=== PATIENT | female | born 1935 | race Caucasian/White ===

== ENCOUNTER 2017-07-06 07:51 | Inpatient (IN) | payer MEDICARE, SELFPAY ==
[2017-07-06] VITALS (25 sets, daily range): BP systolic 138–163; BP diastolic 41–80; PULSE 51–72; RESP 14–36; TEMP 36.6–37.1; O2SAT 40–99; BMI 31.1; BMI 31.2; BMI 29.1
--- NOTE | 2017-07-06 07:51 | EKG12_ITS ---
Test Reason : SOB Blood Pressure : / mmHG Vent. Rate : 050 BPM Atrial Rate : 050 BPM P-R Int : 130 ms QRS Dur : 084 ms QT Int : 514 ms P-R-T Axes : 053 048 048 degrees QTc Int : 468 ms Sinus bradycardia Nonspecific ST and T wave abnormality Abnormal ECG Confirmed by BEE NEGRON, MU ([id number]), script editor ISADORA CASTREJON ([id number]) on 07/11/2017 3:46:22 PM Referred By: EMMY Confirmed By:MU GAMBOA MD
--- NOTE | 2017-07-06 07:52 | RAD_ITS ---
STUDY: X-RAY CHEST REASON FOR EXAM: Female, 81 years old. Shortness of breath and chest pain. TECHNIQUE: Single AP portable view of the chest. COMPARISON: Comparison is made with prior study dated October 25, 2016. FINDINGS: EKG electrodes are seen. There is evidence of increased interstitial markings at both lung bases with areas of confluence. This is suggestive of a CHF. There is no demonstrated pleural abnormality. There is moderate cardiac enlargement. Normal mediastinum and gregg. Normal visualized pulmonary arteries. There is atherosclerotic calcification of the aortic arch with tortuosity. There are diffuse degenerative changes of the visualized thoracic spine. Normal visualized ribs, clavicles, and shoulders. There is no demonstrated abnormality of the visualized soft tissue structures of the upper abdomen. RAD/Chest 1 View (Portable) IMPRESSION: Cardiomegaly and CHF. Electronically Signed: Ranjan Byrd MD at 8:38 EDT Tel [phone], Service support ,
[2017-07-06 08:13] LABS: Absolute Lymphocyte Count 1.27 X10^3/ul (0.83-4.51); Absolute Neutrophil Count 11.7 X10^3/uL (2.0-7.7); Basophil# 0.02 X10^3/uL; Basophil% 0.1 % (0-1); Eosinophil# 0.53 X10^3/uL; Eosinophils% 3.6 % (0-5); Hematocrit 36.1 % (37-47); Hemoglobin 10.9 g/dl (12.0-15.0); Lymphocyte # 1.27 X10^3/ul (4.0); Lymphocyte % 8.7 % (19-41); Mean Corp Hgb Conc 30.2 g/gl (32-36); Mean Corpuscular Hgb 27.9 pg (27.0-32.0); Mean Corpuscular Volume 92.3 fL (81-99); Mean Platelet Vol. 10.7 fl (6.2-12.0); Monocyte# 1.05 X10^3/uL; Monocyte% 7.2 % (0-10); Neutrophil # 11.74 X10^3/uL (2.7-7.7); Neutrophil % 80.1 % (47-70); Platelet Count 264 K/mm3 (150-450); RBC Distribution Width CV 14.8 % (11.6-14.6); RBC Distribution Width SD 50.2 fl (35.1-43.9); Red Blood Count 3.91 M/mm3 (4.2-5.4); White Blood Count 14.7 K/mm3 (4.4-11.0)
[2017-07-06] MEDS: Ipratropium/Albuterol Sulfate 3 ML AMPUL.NEB INHALATION (08:13)
[2017-07-06] MEDS: Albuterol 2.5 MG/3 ML VIAL.NEB. INHALATION ×2 (08:13)
[2017-07-06 08:14] LABS: POSITIVE COUNT NO; POSITIVE DIFFERENTIAL NO; POSITIVE MORPHOLOGY NO
[2017-07-06] MEDS: MethylPREDNISolone 125 MG/2 ML Vial IV (08:18)
--- NOTE | 2017-07-06 08:28 | NURSING ---
NO LW OR POA
[2017-07-06 08:32] LABS: Anion Gap 3 (5-15); BUN 13 mg/dL (7-18); BUN/Creat Ratio 17.8 RATIO (10-20); Calcium,Total 8.6 mg/dL (8.5-10.1); Chloride 103 mmol/L (98-107); Creatinine, Serum 0.73 mg/dL (0.55-1.02); EST Glomerular Filtration Rate 81 mL/min (>60); Est Glom Filt Rate - Afr Amer 98 mL/min (>60); Estimated Creatinine Clearance 35.88 ml/min; Glucose 175 mg/dL (74-106); Potassium 4.2 mmol/L (3.5-5.1); Sodium Level 140 mmol/L (136-145)
[2017-07-06 08:34] LABS: Lactic Acid 1.5 mmol/L (0.4-2.0)
[2017-07-06 08:40] LABS: Allen Test POS; Base Excess 4 mmol/L (-2 to +2); Bicarbonate 30.3 mmol/L (22-26); Blood Gas Specimen Type ART; EPAP 5; FI02 65; IPAP 10; PO2 67 mmHG (75-100); RR 14; SITE R Radial; SO2 90 % (95-99); Time Given 825; Total Carbon Dioxide 32 mmol/L
--- NOTE | 2017-07-06 08:55 | ED.VISSUMM ---
- ER Visit Summary Date of Service: 07/06/17 Chief Complaint: Shortness of breath History of Present Illness: The patient is a 81 F with an underlying history of COPD hypertension high cholesterol and peripheral vascular disease presenting with shortness of breath. Patient states this been getting worse over the course of the last 2 days. She feels that it is consistent with her COPD. Patient is on chronic oxygen at home, denies cough chest pain fevers. Patient states that she had been getting progressively more short of breath over the course of the last 2 days. When paramedics arrived patient was 78% on her home 3 L. She was brought immediately to the emergency department. Physical Examination: Vital signs notable for a respiratory rate of 24 pulse ox 94% on nonrebreather with hypoxia. Well-nourished female visibly in mild respiratory distress. Moist mucous membranes. Neck was supple. Heart was regular rhythm with bradycardia. 2+ peripheral pulses bilaterally symmetric. Lung sounds showed evidence of wheezing and diminished sounds with poor air movement mild distress no significant retractions noted. Abdomen soft nontender. No peripheral edema. Test Results: Chest x-ray demonstrates bilateral pulmonary infiltrates consistent with CHF. EKG shows lateral ST depressions that were apparent in a prior EKG in 2017. CBC shows leukocytosis of 14, troponin negative, lactic acid negative, ABG shows respiratory acidosis pH is 7.3 and a CO2 of 61 Emergency Department Course and Treatment: Patient presented in respiratory distress. She was placed on BiPAP. She was given albuterol and Atrovent treatments as well as Solu-Medrol. Workup shows evidence that the patient has congestive heart failure. Patient will be given dose of Lasix, she will be admitted under the hospitalist. Disposition: Admission Impression: 1. Hypoxic and hypercapnic respiratory failure 2. Congestive heart failure 3. COPD Critical care time 35 minutes This note was generated with [employer] dictation software. It may contain incorrect words, spelling, and punctuation that were not noted in review of the chart prior to signing ED Disposition - Plan for ED Patient: Chief Complaint: Shortness of Breath Referrals: Cole Moran MD [Primary Care Provider] -
--- NOTE | 2017-07-06 09:17 | CASEMGMT ---
Social Work Note In to complete initial assessment as pt is an anticipated admission. Introduced self and role at [facility]. The pt is presently receiving a breathing treatment, and is accompanied by her daughter, Roselia, and her granddaughter. Pt and her daughter both respond to questions. Pt reports to live in a one-story home with 3 steps for entry with her grandson. DME consists of a cane, which she only uses for community ambulation, and oxygen. She currently gets her oxygen through [employer] but according to Roselia is in the process of switching to [facility]. Pt's daughter, Roselia, claims to be the pt's HCPOA. Not on file and requested that Roselia bring paperwork in. Pt denies being independent with ADLs and Roselia states that she assists her with these. Pt has adequate supports as family lives with her or next door. Confirm that Dr. Moran is the pt's PCP and she utilizes [facility]. Pt and daughter do not anticipate any needs at discharge, but are made aware that RN ALICIA or SW will be available if needs arise. Linda Harden, INCLINOMETER TESTER, EXHIBITOR SALES
--- NOTE | 2017-07-06 10:15 | NURSING ---
DR DAWKINS FOR DR BOOTH
--- NOTE | 2017-07-06 10:23 | PCM.HP.STD ---
Problem List (1) History of hypertension Status: Chronic (2) Hyperlipidemia Status: Chronic Qualifiers: Hyperlipidemia type: unspecified Qualified Code(s): E78.5 - Hyperlipidemia, unspecified (3) COPD (chronic obstructive pulmonary disease) Status: Chronic Qualifiers: COPD type: unspecified COPD Qualified Code(s): J44.9 - Chronic obstructive pulmonary disease, unspecified (4) DUDLEY on CPAP Status: Chronic (5) History of peripheral vascular disease Status: Chronic History of Present Illness Date of Admission: 07/06/17 Chief Complaint: Shortness of breath for 2 days The patient is a 81 year old F with past medical history of COPD on 3 L of oxygen, DUDLEY on CPAP, hypertension comes in with complaints of worsening shortness of breath noted in the last 2 days. Patient denies any sick contacts, denies runny nose or sore throat. Noticed progressively worsening shortness of breath, denies chest pain, dizziness or palpitations. In the ED, patient was said to be hypoxic with 79% on room air, ABG showed respiratory acidosis, started on BiPAP and Lasix with improvement. Chest x-ray shows vascular congestion, BNPep was more than 423. Lab investigations show some leukocytosis, microcytic microchromic anemia. Past Medical History Past Medical History (Chronic Problems): Chronic Problems History of hypertension (Chronic) Hyperlipidemia (Chronic) History of tobacco use (Chronic) History of esophageal reflux (Chronic) Diverticulosis of colon (without mention of hemorrhage) (Chronic) COPD (chronic obstructive pulmonary disease) (Chronic) DUDLEY on CPAP (Chronic) History of peripheral vascular disease (Chronic) Allergies cilostazol [From Pletal] Allergy (Verified 07/06/17 07:56) Swelling Penicillins Allergy (Verified 07/06/17 07:56) Swelling Home Medications: Ambulatory Orders Medication Instructions Recorded Albuterol Inhaler [Ventolin Hfa 2 puff INHALATION Q6H PRN PRN 04/27/16 (SP)] Albuterol Sulfate [Proventil Hfa] 6.7 gm IH Q2H PRN PRN 04/27/16 Amlodipine Besylate [Norvasc] 10 mg PO DAILY 04/27/16 Citalopram [Celexa] 40 mg PO QHS 04/27/16 Clopidogrel Bisulfate [Plavix] 75 mg PO DAILY 04/27/16 Ferrous Gluconate 325 mg PO DAILY@0800 04/27/16 Fluticasone 220 Mcg [Flovent (SP)] 2 puff INHALATION BID 04/27/16 Furosemide [Lasix] 40 mg PO DAILY 04/27/16 Lisinopril [Zestril] 40 mg PO BID 04/27/16 Loratadine [Claritin] 10 mg PO DAILY 04/27/16 Multivitamins,Ther W-Minerals 1 tablet PO DAILY 04/27/16 [Multivitamin With Minerals] [place]-3 Fatty Acids/Fish Oil 2 each PO DAILY 04/27/16 [[place] 3 1,000 mg Softgel] Pantoprazole Sodium [Protonix] 40 mg PO DAILY 04/27/16 Potassium Chloride [K-Dur] 20 meq PO BID 04/27/16 Pravastatin [Pravachol] 40 mg PO DAILY 04/27/16 traZODone [Desyrel] 100 mg PO QHS 04/27/16 Clonidine HCl 0.1 mg PO DAILY 07/06/17 Cyanocobalamin [Vitamin B12] 1,000 mcg PO DAILY@0800 07/06/17 Ipratropium [Atrovent] 0.5 mg INHALATION 4X/DAY 07/06/17 Metoprolol(XL)Succ [Toprol Xl 100 mg PO DAILY 07/06/17 (Beta Gwen)] Surgical History: hysterectomy, - - Lumpectomy right breast, back surgery there was a lump removed from left jaw region, skin cancer surgery. 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 Dyspnea. Denies: Chest Pain, Claudication, Orthopnea, Palpitations Respiratory: Reports: Cough, Shortness of Breath, Shortness of breath at rest, Shortness of breath upon exertion, Wheezing. Denies: Hemoptysis, Sputum production Gastrointestinal: Denies: Abdominal Pain, Hematemesis, Nausea, Vomiting Genitourinary: Denies: Dysuria Gynecological: Denies: Breast symptoms, Excessively long or heavy periods Musculoskeletal: Denies: Joint Pain, Joint Tenderness Skin: Denies: Rash, Wounds Neurological: Denies: Numbness, Tingling, Focal weakness Psychiatric: Denies: Anxiety, Depression, Homicidal Ideations, Suicidal Ideations Hematologic/ Lymphatic: Denies: Easy Bruising, Easy Bleeding VTE Information - Inpt Only VTE Present on Admission: No VTE Pharm Prophylaxis ordered?: Yes - Physical Exam General: Alert, Oriented x3, Cooperative, No apparent distress HEENT: Atraumatic, PERRLA, EOMI, Normocephalic Oral: Moist Mucosa Neck: Supple Lungs: Clear to auscultation, Normal air movement Cardiovascular: Regular rate, Regular Rhythm, Normal S1, Normal S2, No murmurs Abdomen: Bowel Sounds Present, Soft, Non Tender, Non-Distended, No Hepato-splenomegaly Extremities: No edema Skin: No rashes Musculoskeletal: No Tenderness to Palpation of Joints or Extremities Lymphatic: No Cervical, Supraclavicular, or Inguinal Adenopathy Neurological: Cranial nerves II-XII grossly intact, Neuro grossly intact Psych/Mental Status: Normal Affect, Appropriate Vital Signs Temp Pulse Resp BP Pulse Ox 97.9 F 53 L 17 150/80 H 96 07/06/17 07:51 07/06/17 10:10 07/06/17 10:10 07/06/17 10:10 07/06/17 10:10 Oxygen Delivery Method Bi-pap Weight: 79.832 kg Body Mass Index (BMI) 31.1 Finger Stick Blood Glucose 196 Microbiology Past 72 Hours 07/06/17 09:25 Influenza Types A,B Direct FA (RC) - Final Mucosa - Nasopharyngeal Laboratory Tests Past 24 Hrs 07/06/17 07/06/17 07/06/17 08:05 08:05 08:05 WBC 14.7 H RBC 3.91 L Hgb 10.9 L Hct 36.1 L MCV 92.3 MCH 27.9 MCHC 30.2 L RDW 14.8 H RDW Differential 50.2 H Plt Count 264 MPV 10.7 Immature Gran % (Auto) 0.300 Neut % (Auto) 80.1 H Lymph % (Auto) 8.7 L [place] % (Auto) 7.2 Eos % (Auto) 3.6 Baso % (Auto) 0.1 Absolute Neuts (auto) 11.7 H Absolute Lymphs (auto) 1.27 Total Counted Not Reportable Specimen Type Sample Site pH Bicarbonate Actual POC Total CO2 Base Excess O2 Saturation O2 % ABG pCO2 ABG pO2 Jeramie Test Respiration Rate O2 Delivery Device EPAP IPAP Blood Gas Notified Whom Blood Gas Notified Time Sodium 140 Potassium 4.2 Chloride 103 Carbon Dioxide 34.0 H Anion Gap 3 L BUN 13 Creatinine 0.73 Estim Creat Clear Calc 35.88 Est GFR (MDRD) Af Amer 98 Est GFR (MDRD) Non-Af 81 BUN/Creatinine Ratio 17.8 Glucose 175 H Lactic Acid 1.5 Calcium 8.6 Troponin I < 0.02 07/06/17 08:34 WBC RBC Hgb Hct MCV MCH MCHC RDW RDW Differential Plt Count MPV Immature Gran % (Auto) Neut % (Auto) Lymph % (Auto) [place] % (Auto) Eos % (Auto) Baso % (Auto) Absolute Neuts (auto) Absolute Lymphs (auto) Total Counted Specimen Type ART Sample Site R Radial pH 7.30 L Bicarbonate Actual 30.3 H POC Total CO2 32 Base Excess 4 H O2 Saturation 90 L O2 % 65 ABG pCO2 61.0 H ABG pO2 67 L Jeramie Test POS Respiration Rate 14 O2 Delivery Device Bi / C PAP EPAP 5 IPAP 10 Blood Gas Notified Whom ED MD Blood Gas Notified Time 825 Sodium Potassium Chloride Carbon Dioxide Anion Gap BUN Creatinine Estim Creat Clear Calc Est GFR (MDRD) Af Amer Est GFR (MDRD) Non-Af BUN/Creatinine Ratio Glucose Lactic Acid Calcium Troponin I Assessment/Plan 81 year old F with past medical history of COPD on 3 L of oxygen, DUDLEY on CPAP, hypertension comes in with complaints of worsening shortness of breath noted in the last 2 days. 1. Acute hypoxic respiratory failure secondary to combined COPD and acute on chronic diastolic CHF, improved on BiPAP, admit to PCU, continue on BiPAP, continue to wean off BiPAP for SPO2 more than 94%, will consider pulmonary consult if patient maintains on BiPAP overnight. 2. Acute COPD exacerbation in a patient with known COPD on 3 L of oxygen, would start patient on IV steroids, respiratory panel, breathing treatments around the clock, IV azithromycin 3. Acute on chronic diastolic CHF, last 2D echo in 2012 showed stage I diastolic dysfunction, will repeat 2D echo, IV Lasix 40 mg twice daily, strict I's and O's, daily weights 4. Hypertension, controlled, on amlodipine, metoprolol, lisinopril, clonidine, will continue to monitor vitals 5. Hyperlipidemia, on statin 6. Anxiety/depression, on Celexa and trazodone 7. Iron deficiency anemia, on p.o. iron, hemoglobin appears stable 8. DUDLEY on CPAP 9. DVT prophylaxis on Lovenox subcu Code Visit Inpatient E&M: 91662 Subs Hosp L2
--- NOTE | 2017-07-06 10:27 | NURSING ---
121 ACUTE HYOPOXIC RESP FAILURE PAINTSIL
[2017-07-06] MEDS: Furosemide 40 MG/4 ML Vial IV ×2 (10:44→18:18)
[2017-07-06 10:57] LABS: BNP,B-Type NATRIURETIC PEPTIDE 423.4 pg/mL (0-100)
--- NOTE | 2017-07-06 13:56 | ECHOD_ITS ---
Reason For Study: DYPSNEA/SOB Procedure This was a 2D Doppler, Color Flow transthoracic echocardiogram. Exam performed portable in patient room. Left Ventricle Normal size and thickness. The estimated ejection fraction is 55 %. Stage 2 diastolic dysfunction. No regional wall motion abnormalities noted. Right Ventricle Normal size and thickness. Normal systolic function. Atria The left atrium is severely enlarged. Normal right atrium. Normal atrial septum. Mitral Valve Mild diffuse mitral valve thickening. Moderate (2+) posteriorly directed mitral valve insufficiency. Tricuspid Valve Normal tricuspid valve. Mild (1+) tricuspid valve insufficiency. Right ventricular systolic pressure estimated to be 59 mmHg. Moderate pulmonary hypertension. Aortic Valve Trisinus/trileaflet aortic valve. Mild diffuse aortic valve thickening. There is no aortic stenosis. Pulmonic Valve Normal pulmonic valve. Great Vessels Normal aortic root. Mild atherosclerosis of the aortic arch. Normal inferior vena cava. Inferior vena cava collapse with sniff. Pericardium/Pleural No pericardial effusion. MMode/2D Measurements & Calculations LVIDd: 5.9 cm IVSd: 1.2 cm Ao root diam: 3.8 cm LVIDs: 4.0 cm LVPWd: 0.97 cm RVDd: 3.4 cm FS: 32.0 % LAV(MOD-bp): 101.1 ml EDV(MOD-sp4): 165.9 ml SV(MOD-sp4): 99.8 ml LAV(MOD-bp) Indexed: 56.9 ml/m2 ESV(MOD-sp4): 66.1 ml LAV(MOD-sp2): 96.9 ml EF(MOD-sp4): 60.2 % LAV(MOD-sp4): 93.0 ml LA A4 area: 27.7 cm2 RA A4 area: 19.1 cm2 Time Measurements MV dec time: 0.19 sec Doppler Measurements & Calculations MV E max william: 168.3 cm/sec Lat Peak E' William: 10.4 cm/sec Med Peak E' William: 5.2 cm/sec MV A max william: 97.2 cm/sec E/E' lat: 16.2 E/E' med: 32.5 MV E/A: 1.7 Ao V2 max: 188.4 cm/sec LV V1 max: 118.5 cm/sec PA V2 max: 121.1 cm/sec Ao max P.2 mmHg LV V1 max P.6 mmHg TR max william: 321.8 cm/sec TR max P.4 mmHg Interpretation Summary The estimated ejection fraction is 55 %. Stage 2 diastolic dysfunction. The left atrium is severely enlarged. Moderate (2+) posteriorly directed mitral valve insufficiency. Mild (1+) tricuspid valve insufficiency. Right ventricular systolic pressure estimated to be 59 mmHg. Moderate pulmonary hypertension. Compared to echo report dated 01/03/2013, LV function appears slightly worse (65%-->55%), RVSP has incareased from 35 to 59 mm Hg. Ordering Physician: Marcella Mcgraw Referring Physician: CELESTINA LARSON Performed By: Alisa Ortiz RDCS
[2017-07-06] MEDS: guaiFENesin 1,200 MG Tablet 1200 MG PO (22:56)
[2017-07-07] VITALS (18 sets, daily range): BP systolic 139–162; BP diastolic 52–78; PULSE 56–95; RESP 14–22; TEMP 36.6–37.2; O2SAT 92–99
[2017-07-07] MEDS: Enoxaparin 40 MG/0.4 ML Syringe SC (05:10)
[2017-07-07] MEDS: 0.9% NaCl Peripheral Flush Adult/Peds IV (05:10)
[2017-07-07 06:25] LABS: Hematocrit 32.4 % (37-47); Hemoglobin 10.3 g/dl (12.0-15.0); Mean Corp Hgb Conc 31.8 g/gl (32-36); Mean Corpuscular Hgb 28.7 pg (27.0-32.0); Mean Corpuscular Volume 90.3 fL (81-99); Platelet Count 236 K/mm3 (150-450); RBC Distribution Width CV 14.6 % (11.6-14.6); RBC Distribution Width SD 47.3 fl (35.1-43.9); Red Blood Count 3.59 M/mm3 (4.2-5.4); White Blood Count 7.8 K/mm3 (4.4-11.0)
[2017-07-07 06:31] LABS: Scan Indicated on CBC? Y/N NO
[2017-07-07 06:44] LABS: Anion Gap 7 (5-15); BUN 26 mg/dL (7-18); BUN/Creat Ratio 35.1 RATIO (10-20); Calcium,Total 8.6 mg/dL (8.5-10.1); Chloride 99 mmol/L (98-107); Creatinine, Serum 0.74 mg/dL (0.55-1.02); EST Glomerular Filtration Rate 80 mL/min (>60); Est Glom Filt Rate - Afr Amer 97 mL/min (>60); Estimated Creatinine Clearance 35.88 ml/min; Glucose 157 mg/dL (74-106); Potassium 3.8 mmol/L (3.5-5.1); Sodium Level 140 mmol/L (136-145)
[2017-07-07] MEDS: Ipratropium/Albuterol Sulfate 3 ML AMPUL.NEB INHALATION ×3 (07:27→15:07)
[2017-07-07] MEDS: Furosemide 40 MG/4 ML Vial IV ×2 (08:14→18:22)
[2017-07-07] MEDS: guaiFENesin 1,200 MG Tablet 1200 MG PO ×2 (08:15→22:23)
[2017-07-07] MEDS: Acetaminophen 325 MG Tablet 650 MG PO ×2 (11:07→18:22)
--- NOTE | 2017-07-07 16:12 | PCM.PROGNOTE ---
<Martín Mandujano - Last Filed: 07/07/17 16:12> Subjective: Pts SOB is improving. Mild cough, nonproductive. No fevers or chills. Will attempt to wean O2. She tolerated BiPAP last night. She reports compliance with this at home. - Physical Exam General: Alert, Oriented x3, Cooperative HEENT: Atraumatic, PERRLA, EOMI, Normocephalic Neck: Supple, No JVD, Negative Carotid Bruits Lungs: Diminished, Rales Cardiovascular: Regular rate, No murmurs Abdomen: Bowel Sounds Present, Soft, Non Tender Extremities: No edema, Capillary Refill Less than 3 Seconds Skin: No rashes, No breakdown Musculoskeletal: No Tenderness to Palpation of Joints or Extremities Neurological: Cranial nerves II-XII grossly intact Psych/Mental Status: Normal Affect, Appropriate Vital Signs Temp Pulse Resp BP Pulse Ox 98.2 F 95 18 148/52 H 94 07/07/17 14:00 07/07/17 15:19 07/07/17 15:11 07/07/17 14:00 07/07/17 15:11 Oxygen Flow Rate (L/min) 3 Oxygen Delivery Method Nasal Cannula Weight: 73.7 kg Body Mass Index (BMI) 29.1 Intake and Output for Last 24 Hours 07/05/17 07/06/17 07/07/17 23:59 23:59 23:59 Intake Total 871 / 871 720 / 720 Output Total 1320 / 1320 825 / 825 Balance -449 / -449 -105 / -105 Microbiology Past 72 Hours 07/06/17 19:05 Respiratory Panel (PCR) - Final Mucosa - Nasopharyngeal Laboratory Tests Past 24 Hrs 07/07/17 07/07/17 06:05 06:05 WBC 7.8 RBC 3.59 L Hgb 10.3 L Hct 32.4 L MCV 90.3 MCH 28.7 MCHC 31.8 L RDW 14.6 RDW Differential 47.3 H Plt Count 236 MPV 11.0 Sodium 140 Potassium 3.8 Chloride 99 Carbon Dioxide 34.0 H Anion Gap 7 BUN 26 H Creatinine 0.74 Estim Creat Clear Calc 35.88 Est GFR (MDRD) Af Amer 97 Est GFR (MDRD) Non-Af 80 BUN/Creatinine Ratio 35.1 H Glucose 157 H Calcium 8.6 Medical Necessity - Tobacco Use Smoking Status: Former smoker Assessment/Plan 1. Acute on chronic hypoxic respiratory failure 2/2 acute COPD exacerbation and acute diastolic CHF exacerbation - pt initially on BiPAP with mild respiratory acidosis with elevated BNP, negative lactate, neg troponin. She is now improved and we will attempt to wean O2 to baseline 3 lpm. Continue lasix, duonebs, solumedrol, I/Os, bipap at night. Continue azithromycin. CXR with cardiomegaly and CHF. Leukocytosis improved. Afebrile. Echo pending. Last echo (2012) with stage I diastolic dysfunction, EF 65%, RVSP 35 mmHg. Her SERGIO and beta juana were held at admission - restart. 2. HTN - restart home meds - clonodine, BB, sergio (will daily qd instead of BID to start). 3. DUDLEY - bipap qhs. 4. HLD - statin 5. Anxiety/Depression - celexa/trazodone 6. Normocytic anemia - continue PO iron. Trend DVT ppx: lovenox DC planning: improved, will reevaluate in AM. PTOT. This patient was seen by Martín Mandujano PA-C under the supervision of Doctor Mariluz. <Marcella Mcgraw - Last Filed: 07/07/17 17:14> - Physical Exam Vital Signs Temp Pulse Resp BP Pulse Ox 98.2 F 95 18 148/52 H 94 07/07/17 14:00 07/07/17 15:19 07/07/17 15:11 07/07/17 14:00 07/07/17 15:11 Oxygen Flow Rate (L/min) 3 Oxygen Delivery Method Nasal Cannula Weight: 73.7 kg Body Mass Index (BMI) 29.1 Intake and Output for Last 24 Hours 07/05/17 07/06/17 07/07/17 23:59 23:59 23:59 Intake Total 871 / 871 720 / 720 Output Total 1320 / 1320 825 / 825 Balance -449 / -449 -105 / -105 Microbiology Past 72 Hours 07/06/17 19:05 Respiratory Panel (PCR) - Final Mucosa - Nasopharyngeal Laboratory Tests Past 24 Hrs 07/07/17 07/07/17 06:05 06:05 WBC 7.8 RBC 3.59 L Hgb 10.3 L Hct 32.4 L MCV 90.3 MCH 28.7 MCHC 31.8 L RDW 14.6 RDW Differential 47.3 H Plt Count 236 MPV 11.0 Sodium 140 Potassium 3.8 Chloride 99 Carbon Dioxide 34.0 H Anion Gap 7 BUN 26 H Creatinine 0.74 Estim Creat Clear Calc 35.88 Est GFR (MDRD) Af Amer 97 Est GFR (MDRD) Non-Af 80 BUN/Creatinine Ratio 35.1 H Glucose 157 H Calcium 8.6 Assessment/Plan Patient was seen and examined independently physician boilermaker's assistant, Martín Mandujano. Patient was admitted yesterday with acute hypoxic respiratory failure secondary to acute COPD exacerbation and CHF. She reports of cough productive of clear mucus. Denies any fever or chills or chest pain no dizziness or palpitations. Feels much better. Off BiPAP, on 25 L of oxygen. Able to lie almost flat. Diuresing well. Physical exam shows few crackles at lung bases, no wheezes heard. 2D echo shows EF of 55%, stage II diastolic dysfunction. respiratory panel was negative, DC respiratory call droplet isolation We will continue on Lasix twice daily, IV steroids, breathing treatments, IV azithromycin, will re-evaluate in am Code Visit Inpatient E&M: 20093 Subs Hosp L2
[2017-07-07] MEDS: Citalopram 40 MG TABLET PO (22:23)
[2017-07-07] MEDS: traZODone 100 MG Tablet PO (22:23)
[2017-07-08] VITALS (18 sets, daily range): BP systolic 150–185; BP diastolic 61–94; PULSE 59–96; RESP 14–24; TEMP 36.4–36.8; O2SAT 94–99
[2017-07-08] MEDS: Enoxaparin 40 MG/0.4 ML Syringe SC (06:13)
[2017-07-08] MEDS: 0.9% NaCl Peripheral Flush Adult/Peds IV ×4 (06:13→17:29)
[2017-07-08] MEDS: Ipratropium/Albuterol Sulfate 3 ML AMPUL.NEB INHALATION ×3 (06:42→15:31)
[2017-07-08] MEDS: Ferrous Gluconate 325 MG Tablet PO (08:38)
[2017-07-08] MEDS: cloNIDine HCl 0.1 MG Tablet PO (08:38)
[2017-07-08] MEDS: Loratadine 10 MG Tablet PO (08:38)
[2017-07-08] MEDS: Pravastatin 40 MG Tablet PO (08:39)
[2017-07-08] MEDS: Furosemide 40 MG/4 ML Vial IV ×2 (08:39→17:29)
[2017-07-08] MEDS: Clopidogrel Bisulfate 75 MG Tablet PO (08:39)
[2017-07-08] MEDS: guaiFENesin 1,200 MG Tablet 1200 MG PO (08:39)
[2017-07-08] MEDS: Pantoprazole Sodium 40 MG Tablet PO (08:39)
[2017-07-08] MEDS: Metoprolol(XL)Succ 100 MG Tablet PO (08:39)
[2017-07-08] MEDS: Lisinopril 40 MG Tablet PO (08:40)
--- NOTE | 2017-07-08 12:00 | PCM.DC ---
You will use the following diet at home:: Cardiac - 2 g sodium/day Your food should be the consistency of: Regular Your liquids should be the consistency of: Regular/Thin Discharge Activity: Return to Normal Activity Additional Instructions: check daily weight Allergies/Adverse Reactions: Allergies cilostazol [From Pletal] Allergy (Verified 07/06/17 07:56) Swelling Penicillins Allergy (Verified 07/06/17 07:56) Swelling Medications to take at Discharge Albuterol Inhaler [Ventolin Hfa] 2 puff INHALATION Q6H PRN PRN 04/27/16 Albuterol Sulfate [Proventil Hfa] 6.7 gm IH Q2H PRN PRN 04/27/16 Amlodipine Besylate [Norvasc] 10 mg PO DAILY 04/27/16 Citalopram [Celexa] 40 mg PO QHS 04/27/16 Clopidogrel Bisulfate [Plavix] 75 mg PO DAILY 04/27/16 Ferrous Gluconate 325 mg PO DAILY@0800 04/27/16 Fluticasone 220 Mcg [Flovent 220 Mcg] 2 puff INHALATION BID 04/27/16 Lisinopril [Zestril] 40 mg PO BID 04/27/16 Loratadine [Claritin] 10 mg PO DAILY 04/27/16 Multivitamins,Ther W-Minerals [Multivitamin With Minerals] 1 tablet PO DAILY 04/27/16 [place]-3 Fatty Acids/Fish Oil [[place] 3 1,000 mg Softgel] 2 each PO DAILY 04/27/16 Pantoprazole Sodium [Protonix] 40 mg PO DAILY 04/27/16 Potassium Chloride [K-Dur] 20 meq PO BID 04/27/16 Pravastatin [Pravachol] 40 mg PO DAILY 04/27/16 traZODone [Desyrel] 100 mg PO QHS 04/27/16 Clonidine HCl 0.1 mg PO DAILY 07/06/17 Cyanocobalamin [Vitamin B12] 1,000 mcg PO DAILY@0800 07/06/17 Ipratropium [Atrovent Aerosols] 0.5 mg INHALATION 4X/DAY 07/06/17 Metoprolol(XL)Succ [Toprol Xl (Beta Gwen)] 100 mg PO DAILY 07/06/17 Furosemide [Lasix] 40 mg PO BID #60 tab 07/08/17 Prednisone 10 mg PO UD #30 tab 07/08/17 The following prescriptions were given: Furosemide [Lasix] 40 mg PO BID #60 tab Prednisone 10 mg PO UD #30 tab Orders to be completed after discharge: Basic Metabolic Profile (BMP) Time Frame: 5 Days, Location: Laboratory Primary Care Physician: Cole Moran MD [Primary Care Provider] - Please follow up with your Primary Care Physician in: 1-2 weeks Proposed Discharge Date: 07/08/17
--- NOTE | 2017-07-08 14:15 | PCM.DC.SUM ---
<Martín Mandujano - Last Filed: 07/08/17 14:15> Discharge Date and Diagnosis Date of Admission: 07/06/17 Date of Discharge: 07/08/17 - Primary Discharge Diagnosis Acute on chronic hypoxic respiratory failure 2/2 acute COPD exacerbation and acute diastolic CHF exacerabtion Moderate pulmonary htn HTN DUDLEY HLD Anxiety/Depression Iron deficiency anemia - Secondary Discharge Diagnosis Chronic Problems History of hypertension (Chronic) Hyperlipidemia (Chronic) History of tobacco use (Chronic) History of esophageal reflux (Chronic) Diverticulosis of colon (without mention of hemorrhage) (Chronic) COPD (chronic obstructive pulmonary disease) (Chronic) DUDLEY on CPAP (Chronic) History of peripheral vascular disease (Chronic) Hospital Course and Treatment Imaging Results: RAD/Chest 1 View (Portable) IMPRESSION: Cardiomegaly and CHF. Echo: Interpretation Summary The estimated ejection fraction is 55 %. Stage 2 diastolic dysfunction. The left atrium is severely enlarged. Moderate (2+) posteriorly directed mitral valve insufficiency. Mild (1+) tricuspid valve insufficiency. Right ventricular systolic pressure estimated to be 59 mmHg. Moderate pulmonary hypertension. Compared to echo report dated 01/03/2013, LV function appears slightly worse (65%-->55%), RVSP has incareased from 35 to 59 mm Hg. Operations: None Procedures: 2-D Echocardiogram Summary of Care Provided: Physical exam on day of discharge: General: Resting comfortably NAD Psych: A/Ox3 normal affect HEENT: PEARRLA AT NC Neck: Supple NT CV: RRR no m/t/r/g/h Resp: CTA Abd: [id number] Soft NT no guarding or rigidity Ext: DP2+= no edema Skin: W/D normal turgor Lymph/Heme: No active bleeding or adenopathy Neuro: CN2-12 intact Hospital course: The patient is a 81 year old F who presented to the emergency room complaining of shortness of breath over the last 2 days. She has COPD and is chronically oxygen dependent on 3 L and uses CPAP at night for obstructive sleep apnea. She was hypoxic in the emergency room 79% on room air. Her ABG demonstrated respiratory acidosis. She was placed on BiPAP and given IV Lasix that she appeared to be in congestive heart failure with an elevated BNP and a chest x-ray consistent with CHF. She was also placed on duo nebs and solumedrol. The patient did well overnight. She had a repeat echo following day which demonstrated a preserved ejection fraction at 55% with stage II diastolic dysfunction, elevated RVSP at 59 mmHg consistent with moderate pulmonary hypertension. We continued steroids and diuretics and she continued to improve well. She is able to be weaned back to her normal home oxygen levels. She is transitioned to a p.o. prednisone taper and orals Lasix. She will have an outpatient BMP and follow-up with her PCP. She is discharged home in stable condition. This patient was seen by Martín Mandujano PA-C under the supervision of Doctor Mcgraw. [] Discharge Diet: 2000 mg Sodium Diet Discharge Activity: Return to Normal Activity Home Medications: Medications to take at Discharge Albuterol Inhaler [Ventolin Hfa] 2 puff INHALATION Q6H PRN PRN 04/27/16 Albuterol Sulfate [Proventil Hfa] 6.7 gm IH Q2H PRN PRN 04/27/16 Amlodipine Besylate [Norvasc] 10 mg PO DAILY 04/27/16 Citalopram [Celexa] 40 mg PO QHS 04/27/16 Clopidogrel Bisulfate [Plavix] 75 mg PO DAILY 04/27/16 Ferrous Gluconate 325 mg PO DAILY@0800 04/27/16 Fluticasone 220 Mcg [Flovent 220 Mcg] 2 puff INHALATION BID 04/27/16 Lisinopril [Zestril] 40 mg PO BID 04/27/16 Loratadine [Claritin] 10 mg PO DAILY 04/27/16 Multivitamins,Ther W-Minerals [Multivitamin With Minerals] 1 tablet PO DAILY 04/27/16 [place]-3 Fatty Acids/Fish Oil [[place] 3 1,000 mg Softgel] 2 each PO DAILY 04/27/16 Pantoprazole Sodium [Protonix] 40 mg PO DAILY 04/27/16 Potassium Chloride [K-Dur] 20 meq PO BID 04/27/16 Pravastatin [Pravachol] 40 mg PO DAILY 04/27/16 traZODone [Desyrel] 100 mg PO QHS 04/27/16 Clonidine HCl 0.1 mg PO DAILY 07/06/17 Cyanocobalamin [Vitamin B12] 1,000 mcg PO DAILY@0800 07/06/17 Ipratropium [Atrovent Aerosols] 0.5 mg INHALATION 4X/DAY 07/06/17 Metoprolol(XL)Succ [Toprol Xl (Beta Gwen)] 100 mg PO DAILY 07/06/17 Furosemide [Lasix] 40 mg PO BID #60 tab 07/08/17 Prednisone 10 mg PO UD #30 tab 07/08/17 Following Prescrptions Were Given to Patient: Furosemide [Lasix] 40 mg PO BID #60 tab Prednisone 10 mg PO UD #30 tab Primary Care Physician: Cole Moran MD [Primary Care Provider] - Please follow up with your Primary Care Physician in: 1-2 weeks Please Follow Up With: Cole Moran MD Disposition: Home Minutes spent on discharge:: 35 Patient Condition:: Stable Medical Necessity - Tobacco Use Smoking Status: Former smoker Meaningful Use Info Meaningful Use Diagnoses (Choose all that apply): CHF - CHF SERGIO/ARB ordered at discharge?: Yes Documented LVEF (%): 55 <Marcella Mcgraw - Last Filed: 07/08/17 16:31> Discharge Date and Diagnosis - Secondary Discharge Diagnosis Chronic Problems History of hypertension (Chronic) Hyperlipidemia (Chronic) History of tobacco use (Chronic) History of esophageal reflux (Chronic) Diverticulosis of colon (without mention of hemorrhage) (Chronic) COPD (chronic obstructive pulmonary disease) (Chronic) DUDLEY on CPAP (Chronic) History of peripheral vascular disease (Chronic) Hospital Course and Treatment Summary of Care Provided: The patient is a 81 year old F [] Code Visit Inpatient E&M: 59068 Disch Hosp
--- NOTE | 2017-07-08 14:20 | DS.PCM_ITS ---
<Martín Mandujano - Last Filed: 07/08/17 14:15> Discharge Date and Diagnosis Date of Admission: 07/06/17 Date of Discharge: 07/08/17 - Primary Discharge Diagnosis Acute on chronic hypoxic respiratory failure 2/2 acute COPD exacerbation and acute diastolic CHF exacerabtion Moderate pulmonary htn HTN DUDLEY HLD Anxiety/Depression Iron deficiency anemia - Secondary Discharge Diagnosis Chronic Problems History of hypertension (Chronic) Hyperlipidemia (Chronic) History of tobacco use (Chronic) History of esophageal reflux (Chronic) Diverticulosis of colon (without mention of hemorrhage) (Chronic) COPD (chronic obstructive pulmonary disease) (Chronic) UDDLEY on CPAP (Chronic) History of peripheral vascular disease (Chronic) Hospital Course and Treatment Imaging Results: RAD/Chest 1 View (Portable) IMPRESSION: Cardiomegaly and CHF. Echo: Interpretation Summary The estimated ejection fraction is 55 %. Stage 2 diastolic dysfunction. The left atrium is severely enlarged. Moderate (2+) posteriorly directed mitral valve insufficiency. Mild (1+) tricuspid valve insufficiency. Right ventricular systolic pressure estimated to be 59 mmHg. Moderate pulmonary hypertension. Compared to echo report dated 01/03/2013, LV function appears slightly worse (65 %-->55%), RVSP has incareased from 35 to 59 mm Hg. Operations: None Procedures: 2-D Echocardiogram Summary of Care Provided: Physical exam on day of discharge: General: Resting comfortably NAD Psych: A/Ox3 normal affect HEENT: PEARRLA AT NC Neck: Supple NT CV: RRR no m/t/r/g/h Resp: CTA Abd: [id number] Soft NT no guarding or rigidity Ext: DP2+= no edema Skin: W/D normal turgor Lymph/Heme: No active bleeding or adenopathy Neuro: CN2-12 intact Hospital course: The patient is a 81 year old F who presented to the emergency room complaining of shortness of breath over the last 2 days. She has COPD and is chronically oxygen dependent on 3 L and uses CPAP at night for obstructive sleep apnea. She was hypoxic in the emergency room 79% on room air. Her ABG demonstrated respiratory acidosis. She was placed on BiPAP and given IV Lasix that she appeared to be in congestive heart failure with an elevated BNP and a chest x- ray consistent with CHF. She was also placed on duo nebs and solumedrol. The patient did well overnight. She had a repeat echo following day which demonstrated a preserved ejection fraction at 55% with stage II diastolic dysfunction, elevated RVSP at 59 mmHg consistent with moderate pulmonary hypertension. We continued steroids and diuretics and she continued to improve well. She is able to be weaned back to her normal home oxygen levels. She is transitioned to a p.o. prednisone taper and orals Lasix. She will have an outpatient BMP and follow-up with her PCP. She is discharged home in stable condition. This patient was seen by Martín Mandujano PA-C under the supervision of Doctor Mcgraw. [] Discharge Diet: 2000 mg Sodium Diet Discharge Activity: Return to Normal Activity Home Medications: Medications to take at Discharge Albuterol Inhaler [Ventolin Hfa] 2 puff INHALATION Q6H PRN PRN 04/27/16 Albuterol Sulfate [Proventil Hfa] 6.7 gm IH Q2H PRN PRN 04/27/16 Amlodipine Besylate [Norvasc] 10 mg PO DAILY 04/27/16 Citalopram [Celexa] 40 mg PO QHS 04/27/16 Clopidogrel Bisulfate [Plavix] 75 mg PO DAILY 04/27/16 Ferrous Gluconate 325 mg PO DAILY@0800 04/27/16 Fluticasone 220 Mcg [Flovent 220 Mcg] 2 puff INHALATION BID 04/27/16 Lisinopril [Zestril] 40 mg PO BID 04/27/16 Loratadine [Claritin] 10 mg PO DAILY 04/27/16 Multivitamins,Ther W-Minerals [Multivitamin With Minerals] 1 tablet PO DAILY [place]-3 Fatty Acids/Fish Oil [[place] 3 1,000 mg Softgel] 2 each PO DAILY Pantoprazole Sodium [Protonix] 40 mg PO DAILY 04/27/16 Potassium Chloride [K-Dur] 20 meq PO BID 04/27/16 Pravastatin [Pravachol] 40 mg PO DAILY 04/27/16 traZODone [Desyrel] 100 mg PO QHS 04/27/16 Clonidine HCl 0.1 mg PO DAILY 07/06/17 Cyanocobalamin [Vitamin B12] 1,000 mcg PO DAILY@0800 07/06/17 Ipratropium [Atrovent Aerosols] 0.5 mg INHALATION 4X/DAY 07/06/17 Metoprolol(XL)Succ [Toprol Xl (Beta Gwen)] 100 mg PO DAILY 07/06/17 Furosemide [Lasix] 40 mg PO BID #60 tab 07/08/17 Prednisone 10 mg PO UD #30 tab 07/08/17 Following Prescrptions Were Given to Patient: Furosemide [Lasix] 40 mg PO BID #60 tab Prednisone 10 mg PO UD #30 tab Primary Care Physician: Cole Moran MD [Primary Care Provider] - Please follow up with your Primary Care Physician in: 1-2 weeks Please Follow Up With: Cole Moran MD Disposition: Home Minutes spent on discharge:: 35 Patient Condition:: Stable Medical Necessity - Tobacco Use Smoking Status: Former smoker Meaningful Use Info Meaningful Use Diagnoses (Choose all that apply): CHF - CHF SERGIO/ARB ordered at discharge?: Yes Documented LVEF (%): 55 <Marcella Mcgraw - Last Filed: 07/08/17 16:31> Discharge Date and Diagnosis - Secondary Discharge Diagnosis Chronic Problems History of hypertension (Chronic) Hyperlipidemia (Chronic) History of tobacco use (Chronic) History of esophageal reflux (Chronic) Diverticulosis of colon (without mention of hemorrhage) (Chronic) COPD (chronic obstructive pulmonary disease) (Chronic) DUDLEY on CPAP (Chronic) History of peripheral vascular disease (Chronic) Hospital Course and Treatment Summary of Care Provided: The patient is a 81 year old F [] Code Visit Inpatient E&M: 46615 Disch Hosp
--- NOTE | 2017-07-11 15:18 | CASEMGMT ---
OLGA VARGAS Discharge Follow-Up Phone Call. CAMILLE: Riri Strata: 3 Call Date: 07/11/17 Discharge Date: 07/08/17 Time: 1519 Duration: 5 minutes Adm Dx: COPD and CHF Exacerbation with Acute Hypoxic RRF OLGA VARGAS spoke with Ms. Soares re: how she is feeling since she left the hospital. Ms. Soares reports she has been feeling better, and has not had any problems breathing since leaving the hospital. She reports she picked up her Lasix and Prednisone from the pharmacy and has been taking as prescribed. Ms. Soares reports she has been weighing herself daily, and has a follow-up appnt scheduled with Dr. Moran on Tuesday. Ms. Soares denies questions re: discharge instructions or medications. Reports no needs at this time. NOEL Chakraborty, RN-BC, CCM
== END 2017-07-08 21:00 | disposition home or self-care (01) | DRG 291 ==
LOC: ED 08:16 → PCU 10:35
PROVIDERS: Admitting Provider Internal Medicine; Emergency Provider Emergency Medicine; Family Provider Family Medicine; PCP Family Medicine; Visit Provider Internal Medicine
DX: I11.0 Hypertensive heart disease with heart failure (principal); J96.21 Acute and chronic respiratory failure with hypoxia; I27.20 Pulmonary hypertension, unspecified; J44.1 Chronic obstructive pulmonary disease with (acute) exacerbation; I50.33 Acute on chronic diastolic (congestive) heart failure; E78.5 Hyperlipidemia, unspecified; G47.33 Obstructive sleep apnea (adult) (pediatric); D50.9 Iron deficiency anemia, unspecified; I73.9 Peripheral vascular disease, unspecified; F41.9 Anxiety disorder, unspecified; F32.9 Major depressive disorder, single episode, unspecified; Z87.891 Personal history of nicotine dependence; Z99.81 Dependence on supplemental oxygen
CPT/HCPCS: 36415; 36600; 71045; 80048; 82803; 83605; 83880; 84484; 85025; 85027; 87633; 87804; 93005; 93306; 94002; 94003; 94640; 94668; 97110; 97116; 97162; 97166; 97530; 97802; 99251; 99285; J7040; A4216; G0463; J1940

== ENCOUNTER 2017-07-27 21:29 | Emergency (ER) | payer MEDICARE, SELFPAY ==
[2017-07-27] VITALS (7 sets, daily range): BP systolic 102–153; BP diastolic 51–96; PULSE 43–59; RESP 16–24; TEMP 36.7; O2SAT 95–98; BMI 30.1
--- NOTE | 2017-07-27 22:29 | EKG12_ITS ---
Test Reason : CHEST PRESSURE Blood Pressure : / mmHG Vent. Rate : 055 BPM Atrial Rate : 055 BPM P-R Int : 144 ms QRS Dur : 090 ms QT Int : 474 ms P-R-T Axes : 056 009 043 degrees QTc Int : 453 ms Sinus bradycardia Otherwise normal ECG Confirmed by BEE NEGRON, MU ([id number]), development editor ISADORA CASTREJON ([id number] on 07/29/2017 1:10:52 PM Referred By: ANI Confirmed By:MU GAMBOA MD
--- NOTE | 2017-07-27 22:33 | ED.VISSUMM ---
- ER Visit Summary Date of Service: 07/27/17 Chief Complaint: [] Shaking feeling with shortness of breath and chest pressure History of Present Illness: The patient is a 81 F patient stated she had a shaking feeling in her whole bilateral with some shortness of breath is worse than her baseline as well as some substernal chest pressure since early this afternoon around 1 PM. It has been continuous but gone currently. She feels back to normal. She has had a cough that is occasional yellow mucus and occasional weight. Has not changed from her baseline. She was recently admitted and discharged on the sixth of this month for COPD exacerbation as well as CHF. She is on home oxygen 4 L and CPAP at night. She had an echocardiogram which showed an EF of 55% with diastolic dysfunction and moderate mitral regurgitation. She has never had a heart attack. She states her last stress test was hemodynamically March and was normal. She has never needed a heart cath. She does use nebulizers 4 times a day but her last time using was approximately 10 and half hours ago. She is on a beta-juana 100 mg twice a day. Physical Examination: [] Vital signs reviewed General: Well-nourished well-developed Head: Normocephalic atraumatic Eyes: Pupils equal round and reactive to light extraocular movements intact ENT: TMs clear no hemotympanum no trauma Neck: Nontender full range of motion Cardiovascular: Regular rate rhythm no murmurs normal S1-S2 Respiratory: No distress expiratory wheezes throughout all lung yanez that is mild to moderate. Chest nontender Abdomen: Soft nontender nondistended normal bowel sounds no masses Back: Nontender no CVA tenderness Extremities: Nontender active range of motion ?4 extremities no trauma Skin: Normal color no trauma Neuro alert oriented cranial nerves II through XII intact normal strength sensation reflexes Test Results: [] Emergency Department Course and Treatment: [] EKG shows sinus rhythm at a rate of 55. No acute ischemia noted. X-ray shows left lower lung atelectasis otherwise nothing acute. CBC is normal except hemoglobin 11.0. Chemistries normal except creatinine 1.3. Up from 0.7. Troponin is less than 0.02. Patient given a breathing treatment DuoNeb with complete resolution of breathing difficulties. Wheezing completely resolved. She was given oral prednisone. I do not feel she has an FL or acute coronary syndrome. I think this is from her COPD. She is going to cut back on her Lasix 20 mg as it was recently increased on her admission to 40 mg twice a day. She is going to cut in half. She will have repeat renal function checked as an outpatient. She will be given prednisone for the next 4 days. Treatment Plan: [] Disposition: [] Impression: [] Acute exacerbation Renal insufficiency secondary to overdiuresis This note was generated with [employer] dictation software. It may contain incorrect words, spelling, and punctuation that were not noted in review of the chart prior to signing ED Disposition - Plan for ED Patient: Chief Complaint: Shortness of Breath Referrals: Cole Moran MD [Primary Care Provider] -
[2017-07-27] MEDS: Ipratropium/Albuterol Sulfate 3 ML AMPUL.NEB INHALATION (22:38)
[2017-07-27 22:40] LABS: Absolute Lymphocyte Count 2.18 X10^3/ul (0.83-4.51); Absolute Neutrophil Count 5.5 X10^3/uL (2.0-7.7); Basophil# 0.01 X10^3/uL; Basophil% 0.1 % (0-1); Eosinophil# 0.29 X10^3/uL; Eosinophils% 3.3 % (0-5); Hematocrit 34.7 % (37-47); Lymphocyte # 2.18 X10^3/ul (4.0); Lymphocyte % 24.7 % (19-41); Mean Corp Hgb Conc 31.7 g/gl (32-36); Mean Corpuscular Hgb 28.6 pg (27.0-32.0); Mean Corpuscular Volume 90.1 fL (81-99); Mean Platelet Vol. 11.2 fl (6.2-12.0); Monocyte# 0.84 X10^3/uL; Monocyte% 9.5 % (0-10); Neutrophil # 5.48 X10^3/uL (2.7-7.7); Neutrophil % 62.2 % (47-70); POSITIVE COUNT NO; POSITIVE DIFFERENTIAL NO; POSITIVE MORPHOLOGY NO; Platelet Count 256 K/mm3 (150-450); RBC Distribution Width CV 15.8 % (11.6-14.6); RBC Distribution Width SD 52.3 fl (35.1-43.9); Red Blood Count 3.85 M/mm3 (4.2-5.4); White Blood Count 8.8 K/mm3 (4.4-11.0)
[2017-07-27] MEDS: Aspirin 81 MG TAB.CHEW 324 MG PO (22:40)
[2017-07-27 22:54] LABS: Anion Gap 9 (5-15); BUN 46 mg/dL (7-18); BUN/Creat Ratio 35.4 RATIO (10-20); Calcium,Total 8.9 mg/dL (8.5-10.1); Chloride 101 mmol/L (98-107); EST Glomerular Filtration Rate 42 mL/min (>60); Est Glom Filt Rate - Afr Amer 50 mL/min (>60); Glucose 95 mg/dL (74-106); Potassium 5.1 mmol/L (3.5-5.1); Sodium Level 142 mmol/L (136-145)
--- NOTE | 2017-07-27 23:00 | RAD_ITS ---
STUDY: X-RAY CHEST REASON FOR EXAM: Female, 81 years old. Chest pain and shortness of breath TECHNIQUE: 2 views COMPARISON: Prior portable chest of July 06, 2017 and prior PA chest of April 27, 2016 FINDINGS: The lung yanez remain generally hyperexpanded. Diffuse chronic changes. There is linear-type new atelectatic change at the left lung base. Normal size heart. Normal mediastinum and gregg. Normal visualized pulmonary arteries. There is atherosclerotic calcification of the aortic arch with tortuosity. There are diffuse degenerative changes of the visualized thoracic spine. Normal visualized ribs, clavicles, and shoulders. There is no demonstrated abnormality of the visualized soft tissue structures of the upper abdomen. RAD/Chest PA and Lateral IMPRESSION: Generalized hyperexpansion. New atelectatic changes at the left lung base. Otherwise stable chronic changes. Stable cardiac size. Atherosclerotic calcifications of the thoracic aorta. Electronically Signed: Natacha Dow MD at 23:26 EDT , Service support ,
[2017-07-27] MEDS: predniSONE 20 MG Tablet 40 MG PO (23:57)
== END 2017-07-28 | disposition home or self-care (01) ==
PROVIDERS: Emergency Provider Emergency Medicine; Family Provider Family Medicine; PCP Family Medicine
DX: J44.1 Chronic obstructive pulmonary disease with (acute) exacerbation (principal); N28.9 Disorder of kidney and ureter, unspecified; I50.9 Heart failure, unspecified; I10 Essential (primary) hypertension; K21.9 Gastro-esophageal reflux disease without esophagitis; G47.33 Obstructive sleep apnea (adult) (pediatric); Z87.891 Personal history of nicotine dependence; Z99.81 Dependence on supplemental oxygen; I34.0 Nonrheumatic mitral (valve) insufficiency; F32.9 Major depressive disorder, single episode, unspecified; F41.9 Anxiety disorder, unspecified
CPT/HCPCS: 71046; 80048; 84484; 85025; 93005; 94640; 99285; A4216

== ENCOUNTER 2017-08-11 21:37 | Inpatient (IN) | payer MEDICARE, SELFPAY ==
[2017-08-11 21:38] VITALS: BP 144/102; PULSE 82; RESP 24; TEMP 36.7; O2SAT 90; BMI 33.4
--- NOTE | 2017-08-11 22:09 | EKG12_ITS ---
Test Reason : CP Blood Pressure : / mmHG Vent. Rate : 083 BPM Atrial Rate : 083 BPM P-R Int : 146 ms QRS Dur : 082 ms QT Int : 366 ms P-R-T Axes : 071 026 090 degrees QTc Int : 430 ms Normal sinus rhythm ST & T wave abnormality, consider anterolateral ischemia Abnormal ECG Confirmed by BEE NEGRON, MU ([id number]), index editor ISADORA CASTREJON ([id number]) on 08/16/2017 1:38:26 PM Referred By: KATHY Confirmed By:MU GAMBOA MD
--- NOTE | 2017-08-11 22:09 | RAD_ITS ---
STUDY: X-RAY CHEST REASON FOR EXAM: Female, 81 years old. Chest pain TECHNIQUE: Single AP portable view of the chest. COMPARISON: None. FINDINGS: Subsegmental atelectases are noted in the right and left lung bases. There is no demonstrated pleural abnormality. Normal size heart. Normal mediastinum and gregg. Normal visualized pulmonary arteries. There is atherosclerotic calcification of the aortic arch with tortuosity. Normal visualized thoracic spine. There is degenerative osteoarthritis of the bilateral shoulders. There is no demonstrated abnormality of the visualized soft tissue structures of the upper abdomen. RAD/Chest PA and Lateral IMPRESSION: Degenerative changes, as described above. No demonstrated acute cardiopulmonary process. Electronically Signed: Kisha Maravilla MD at 0:11 EDT Tel , Service support ,
[2017-08-11] MEDS: Ipratropium/Albuterol Sulfate 3 ML AMPUL.NEB INHALATION (22:14)
[2017-08-11 22:15] VITALS: PULSE 78; RESP 16
[2017-08-11 22:31] LABS: Absolute Lymphocyte Count 1.48 X10^3/ul (0.83-4.51); Absolute Neutrophil Count 7.8 X10^3/uL (2.0-7.7); Basophil# 0.03 X10^3/uL; Basophil% 0.3 % (0-1); Eosinophil# 0.15 X10^3/uL; Eosinophils% 1.4 % (0-5); Hemoglobin 10.9 g/dl (12.0-15.0); Lymphocyte # 1.48 X10^3/ul (4.0); Lymphocyte % 13.9 % (19-41); Mean Corpuscular Hgb 29.9 pg (27.0-32.0); Mean Corpuscular Volume 90.4 fL (81-99); Mean Platelet Vol. 10.2 fl (6.2-12.0); Monocyte# 1.12 X10^3/uL; Monocyte% 10.5 % (0-10); Neutrophil # 7.76 X10^3/uL (2.7-7.7); Neutrophil % 72.7 % (47-70); Platelet Count 296 K/mm3 (150-450); RBC Distribution Width CV 16.1 % (11.6-14.6); RBC Distribution Width SD 51.9 fl (35.1-43.9); Red Blood Count 3.65 M/mm3 (4.2-5.4); White Blood Count 10.7 K/mm3 (4.4-11.0)
[2017-08-11] MEDS: 0.9% Normal Saline 1,000 ML 150 ML IV (22:32)
[2017-08-11] MEDS: MethylPREDNISolone 125 MG/2 ML Vial IV (22:32)
[2017-08-11 22:38] LABS: Anion Gap 9 (5-15); BUN 39 mg/dL (7-18); BUN/Creat Ratio 27.1 RATIO (10-20); Calcium,Total 8.7 mg/dL (8.5-10.1); Chloride 102 mmol/L (98-107); Creatinine, Serum 1.44 mg/dL (0.55-1.02); EST Glomerular Filtration Rate 37 mL/min (>60); Est Glom Filt Rate - Afr Amer 45 mL/min (>60); Estimated Creatinine Clearance 21.64 ml/min; Glucose 111 mg/dL (74-106); Potassium 4.1 mmol/L (3.5-5.1); Sodium Level 141 mmol/L (136-145)
[2017-08-11 22:51] VITALS: BP 131/69; PULSE 70; RESP 26; O2SAT 93
[2017-08-11 22:51] LABS: POSITIVE COUNT NO; POSITIVE DIFFERENTIAL NO; POSITIVE MORPHOLOGY NO
[2017-08-11 23:06] LABS: Lactic Acid 2.4 mmol/L (0.4-2.0)
--- NOTE | 2017-08-11 23:10 | ED.RN ---
LAB CALLED WITH CRITICAL LAB RESULTS. LACTIC ACID 2.4. Dr. MALDONADO MADE AWARE. NO NEW ORDERS AT THIS TIME
[2017-08-11 23:24] VITALS: BP 130/41; PULSE 90; RESP 26; O2SAT 95
[2017-08-11] MEDS: Aspirin 81 MG TAB.CHEW 324 MG PO (23:49)
[2017-08-12] VITALS (19 sets, daily range): BP systolic 120–186; BP diastolic 66–85; PULSE 74–93; RESP 16–24; TEMP 36.6–37.1; O2SAT 90–94; BMI 30.2
--- NOTE | 2017-08-12 00:16 | PCM.HP.STD ---
Problem List (1) COPD exacerbation Status: Acute (2) History of hypertension Status: Chronic (3) Hyperlipidemia Status: Chronic Qualifiers: Hyperlipidemia type: unspecified Qualified Code(s): E78.5 - Hyperlipidemia, unspecified (4) History of tobacco use Status: Chronic (5) History of esophageal reflux Status: Chronic (6) Diverticulosis of colon (without mention of hemorrhage) Status: Chronic (7) COPD (chronic obstructive pulmonary disease) Status: Chronic Qualifiers: COPD type: unspecified COPD Qualified Code(s): J44.9 - Chronic obstructive pulmonary disease, unspecified (8) DUDLEY on CPAP Status: Chronic (9) History of peripheral vascular disease Status: Chronic (10) TIA (transient ischemic attack) Status: Chronic Qualifiers: Transient cerebral ischemia type: unspecified Qualified Code(s): G45.9 - Transient cerebral ischemic attack, unspecified (11) Chest pain Status: Acute Qualifiers: Chest pain type: unspecified Qualified Code(s): R07.9 - Chest pain, unspecified (12) Chronic respiratory failure with hypoxia Status: Chronic History of Present Illness Date of Admission: 08/12/17 Chief Complaint: Dyspnea The patient is a 81 y/o F w/ PMHx: Anxiety and Depression, Fe Deficiency Anemia, Diastolic CHF, TIA, HTN, HLD, History Tobacco use, GERD, DUDLEY on CPAP, PVD, Chronic COPD on 3L NC chronically who presents to the [facility] ED on 08/12/16 with history of ongoing productive cough with worsening wheezing and dyspnea, despite aggressive PRN aerosol usage at home without fever of chills and no concurrently noted intermittent left beneath the breast sharp stabbing chest pain, lasting only seconds, ongoing for months, not related to exertion with no associated symptoms including worsened dyspnea, diaphoresis, nausea or emesis. In the ED work-up included T 98, heart rate 82, BP 144/102, respiratory rate 24, 90% on 4 L nasal cannula, CBC with WBC 10.7, hemoglobin 10.9, platelet 296 with left shift, BMP with BUN/creatinine 39/1.44 (baseline prior 0.7) glucose 111, lactic acid 2.4, troponin less than 0.015, EKG changed from recent admission w/ ST depression V3-V6, blood culture ?2 pending per ED, chest x-ray with chronic changes. In the emergency room patient administered aspirin, DuoNeb, Solu-Medrol, normal saline. Past Medical History Past Medical History (Chronic Problems): Chronic Problems TIA (transient ischemic attack) (Chronic) Chronic respiratory failure with hypoxia (Chronic) History of hypertension (Chronic) Hyperlipidemia (Chronic) History of tobacco use (Chronic) History of esophageal reflux (Chronic) Diverticulosis of colon (without mention of hemorrhage) (Chronic) COPD (chronic obstructive pulmonary disease) (Chronic) DUDLEY on CPAP (Chronic) History of peripheral vascular disease (Chronic) Allergies cilostazol [From Pletal] Allergy (Verified 07/27/17 21:35) Swelling Penicillins Allergy (Verified 07/27/17 21:35) Swelling Home Medications: Ambulatory Orders Medication Instructions Recorded Albuterol Inhaler [Ventolin Hfa] 2 puff INHALATION Q6H PRN PRN 04/27/16 Albuterol Sulfate [Proventil Hfa] 6.7 gm IH Q2H PRN PRN 04/27/16 Amlodipine Besylate [Norvasc] 10 mg PO DAILY 04/27/16 Citalopram [Celexa] 40 mg PO QHS 04/27/16 Clopidogrel Bisulfate [Plavix] 75 mg PO DAILY 04/27/16 Ferrous Gluconate 325 mg PO DAILY@0800 04/27/16 Fluticasone 220 Mcg [Flovent 220 1 puff INHALATION BID 04/27/16 Mcg] Lisinopril [Zestril] 40 mg PO BID 04/27/16 Loratadine [Claritin] 10 mg PO DAILY 04/27/16 Multivitamins,Ther W-Minerals 1 tablet PO DAILY 04/27/16 [Multivitamin With Minerals] [place]-3 Fatty Acids/Fish Oil 2 each PO DAILY 04/27/16 [[place] 3 1,000 mg Softgel] Pantoprazole Sodium [Protonix] 40 mg PO DAILY 04/27/16 Potassium Chloride [K-Dur] 20 meq PO BID 04/27/16 Pravastatin [Pravachol] 40 mg PO DAILY 04/27/16 traZODone [Desyrel] 100 mg PO QHS 04/27/16 Clonidine HCl 0.1 mg PO DAILY 07/06/17 Cyanocobalamin [Vitamin B12] 1,000 mcg PO DAILY@0800 07/06/17 Ipratropium [Atrovent Aerosols] 0.5 mg INHALATION 4X/DAY 07/06/17 Metoprolol(XL)Succ [Toprol Xl 100 mg PO DAILY 07/06/17 (Beta Gwen)] Furosemide [Lasix] 40 mg PO BID #60 tab 07/08/17 Hydroxyzine Pamoate [Vistaril] 50 mg PO QHS 08/11/17 Surgical History: hysterectomy, - - Lumpectomy right breast, back surgery, lump removed from left jaw region, skin cancer surgery. 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 Denies: Chills, Fever, Weight Change HEENT: Denies: Head Aches, Sinus Congestion, Sinus Drainage Cardiovascular: Reports: Chest Pain. Denies: Palpitations Respiratory: Reports: Cough, Shortness of Breath, Shortness of breath at rest, Shortness of breath upon exertion, Sputum production, Wheezing Gastrointestinal: Denies: Abdominal Pain, Nausea, Vomiting Genitourinary: Denies: Dysuria Musculoskeletal: Reports: Back Pain. Denies: Joint Pain, Joint Tenderness Skin: Denies: Rash, Wounds Neurological: Denies: Focal weakness, Numbness, Tingling Psychiatric: Reports: Anxiety, Depression. Denies: Homicidal Ideations, Suicidal Ideations Hematologic/ Lymphatic: Reports: Anemia, Easy Bruising, Easy Bleeding VTE Information - Inpt Only VTE Present on Admission: No VTE Mechan Device Prophylaxis: SCD's VTE Pharm Prophylaxis ordered?: Yes Patient Problems: Active and Suspected Problems COPD exacerbation (Acute) Chest pain (Acute) Subjective: Seated upright in the ED bed, fatigued appearing, coughing. Objective: Physical Examination: General: awake, alert, oriented x 3 and cooperative, seated upright in the ED bed, fatigued appearing, coughing. Skin: normal color, turgor, no icterus, cyanosis. HEENT: AT/NC, EOMI, PERRLA, dry MM, no carotid bruits or JVD noted. Lungs: Severely diffusely diminished, > bases, harsh coughing with increased effort, no wheezing. Heart: Regular rate and rhythm; no gallop, rub audible. Abdomen: soft, obese, NTTP, ND, normal BS, no HSM. Extremities: no cyanosis, clubbing, or edema. Neurological: patient awake, alert, oriented x 3; cognitive function intact; pupils equally reactive to light and accomodation; cranial nerves II-XII grossly normal, moving all 4 extremities, no focal deficits, strength severely globally decreased secondary to acute presentation. Psychiatric: affect appears fatigued, no acute evidence of depressive or anxiety feelings. - Physical Exam Vital Signs Temp Pulse Resp BP Pulse Ox 98.0 F 90 26 H 130/41 H 95 08/11/17 21:38 08/11/17 23:24 08/11/17 23:24 08/11/17 23:24 08/11/17 23:24 Oxygen Flow Rate (L/min) 3 Oxygen Delivery Method Nasal Cannula Weight: 171 lb 4.787 oz Body Mass Index (BMI) 33.4 Finger Stick Blood Glucose 196 Laboratory Tests Past 24 Hrs 08/11/17 08/11/17 08/11/17 22:15 22:15 22:19 WBC 10.7 RBC 3.65 L Hgb 10.9 L Hct 33.0 L MCV 90.4 MCH 29.9 MCHC 33.0 RDW 16.1 H RDW Differential 51.9 H Plt Count 296 MPV 10.2 Immature Gran % (Auto) 1.200 H Neut % (Auto) 72.7 H Lymph % (Auto) 13.9 L [place] % (Auto) 10.5 H Eos % (Auto) 1.4 Baso % (Auto) 0.3 Absolute Neuts (auto) 7.8 H Absolute Lymphs (auto) 1.48 Total Counted Not Reportable Sodium 141 Potassium 4.1 Chloride 102 Carbon Dioxide 30.0 Anion Gap 9 BUN 39 H Creatinine 1.44 H Estim Creat Clear Calc 21.64 Est GFR (MDRD) Af Amer 45 L Est GFR (MDRD) Non-Af 37 L BUN/Creatinine Ratio 27.1 H Glucose 111 H Lactic Acid 2.4 H Calcium 8.7 Troponin I < 0.015 Assessment/Plan Active and Suspected Problems COPD exacerbation (Acute) Chest pain (Acute) The patient is a 81 y/o F w/ PMHx: Anxiety and Depression, Fe Deficiency Anemia, Diastolic CHF, TIA, HTN, HLD, History Tobacco use, GERD, DUDLEY on CPAP, PVD, Chronic COPD on 3L NC chronically who presents to the [facility] ED on 08/12/16 with history of ongoing productive cough with worsening wheezing and dyspnea as well as intermittent sharp chest pain. (1) Acute on chronic COPD exacerbation: Will admit to [facility], maintain on oxygen with wean as tolerated to home oxygen supplementation, continue ATC duonebs, PRN albuterol, IV methylprednisolone, HOB, IS parameters, IV Doxycycline with pending sputum cultures, respiratory viral panel. (2) Acute kidney injury: Secondary to likely recent Lasix initiation with diastolic CHF recent admission for failure. Admission BUN/Cr 39/1.44, prior baseline creatinine noted to be 0.7. Will hold lasix and lisinopril temporarily and very gently hydrate, repeat BMP in AM. Likely lactic acid elevated secondary to this presentation. (3) Chest Pain, Atypical: Likely secondary to #1; however, EKG changes new from prior admission. CXR without acute process, troponin less than 0.015, EKG changed from recent admission w/ ST depression V3-V6. Will place on a monitored bed to assure no acute myocardial infarction with serial cardiac enzymes and EKGs. Given acute exacerbation and atypical presentation, defer stress testing at this time. ASA, NG, morphine. FLP in AM. Mag pending. (4) Chronic Diastolic CHF: Recent admission w/ exacerbation 07/06/17, ECHO w/ EF 55%, stage II diastolic dysfunction, severely enlarged LA, mild TV insufficiency, RVSP 59 mmHg consistent with moderate pulmonary hypertension, maintain on home regimen asa, plavix, statin, BB, holding temporarily ACEI and lasix regimen. (5) Hypertension: Continue home regimen including metoprolol, Norvasc, Clonidine, temporarily holding ACEI and lasix as noted, PRN hydralazine. (6) Hyperlipidemia: Continue home statin regimen. (7) Iron deficiency anemia: Continue home iron supplementation, [place] hemoglobin 10.9, stable from recent admission. (8) Anxiety and depression: Maintain on home Celexa and Trazodone regimen. (9) DUDLEY: CPAP q HS. (10) DVT Prophylaxis: SCDs, heparin. (11) CODE status: Discussed CODE status at length including difference between FULL code, DNR-CCA and DNR-CC status. Following discussions about the differences in these status, confirmed LW in place w/ continuation of DNR-CCA, no intubation status. Advanced Care Planning Face to Face Time: 17 minutes. Code Visit Inpatient E&M: 35507 Init Hosp L3 Procedures: 04327 Advncd Care Plan 30 Min
--- NOTE | 2017-08-12 00:22 | ED.VISSUMM ---
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 She has a history of COPD. She is on 3 L of home O2. States that she quit smoking in 2009. Patient reports that she has shortness of breath began approximately 2:00 this afternoon. She has had a cough for the past 3 days it is productive of thick yellow sputum without blood. She denies any fever or chills. States that she was using her nebulizer at home every 2 hours without relief. Patient reports that she has a chest pain left chest with radiation to her left shoulder that began months ago. It is an intermittent pain in the last 3-4 seconds. She describes it as dull and aching. It is 5 out of 10 at worst and she is pain-free currently. There is no associated nausea, vomiting, or diaphoresis. Physical Examination: Vitals: Stable. Afebrile. General: Well-nourished and well-developed. Head: Normocephalic atraumatic. Neck: Supple, no lymphadenopathy. No JVD. Nontender. Cardiovascular: Regular rate and rhythm. 2 out of 6 systolic murmur. Respiratory: No respiratory distress. Moderate wheezing bilaterally with decreased air movement. Abdominal: Soft, nontender, nondistended, normal bowel sounds. No guarding, rebound, or peritoneal signs. Back: Nontender. Extremities: Nontender, no edema. Skin: Normal color, no rash. Neurologic: Alert and oriented ?3. Cranial nerves II through XII are intact. Normal strength and sensation. Psych: Normal affect. Test Results: Chest x-ray shows chronic changes. EKG is sinus at [address] depression in leads V3 to V6. This ST depression is a change from July 27 of this year. Lactic acid is 2.4. Troponin is negative. Chem-7 is remarkable for a BUN of 39, creatinine 1.44, glucose of 111. CBC is remarkable for an H&H of 10.9 and 33.0, segmented neutrophils of 73, monocytes of 11, leukocytes of 14, immature granulocytes 1.2%. Emergency Department Course and Treatment: Patient was given aspirin p.o. She was treated with albuterol and Atrovent aerosols. She is given Solu-Medrol IV. She feels greatly improved. Treatment Plan: Patient will be discussed with Dr. Ponce. She will be admitted to the hospital for further evaluation and treatment. Disposition: Admitted in improved condition. Impression: 1. COPD exacerbation. 2. Atypical chest pain. 3. ST depression leads V3 to V6. 4. ALCON score of 3. This note was generated with [employer] dictation software. It may contain incorrect words, spelling, and punctuation that were not noted in review of the chart prior to signing ED Disposition - Plan for ED Patient: Chief Complaint: Chest Pain Referrals: Cole Moran MD [Primary Care Provider] -
--- NOTE | 2017-08-12 00:31 | HP.PCM_ITS ---
Problem List (1) COPD exacerbation Status: Acute (2) History of hypertension Status: Chronic (3) Hyperlipidemia Status: Chronic Qualifiers: Hyperlipidemia type: unspecified Qualified Code(s): E78.5 - Hyperlipidemia , unspecified (4) History of tobacco use Status: Chronic (5) History of esophageal reflux Status: Chronic (6) Diverticulosis of colon (without mention of hemorrhage) Status: Chronic (7) COPD (chronic obstructive pulmonary disease) Status: Chronic Qualifiers: COPD type: unspecified COPD Qualified Code(s): J44.9 - Chronic obstructive pulmonary disease, unspecified (8) DUDLEY on CPAP Status: Chronic (9) History of peripheral vascular disease Status: Chronic (10) TIA (transient ischemic attack) Status: Chronic Qualifiers: Transient cerebral ischemia type: unspecified Qualified Code(s): G45.9 - Transient cerebral ischemic attack, unspecified (11) Chest pain Status: Acute Qualifiers: Chest pain type: unspecified Qualified Code(s): R07.9 - Chest pain, unspecified (12) Chronic respiratory failure with hypoxia Status: Chronic History of Present Illness Date of Admission: 08/12/17 Chief Complaint: Dyspnea The patient is a 81 y/o F w/ PMHx: Anxiety and Depression, Fe Deficiency Anemia , Diastolic CHF, TIA, HTN, HLD, History Tobacco use, GERD, DUDLEY on CPAP, PVD, Chronic COPD on 3L NC chronically who presents to the [facility] ED on 08/12/16 with history of ongoing productive cough with worsening wheezing and dyspnea, despite aggressive PRN aerosol usage at home without fever of chills and no concurrently noted intermittent left beneath the breast sharp stabbing chest pain, lasting only seconds, ongoing for months, not related to exertion with no associated symptoms including worsened dyspnea, diaphoresis, nausea or emesis. In the ED work-up included T 98, heart rate 82, BP 144/102, respiratory rate 24 , 90% on 4 L nasal cannula, CBC with WBC 10.7, hemoglobin 10.9, platelet 296 with left shift, BMP with BUN/creatinine 39/1.44 (baseline prior 0.7) glucose 111, lactic acid 2.4, troponin less than 0.015, EKG changed from recent admission w/ ST depression V3-V6, blood culture ?2 pending per ED, chest x-ray with chronic changes. In the emergency room patient administered aspirin, DuoNeb , Solu-Medrol, normal saline. Past Medical History Past Medical History (Chronic Problems): Chronic Problems TIA (transient ischemic attack) (Chronic) Chronic respiratory failure with hypoxia (Chronic) History of hypertension (Chronic) Hyperlipidemia (Chronic) History of tobacco use (Chronic) History of esophageal reflux (Chronic) Diverticulosis of colon (without mention of hemorrhage) (Chronic) COPD (chronic obstructive pulmonary disease) (Chronic) DUDLEY on CPAP (Chronic) History of peripheral vascular disease (Chronic) Allergies cilostazol [From Pletal] Allergy (Verified 07/27/17 21:35) Swelling Penicillins Allergy (Verified 07/27/17 21:35) Swelling Home Medications: Ambulatory Orders Medication Instructions Recorded Albuterol Inhaler [Ventolin Hfa] 2 puff INHALATION Q6H PRN PRN 04/27/16 Albuterol Sulfate [Proventil Hfa] 6.7 gm IH Q2H PRN PRN 04/27/16 Amlodipine Besylate [Norvasc] 10 mg PO DAILY 04/27/16 Citalopram [Celexa] 40 mg PO QHS 04/27/16 Clopidogrel Bisulfate [Plavix] 75 mg PO DAILY 04/27/16 Ferrous Gluconate 325 mg PO DAILY@0800 04/27/16 Fluticasone 220 Mcg [Flovent 220 1 puff INHALATION BID 04/27/16 Mcg] Lisinopril [Zestril] 40 mg PO BID 04/27/16 Loratadine [Claritin] 10 mg PO DAILY 04/27/16 Multivitamins,Ther W-Minerals 1 tablet PO DAILY 04/27/16 [Multivitamin With Minerals] [place]-3 Fatty Acids/Fish Oil 2 each PO DAILY 04/27/16 [[place] 3 1,000 mg Softgel] Pantoprazole Sodium [Protonix] 40 mg PO DAILY 04/27/16 Potassium Chloride [K-Dur] 20 meq PO BID 04/27/16 Pravastatin [Pravachol] 40 mg PO DAILY 04/27/16 traZODone [Desyrel] 100 mg PO QHS 04/27/16 Clonidine HCl 0.1 mg PO DAILY 07/06/17 Cyanocobalamin [Vitamin B12] 1,000 mcg PO DAILY@0800 07/06/17 Ipratropium [Atrovent Aerosols] 0.5 mg INHALATION 4X/DAY 07/06/17 Metoprolol(XL)Succ [Toprol Xl 100 mg PO DAILY 07/06/17 (Beta Gwen)] Furosemide [Lasix] 40 mg PO BID #60 tab 07/08/17 Hydroxyzine Pamoate [Vistaril] 50 mg PO QHS 08/11/17 Surgical History: hysterectomy, - - Lumpectomy right breast, back surgery, lump removed from left jaw region, skin cancer surgery. 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 Denies: Chills, Fever, Weight Change HEENT: Denies: Head Aches, Sinus Congestion, Sinus Drainage Cardiovascular: Reports: Chest Pain. Denies: Palpitations Respiratory: Reports: Cough, Shortness of Breath, Shortness of breath at rest, Shortness of breath upon exertion, Sputum production, Wheezing Gastrointestinal: Denies: Abdominal Pain, Nausea, Vomiting Genitourinary: Denies: Dysuria Musculoskeletal: Reports: Back Pain. Denies: Joint Pain, Joint Tenderness Skin: Denies: Rash, Wounds Neurological: Denies: Focal weakness, Numbness, Tingling Psychiatric: Reports: Anxiety, Depression. Denies: Homicidal Ideations, Suicidal Ideations Hematologic/ Lymphatic: Reports: Anemia, Easy Bruising, Easy Bleeding VTE Information - Inpt Only VTE Present on Admission: No VTE Mechan Device Prophylaxis: SCD's VTE Pharm Prophylaxis ordered?: Yes Patient Problems: Active and Suspected Problems COPD exacerbation (Acute) Chest pain (Acute) Subjective: Seated upright in the ED bed, fatigued appearing, coughing. Objective: Physical Examination: General: awake, alert, oriented x 3 and cooperative, seated upright in the ED bed, fatigued appearing, coughing. Skin: normal color, turgor, no icterus, cyanosis. HEENT: AT/NC, EOMI, PERRLA, dry MM, no carotid bruits or JVD noted. Lungs: Severely diffusely diminished, > bases, harsh coughing with increased effort, no wheezing. Heart: Regular rate and rhythm; no gallop, rub audible. Abdomen: soft, obese, NTTP, ND, normal BS, no HSM. Extremities: no cyanosis, clubbing, or edema. Neurological: patient awake, alert, oriented x 3; cognitive function intact; pupils equally reactive to light and accomodation; cranial nerves II-XII grossly normal, moving all 4 extremities, no focal deficits, strength severely globally decreased secondary to acute presentation. Psychiatric: affect appears fatigued, no acute evidence of depressive or anxiety feelings. - Physical Exam Vital Signs Temp Pulse Resp BP Pulse Ox 98.0 F 90 26 H 130/41 H 95 08/11/17 21:38 08/11/17 23:24 08/11/17 23:24 08/11/17 23:24 08/11/17 23:24 Oxygen Flow Rate (L/min) 3 Oxygen Delivery Method Nasal Cannula Weight: 171 lb 4.787 oz Body Mass Index (BMI) 33.4 Finger Stick Blood Glucose 196 Laboratory Tests Past 24 Hrs 08/11/17 08/11/17 08/11/17 22:15 22:15 22:19 WBC 10.7 RBC 3.65 L Hgb 10.9 L Hct 33.0 L MCV 90.4 MCH 29.9 MCHC 33.0 RDW 16.1 H RDW Differential 51.9 H Plt Count 296 MPV 10.2 Immature Gran % (Auto) 1.200 H Neut % (Auto) 72.7 H Lymph % (Auto) 13.9 L [place] % (Auto) 10.5 H Eos % (Auto) 1.4 Baso % (Auto) 0.3 Absolute Neuts (auto) 7.8 H Absolute Lymphs (auto) 1.48 Total Counted Not Reportable Sodium 141 Potassium 4.1 Chloride 102 Carbon Dioxide 30.0 Anion Gap 9 BUN 39 H Creatinine 1.44 H Estim Creat Clear Calc 21.64 Est GFR (MDRD) Af Amer 45 L Est GFR (MDRD) Non-Af 37 L BUN/Creatinine Ratio 27.1 H Glucose 111 H Lactic Acid 2.4 H Calcium 8.7 Troponin I < 0.015 Assessment/Plan Active and Suspected Problems COPD exacerbation (Acute) Chest pain (Acute) The patient is a 81 y/o F w/ PMHx: Anxiety and Depression, Fe Deficiency Anemia , Diastolic CHF, TIA, HTN, HLD, History Tobacco use, GERD, DUDLEY on CPAP, PVD, Chronic COPD on 3L NC chronically who presents to the [facility] ED on 08/12/16 with history of ongoing productive cough with worsening wheezing and dyspnea as well as intermittent sharp chest pain. (1) Acute on chronic COPD exacerbation: Will admit to [facility], maintain on oxygen with wean as tolerated to home oxygen supplementation, continue ATC duonebs, PRN albuterol, IV methylprednisolone, HOB, IS parameters, IV Doxycycline with pending sputum cultures, respiratory viral panel. (2) Acute kidney injury: Secondary to likely recent Lasix initiation with diastolic CHF recent admission for failure. Admission BUN/Cr 39/1.44, prior baseline creatinine noted to be 0.7. Will hold lasix and lisinopril temporarily and very gently hydrate, repeat BMP in AM. Likely lactic acid elevated secondary to this presentation. (3) Chest Pain, Atypical: Likely secondary to #1; however, EKG changes new from prior admission. CXR without acute process, troponin less than 0.015, EKG changed from recent admission w/ ST depression V3-V6. Will place on a monitored bed to assure no acute myocardial infarction with serial cardiac enzymes and EKGs. Given acute exacerbation and atypical presentation, defer stress testing at this time. ASA, NG, morphine. FLP in AM. Mag pending. (4) Chronic Diastolic CHF: Recent admission w/ exacerbation 07/06/17, ECHO w/ EF 55%, stage II diastolic dysfunction, severely enlarged LA, mild TV insufficiency , RVSP 59 mmHg consistent with moderate pulmonary hypertension, maintain on home regimen asa, plavix, statin, BB, holding temporarily ACEI and lasix regimen. (5) Hypertension: Continue home regimen including metoprolol, Norvasc, Clonidine , temporarily holding ACEI and lasix as noted, PRN hydralazine. (6) Hyperlipidemia: Continue home statin regimen. (7) Iron deficiency anemia: Continue home iron supplementation, [place] hemoglobin 10.9, stable from recent admission. (8) Anxiety and depression: Maintain on home Celexa and Trazodone regimen. (9) DUDLEY: CPAP q HS. (10) DVT Prophylaxis: SCDs, heparin. (11) CODE status: Discussed CODE status at length including difference between FULL code, DNR-CCA and DNR-CC status. Following discussions about the differences in these status, confirmed LW in place w/ continuation of DNR-CCA, no intubation status. Advanced Care Planning Face to Face Time: 17 minutes. Code Visit Inpatient E&M: 66434 Init Hosp L3 Procedures: 33161 Advncd Care Plan 30 Min
[2017-08-12 01:01] LABS: Magnesium 1.8 mg/dL (1.6-2.6)
--- NOTE | 2017-08-12 01:22 | EKG12_ITS ---
Test Reason : ADM EKG Blood Pressure : / mmHG Vent. Rate : 078 BPM Atrial Rate : 078 BPM P-R Int : 164 ms QRS Dur : 084 ms QT Int : 440 ms P-R-T Axes : 068 027 082 degrees QTc Int : 501 ms Normal sinus rhythm Nonspecific ST abnormality Prolonged QT Abnormal ECG Confirmed by BEE NEGRON, MU ([id number]), editor at large ISADORA CASTREJON ([id number] on 08/16/2017 2:06:29 PM Referred By: CARRIE Confirmed By:MU GAMBOA MD
[2017-08-12] MEDS: Ipratropium/Albuterol Sulfate 3 ML AMPUL.NEB INHALATION ×3 (02:10→18:52)
[2017-08-12 02:36] LABS: Reflex Lactate? Y
[2017-08-12 05:11] LABS: Hematocrit 30.6 % (37-47); Mean Corp Hgb Conc 32.7 g/gl (32-36); Mean Corpuscular Hgb 29.3 pg (27.0-32.0); Mean Corpuscular Volume 89.7 fL (81-99); Mean Platelet Vol. 10.2 fl (6.2-12.0); Platelet Count 276 K/mm3 (150-450); RBC Distribution Width CV 15.9 % (11.6-14.6); RBC Distribution Width SD 51.1 fl (35.1-43.9); Red Blood Count 3.41 M/mm3 (4.2-5.4); White Blood Count 12.6 K/mm3 (4.4-11.0)
[2017-08-12 05:14] LABS: Scan Indicated on CBC? Y/N NO
[2017-08-12 05:38] LABS: Anion Gap 12 (5-15); BUN 33 mg/dL (7-18); BUN/Creat Ratio 23.7 RATIO (10-20); Calcium,Total 8.4 mg/dL (8.5-10.1); Chloride 102 mmol/L (98-107); Cholesterol 162 mg/dL (200); Creatinine, Serum 1.39 mg/dL (0.55-1.02); EST Glomerular Filtration Rate 39 mL/min (>60); Est Glom Filt Rate - Afr Amer 47 mL/min (>60); Estimated Creatinine Clearance 25.81 ml/min; Glucose 184 mg/dL (74-106); High Density Lipoprotein 54 mg/dL; Potassium 4.6 mmol/L (3.5-5.1); Sodium Level 140 mmol/L (136-145); Triglycerides 45 mg/dL; Very Low Density Lipoprotein 9 mg/dL (5-40)
[2017-08-12 05:42] LABS: Lactic Acid 4.5 mmol/L (0.4-2.0)
[2017-08-12] MEDS: Heparin Injection (Vial) 5,000 UNIT/ML VIAL 5000 UNIT SC ×3 (06:01→21:25)
[2017-08-12 07:19] LABS: Bacteria 0 SEEN /hpf (None Seen); Mucous, Urine 0 SEEN /hpf (<or=2+); Red Blood Cells-Urine 0 SEEN /hpf (0-5); Squamous Epithelial Cells - UA 0 SEEN /hpf (5-10); White Blood Cells 0 SEEN /hpf (0-5)
[2017-08-12 07:25] LABS: Color, Urine Yellow (Yellow); Glucose, Dipstick Normal (Normal); Ketone-Dipstick Negative (Negative); Leukocyte Esterase-Dipstick Negative /ul (Negative); Nitrite-Dipstick Negative (Negative); Occult Blood-Urine 10 /ul (Negative); Protein-Dipstick Negative (Negative); Urine Bilirubin Dipstick Negative (Negative); Urine Clarity Clear (Clear); Urine Urobilinogen Normal (Normal)
--- NOTE | 2017-08-12 08:24 | CON.PCM_ITS ---
Problem List (1) COPD exacerbation Status: Acute (2) TIA (transient ischemic attack) Status: Chronic Qualifiers: Transient cerebral ischemia type: unspecified Qualified Code(s): G45.9 - Transient cerebral ischemic attack, unspecified (3) Chronic respiratory failure with hypoxia Status: Chronic (4) History of hypertension Status: Chronic (5) Hyperlipidemia Status: Chronic Qualifiers: Hyperlipidemia type: unspecified Qualified Code(s): E78.5 - Hyperlipidemia , unspecified (6) History of tobacco use Status: Chronic (7) DUDLEY on CPAP Status: Chronic Reason for Consult Date of Consultation: 08/12/17 Reason for Consultation: COPD exacerbation History of Present Illness: The patient is a 81 year old F with a past medical history as below, presented to the ED on 08/12 with complaints of shaking, ongoing substernal chest pressure, increased cough with yellow sputum production, and dyspnea. She has been using her nebulizers every 2-3 hours for the last couple of days with no significant relief. She denies any recent fevers at home, no nausea, vomiting, or diarrhea. Denies any hemoptysis. She has not been placed on any antibiotics or steroids since her last admission 07/06-07/08 to her knowledge, but states she cannot remember for sure. The patient follows with Dr. White of [facility] pulmonology and last saw him in April 2017. At that visit, she states she had no medication changes but pulmonary rehab was set up for her to start in the Summer. Patient does not recall when she is to follow up. Patient reports a 3 L oxygen requirement at home and has been reportedly compliant with her CPAP at night. She has a [id number] history of smoking and quit in 2009. Patient was admitted at the beginning of June for similar complaints, however she was found to be in a COPD and CHF exacerbations. She had a stress test and an echocardiogram at that time. Stress test was normal and echo showed an estimated EF of 55%, stage II diastolic dysfunction, severely enlarged left atrium, moderate posteriorly directed MVI, mild TVI, RVSP was estimated at 59 mmHg. Findings since 01/2013 showed worsening LV function and RVSP. Workup in the ED included blood work showed a normal white count, hemoglobin stable at 10.9. Chemistry remarkable for BUN of 39 and creatinine 1.44, which is consistent with an acute kidney injury. She had some blood work drawn for her PCP on 07/27 which showed increased renal function as well. At the beginning of June, her BUN was 26 and creatinine 0.74. Her chest x-ray did not show any evidence of CHF exacerbation. There was no acute process identified. Blood, urine, and sputum cultures are pending. EKG showed sinus rhythm with ST depression in leads V3 to V6, compared to previous EKG. The patient was given aspirin, aerosols, NS, and IV Solu-Medrol with improvement in her overall breathing and chest pain. She was admitted to the progressive care unit for further management. Past Medical History Past Medical History (Chronic Problems): Chronic Problems TIA (transient ischemic attack) (Chronic) Chronic respiratory failure with hypoxia (Chronic) History of hypertension (Chronic) Hyperlipidemia (Chronic) History of tobacco use (Chronic) History of esophageal reflux (Chronic) Diverticulosis of colon (without mention of hemorrhage) (Chronic) COPD (chronic obstructive pulmonary disease) (Chronic) DUDLEY on CPAP (Chronic) History of peripheral vascular disease (Chronic) Allergies cilostazol [From Pletal] Allergy (Verified 07/27/17 21:35) Swelling Penicillins Allergy (Verified 07/27/17 21:35) Swelling Home Medications: Ambulatory Orders Medication Instructions Recorded Albuterol Inhaler [Ventolin Hfa] 2 puff INHALATION Q6H PRN PRN 04/27/16 Amlodipine Besylate [Norvasc] 10 mg PO DAILY 04/27/16 Citalopram [Celexa] 40 mg PO QHS 04/27/16 Clopidogrel Bisulfate [Plavix] 75 mg PO DAILY 04/27/16 Ferrous Gluconate 325 mg PO DAILY@0800 04/27/16 Fluticasone 220 Mcg [Flovent 220 1 puff INHALATION BID 04/27/16 Mcg] Lisinopril [Zestril] 40 mg PO BID 04/27/16 Loratadine [Claritin] 10 mg PO DAILY 04/27/16 Multivitamins,Ther W-Minerals 1 tablet PO DAILY 04/27/16 [Multivitamin With Minerals] [place]-3 Fatty Acids/Fish Oil 2 each PO DAILY 04/27/16 [[place] 3 1,000 mg Softgel] Pantoprazole Sodium [Protonix] 40 mg PO DAILY 04/27/16 Potassium Chloride [K-Dur] 20 meq PO BID 04/27/16 Pravastatin [Pravachol] 40 mg PO DAILY 04/27/16 traZODone [Desyrel] 100 mg PO QHS 04/27/16 Clonidine HCl 0.1 mg PO DAILY 07/06/17 Cyanocobalamin [Vitamin B12] 1,000 mcg PO DAILY@0800 07/06/17 Ipratropium [Atrovent Aerosols] 0.5 mg INHALATION 4X/DAY 07/06/17 Metoprolol(XL)Succ [Toprol Xl 100 mg PO DAILY 07/06/17 (Beta Gwen)] Hydroxyzine Pamoate [Vistaril] 50 mg PO PRN PRN 08/11/17 Albuterol Aerosols [Ventolin 0.5 mg INHALATION Q2H PRN PRN 08/12/17 Aerosols] Albuterol Aerosols [Ventolin 2.5 mg INHALATION Q2H PRN PRN 08/12/17 Aerosols] Furosemide [Lasix] 20 mg PO DINNER 08/12/17 Furosemide [Lasix] 40 mg PO DAILY 08/12/17 Surgical History: hysterectomy, - - Lumpectomy right breast, back surgery, lump removed from left jaw region, skin cancer surgery. 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 Denies: Anorexia, Fever, Night Sweats, Malaise, Weight Change Eyes: Denies: Vision Change HEENT: Denies: Difficulty Swallowing, Head Aches, Nasal Congestion, Post Nasal Drip, Sinus Congestion Cardiovascular: Reports: Chest Pressure - resolved since in ED, Orthopnea. Denies: Edema, Light Headedness, Palpitations, Paroxysmal Noc. Dyspnea, Syncope Respiratory: Reports: Cough, Shortness of breath upon exertion, Sputum production, Wheezing. Denies: Hemoptysis, Shortness of breath at rest Gastrointestinal: Denies: Abdominal Pain, Constipation, Diarrhea, Dyspepsia, Hematemesis, Hematochezia, Nausea, Melena, Vomiting Genitourinary: Reports: Nocturia. Denies: Dysuria, Frequency, Hematuria, Retention Gynecological: Denies: Breast symptoms Musculoskeletal: Denies: Leg Pain, Muscle pain Skin: Denies: Rash, Wounds Neurological: Denies: Change in Speech, Confusion, Focal weakness, Numbness, Tingling, Tremor, Seizures Psychiatric: Denies: Anxiety, Depression Endocrine: Denies: Change in Body Habitus, Polydipsia, Polyuria Hematologic/ Lymphatic: Reports: Anemia, Easy Bruising. Denies: Adenopathy, Easy Bleeding, Hx of blood clot Comment: patient poor historian, often states I don't know. Patient Problems: Active and Suspected Problems COPD exacerbation (Acute) Chest pain (Acute) Subjective: Patient was seen and examined. She does not appear to be in any acute distress. She is maintaining appropriate saturations on 4 L of oxygen. Still complains of productive cough of yellow sputum, however this has improved. She has not had any further chest pain. She is overall better but not to her baseline yet. Objective: Clinical Impression(s) from Imaging Studies Chest X-Ray 08/11/17 22:09 IMPRESSION: Degenerative changes, as described above. No demonstrated acute cardiopulmonary process. Electronically Signed: Kisha Maravilla MD at 0:11 EDT Tel , Service support , - Physical Exam General: Alert, Oriented x3, Cooperative, No apparent distress, Well developed, Well nourished, - - No conversational dyspnea HEENT: Atraumatic, Normocephalic Oral: Moist Mucosa, No Gingival or Mucosal Lesions/ Ulcerations Neck: Supple, No Nodes, Trachea Midline Lungs: No rhonchi, No rales, Diminished - Very poor air movement, Wheezes - Faint, mostly clears with cough Cardiovascular: Regular rate, Regular Rhythm, Normal S1, Normal S2, No murmurs, No rub noted, No Gallop Abdomen: Bowel Sounds Present, Soft, Non Tender, Non-Distended, Obese Extremities: No clubbing, No cyanosis, No edema, Capillary Refill Less than 3 Seconds Skin: No rashes, No breakdown Musculoskeletal: No Tenderness to Palpation of Joints or Extremities, No Muscle Wasting Lymphatic: No Cervical, Supraclavicular, or Inguinal Adenopathy Neurological: Cranial nerves II-XII grossly intact, Neuro grossly intact, Motor Exam 5/5 strength throughout Psych/Mental Status: Appropriate, Flat Affect, - - poor historian Vital Signs Temp Pulse Resp BP Pulse Ox 98.2 F 79 20 H 143/66 H 92 08/12/17 05:53 08/12/17 07:24 08/12/17 05:53 08/12/17 05:53 08/12/17 07:35 Oxygen Flow Rate (L/min) 4 Oxygen Delivery Method Nasal Cannula Weight: 169 lb 12.095 oz Body Mass Index (BMI) 30.2 Intake and Output for Last 24 Hours 08/10/17 08/11/17 08/12/17 23:59 23:59 23:59 Intake Total 524 / 524 Balance 524 / 524 Microbiology Past 72 Hours 08/12/17 02:45 Gram Stain - Preliminary Sputum, Expectorated/Coughed Laboratory Tests Past 24 Hrs 08/12/17 08/12/17 08/12/17 02:01 02:01 05:04 WBC 12.6 H RBC 3.41 L Hgb 10.0 L Hct 30.6 L MCV 89.7 MCH 29.3 MCHC 32.7 RDW 15.9 H RDW Differential 51.1 H Plt Count 276 MPV 10.2 Sodium Potassium Chloride Carbon Dioxide Anion Gap BUN Creatinine Estim Creat Clear Calc Est GFR (MDRD) Af Amer Est GFR (MDRD) Non-Af BUN/Creatinine Ratio Glucose Lactic Acid 3.0 H Calcium Troponin I < 0.015 Triglycerides Cholesterol LDL Cholesterol VLDL Cholesterol HDL Cholesterol Urine Color Urine Clarity Urine pH Ur Specific [place] Urine Protein Urine Glucose (UA) Urine Ketones Urine Occult Blood Urine Nitrite Urine Bilirubin Urine Urobilinogen Ur Leukocyte Esterase Urine RBC Urine WBC Ur Squamous Epith Cells Urine Bacteria Urine Mucus 08/12/17 08/12/17 08/12/17 05:04 05:04 05:04 WBC RBC Hgb Hct MCV MCH MCHC RDW RDW Differential Plt Count MPV Sodium 140 Potassium 4.6 Chloride 102 Carbon Dioxide 26.0 Anion Gap 12 BUN 33 H Creatinine 1.39 H Estim Creat Clear Calc 25.81 Est GFR (MDRD) Af Amer 47 L Est GFR (MDRD) Non-Af 39 L BUN/Creatinine Ratio 23.7 H Glucose 184 H Lactic Acid 4.5 H* Calcium 8.4 L Troponin I < 0.015 Triglycerides 45 Cholesterol 162 LDL Cholesterol 99 VLDL Cholesterol 9 HDL Cholesterol 54 Urine Color Urine Clarity Urine pH Ur Specific [place] Urine Protein Urine Glucose (UA) Urine Ketones Urine Occult Blood Urine Nitrite Urine Bilirubin Urine Urobilinogen Ur Leukocyte Esterase Urine RBC Urine WBC Ur Squamous Epith Cells Urine Bacteria Urine Mucus 08/12/17 07:00 WBC RBC Hgb Hct MCV MCH MCHC RDW RDW Differential Plt Count MPV Sodium Potassium Chloride Carbon Dioxide Anion Gap BUN Creatinine Estim Creat Clear Calc Est GFR (MDRD) Af Amer Est GFR (MDRD) Non-Af BUN/Creatinine Ratio Glucose Lactic Acid Calcium Troponin I Triglycerides Cholesterol LDL Cholesterol VLDL Cholesterol HDL Cholesterol Urine Color Yellow Urine Clarity Clear Urine pH 6.0 Ur Specific [place] 1.020 Urine Protein Negative Urine Glucose (UA) Normal Urine Ketones Negative Urine Occult Blood 10 H Urine Nitrite Negative Urine Bilirubin Negative Urine Urobilinogen Normal Ur Leukocyte Esterase Negative Urine RBC 0 SEEN Urine WBC 0 SEEN Ur Squamous Epith Cells 0 SEEN Urine Bacteria 0 SEEN Urine Mucus 0 SEEN Assessment/Plan Active and Suspected Problems COPD exacerbation (Acute) Chest pain (Acute) RECOMMENDATIONS 1. Wean oxygen supplementation to keep saturations 88-92%. 2. Encourage incentive spirometer and Acapella 3. Increase activity as tolerated, PT consult 4. Continue aerosols and IV steroids, transition to Prednisone in the a.m. 5. Continue antibiotics pending infectious workup 6. Check respiratory viral panel 7. Ambulatory pulse ox prior to discharge 8. 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 COPD exacerbation/acute on chronic respiratory failure/history of severe COPD Improved. Chest x-ray with no acute cardiopulmonary process. She has white count but is on steroids. She does have some increase in sputum production and consistency, has improved since admitted overnight. Her wheezing pretty much cleared with cough. She has very poor air movement overall. Patient follows with Dr. White from [facility], she was seen around April and there are plans to start pulmonary rehab this summer. Their last walking oximetry indicated the need for 2 L of oxygen supplementation continuously. She is currently requiring 4 L. For now, we will continue antibiotics pending infectious workup. Continue IV steroids and transition to oral in the morning. Will check a respiratory viral panel. Increase activity as tolerated, PT consult. Encourage incentive spirometer/Acapella. Continue bronchodilators. Wean oxygen supplementation to keep saturations 88-92%. Patient should have ambulatory pulse ox prior to discharge and she can follow-up with Dr. White. Patient takes albuterol nebulizers 3-4 times daily and Flovent per [facility] documentation scanned into medical record. 2. Chest pain This has resolved. Recent hospitalization in June, had stress test at that time which was negative. Echocardiogram did show diastolic dysfunction with an EF of 55%. Patient was treated with diuresis. Cardiac enzymes have been negative. Chest x-ray did not show any acute cardiopulmonary process. BNP was not checked. 3. Acute kidney injury Recently placed on diuretics for congestive heart failure. These are being held. She is receiving gentle IV fluid resuscitation. 4. History of tobacco abuse in remission/GERD/DUDLEY on CPAP/peripheral vascular disease/TIA/congestive heart failure/HTN/HLD Complicates care, management, recovery, and prognosis. Home medications per hospitalist recommendations. Encouraged ongoing tobacco cessation. Thank you for the opportunity to participate in this patient's care, please do not hesitate contact us with any further questions or concerns. This note was generated with [employer] dictation software. It may contain incorrect words, spelling, and punctuation that were not noted in checking the note before signing.
[2017-08-12 09:08] LABS: Reflex Lactate? Y
[2017-08-12] MEDS: 0.9% Normal Saline 1,000 ML 75 ML IV (09:40)
[2017-08-12] MEDS: Pantoprazole Sodium 40 MG Tablet PO (09:42)
[2017-08-12] MEDS: Multivitamins,Ther W-Minerals Tablet 1 TABLET PO (09:42)
[2017-08-12] MEDS: Loratadine 10 MG Tablet PO (09:42)
[2017-08-12] MEDS: guaiFENesin 1,200 MG Tablet 1200 MG PO ×2 (09:42→21:29)
[2017-08-12] MEDS: Cyanocobalamin 500 MCG Tablet 1000 MCG PO (09:42)
[2017-08-12] MEDS: Ferrous Gluconate 325 MG Tablet PO (09:43)
[2017-08-12] MEDS: Aspirin 81 MG TAB.CHEW PO (09:43)
[2017-08-12] MEDS: Clopidogrel Bisulfate 75 MG Tablet PO (09:45)
[2017-08-12 10:07] LABS: AST(SGOT) 17 U/L (15-37); Alanine Aminotransfer ALT/SGPT 20 U/L (13-56); Albumin, Serum 3.1 g/dL (3.2-5.0); Alkaline Phosphatase 83 U/L (45-117); Bilirubin, Direct 0.05 mg/dL (0.00-0.30); Globulin 3.9 g/dL (2.2-4.2)
[2017-08-12] MEDS: Metoprolol(XL)Succ 100 MG Tablet PO (10:12)
[2017-08-12] MEDS: amLODIPine 10 MG Tablet PO (10:12)
[2017-08-12] MEDS: cloNIDine HCl 0.1 MG Tablet PO (10:12)
--- NOTE | 2017-08-12 10:43 | PCM.PROGNOTE ---
<Linda Culver - Last Filed: 08/12/17 10:59> Patient Problems: Active and Suspected Problems COPD exacerbation (Acute) Chest pain (Acute) Subjective: Patient seen and examined. Continues to have shortness of breath, increased with exertion. Patient states she has some shortness of breath at baseline however this is more than her normal. Complains of productive cough with yellow sputum. Denies fever, chills. Denies other complaints. - Physical Exam General: Alert, Oriented x3, Cooperative, No apparent distress HEENT: Atraumatic, PERRLA, EOMI, Normocephalic Oral: Moist Mucosa Neck: Supple, No JVD, Negative Carotid Bruits Lungs: Clear to auscultation, Diminished Cardiovascular: Regular rate, Regular Rhythm, Normal S1, Normal S2, No murmurs Abdomen: Bowel Sounds Present, Soft, Non Tender, Non-Distended Extremities: No clubbing, No cyanosis, No edema, Capillary Refill Less than 3 Seconds Skin: No rashes, No breakdown Musculoskeletal: No Tenderness to Palpation of Joints or Extremities Neurological: Cranial nerves II-XII grossly intact, Neuro grossly intact Psych/Mental Status: Normal Affect, Appropriate Vital Signs Temp Pulse Resp BP Pulse Ox 98.7 F 91 22 H 186/77 H 90 08/12/17 10:05 08/12/17 10:12 08/12/17 10:05 08/12/17 10:05 08/12/17 10:05 Oxygen Flow Rate (L/min) 4 Oxygen Delivery Method Nasal Cannula Weight: 77 kg Body Mass Index (BMI) 30.2 Intake and Output for Last 24 Hours 08/10/17 08/11/17 08/12/17 23:59 23:59 23:59 Intake Total 524 / 524 Balance 524 / 524 Microbiology Past 72 Hours 08/12/17 02:45 Gram Stain - Preliminary Sputum, Expectorated/Coughed Laboratory Tests Past 24 Hrs 08/12/17 08/12/17 08/12/17 02:01 02:01 05:04 WBC 12.6 H RBC 3.41 L Hgb 10.0 L Hct 30.6 L MCV 89.7 MCH 29.3 MCHC 32.7 RDW 15.9 H RDW Differential 51.1 H Plt Count 276 MPV 10.2 Sodium Potassium Chloride Carbon Dioxide Anion Gap BUN Creatinine Estim Creat Clear Calc Est GFR (MDRD) Af Amer Est GFR (MDRD) Non-Af BUN/Creatinine Ratio Glucose Lactic Acid 3.0 H Calcium Total Bilirubin Direct Bilirubin AST ALT Alkaline Phosphatase Troponin I < 0.015 Total Protein Albumin Globulin Triglycerides Cholesterol LDL Cholesterol VLDL Cholesterol HDL Cholesterol Urine Color Urine Clarity Urine pH Ur Specific [place] Urine Protein Urine Glucose (UA) Urine Ketones Urine Occult Blood Urine Nitrite Urine Bilirubin Urine Urobilinogen Ur Leukocyte Esterase Urine RBC Urine WBC Ur Squamous Epith Cells Urine Bacteria Urine Mucus 08/12/17 08/12/17 08/12/17 05:04 05:04 05:04 WBC RBC Hgb Hct MCV MCH MCHC RDW RDW Differential Plt Count MPV Sodium 140 Potassium 4.6 Chloride 102 Carbon Dioxide 26.0 Anion Gap 12 BUN 33 H Creatinine 1.39 H Estim Creat Clear Calc 25.81 Est GFR (MDRD) Af Amer 47 L Est GFR (MDRD) Non-Af 39 L BUN/Creatinine Ratio 23.7 H Glucose 184 H Lactic Acid 4.5 H* Calcium 8.4 L Total Bilirubin Direct Bilirubin AST ALT Alkaline Phosphatase Troponin I < 0.015 Total Protein Albumin Globulin Triglycerides 45 Cholesterol 162 LDL Cholesterol 99 VLDL Cholesterol 9 HDL Cholesterol 54 Urine Color Urine Clarity Urine pH Ur Specific [place] Urine Protein Urine Glucose (UA) Urine Ketones Urine Occult Blood Urine Nitrite Urine Bilirubin Urine Urobilinogen Ur Leukocyte Esterase Urine RBC Urine WBC Ur Squamous Epith Cells Urine Bacteria Urine Mucus 08/12/17 08/12/17 05:04 07:00 WBC RBC Hgb Hct MCV MCH MCHC RDW RDW Differential Plt Count MPV Sodium Potassium Chloride Carbon Dioxide Anion Gap BUN Creatinine Estim Creat Clear Calc Est GFR (MDRD) Af Amer Est GFR (MDRD) Non-Af BUN/Creatinine Ratio Glucose Lactic Acid Calcium Total Bilirubin 0.10 L Direct Bilirubin 0.05 AST 17 ALT 20 Alkaline Phosphatase 83 Troponin I Total Protein 7.0 Albumin 3.1 L Globulin 3.9 Triglycerides Cholesterol LDL Cholesterol VLDL Cholesterol HDL Cholesterol Urine Color Yellow Urine Clarity Clear Urine pH 6.0 Ur Specific [place] 1.020 Urine Protein Negative Urine Glucose (UA) Normal Urine Ketones Negative Urine Occult Blood 10 H Urine Nitrite Negative Urine Bilirubin Negative Urine Urobilinogen Normal Ur Leukocyte Esterase Negative Urine RBC 0 SEEN Urine WBC 0 SEEN Ur Squamous Epith Cells 0 SEEN Urine Bacteria 0 SEEN Urine Mucus 0 SEEN Medical Necessity - Tobacco Use Smoking Status: Former smoker Tobacco Use: Non-smoker Assessment/Plan Active and Suspected Problems COPD exacerbation (Acute) Chest pain (Acute) Patient is a 81-year-old female admitted 08/12/17 due to dyspnea. She has a past medical history of anxiety, depression, iron deficiency anemia, diastolic CHF, TIA, hypertension, hyperlipidemia, history of tobacco use, GERD, obstructive sleep apnea on CPAP, PVD, chronic COPD, chronic hypoxic respiratory failure requiring 3 L nasal cannula continuously at baseline. 1. Acute on chronic COPD exacerbation with chronic hypoxic respiratory failure-pulmonary medicine consulted. She follows with PETRA Burns as outpatient. Patient wears 3 L nasal cannula at baseline. Oxygen currently 90% on 4 L nasal cannula. Continue albuterol DuoNeb aerosols. IV doxycycline transitioned to oral doxycycline 100 mg twice daily. Continue IV Solu-Medrol. Continue supplemental oxygen to maintain O2 at or above 90%. Chest x-ray shows no acute process. Respiratory panel pending. Sputum and blood cultures pending. 2. Acute kidney injury-suspect secondary to dehydration. Patient recently started on Lasix regimen due to admission for CHF. Hold SERGIO inhibitor and Lasix regimen. Creatinine improved. Monitor BMP. 3. Lactic acidosis-suspect secondary to #1. No evidence of sepsis. 4. Chest pain-resolved. Troponin negative ?3. 5. Chronic diastolic CHF-recently admitted with CHF exacerbation 07/06/17. Echo at that time showed an EF of 55%, stage II diastolic dysfunction, severely enlarged left atrium, mild tricuspid valve insufficiency, RVSP 59 mmHg consistent with moderate pulmonary hypertension. 6. Hypertension-blood pressure elevated currently. Continue home regimen of metoprolol, Norvasc, clonidine. Lasix and SERGIO inhibitor on hold secondary to #2. Continue as needed hydralazine. Continue to monitor. 7. Hyperlipidemia-continue statin. 8. DUDLEY- continue home CPAP regimen. 9. Iron deficiency anemia-hemoglobin stable. Continue home iron supplementation. 10. Anxiety, depression-continue home Celexa and trazodone regimen. DVT prophylaxis-SCDs, heparin This patient was seen by Linda Culver NP-C under the supervision of Dr. Jones. <Rashi Jones - Last Filed: 08/12/17 11:59> - Physical Exam Vital Signs Temp Pulse Resp BP Pulse Ox 97.9 F 93 18 164/70 H 90 08/12/17 11:13 08/12/17 11:13 08/12/17 11:13 08/12/17 11:13 08/12/17 11:13 Oxygen Flow Rate (L/min) 4 Oxygen Delivery Method Nasal Cannula Weight: 77 kg Body Mass Index (BMI) 30.2 Intake and Output for Last 24 Hours 08/10/17 08/11/17 08/12/17 23:59 23:59 23:59 Intake Total 524 / 524 Balance 524 / 524 Microbiology Past 72 Hours 08/12/17 02:45 Gram Stain - Final Sputum, Expectorated/Coughed Laboratory Tests Past 24 Hrs 08/12/17 08/12/17 08/12/17 02:01 02:01 05:04 WBC 12.6 H RBC 3.41 L Hgb 10.0 L Hct 30.6 L MCV 89.7 MCH 29.3 MCHC 32.7 RDW 15.9 H RDW Differential 51.1 H Plt Count 276 MPV 10.2 Sodium Potassium Chloride Carbon Dioxide Anion Gap BUN Creatinine Estim Creat Clear Calc Est GFR (MDRD) Af Amer Est GFR (MDRD) Non-Af BUN/Creatinine Ratio Glucose Lactic Acid 3.0 H Calcium Total Bilirubin Direct Bilirubin AST ALT Alkaline Phosphatase Troponin I < 0.015 Total Protein Albumin Globulin Triglycerides Cholesterol LDL Cholesterol VLDL Cholesterol HDL Cholesterol Urine Color Urine Clarity Urine pH Ur Specific [place] Urine Protein Urine Glucose (UA) Urine Ketones Urine Occult Blood Urine Nitrite Urine Bilirubin Urine Urobilinogen Ur Leukocyte Esterase Urine RBC Urine WBC Ur Squamous Epith Cells Urine Bacteria Urine Mucus 08/12/17 08/12/17 08/12/17 05:04 05:04 05:04 WBC RBC Hgb Hct MCV MCH MCHC RDW RDW Differential Plt Count MPV Sodium 140 Potassium 4.6 Chloride 102 Carbon Dioxide 26.0 Anion Gap 12 BUN 33 H Creatinine 1.39 H Estim Creat Clear Calc 25.81 Est GFR (MDRD) Af Amer 47 L Est GFR (MDRD) Non-Af 39 L BUN/Creatinine Ratio 23.7 H Glucose 184 H Lactic Acid 4.5 H* Calcium 8.4 L Total Bilirubin Direct Bilirubin AST ALT Alkaline Phosphatase Troponin I < 0.015 Total Protein Albumin Globulin Triglycerides 45 Cholesterol 162 LDL Cholesterol 99 VLDL Cholesterol 9 HDL Cholesterol 54 Urine Color Urine Clarity Urine pH Ur Specific [place] Urine Protein Urine Glucose (UA) Urine Ketones Urine Occult Blood Urine Nitrite Urine Bilirubin Urine Urobilinogen Ur Leukocyte Esterase Urine RBC Urine WBC Ur Squamous Epith Cells Urine Bacteria Urine Mucus 08/12/17 08/12/17 05:04 07:00 WBC RBC Hgb Hct MCV MCH MCHC RDW RDW Differential Plt Count MPV Sodium Potassium Chloride Carbon Dioxide Anion Gap BUN Creatinine Estim Creat Clear Calc Est GFR (MDRD) Af Amer Est GFR (MDRD) Non-Af BUN/Creatinine Ratio Glucose Lactic Acid Calcium Total Bilirubin 0.10 L Direct Bilirubin 0.05 AST 17 ALT 20 Alkaline Phosphatase 83 Troponin I Total Protein 7.0 Albumin 3.1 L Globulin 3.9 Triglycerides Cholesterol LDL Cholesterol VLDL Cholesterol HDL Cholesterol Urine Color Yellow Urine Clarity Clear Urine pH 6.0 Ur Specific [place] 1.020 Urine Protein Negative Urine Glucose (UA) Normal Urine Ketones Negative Urine Occult Blood 10 H Urine Nitrite Negative Urine Bilirubin Negative Urine Urobilinogen Normal Ur Leukocyte Esterase Negative Urine RBC 0 SEEN Urine WBC 0 SEEN Ur Squamous Epith Cells 0 SEEN Urine Bacteria 0 SEEN Urine Mucus 0 SEEN Assessment/Plan This patient was seen in conjunction with JAIME Santana . I have independently interviewed and examined the patient and reviewed pertinent historical, laboratory, and other data. Please refer to JAIME Santana note for details of this patient's presentation, findings, and recommendations. I have reviewed JAIME Santana note and concur with documented findings. In brief, patient is a 81-year-old lady presented with progressive shortness of breath and assessment of acute on chronic hypoxic respiratory failure secondary to combination of COPD as well as CHF made admitted to the monitored bed for further management Physical Examination: GENERAL: cooperative HEENT: Clear conjunctiva, NECK; supple, normal thyroid, CHEST: Diminished to auscultation bilaterally, HEART: Regular S1 S2, no audible murmurs ABDOMEN: soft, normoactive bowel sounds, RECTAL: deferred EXTREMITIES: No edema, no clubbing, no cyanosis. 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 SKIN: No lesions no erythema, Assessment: 1. Acute on chronic hypoxic respiratory failure 2. Acute diastolic congestive heart failure 3. COPD with exacerbation 4. Lactic acidosis sepsis ruled out 5. Respiratory failure secondary to COPD on baseline home O2 6. Obesity with BMI of 30.1 7. Depression with anxiety 8. Dyslipidemia 9. Obstructive sleep apnea 10. Anemia secondary to anemia of chronic disorder 11. DVT prophylaxis: SC heparin Recommendations: 1. I have discussed the results of my overview and impressions with the patient 2. Options for management were reviewed Code Visit Inpatient E&M: 86843 Subs Hosp L3
[2017-08-12] MEDS: Doxycycline 100 MG CAPSULE PO ×2 (11:10→21:30)
[2017-08-12] MEDS: 0.9% NaCl Peripheral Flush Adult/Peds IV (13:49)
--- NOTE | 2017-08-12 14:26 | CASEMGMT ---
Face to Face with patient for initial transition planning/care coordination assessment. RN ALICIA introduced self and role at [facility], pt voices understanding and consents to assessment at this time. Pt is sitting up in chair in no distress at this time. Pt is A/O x4 at this time and answers all questions appropriately at this time. Care providers, pharmacy, and demographics verified. See attached link. Pt voices no further concerns/needs at this time. Advised pt to ask for CM if any further questions/concerns/needs arise, voices understanding. CM to follow for any further discharge planning/needs. PLAN: [place] [facility]
[2017-08-12] MEDS: Citalopram 40 MG TABLET PO (21:29)
[2017-08-12] MEDS: traZODone 100 MG Tablet PO (21:29)
[2017-08-12] MEDS: Pravastatin 40 MG Tablet PO (21:30)
[2017-08-13] VITALS (17 sets, daily range): BP systolic 138–160; BP diastolic 62–72; PULSE 57–152; RESP 16–20; TEMP 36.3–37.1; O2SAT 92–97
--- NOTE | 2017-08-13 02:20 | SLEEP ---
pt home CPAP unit was set up and new mask was sized and fitted for pt to replace her old mask.
[2017-08-13] MEDS: 0.9% NaCl Peripheral Flush Adult/Peds IV (05:35)
[2017-08-13] MEDS: Heparin Injection (Vial) 5,000 UNIT/ML VIAL 5000 UNIT SC ×3 (05:35→21:02)
--- NOTE | 2017-08-13 06:07 | PCM.PROGNOTE ---
Patient Problems: Active and Suspected Problems COPD exacerbation (Acute) Chest pain (Acute) Subjective: The patient was seen and examined at the bedside this morning. Events from the last 24 hours have been reviewed. The patient is currently afebrile, hemodynamically stable and maintaining appropriate oxygen saturations on 4 L/min via nasal cannula. The patient has been tolerant of nocturnal CPAP therapy. She does report some subjective improvement her breathing quality since admission. Objective: The patient's most recent lab work, culture data and imaging studies have all been personally reviewed. Respiratory viral panel was positive for parainfluenza 3. Urine, blood and sputum cultures are pending. - Physical Exam General: Alert, Cooperative, No apparent distress HEENT: Atraumatic, PERRLA, Normocephalic Oral: No Gingival or Mucosal Lesions/ Ulcerations Neck: Supple, No Nodes, Trachea Midline Lungs: No rhonchi, No wheeze, No rales, Diminished Cardiovascular: Regular rate, Regular Rhythm, Normal S1, Normal S2, No murmurs Abdomen: Bowel Sounds Present, Soft, Non Tender Extremities: No clubbing, No cyanosis, No edema Skin: No breakdown Musculoskeletal: No Tenderness to Palpation of Joints or Extremities Lymphatic: No Cervical, Supraclavicular, or Inguinal Adenopathy Neurological: Neuro grossly intact Psych/Mental Status: Normal Affect, Appropriate Vital Signs Temp Pulse Resp BP Pulse Ox 98.8 F 57 L 20 H 141/62 H 92 08/13/17 03:00 08/13/17 03:00 08/13/17 03:00 08/13/17 03:00 08/13/17 03:00 Oxygen Flow Rate (L/min) 4 Oxygen Delivery Method CPAP Weight: 169 lb 5.04 oz Body Mass Index (BMI) 30.2 Intake and Output for Last 24 Hours 08/11/17 08/12/17 08/13/17 23:59 23:59 23:59 Intake Total 1394 / 1394 100 / 100 Output Total 250 / 250 Balance 1394 / 1394 -150 / -150 Microbiology Past 72 Hours 08/12/17 10:30 Respiratory Panel (PCR) - Final Mucosa - Nasopharyngeal Parainfluenza 3 08/12/17 02:45 Gram Stain - Final Sputum, Expectorated/Coughed Laboratory Tests Past 24 Hrs 08/12/17 08/12/17 05:04 07:00 Total Bilirubin 0.10 L Direct Bilirubin 0.05 AST 17 ALT 20 Alkaline Phosphatase 83 Total Protein 7.0 Albumin 3.1 L Globulin 3.9 Urine Color Yellow Urine Clarity Clear Urine pH 6.0 Ur Specific [place] 1.020 Urine Protein Negative Urine Glucose (UA) Normal Urine Ketones Negative Urine Occult Blood 10 H Urine Nitrite Negative Urine Bilirubin Negative Urine Urobilinogen Normal Ur Leukocyte Esterase Negative Urine RBC 0 SEEN Urine WBC 0 SEEN Ur Squamous Epith Cells 0 SEEN Urine Bacteria 0 SEEN Urine Mucus 0 SEEN Clinical Impression(s) from Imaging Studies Chest X-Ray 08/11/17 22:09 IMPRESSION: Degenerative changes, as described above. No demonstrated acute cardiopulmonary process. Electronically Signed: Kisha Maravilla MD at 0:11 EDT Tel , Service support , Medical Necessity - Tobacco Use Smoking Status: Former smoker Tobacco Use: Non-smoker Assessment/Plan Active and Suspected Problems COPD exacerbation (Acute) Chest pain (Acute) RECOMMENDATIONS: 1. Continue scheduled bronchodilators and steroids. Okay from my perspective to transition from IV Solu-Medrol to prednisone 40 mg daily. 2. Antibiotics can be continued, pending finalized culture results. If cultures are negative, antibiotics can be discontinued. 3. Wean supplemental oxygen as tolerated 4. Perform walking oximetry study prior to consideration for discharge from the hospital. 5. Close outpatient follow-up with Dr. White is warranted. IMPRESSIONS: 1. COPD exacerbation secondary to parainfluenza infection/chronic hypoxemic respiratory failure Continue scheduled bronchodilators and steroids. Antibiotics can be continued, pending finalized culture results. If culture results are negative, recommend discontinuation of antibiotics. Okay from my perspective to be transitioned to prednisone beginning today. She will likely require a taper at discharge. Perform walking oximetry study prior to consideration for discharge. Wean supplemental oxygen as tolerated. The patient will need close follow-up in the office of Dr. White upon discharge. 2. Self-reported obstructive sleep apnea Continue nocturnal PAP therapy. This note was generated with [employer] software. It may contain incorrect words, spelling, and punctuation that were not noted in checking the note before signing. Code Visit Inpatient E&M: 53359 Subs Hosp L2
[2017-08-13] MEDS: Ipratropium/Albuterol Sulfate 3 ML AMPUL.NEB INHALATION ×3 (07:09→18:58)
--- NOTE | 2017-08-13 07:12 | NURSING ---
Small amount of blood noted in toilet this morning after BM mixed with urine. Will monitor. Pt. states she has hemorrhoids.
[2017-08-13] MEDS: Ferrous Gluconate 325 MG Tablet PO (09:13)
[2017-08-13] MEDS: guaiFENesin 1,200 MG Tablet 1200 MG PO ×2 (09:13→21:02)
[2017-08-13] MEDS: Pantoprazole Sodium 40 MG Tablet PO (09:14)
[2017-08-13] MEDS: Multivitamins,Ther W-Minerals Tablet 1 TABLET PO (09:14)
[2017-08-13] MEDS: amLODIPine 10 MG Tablet PO (09:14)
[2017-08-13] MEDS: Clopidogrel Bisulfate 75 MG Tablet PO (09:14)
[2017-08-13] MEDS: cloNIDine HCl 0.1 MG Tablet PO (09:14)
[2017-08-13] MEDS: Metoprolol(XL)Succ 100 MG Tablet PO (09:14)
[2017-08-13] MEDS: Aspirin 81 MG TAB.CHEW PO (09:14)
[2017-08-13] MEDS: Loratadine 10 MG Tablet PO (09:14)
[2017-08-13] MEDS: Cyanocobalamin 500 MCG Tablet 1000 MCG PO (09:14)
[2017-08-13] MEDS: Doxycycline 100 MG CAPSULE PO ×2 (09:14→21:03)
--- NOTE | 2017-08-13 11:49 | PN_ITS ---
<Linda Culver - Last Filed: 08/13/17 11:49> Patient Problems: Active and Suspected Problems COPD exacerbation (Acute) Chest pain (Acute) Subjective: Patient seen and examined. Shortness of breath improved although patient states she still does not feel at baseline. Wishes to stay one more day. Denies fever, chills. Denies other current complaints. - Physical Exam General: Alert, Oriented x3, Cooperative HEENT: Atraumatic, PERRLA, EOMI, Normocephalic Neck: Supple, No JVD, Negative Carotid Bruits Lungs: Clear to auscultation, Diminished Cardiovascular: Regular rate, Regular Rhythm, Normal S1, Normal S2, No murmurs Abdomen: Bowel Sounds Present, Soft, Non Tender Extremities: No clubbing, No cyanosis, No edema, Capillary Refill Less than 3 Seconds Skin: No rashes, No breakdown Musculoskeletal: No Tenderness to Palpation of Joints or Extremities Neurological: Cranial nerves II-XII grossly intact Psych/Mental Status: Normal Affect, Appropriate Vital Signs Temp Pulse Resp BP Pulse Ox 97.4 F L 77 20 H 155/67 H 93 08/13/17 09:05 08/13/17 11:13 08/13/17 09:05 08/13/17 09:14 08/13/17 09:05 Oxygen Flow Rate (L/min) 4 Oxygen Delivery Method Nasal Cannula Weight: 76.8 kg Body Mass Index (BMI) 30.2 Intake and Output for Last 24 Hours 08/11/17 08/12/17 08/13/17 23:59 23:59 23:59 Intake Total 1394 / 1394 100 / 100 Output Total 250 / 250 Balance 1394 / 1394 -150 / -150 Microbiology Past 72 Hours 08/12/17 07:00 Urine Culture - Preliminary Urine, Clean Catch Mixed Gram Pos & Gram Neg Org 08/12/17 02:45 Gram Stain - Final Sputum, Expectorated/Coughed Respiratory Culture - Preliminary Staphylococcus aureus 08/12/17 10:30 Respiratory Panel (PCR) - Final Mucosa - Nasopharyngeal Parainfluenza 3 Medical Necessity - Tobacco Use Smoking Status: Former smoker Tobacco Use: Non-smoker Assessment/Plan Active and Suspected Problems COPD exacerbation (Acute) Chest pain (Acute) Patient is a 81-year-old female admitted 08/12/17 due to dyspnea. She has a past medical history of anxiety, depression, iron deficiency anemia, diastolic CHF, TIA, hypertension, hyperlipidemia, history of tobacco use, GERD, obstructive sleep apnea on CPAP, PVD, chronic COPD, chronic hypoxic respiratory failure requiring 3 L nasal cannula continuously at baseline. 1. Acute on chronic COPD exacerbation secondary to parainfluenza 3 with chronic hypoxic respiratory failure-pulmonary medicine consulted. She follows with PETRA Burns as outpatient. Patient wears 3 L nasal cannula at baseline. Oxygen currently 90% on 4 L nasal cannula. Continue albuterol DuoNeb aerosols. Continue oral doxycycline 100 mg twice daily pending final sputum culture. Transition IV Solu-Medrol to oral prednisone. Continue supplemental oxygen to maintain O2 at or above 90%. Chest x-ray shows no acute process. 2. Acute kidney injury-suspect secondary to dehydration. Patient recently started on Lasix regimen due to admission for CHF. Hold SERGIO inhibitor and Lasix regimen. Creatinine improved. Monitor BMP. 3. Lactic acidosis-suspect secondary to #1. No evidence of sepsis. 4. Chest pain-resolved. Troponin negative ?3. 5. Chronic diastolic CHF-recently admitted with CHF exacerbation 07/06/17. Echo at that time showed an EF of 55%, stage II diastolic dysfunction, severely enlarged left atrium, mild tricuspid valve insufficiency, RVSP 59 mmHg consistent with moderate pulmonary hypertension. 6. Hypertension-blood pressure elevated currently. Continue home regimen of metoprolol, Norvasc, clonidine. Lasix and SERGIO inhibitor on hold secondary to # 2. Continue as needed hydralazine. Continue to monitor. 7. Hyperlipidemia-continue statin. 8. DUDLEY- continue home CPAP regimen. 9. Iron deficiency anemia-hemoglobin stable. Continue home iron supplementation. 10. Anxiety, depression-continue home Celexa and trazodone regimen. DVT prophylaxis-SCDs, heparin This patient was seen by JAIME Santana under the supervision of Dr. Jones. <Rashi Jones - Last Filed: 08/13/17 12:51> - Physical Exam Vital Signs Temp Pulse Resp BP Pulse Ox 97.4 F L 77 20 H 155/67 H 93 08/13/17 09:05 08/13/17 11:13 08/13/17 09:05 08/13/17 09:14 08/13/17 09:05 Oxygen Flow Rate (L/min) 4 Oxygen Delivery Method Nasal Cannula Weight: 76.8 kg Body Mass Index (BMI) 30.2 Intake and Output for Last 24 Hours 08/11/17 08/12/17 08/13/17 23:59 23:59 23:59 Intake Total 1394 / 1394 100 / 100 Output Total 250 / 250 Balance 1394 / 1394 -150 / -150 Microbiology Past 72 Hours 08/12/17 07:00 Urine Culture - Preliminary Urine, Clean Catch Mixed Gram Pos & Gram Neg Org 08/12/17 02:45 Gram Stain - Final Sputum, Expectorated/Coughed Respiratory Culture - Preliminary Staphylococcus aureus 08/12/17 10:30 Respiratory Panel (PCR) - Final Mucosa - Nasopharyngeal Parainfluenza 3 Laboratory Tests Past 24 Hrs 08/13/17 12:15 Sodium 142 Potassium 4.7 Chloride 108 H Carbon Dioxide 27.0 Anion Gap 7 BUN 34 H Creatinine 1.01 Estim Creat Clear Calc 35.52 Est GFR (MDRD) Af Amer 67 Est GFR (MDRD) Non-Af 56 L BUN/Creatinine Ratio 33.7 H Glucose 191 H Calcium 9.2 Assessment/Plan This patient was seen in conjunction with JAIME Santana . I have independently interviewed and examined the patient and reviewed pertinent historical, laboratory, and other data. Please refer to MAGGIE Santana note for details of this patient's presentation, findings, and recommendations. I have reviewed JAIME Santana note and concur with documented findings. In brief, patient is a 81-year-old lady presented with progressive shortness of breath and assessment of acute on chronic hypoxic respiratory failure secondary to combination of COPD as well as CHF made admitted to the monitored bed for further management 08/13/2017 patient seen still complains of breathing being difficult at rest her respiratory panel came back positive for parainfluenza virus antibiotics initiated and admission discontinued Physical Examination: GENERAL: cooperative HEENT: Clear conjunctiva, NECK; supple, normal thyroid, CHEST: Diminished to auscultation bilaterally, HEART: Regular S1 S2, no audible murmurs ABDOMEN: soft, normoactive bowel sounds, RECTAL: deferred EXTREMITIES: No edema, no clubbing, no cyanosis. 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 SKIN: No lesions no erythema, Assessment: 1. Acute on chronic hypoxic respiratory failure 2. Acute diastolic congestive heart failure 3. COPD with exacerbation 4. Lactic acidosis sepsis ruled out 5. Respiratory failure secondary to COPD on baseline home O2 6. Obesity with BMI of 30.1 7. Depression with anxiety 8. Dyslipidemia 9. Obstructive sleep apnea 10. Anemia secondary to anemia of chronic disorder 11. DVT prophylaxis: SC heparin Recommendations: 1. I have discussed the results of my overview and impressions with the patient 2. Options for management were reviewed Code Visit Inpatient E&M: 06531 Subs Hosp L3
[2017-08-13 12:42] LABS: Anion Gap 7 (5-15); BUN 34 mg/dL (7-18); BUN/Creat Ratio 33.7 RATIO (10-20); Calcium,Total 9.2 mg/dL (8.5-10.1); Chloride 108 mmol/L (98-107); Creatinine, Serum 1.01 mg/dL (0.55-1.02); EST Glomerular Filtration Rate 56 mL/min (>60); Est Glom Filt Rate - Afr Amer 67 mL/min (>60); Estimated Creatinine Clearance 35.52 ml/min; Glucose 191 mg/dL (74-106); Potassium 4.7 mmol/L (3.5-5.1); Sodium Level 142 mmol/L (136-145)
[2017-08-13] MEDS: Acetaminophen 325 MG Tablet 650 MG PO (21:00)
[2017-08-13] MEDS: BENZOCAINE/MENTHOL 1 LOZENGE 2 LOZENGE MUCOUS MEM (21:00)
[2017-08-13] MEDS: Pravastatin 40 MG Tablet PO (21:02)
[2017-08-13] MEDS: traZODone 100 MG Tablet PO (21:03)
[2017-08-13] MEDS: Citalopram 40 MG TABLET PO (21:03)
[2017-08-14] VITALS (9 sets, daily range): BP systolic 157–165; BP diastolic 60–71; PULSE 56–77; RESP 18–21; TEMP 36.8; O2SAT 85–93
[2017-08-14] MEDS: Heparin Injection (Vial) 5,000 UNIT/ML VIAL 5000 UNIT SC (05:44)
[2017-08-14 06:39] LABS: Anion Gap 7 (5-15); BUN 32 mg/dL (7-18); BUN/Creat Ratio 39.6 RATIO (10-20); Calcium,Total 9.1 mg/dL (8.5-10.1); Chloride 108 mmol/L (98-107); Creatinine, Serum 0.81 mg/dL (0.55-1.02); EST Glomerular Filtration Rate 72 mL/min (>60); Est Glom Filt Rate - Afr Amer 87 mL/min (>60); Glucose 90 mg/dL (74-106); Sodium Level 143 mmol/L (136-145)
--- NOTE | 2017-08-14 06:51 | PN_ITS ---
Patient Problems: Active and Suspected Problems COPD exacerbation (Acute) Chest pain (Acute) Subjective: The patient was seen and examined at the bedside this morning. Events from the last 24 hours have been reviewed. The patient is currently afebrile, hemodynamically stable and maintaining appropriate oxygen saturations on 4 L/ min via nasal cannula. Blood pressures are elevated this morning with systolic readings greater than 160 mmHg. The patient was ambulatory yesterday. Although her breathing quality is improved, she reports that she does not feel that she is yet back to her baseline. Objective: The patient's most recent lab work, culture data and imaging studies have all been personally reviewed. Respiratory viral panel was positive for parainfluenza 3. Blood cultures have shown no growth to date. Sputum culture was positive for 1+ staph aureus. - Physical Exam General: Alert, Cooperative, No apparent distress HEENT: Atraumatic, PERRLA, Normocephalic Oral: Moist Mucosa, No Gingival or Mucosal Lesions/ Ulcerations Neck: Supple, No Nodes, Trachea Midline Lungs: No rhonchi, No wheeze, No rales, Diminished Cardiovascular: Regular rate, Regular Rhythm, Normal S1, Normal S2, No murmurs Abdomen: Bowel Sounds Present, Soft, Non Tender, Non-Distended Extremities: No clubbing, No cyanosis, No edema Skin: No rashes, No breakdown Musculoskeletal: No Tenderness to Palpation of Joints or Extremities, No Muscle Wasting Lymphatic: No Cervical, Supraclavicular, or Inguinal Adenopathy Neurological: Neuro grossly intact Psych/Mental Status: Normal Affect, Appropriate Vital Signs Temp Pulse Resp BP Pulse Ox 98.2 F 72 20 H 165/71 H 92 08/14/17 05:48 08/14/17 05:48 08/14/17 05:48 08/14/17 05:48 08/14/17 05:48 Oxygen Flow Rate (L/min) 4 Oxygen Delivery Method CPAP Weight: 168 lb 13.985 oz Body Mass Index (BMI) 30.2 Intake and Output for Last 24 Hours 08/12/17 08/13/17 08/14/17 23:59 23:59 23:59 Intake Total 1394 / 1394 1385 / 1385 Output Total 350 / 350 400 / 400 Balance 1394 / 1394 1035 / 1035 -400 / -400 Microbiology Past 72 Hours 08/12/17 02:01 Blood Culture - Preliminary Blood Culture (Wb) #2 - Anticubital Right No growth in 48 hours. 08/12/17 07:00 Urine Culture - Preliminary Urine, Clean Catch Mixed Gram Pos & Gram Neg Org 08/12/17 02:45 Gram Stain - Final Sputum, Expectorated/Coughed Respiratory Culture - Preliminary Staphylococcus aureus 08/12/17 10:30 Respiratory Panel (PCR) - Final Mucosa - Nasopharyngeal Parainfluenza 3 Laboratory Tests Past 24 Hrs 08/13/17 08/14/17 12:15 05:30 Sodium 142 143 Potassium 4.7 4.0 Chloride 108 H 108 H Carbon Dioxide 27.0 28.0 Anion Gap 7 7 BUN 34 H 32 H Creatinine 1.01 0.81 Estim Creat Clear Calc 35.52 44.30 Est GFR (MDRD) Af Amer 67 87 Est GFR (MDRD) Non-Af 56 L 72 BUN/Creatinine Ratio 33.7 H 39.6 H Glucose 191 H 90 Calcium 9.2 9.1 Clinical Impression(s) from Imaging Studies Chest X-Ray 08/11/17 22:09 IMPRESSION: Degenerative changes, as described above. No demonstrated acute cardiopulmonary process. Electronically Signed: Kisha Maravilla MD at 0:11 EDT Tel , Service support , Medical Necessity - Tobacco Use Smoking Status: Former smoker Tobacco Use: Non-smoker Assessment/Plan Active and Suspected Problems COPD exacerbation (Acute) Chest pain (Acute) RECOMMENDATIONS: 1. Continue scheduled bronchodilators and steroids. Plan for prednisone taper at discharge. 2. Antibiotics can be continued, pending finalized culture results. If cultures are negative, antibiotics can be discontinued. 3. Wean supplemental oxygen as tolerated 4. Perform walking oximetry study prior to consideration for discharge from the hospital. 5. Close outpatient follow-up with Dr. White is warranted. IMPRESSIONS: 1. COPD exacerbation secondary to parainfluenza infection/chronic hypoxemic respiratory failure Continue scheduled bronchodilators and steroids. Antibiotics can be continued, pending finalized culture results. If culture results are negative, recommend discontinuation of antibiotics. Recommend prednisone taper at discharge. Perform walking oximetry study prior to consideration for discharge. Wean supplemental oxygen as tolerated. The patient will need close follow-up in the office of Dr. White upon discharge. 2. Self-reported obstructive sleep apnea Continue nocturnal PAP therapy. This note was generated with [employer] dictation software. It may contain incorrect words, spelling, and punctuation that were not noted in checking the note before signing. Code Visit Inpatient E&M: 81591 Subs Hosp L2
[2017-08-14] MEDS: Ipratropium/Albuterol Sulfate 3 ML AMPUL.NEB INHALATION ×2 (07:02→10:53)
[2017-08-14] MEDS: predniSONE 20 MG Tablet 40 MG PO (08:40)
[2017-08-14] MEDS: Ferrous Gluconate 325 MG Tablet PO (08:40)
[2017-08-14] MEDS: Multivitamins,Ther W-Minerals Tablet 1 TABLET PO (08:40)
[2017-08-14] MEDS: Aspirin 81 MG TAB.CHEW PO (08:40)
[2017-08-14] MEDS: Cyanocobalamin 500 MCG Tablet 1000 MCG PO (08:41)
[2017-08-14] MEDS: Doxycycline 100 MG CAPSULE PO (08:41)
[2017-08-14] MEDS: cloNIDine HCl 0.1 MG Tablet PO (08:41)
[2017-08-14] MEDS: Loratadine 10 MG Tablet PO (08:41)
[2017-08-14] MEDS: Pantoprazole Sodium 40 MG Tablet PO (08:42)
[2017-08-14] MEDS: Metoprolol(XL)Succ 100 MG Tablet PO (08:42)
[2017-08-14] MEDS: Clopidogrel Bisulfate 75 MG Tablet PO (08:42)
[2017-08-14] MEDS: amLODIPine 10 MG Tablet PO (08:42)
[2017-08-14] MEDS: guaiFENesin 1,200 MG Tablet 1200 MG PO (08:42)
--- NOTE | 2017-08-14 09:16 | PCM.DC ---
- Discharge Diagnoses Current Active Problems: Current Active and Chronic Problems COPD exacerbation (Acute) TIA (transient ischemic attack) (Chronic) Chest pain (Acute) Chronic respiratory failure with hypoxia (Chronic) You will use the following diet at home:: Cardiac Discharge Activity: Return to Normal Activity Call your doctor if you observe: Shortness of breath, Dizziness, Fainting spells, Chest pain, Increased palpitations (irregular heartbeat) Allergies/Adverse Reactions: Allergies cilostazol [From Pletal] Allergy (Verified 07/27/17 21:35) Swelling Penicillins Allergy (Verified 07/27/17 21:35) Swelling Medications to take at Discharge Albuterol Inhaler [Ventolin Hfa] 2 puff INHALATION Q6H PRN PRN 04/27/16 Amlodipine Besylate [Norvasc] 10 mg PO DAILY 04/27/16 Citalopram [Celexa] 40 mg PO QHS 04/27/16 Clopidogrel Bisulfate [Plavix] 75 mg PO DAILY 04/27/16 Ferrous Gluconate 325 mg PO DAILY@0800 04/27/16 Fluticasone 220 Mcg [Flovent 220 Mcg] 1 puff INHALATION BID 04/27/16 Lisinopril [Zestril] 40 mg PO BID 04/27/16 Loratadine [Claritin] 10 mg PO DAILY 04/27/16 Multivitamins,Ther W-Minerals [Multivitamin With Minerals] 1 tablet PO DAILY 04/27/16 [place]-3 Fatty Acids/Fish Oil [[place] 3 1,000 mg Softgel] 2 each PO DAILY 04/27/16 Pantoprazole Sodium [Protonix] 40 mg PO DAILY 04/27/16 Potassium Chloride [K-Dur] 20 meq PO BID 04/27/16 Pravastatin [Pravachol] 40 mg PO DAILY 04/27/16 traZODone [Desyrel] 100 mg PO QHS 04/27/16 Clonidine HCl 0.1 mg PO DAILY 07/06/17 Cyanocobalamin [Vitamin B12] 1,000 mcg PO DAILY@0800 07/06/17 Ipratropium [Atrovent Aerosols] 0.5 mg INHALATION 4X/DAY 07/06/17 Metoprolol(XL)Succ [Toprol Xl (Beta Gwen)] 100 mg PO DAILY 07/06/17 Hydroxyzine Pamoate [Vistaril] 50 mg PO PRN PRN 05/10/18 Albuterol Aerosols [Ventolin Aerosols] 0.5 mg INHALATION Q2H PRN PRN 08/12/17 Albuterol Aerosols [Ventolin Aerosols] 2.5 mg INHALATION Q2H PRN PRN 08/12/17 Furosemide [Lasix] 20 mg PO DINNER 08/12/17 Furosemide [Lasix] 40 mg PO DAILY 08/12/17 Doxycycline 100 mg PO BID #10 cap 08/14/17 Prednisone See Taper PO DAILY #26 tab 08/14/17 The following prescriptions were given: Prednisone See Taper PO DAILY #26 tab Doxycycline 100 mg PO BID #10 cap Primary Care Physician: Cole Moran MD [Primary Care Provider] - Please follow up with your Primary Care Physician in: 1 Week Please Follow Up With: Norberto White MD When: 1 Week Proposed Discharge Date: 08/14/17
--- NOTE | 2017-08-14 09:18 | PCM.DC.SUM ---
<Linda Culver - Last Filed: 08/14/17 09:23> Discharge Date and Diagnosis Date of Admission: 08/12/17 Date of Discharge: 08/14/17 - Primary Discharge Diagnosis Active and Suspected Problems 1. Acute on chronic COPD exacerbation secondary to parainfluenza 3 with chronic hypoxic respiratory failure 2. Acute kidney injury 3. Chest pain-ACS ruled out. 4. Lactic acidosis-secondary to #1. Infectious etiology ruled out. - Secondary Discharge Diagnosis Chronic Problems TIA (transient ischemic attack) (Chronic) Chronic respiratory failure with hypoxia (Chronic) History of hypertension (Chronic) Hyperlipidemia (Chronic) History of tobacco use (Chronic) History of esophageal reflux (Chronic) Diverticulosis of colon (without mention of hemorrhage) (Chronic) COPD (chronic obstructive pulmonary disease) (Chronic) DUDLEY on CPAP (Chronic) History of peripheral vascular disease (Chronic) Hospital Course and Treatment Imaging Results: Diagnostic Data Chest X-Ray 08/11/17 22:09 IMPRESSION: Degenerative changes, as described above. No demonstrated acute cardiopulmonary process. Electronically Signed: Kisha Maravilla MD at 0:11 EDT Tel , Service support , Dr. Alvarado- Pulmonary Medicine Operations: None Procedures: None Summary of Care Provided: Patient is a 81-year-old female admitted 08/12/17 due to dyspnea. She has a past medical history of anxiety, depression, iron deficiency anemia, diastolic CHF, TIA, hypertension, hyperlipidemia, history of tobacco use, GERD, obstructive sleep apnea on CPAP, PVD, chronic COPD, chronic hypoxic respiratory failure requiring 3 L nasal cannula continuously at baseline. 1. Acute on chronic COPD exacerbation secondary to parainfluenza 3 with chronic hypoxic respiratory failure-pulmonary medicine consulted during admission. She follows with Dr. White, [facility] as outpatient. Patient wears 3 L nasal cannula at baseline. Continue home aerosol/inhaler regimen. Continue oral doxycycline 100 mg twice daily for 5 more days at discharge. Continue prednisone taper at discharge. Continue supplemental oxygen to maintain O2 at or above 90%. Chest x-ray shows no acute process. Follow-up with Dr. White in one week. 2. Acute kidney injury-suspect secondary to dehydration. Patient recently started on Lasix regimen due to admission for CHF. Creatinine all within normal limits. Resume home Lasix and SERGIO inhibitor regimen at discharge. 3. Lactic acidosis-suspect secondary to #1. No evidence of sepsis. 4. Chest pain-resolved. Troponin negative ?3. 5. Chronic diastolic CHF-recently admitted with CHF exacerbation 07/06/17. Echo at that time showed an EF of 55%, stage II diastolic dysfunction, severely enlarged left atrium, mild tricuspid valve insufficiency, RVSP 59 mmHg consistent with moderate pulmonary hypertension. 6. Hypertension-stable, continue home regimen. 7. Hyperlipidemia-continue statin. 8. DUDLEY- continue home CPAP regimen. 9. Iron deficiency anemia-hemoglobin stable. Continue home iron supplementation. 10. Anxiety, depression-continue home Celexa and trazodone regimen. General: Alert, Oriented x3, Cooperative HEENT: Atraumatic, PERRLA, EOMI, Normocephalic Neck: Supple, No JVD, Negative Carotid Bruits Lungs: Clear to auscultation, Diminished Cardiovascular: Regular rate, Regular Rhythm, Normal S1, Normal S2, No murmurs Abdomen: Bowel Sounds Present, Soft, Non Tender Extremities: No clubbing, No cyanosis, No edema, Capillary Refill Less than 3 Seconds Skin: No rashes, No breakdown Musculoskeletal: No Tenderness to Palpation of Joints or Extremities Neurological: Cranial nerves II-XII grossly intact Psych/Mental Status: Normal Affect, Appropriate Patient seen and examined prior to discharge. Physical assessment as noted above. Patient stable for discharge home with follow-up recommendations as noted above. This patient was seen by JAIME Santana under the supervision of Dr. Jones. Discharge Diet: Low fat/ Low Cholesterol Discharge Activity: Return to Normal Activity Call your doctor if you observe: Shortness of breath, Dizziness, Fainting spells, Chest pain, Increased palpitations (irregular heartbeat) Home Medications: Medications to take at Discharge Albuterol Inhaler [Ventolin Hfa] 2 puff INHALATION Q6H PRN PRN 04/27/16 Amlodipine Besylate [Norvasc] 10 mg PO DAILY 04/27/16 Citalopram [Celexa] 40 mg PO QHS 04/27/16 Clopidogrel Bisulfate [Plavix] 75 mg PO DAILY 04/27/16 Ferrous Gluconate 325 mg PO DAILY@0800 04/27/16 Fluticasone 220 Mcg [Flovent 220 Mcg] 1 puff INHALATION BID 04/27/16 Lisinopril [Zestril] 40 mg PO BID 04/27/16 Loratadine [Claritin] 10 mg PO DAILY 04/27/16 Multivitamins,Ther W-Minerals [Multivitamin With Minerals] 1 tablet PO DAILY 04/27/16 [place]-3 Fatty Acids/Fish Oil [[place] 3 1,000 mg Softgel] 2 each PO DAILY 04/27/16 Pantoprazole Sodium [Protonix] 40 mg PO DAILY 04/27/16 Potassium Chloride [K-Dur] 20 meq PO BID 04/27/16 Pravastatin [Pravachol] 40 mg PO DAILY 04/27/16 traZODone [Desyrel] 100 mg PO QHS 04/27/16 Clonidine HCl 0.1 mg PO DAILY 07/06/17 Cyanocobalamin [Vitamin B12] 1,000 mcg PO DAILY@0800 07/06/17 Ipratropium [Atrovent Aerosols] 0.5 mg INHALATION 4X/DAY 07/06/17 Metoprolol(XL)Succ [Toprol Xl (Beta Gwen)] 100 mg PO DAILY 07/06/17 Hydroxyzine Pamoate [Vistaril] 50 mg PO PRN PRN 08/11/17 Albuterol Aerosols [Ventolin Aerosols] 0.5 mg INHALATION Q2H PRN PRN 08/12/17 Albuterol Aerosols [Ventolin Aerosols] 2.5 mg INHALATION Q2H PRN PRN 08/12/17 Furosemide [Lasix] 20 mg PO DINNER 08/12/17 Furosemide [Lasix] 40 mg PO DAILY 08/12/17 Doxycycline 100 mg PO BID #10 cap 08/14/17 Prednisone See Taper PO DAILY #26 tab 08/14/17 Following Prescrptions Were Given to Patient: Prednisone See Taper PO DAILY #26 tab Doxycycline 100 mg PO BID #10 cap Primary Care Physician: Cole Moran MD [Primary Care Provider] - Please follow up with your Primary Care Physician in: 1 Week Please Follow Up With: Norberto White MD When: 1 Week Disposition: Home Minutes spent on discharge:: 35 Patient Condition:: Stable Medical Necessity - Tobacco Use Smoking Status: Former smoker Tobacco Use: Non-smoker Meaningful Use Info Meaningful Use Diagnoses (Choose all that apply): None applicable <Rashi Jones - Last Filed: 08/14/17 09:29> Discharge Date and Diagnosis - Secondary Discharge Diagnosis Chronic Problems TIA (transient ischemic attack) (Chronic) Chronic respiratory failure with hypoxia (Chronic) History of hypertension (Chronic) Hyperlipidemia (Chronic) History of tobacco use (Chronic) History of esophageal reflux (Chronic) Diverticulosis of colon (without mention of hemorrhage) (Chronic) COPD (chronic obstructive pulmonary disease) (Chronic) DUDLEY on CPAP (Chronic) History of peripheral vascular disease (Chronic) Hospital Course and Treatment Summary of Care Provided: This patient was seen in conjunction with JAIME Santana . I have independently interviewed and examined the patient and reviewed pertinent historical, laboratory, and other data. Please refer to JAIME Santana note for details of this patient's presentation, findings, and recommendations. I have reviewed JAIME Santana note and concur with documented findings. In brief, patient is a 81-year-old lady presented with progressive shortness of breath and assessment of acute on chronic hypoxic respiratory failure secondary to combination of COPD as well as CHF made admitted to the monitored bed for further management Assessment: 1. Acute on chronic hypoxic respiratory failure 2. Acute diastolic congestive heart failure 3. COPD with exacerbation 4. Lactic acidosis sepsis ruled out 5. Respiratory failure secondary to COPD on baseline home O2 6. Obesity with BMI of 30.1 7. Depression with anxiety 8. Dyslipidemia 9. Obstructive sleep apnea 10. Anemia secondary to anemia of chronic disorder 11. DVT prophylaxis: SC heparin Hospital course: As elicited above by Linda Culver Total time spent on discharge process 35 Code Visit Inpatient E&M: [id number] Disch Hosp
--- NOTE | 2017-08-14 09:23 | DS.PCM_ITS ---
<Linda Culver - Last Filed: 08/14/17 09:23> Discharge Date and Diagnosis Date of Admission: 08/12/17 Date of Discharge: 08/14/17 - Primary Discharge Diagnosis Active and Suspected Problems 1. Acute on chronic COPD exacerbation secondary to parainfluenza 3 with chronic hypoxic respiratory failure 2. Acute kidney injury 3. Chest pain-ACS ruled out. 4. Lactic acidosis-secondary to #1. Infectious etiology ruled out. - Secondary Discharge Diagnosis Chronic Problems TIA (transient ischemic attack) (Chronic) Chronic respiratory failure with hypoxia (Chronic) History of hypertension (Chronic) Hyperlipidemia (Chronic) History of tobacco use (Chronic) History of esophageal reflux (Chronic) Diverticulosis of colon (without mention of hemorrhage) (Chronic) COPD (chronic obstructive pulmonary disease) (Chronic) DUDLEY on CPAP (Chronic) History of peripheral vascular disease (Chronic) Hospital Course and Treatment Imaging Results: Diagnostic Data Chest X-Ray 08/11/17 22:09 IMPRESSION: Degenerative changes, as described above. No demonstrated acute cardiopulmonary process. Electronically Signed: Kisha Maravilla MD at 0:11 EDT Tel , Service support , Dr. Alvarado- Pulmonary Medicine Operations: None Procedures: None Summary of Care Provided: Patient is a 81-year-old female admitted 08/12/17 due to dyspnea. She has a past medical history of anxiety, depression, iron deficiency anemia, diastolic CHF, TIA, hypertension, hyperlipidemia, history of tobacco use, GERD, obstructive sleep apnea on CPAP, PVD, chronic COPD, chronic hypoxic respiratory failure requiring 3 L nasal cannula continuously at baseline. 1. Acute on chronic COPD exacerbation secondary to parainfluenza 3 with chronic hypoxic respiratory failure-pulmonary medicine consulted during admission. She follows with Dr. White, [facility] as outpatient. Patient wears 3 L nasal cannula at baseline. Continue home aerosol/inhaler regimen. Continue oral doxycycline 100 mg twice daily for 5 more days at discharge. Continue prednisone taper at discharge. Continue supplemental oxygen to maintain O2 at or above 90%. Chest x-ray shows no acute process. Follow-up with Dr. White in one week. 2. Acute kidney injury-suspect secondary to dehydration. Patient recently started on Lasix regimen due to admission for CHF. Creatinine all within normal limits. Resume home Lasix and SERGIO inhibitor regimen at discharge. 3. Lactic acidosis-suspect secondary to #1. No evidence of sepsis. 4. Chest pain-resolved. Troponin negative ?3. 5. Chronic diastolic CHF-recently admitted with CHF exacerbation 07/06/17. Echo at that time showed an EF of 55%, stage II diastolic dysfunction, severely enlarged left atrium, mild tricuspid valve insufficiency, RVSP 59 mmHg consistent with moderate pulmonary hypertension. 6. Hypertension-stable, continue home regimen. 7. Hyperlipidemia-continue statin. 8. DUDLEY- continue home CPAP regimen. 9. Iron deficiency anemia-hemoglobin stable. Continue home iron supplementation. 10. Anxiety, depression-continue home Celexa and trazodone regimen. General: Alert, Oriented x3, Cooperative HEENT: Atraumatic, PERRLA, EOMI, Normocephalic Neck: Supple, No JVD, Negative Carotid Bruits Lungs: Clear to auscultation, Diminished Cardiovascular: Regular rate, Regular Rhythm, Normal S1, Normal S2, No murmurs Abdomen: Bowel Sounds Present, Soft, Non Tender Extremities: No clubbing, No cyanosis, No edema, Capillary Refill Less than 3 Seconds Skin: No rashes, No breakdown Musculoskeletal: No Tenderness to Palpation of Joints or Extremities Neurological: Cranial nerves II-XII grossly intact Psych/Mental Status: Normal Affect, Appropriate Patient seen and examined prior to discharge. Physical assessment as noted above. Patient stable for discharge home with follow-up recommendations as noted above. This patient was seen by JAIME Santana under the supervision of Dr. Jones. Discharge Diet: Low fat/ Low Cholesterol Discharge Activity: Return to Normal Activity Call your doctor if you observe: Shortness of breath, Dizziness, Fainting spells , Chest pain, Increased palpitations (irregular heartbeat) Home Medications: Medications to take at Discharge Albuterol Inhaler [Ventolin Hfa] 2 puff INHALATION Q6H PRN PRN 04/27/16 Amlodipine Besylate [Norvasc] 10 mg PO DAILY 04/27/16 Citalopram [Celexa] 40 mg PO QHS 04/27/16 Clopidogrel Bisulfate [Plavix] 75 mg PO DAILY 04/27/16 Ferrous Gluconate 325 mg PO DAILY@0800 04/27/16 Fluticasone 220 Mcg [Flovent 220 Mcg] 1 puff INHALATION BID 04/27/16 Lisinopril [Zestril] 40 mg PO BID 04/27/16 Loratadine [Claritin] 10 mg PO DAILY 04/27/16 Multivitamins,Ther W-Minerals [Multivitamin With Minerals] 1 tablet PO DAILY [place]-3 Fatty Acids/Fish Oil [[place] 3 1,000 mg Softgel] 2 each PO DAILY Pantoprazole Sodium [Protonix] 40 mg PO DAILY 04/27/16 Potassium Chloride [K-Dur] 20 meq PO BID 04/27/16 Pravastatin [Pravachol] 40 mg PO DAILY 04/27/16 traZODone [Desyrel] 100 mg PO QHS 04/27/16 Clonidine HCl 0.1 mg PO DAILY 07/06/17 Cyanocobalamin [Vitamin B12] 1,000 mcg PO DAILY@0800 07/06/17 Ipratropium [Atrovent Aerosols] 0.5 mg INHALATION 4X/DAY 07/06/17 Metoprolol(XL)Succ [Toprol Xl (Beta Gwen)] 100 mg PO DAILY 07/06/17 Hydroxyzine Pamoate [Vistaril] 50 mg PO PRN PRN 08/11/17 Albuterol Aerosols [Ventolin Aerosols] 0.5 mg INHALATION Q2H PRN PRN 08/12/17 Albuterol Aerosols [Ventolin Aerosols] 2.5 mg INHALATION Q2H PRN PRN 08/12/17 Furosemide [Lasix] 20 mg PO DINNER 08/12/17 Furosemide [Lasix] 40 mg PO DAILY 08/12/17 Doxycycline 100 mg PO BID #10 cap 08/14/17 Prednisone See Taper PO DAILY #26 tab 08/14/17 Following Prescrptions Were Given to Patient: Prednisone See Taper PO DAILY #26 tab Doxycycline 100 mg PO BID #10 cap Primary Care Physician: Cole Moran MD [Primary Care Provider] - Please follow up with your Primary Care Physician in: 1 Week Please Follow Up With: Norberto White MD When: 1 Week Disposition: Home Minutes spent on discharge:: 35 Patient Condition:: Stable Medical Necessity - Tobacco Use Smoking Status: Former smoker Tobacco Use: Non-smoker Meaningful Use Info Meaningful Use Diagnoses (Choose all that apply): None applicable <Rashi Jones - Last Filed: 08/14/17 09:29> Discharge Date and Diagnosis - Secondary Discharge Diagnosis Chronic Problems TIA (transient ischemic attack) (Chronic) Chronic respiratory failure with hypoxia (Chronic) History of hypertension (Chronic) Hyperlipidemia (Chronic) History of tobacco use (Chronic) History of esophageal reflux (Chronic) Diverticulosis of colon (without mention of hemorrhage) (Chronic) COPD (chronic obstructive pulmonary disease) (Chronic) DUDLEY on CPAP (Chronic) History of peripheral vascular disease (Chronic) Hospital Course and Treatment Summary of Care Provided: This patient was seen in conjunction with JAIME Santana . I have independently interviewed and examined the patient and reviewed pertinent historical, laboratory, and other data. Please refer to MAGGIE Santana note for details of this patient's presentation, findings, and recommendations. I have reviewed JAIME Santana note and concur with documented findings. In brief, patient is a 81-year-old lady presented with progressive shortness of breath and assessment of acute on chronic hypoxic respiratory failure secondary to combination of COPD as well as CHF made admitted to the monitored bed for further management Assessment: 1. Acute on chronic hypoxic respiratory failure 2. Acute diastolic congestive heart failure 3. COPD with exacerbation 4. Lactic acidosis sepsis ruled out 5. Respiratory failure secondary to COPD on baseline home O2 6. Obesity with BMI of 30.1 7. Depression with anxiety 8. Dyslipidemia 9. Obstructive sleep apnea 10. Anemia secondary to anemia of chronic disorder 11. DVT prophylaxis: SC heparin Hospital course: As elicited above by Linda Culver Total time spent on discharge process 35 Code Visit Inpatient E&M: [id number] Disch Hosp
--- NOTE | 2017-08-16 15:21 | CASEMGMT ---
OLGA VARGAS Discharge Follow-up Phone Call: [place]IL[place]: Manjinder Strata: 3 Call Date: 08/16/17 Discharge Date: 08/14/17 Time of Call: 1522 Duration: 3 min Admitting Diagnosis: COPD EXAC, chest pain, EKG changes OLGA VARGAS called to follow-up with patient after recent hospitalization. Patient states she is doing fine and is resting. Patient states that she does not have any questions regarding discharge instructions or medication. Patient states that she has her follow-up appts scheduled.
== END 2017-08-14 11:42 | disposition home or self-care (01) | DRG 202 ==
LOC: ED 23:38 → PCU 08-12 00:43
PROVIDERS: Internal Medicine Critical Care Medicine; Nurse Practitioner Family; Admitting Provider Family Medicine; Emergency Provider Emergency Medicine; Family Provider Family Medicine; PCP Family Medicine; Visit Provider Internal Medicine
DX: J20.4 Acute bronchitis due to parainfluenza virus (principal); J44.1 Chronic obstructive pulmonary disease with (acute) exacerbation; E87.2 Acidosis; N17.9 Acute kidney failure, unspecified; I50.32 Chronic diastolic (congestive) heart failure; J96.11 Chronic respiratory failure with hypoxia; J44.0 Chronic obstructive pulmonary disease with (acute) lower respiratory infection; I11.0 Hypertensive heart disease with heart failure; E78.5 Hyperlipidemia, unspecified; D50.9 Iron deficiency anemia, unspecified; G47.33 Obstructive sleep apnea (adult) (pediatric); Z66 Do not resuscitate; Z87.891 Personal history of nicotine dependence; Z99.81 Dependence on supplemental oxygen; Z86.73 Personal history of transient ischemic attack (TIA), and cerebral infarction without residual deficits; F41.8 Other specified anxiety disorders; R07.9 Chest pain, unspecified
CPT/HCPCS: 36415; 71046; 80048; 80061; 80076; 81001; 83605; 83735; 84484; 85025; 85027; 87040; 87070; 87077; 87086; 87088; 87186; 87205; 87633; 93005; 94640; 94667; 94668; 97110; 97116; 97161; 97166; 97802; 99285; J7030; J7040; A4216

== ENCOUNTER 2017-08-31 13:15 | Outpatient (RCR) | payer MEDICARE, SELFPAY ==
--- NOTE | 2017-08-31 13:23 | PCM.PR.HP ---
History of Present Illness Arrival date:: 08/31/17 Arrival time:: 13:23 Date of Referral:: 08/08/17 Date of Evaluation: 08/31/17 Referring Physician: Dr. Norberto White Primary Diagnosis: Severe COPD History of Present Illness: Patient had been admitted to [facility] on 07/06/17 with increased shortness of breath, she was admitted with acute hypoxic respiratory failure adn acute on chronic CHF and placed on BiPap. mMRC Breathless Scale: When is the patient short of breath? Y/N Grade: Description of Breathlessness: 0 I only get breathless with strenuous exercise. 1 I get short of breath when hurrying on level ground or walking up a slight hill. 2 On level ground, I walk slower than people of the same age because of breathless, or have to stop for breath when walking at my own pace. 3 I stop for breath after walking 100 yards or after a few minutes on level ground. 4 I am too breathless to leave the house or I am breathless when dressing. Respiratory Problems: Yes: Able to Speak in Full Sentences, Ankle Swelling, Anxiety, Dyspnea at Rest, Dyspnea with Activity Home Medications: Home Medications Albuterol Inhaler [Ventolin Hfa] 2 puff INHALATION Q6H PRN PRN 04/27/16 Amlodipine Besylate [Norvasc] 10 mg PO DAILY 04/27/16 Citalopram [Celexa] 40 mg PO QHS 04/27/16 Clopidogrel Bisulfate [Plavix] 75 mg PO DAILY 04/27/16 Ferrous Gluconate 325 mg PO DAILY@0800 04/27/16 Fluticasone 220 Mcg [Flovent 220 Mcg] 1 puff INHALATION BID 04/27/16 Lisinopril [Zestril] 40 mg PO BID 04/27/16 Loratadine [Claritin] 10 mg PO DAILY 04/27/16 Multivitamins,Ther W-Minerals [Multivitamin With Minerals] 1 tablet PO DAILY 04/27/16 [place]-3 Fatty Acids/Fish Oil [[place] 3 1,000 mg Softgel] 2 each PO DAILY 04/27/16 Pantoprazole Sodium [Protonix] 40 mg PO DAILY 04/27/16 Potassium Chloride [K-Dur] 20 meq PO BID 04/27/16 Pravastatin [Pravachol] 40 mg PO DAILY 04/27/16 traZODone [Desyrel] 100 mg PO QHS 04/27/16 Clonidine HCl 0.1 mg PO DAILY 07/06/17 Cyanocobalamin [Vitamin B12] 1,000 mcg PO DAILY@0800 07/06/17 Ipratropium [Atrovent Aerosols] 0.5 mg INHALATION 4X/DAY 07/06/17 Metoprolol(XL)Succ [Toprol Xl (Beta Gwen)] 100 mg PO DAILY 07/06/17 Hydroxyzine Pamoate [Vistaril] 50 mg PO PRN PRN 08/11/17 Albuterol Aerosols [Ventolin Aerosols] 0.5 mg INHALATION Q2H PRN PRN 08/12/17 Albuterol Aerosols [Ventolin Aerosols] 2.5 mg INHALATION Q2H PRN PRN 08/12/17 Furosemide [Lasix] 20 mg PO DINNER 08/12/17 Furosemide [Lasix] 40 mg PO DAILY 08/12/17 Doxycycline 100 mg PO BID #10 cap 08/14/17 Prednisone See Taper PO DAILY #26 tab 08/14/17 Allergies/Adverse Reactions: Allergies cilostazol [From Pletal] Allergy (Verified 07/27/17 21:35) Swelling Penicillins Allergy (Verified 07/27/17 21:35) Swelling - Secretions Normal Color:: pale yellow Thick:: Yes Amount/Day:: 1 TSP A.T.C.: Yes Hx of Sleep Apnea: Yes Do you snore loudly (louder than talking or can be heard through closed doors)?: Yes - history oc DUDLEY and uses CPAP at wiht 3 liters oxygen. Medical Utilization Do you use a peak flow meter at home?: No Do you use a spacer device with your inhalers?: No Number of hospital visits in the last year?: 2 Number of emergency room visits in the last year?: 2 Do you see your physician on a regular schedule?: Yes How often?: 3 months Advanced Directives - Advanced Directives Power of Optical Glass Inspector: Yes Living Will: Yes Advance Directives Information Provided: No Advance Directives on File: Yes DNR Order?:: Yes - MOLST See MOLST form: No Past Medical History Medical History: Past Medical History (Last Updated 08/31/17 @ 13:30 by Franco Hannon, PROPERTY ASSISTANT, FOOD SANITARIAN, BS) GERD (gastroesophageal reflux disease) K21.9 DUDLEY (obstructive sleep apnea) G47.33 Pulmonary hypertension, moderate to severe I27.20 Uterine cancer C55 Hypertension I10 Surgical History: Past Surgical History (Last Updated 08/31/17 @ 13:35 by Franco Hannon, PROPERTY ASSISTANT, FOOD SANITARIAN, BS) History of discectomy Z98.890 - Current/ Previous Services Pulmonary Rehab:: No Social History - Smoking History Smoking Status: Former smoker Years Smokin Packs Smoked per Day: 1 Hx Smoking Cessation Date: 2009 Hx Tobacco Use: Yes Hx Smoking Exposure: No - Alcohol Use Alcohol Usage: No - Substance Abuse Hx Substance Use: No - Occupation Occupation (List type of work in comments):: Retired - Hobbies, Recreation, Social Activities Hobbies: Sewing, Watch TV, Other - out to eat, babysitting Recreational Activities: I am able to engage in a few activities Functioning ADL/IADL - Current Ability Current Ability: Dependent Household tasks (e.g., light meal prep, laundry, shopping), Independent Self-Care (e.g.,grooming, dressing, & bathing), Independent Transfer, Needs some help Ambulation - cane at home, wheelchair for long distances - Pt Functioning Prior to Problem Prior Functioning: Self-Care (e.g.,grooming, dressing, & bathing): Independent, Ambulation: Needs some help, Transfer: Independent, Household tasks (e.g., light meal prep, laundry, shopping): Dependent Social Environment - Status Marital Status: - Current Living Arrangements Living Environment:: Family - grandson stays with her. - Children How many children do you have?: 4 Do any of your children live nearby?: Yes - next door, [place] and [place] - Safety Do you feel safe in your surroundings?: Yes - Assistance Do you need any assistance at home?: daughter helps out at home. Review of Systems Review of Systems: Right click = Denies ([place]). Left click = Reports ([place]) Respiratory: Reports: SOB upon Exertion, Wheezing, Appetite, Normal, Dizziness/Lightheadedness, Sleep, Normal. Denies: Cough, SOB at Rest, Sputum production Is Patient Pain Free?: No Pain Location: none Pain Level: 0/10 Risk Factor Assessment - Chief Complaint Chief Complaint: Patient presents to [place] today under the care of Dr. Norberto White of the [facility]. The patient has previous medical history of COPD, DUDLEY, hyperlipidemia, TIA x2-3, hyperlipidemia, GERD, HTN, uterine cancer and right breast cancer resulting in masectomy. - Vital Signs Temperature: 98.7 F Pulse Rate: 52 Pulse Rhythm: Regular Respiratory Rate: 22 Pulse Ox: 95 Blood Pressure: 122/64 Nailbeds:: pink - Diabetes Nutrition Referral for Diabetes: No - Obesity Height: 5 ft 3 in Weight:: 167 lb Weight in Pounds: 167.0 lbs Weight Source: Stated by Patient Body Mass Index (BMI): 29.5 Nutritional Referral for Obesity: No - Physical Activity Physical Inactivity: None - Risk Stratification Risk Guidelines: Lowest Risk: Risk Factor for Smoking, Risk Factor for Dyslipidemia, Risk Factor for Diabetes, Risk Factor for Hypertension, Risk Factor for Depression, Moderate Risk: Risk Factor for Obesity, Highest Risk: Risk Factor for Sedentary Lifestyle - For Smoking Smoking Risk Guidelines: Smoking Low Risk: None or quit greater than 6 months ago. Smoking Moderate Risk: Smoker or quit 6 months or less ago. Smoking High Risk: Smoker - For Dyslipidemia Dyslipidemia Risk Guidelines: Low Risk: Moderate Risk: High Risk: 15-25% fat 25.1-29% fat >/= 30% fat. <7% sat fat 7-9% sat fat >9% sat fat. <150 mg chol 150-299 mg chol >/= 300 mg chol. LDL <100 LDL 100-129 LDL >/= 130. Chol/HDL ratio <5.0 Chol/HDL ratio 5.0-6.0 Chol/HDL ratio >6.0. Triglycerides <100 Triglycerides 100-149 Triglycerides >/= 150 - For Diabetes Mellitus Diabetes Risk Guidelines: Diabetes Low Risk: HgA1c <6.5% and/or FBG <120. Diabetes Moderate Risk: HgA1c 6.6-7.9% and/or FBG 120-180. Diabetes High Risk: HgA1c >/= 8% and/or FBG >180 - For Obesity/Overweight Obesity/Overweight Risk Guidelines: Obesity Low Risk: BMI <25.0. Obesity Moderate Risk: BMI 25-29.9. Obesity High Risk: BMI >/= 30.0 - For Hypertension Hypertension Risk Guidelines: Hypertension Low Risk: Systolic <120 and Diastolic <80. Hypertension Moderate Risk: Systolic 120-139 and Diastolic 80-89. Hypertension High Risk: Systolic >/= 140 and Diastolic >/= 90 - For Sedentary Lifestyle Sedentary Lifestyle Risk Guidelines: Sedentary Lifestyle Low Risk: >/= 1,500 kcal/week. Sedentary Lifestyle Moderate Risk: 700-1,499 kcal/week. Sedentary Lifestyle High Risk: < 700 kcal/week - For Depression Depression Risk Guidelines: Depression Low Risk: Not clinically depressed. Depression Moderate Risk: Mildly depressed. Depression High Risk: Clinically depressed Motivation - Motivation to Participate On a scale of 1 to 10, how prepared are you to commit to attending program?: 5 What do you see as barriers to successfully being able to complete the program?: transportation to get here What do you see as the benefits of succesfully completing the program? In other words, what do you hope to get out of participating in the program?: get around better, do more things, breathe better Are there issues you are dealing with that will interfere with completing the program?: none Do you have a spouse or signficant other, family or friends who will help support you to complete the program?: yes.
--- NOTE | 2017-08-31 13:33 | PR.HP_ITS ---
History of Present Illness Arrival date:: 08/31/17 Arrival time:: 13:23 Date of Referral:: 08/08/17 Date of Evaluation: 08/31/17 Referring Physician: Dr. Norberto White Primary Diagnosis: Severe COPD History of Present Illness: Patient had been admitted to [facility] on 07/06/17 with increased shortness of breath , she was admitted with acute hypoxic respiratory failure adn acute on chronic CHF and placed on BiPap. mMRC Breathless Scale: When is the patient short of breath? Y/N Grade: Description of Breathlessness: 0 I only get breathless with strenuous exercise. 1 I get short of breath when hurrying on level ground or walking up a slight hill. 2 On level ground, I walk slower than people of the same age because of breathless, or have to stop for breath when walking at my own pace. 3 I stop for breath after walking 100 yards or after a few minutes on level ground. 4 I am too breathless to leave the house or I am breathless when dressing. Respiratory Problems: Yes: Able to Speak in Full Sentences, Ankle Swelling, Anxiety, Dyspnea at Rest, Dyspnea with Activity Home Medications: Home Medications Albuterol Inhaler [Ventolin Hfa] 2 puff INHALATION Q6H PRN PRN 04/27/16 Amlodipine Besylate [Norvasc] 10 mg PO DAILY 04/27/16 Citalopram [Celexa] 40 mg PO QHS 04/27/16 Clopidogrel Bisulfate [Plavix] 75 mg PO DAILY 04/27/16 Ferrous Gluconate 325 mg PO DAILY@0800 04/27/16 Fluticasone 220 Mcg [Flovent 220 Mcg] 1 puff INHALATION BID 04/27/16 Lisinopril [Zestril] 40 mg PO BID 04/27/16 Loratadine [Claritin] 10 mg PO DAILY 04/27/16 Multivitamins,Ther W-Minerals [Multivitamin With Minerals] 1 tablet PO DAILY [place]-3 Fatty Acids/Fish Oil [[place] 3 1,000 mg Softgel] 2 each PO DAILY Pantoprazole Sodium [Protonix] 40 mg PO DAILY 04/27/16 Potassium Chloride [K-Dur] 20 meq PO BID 04/27/16 Pravastatin [Pravachol] 40 mg PO DAILY 04/27/16 traZODone [Desyrel] 100 mg PO QHS 04/27/16 Clonidine HCl 0.1 mg PO DAILY 07/06/17 Cyanocobalamin [Vitamin B12] 1,000 mcg PO DAILY@0800 07/06/17 Ipratropium [Atrovent Aerosols] 0.5 mg INHALATION 4X/DAY 07/06/17 Metoprolol(XL)Succ [Toprol Xl (Beta Gwen)] 100 mg PO DAILY 07/06/17 Hydroxyzine Pamoate [Vistaril] 50 mg PO PRN PRN 08/11/17 Albuterol Aerosols [Ventolin Aerosols] 0.5 mg INHALATION Q2H PRN PRN 08/12/17 Albuterol Aerosols [Ventolin Aerosols] 2.5 mg INHALATION Q2H PRN PRN 08/12/17 Furosemide [Lasix] 20 mg PO DINNER 08/12/17 Furosemide [Lasix] 40 mg PO DAILY 08/12/17 Doxycycline 100 mg PO BID #10 cap 08/14/17 Prednisone See Taper PO DAILY #26 tab 08/14/17 Allergies/Adverse Reactions: Allergies cilostazol [From Pletal] Allergy (Verified 07/27/17 21:35) Swelling Penicillins Allergy (Verified 07/27/17 21:35) Swelling - Secretions Normal Color:: pale yellow Thick:: Yes Amount/Day:: 1 TSP A.T.C.: Yes Hx of Sleep Apnea: Yes Do you snore loudly (louder than talking or can be heard through closed doors)? : Yes - history oc DUDLEY and uses CPAP at wiht 3 liters oxygen. Medical Utilization Do you use a peak flow meter at home?: No Do you use a spacer device with your inhalers?: No Number of hospital visits in the last year?: 2 Number of emergency room visits in the last year?: 2 Do you see your physician on a regular schedule?: Yes How often?: 3 months Advanced Directives - Advanced Directives Power of Leadite Man: Yes Living Will: Yes Advance Directives Information Provided: No Advance Directives on File: Yes DNR Order?:: Yes - MOLST See MOLST form: No Past Medical History Medical History: Past Medical History (Last Updated 08/31/17 @ 13:30 by Franco Hannon, EXECUTIVE CHAIRMAN OF THE BOARD, ECOLOGICAL ECONOMIST, BS) GERD (gastroesophageal reflux disease) K21.9 DUDLEY (obstructive sleep apnea) G47.33 Pulmonary hypertension, moderate to severe I27.20 Uterine cancer C55 Hypertension I10 Surgical History: Past Surgical History (Last Updated 08/31/17 @ 13:35 by Franco Hanonn, EXECUTIVE CHAIRMAN OF THE BOARD, ECOLOGICAL ECONOMIST, BS) History of discectomy Z98.890 - Current/ Previous Services Pulmonary Rehab:: No Social History - Smoking History Smoking Status: Former smoker Years Smokin Packs Smoked per Day: 1 Hx Smoking Cessation Date: 2009 Hx Tobacco Use: Yes Hx Smoking Exposure: No - Alcohol Use Alcohol Usage: No - Substance Abuse Hx Substance Use: No - Occupation Occupation (List type of work in comments):: Retired - Hobbies, Recreation, Social Activities Hobbies: Sewing, Watch TV, Other - out to eat, babysitting Recreational Activities: I am able to engage in a few activities Functioning ADL/IADL - Current Ability Current Ability: Dependent Household tasks (e.g., light meal prep, laundry, shopping), Independent Self-Care (e.g.,grooming, dressing, & bathing), Independent Transfer, Needs some help Ambulation - cane at home, wheelchair for long distances - Pt Functioning Prior to Problem Prior Functioning: Self-Care (e.g.,grooming, dressing, & bathing): Independent, Ambulation: Needs some help, Transfer: Independent, Household tasks (e.g., light meal prep, laundry, shopping): Dependent Social Environment - Status Marital Status: - Current Living Arrangements Living Environment:: Family - grandson stays with her. - Children How many children do you have?: 4 Do any of your children live nearby?: Yes - next door, [place] and [place] - Safety Do you feel safe in your surroundings?: Yes - Assistance Do you need any assistance at home?: daughter helps out at home. Review of Systems Review of Systems: Right click = Denies ([place]). Left click = Reports ([place]) Respiratory: Reports: SOB upon Exertion, Wheezing, Appetite, Normal, Dizziness/ Lightheadedness, Sleep, Normal. Denies: Cough, SOB at Rest, Sputum production Is Patient Pain Free?: No Pain Location: none Pain Level: 0/10 Risk Factor Assessment - Chief Complaint Chief Complaint: Patient presents to [place] today under the care of Dr. Norberto White of the [facility]. The patient has previous medical history of COPD, DUDLEY , hyperlipidemia, TIA x2-3, hyperlipidemia, GERD, HTN, uterine cancer and right breast cancer resulting in masectomy. - Vital Signs Temperature: 98.7 F Pulse Rate: 52 Pulse Rhythm: Regular Respiratory Rate: 22 Pulse Ox: 95 Blood Pressure: 122/64 Nailbeds:: pink - Diabetes Nutrition Referral for Diabetes: No - Obesity Height: 5 ft 3 in Weight:: 167 lb Weight in Pounds: 167.0 lbs Weight Source: Stated by Patient Body Mass Index (BMI): 29.5 Nutritional Referral for Obesity: No - Physical Activity Physical Inactivity: None - Risk Stratification Risk Guidelines: Lowest Risk: Risk Factor for Smoking, Risk Factor for Dyslipidemia, Risk Factor for Diabetes, Risk Factor for Hypertension, Risk Factor for Depression, Moderate Risk: Risk Factor for Obesity, Highest Risk: Risk Factor for Sedentary Lifestyle - For Smoking Smoking Risk Guidelines: Smoking Low Risk: None or quit greater than 6 months ago. Smoking Moderate Risk: Smoker or quit 6 months or less ago. Smoking High Risk: Smoker - For Dyslipidemia Dyslipidemia Risk Guidelines: Low Risk: Moderate Risk: High Risk: 15-25% fat 25.1-29% fat >/= 30% fat. <7% sat fat 7-9% sat fat >9% sat fat. <150 mg chol 150-299 mg chol >/= 300 mg chol. LDL <100 LDL 100-129 LDL >/= 130. Chol/HDL ratio <5.0 Chol/HDL ratio 5.0-6.0 Chol/HDL ratio >6.0. Triglycerides <100 Triglycerides 100-149 Triglycerides >/= 150 - For Diabetes Mellitus Diabetes Risk Guidelines: Diabetes Low Risk: HgA1c <6.5% and/or FBG <120. Diabetes Moderate Risk: HgA1c 6.6-7.9% and/or FBG 120-180. Diabetes High Risk: HgA1c >/= 8% and/or FBG >180 - For Obesity/Overweight Obesity/Overweight Risk Guidelines: Obesity Low Risk: BMI <25.0. Obesity Moderate Risk: BMI 25-29.9. Obesity High Risk: BMI >/= 30.0 - For Hypertension Hypertension Risk Guidelines: Hypertension Low Risk: Systolic <120 and Diastolic <80. Hypertension Moderate Risk: Systolic 120-139 and Diastolic 80-89. Hypertension High Risk: Systolic >/= 140 and Diastolic >/= 90 - For Sedentary Lifestyle Sedentary Lifestyle Risk Guidelines: Sedentary Lifestyle Low Risk: >/= 1 ,500 kcal/week. Sedentary Lifestyle Moderate Risk: 700-1,499 kcal/week. Sedentary Lifestyle High Risk: < 700 kcal/week - For Depression Depression Risk Guidelines: Depression Low Risk: Not clinically depressed. Depression Moderate Risk: Mildly depressed. Depression High Risk: Clinically depressed Motivation - Motivation to Participate On a scale of 1 to 10, how prepared are you to commit to attending program?: 5 What do you see as barriers to successfully being able to complete the program? : transportation to get here What do you see as the benefits of succesfully completing the program? In other words, what do you hope to get out of participating in the program?: get around better, do more things, breathe better Are there issues you are dealing with that will interfere with completing the program?: none Do you have a spouse or signficant other, family or friends who will help support you to complete the program?: yes.
[2017-08-31 13:47] VITALS: BP 122/64; PULSE 52; RESP 22; TEMP 37.1; O2SAT 95; BMI 29.5
--- NOTE | 2017-08-31 14:28 | PR.DATECOV_ITS ---
Dates of Coverage Times for Dates Of Coverage; All dates of coverage are for physician supervision /director medical affairs for during the times of 08:00 AM through 4:30 PM. Effective Dec 03, 2012 our hours will be changing to 8:00 to 4:30 on Tuesday, Tuesday and Tuesday. First Date of the Month: 09/07/17 Last Date of the Month: 10/01/17
--- NOTE | 2017-08-31 14:28 | PCM.PR.TP ---
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 - Education/Goals Barriers to Learning: Vision Impairment Individual Counseling: Initial Assessment: Dyspnea control techniques at rest, activity, and ADLs, Inhaled and respiratory medications, Exacerbation prevention & management, O2, Rx, system, safety, ADL management and pacing, Home exercise plan & guidelines Patient Goals: Breathe better: Initial Assessment, Increase endurance/stamina: Initial Assessment, Return to recreation/hobby: Initial Assessment, Control panic/anxiety: Initial Assessment, Return to work: Initial Assessment, Improve diet and nutrition: Initial Assessment, Symptom management: Initial Assessment Exercise - Initial Assessment - Visit Date of Eval: 08/31/17 - Start date 09/07/2017 - Problem/Goals Problems: Deconditioning, No regular exercise Goals:: Aerobic exercise 30-60 mins x 9 weeks - Exercise Prescription Mode:: Treadmill, Biodyne, NuStep, Arm Ergometer Frequency (x/week): 2 - due to transportation Duration:: 30 MET LEVEL:: 2 HR (bpm):: 100 - 92-100 THRR Exercise Progression: as tolerated per protocol. - Plan Plan and Plan to Review:: Benefits of exercise, Core components of exercise, How to measure dyspnea level, How to monitor dyspnea level, Exercise intensity, Exercise safety guideline, Home exercise guidelines, Fabiola: 3-4/-13 Disease Management - Initial - Problems/Goals-Hypoxemia Hypoxemia Problems:: Hypoxemia Hypoxemia Goals:: Hypoxemia managed, Using O2 as Rx's safely - Problems/Goals-Medications Medication Goals: Adherence to prescribed medications, Correct technique/timing & care of MDI, DPI, nebulizer, and spacer. - Problems/Goals-Bronchial Hygiene Bronchial Hygiene Problems:: Ineffective secretion clearance, Respiratory infection Prevention/Management Bronchial Hygiene Goals:: Pt demonstrates effective cough, effective secretion clearance., Pt describes signs and symptoms of infection. - Initial Assessment SpO2:: 95 Port O2:: 3 liters DME:: Cb Does pt report taking home meds as prescribed?: Yes Medications: Yes MDI, Yes NEB, No Spacer Patient Reports:: Nasal Congestion - Plans Hypoxemia Plan:: Monitor SpO2 rest & with exercise, Recommend appropriate FiO2 to Pt/MD, Assist to contact DME for O2, Train appropriate O2 use at rest, Train appropriate O2 use with exercise, Train O2 safety & systems Reviewed prescribed medications:: Purpose, Schedule, Side effects, Importance of compliance Instruct correct technique/timing & care:: MDI, Nebulizer, Return demo use of inhaler Bronchial Hygiene Plan: Controlled cough, Vibratory PEP device, Hydration, Hand hygiene, Signs/symptoms to report:, Cleaning of respiratory equipment Psychosocial - Initial Assess - Problems/Goals Problems: Depression, Panic, Ineffective coping, Impaired Q.O.L. Psychosocial Goals: Improved Q.O.L. - Psychosocial Test Depression:: Impaired QOL - Plan Reviewed screening results: Yes Instructions given regarding:: Benefits of exercise, Relaxation techniques, Training in coping strategies Tobacco - Initial Assessment - Program Goals Tobacco Program Goals: Complete smoking cessation. Attend education classes. Improve Knowledge Test score - Stage of Change Stages of Change:: Action - Learning Barriers Learning Barriers: Vision, Ready to Learn - Family Support Do you have family support?: Yes - Tobacco Use Tobacco Use: Non-smoker - quit 2009; 30 pack years How long ago did you quit using tobacco products?: Greater than or equal to 6 months ago Do you use smokeless tobacco?: No - Intervention Smoking Cessation Referral:: No Individual Education/Counseling:: No Education Schedule Given:: Yes - Education Gave Education Materials For:: Pulmonary Disease, Risk Factors, Breathing Techniques, Medical Compliance, Pulmonary A&P, Exacerbation Signs & Symptoms, Stress & Relaxation Nutrition/Wt Mgmt - Initial - Problems/Goals Problems: Overweight Goals: Wt Loss 1-2 lbs per week - Weight Management Knowledge Deficit Management of:: Overweight Admit Height:: 5 ft 3 in Admit Weight:: 167 lb Admit BMI:: 29.5 - Diabetes Diabetes:: No Do you monitor your blood sugar at home?: No - Intervention Referral to dietitian:: No Referral to Diabetic Clinic:: No Will attend diet classes:: Yes - Plan Nutrition Plan: Yes Review BMI or WC & identify target wt & strategies for wt control, Yes Nutrition education class:, Yes Weight control education class: Patient Health Questionnaire Initial Assessment 1. Little interest or pleasure in doing things: Several days 2. Feeling down, depressed, or hopeless: Several days 3. Trouble falling or staying asleep, or sleeping too much: Nearly every day 4. Feeling tired or having little energy: Nearly every day 5. Poor appetite or overeating: Nearly every day 6. Feeling bad about yourself -- or that you are a failure or have let yourself or your family down: Nearly every day 7. Trouble concentrating on things, such as reading the newspaper or watching television: Nearly every day 8. Moving or speaking so slowly that other people could have noticed. Or the opposite - being so fidgety or restless that you have been moving around a lot more than usual: Not at all 9. Thoughts that you would be better off , or of hurting yourself in some way: Not at all How difficult have these problems made it for you to do your work, take care of things at home, or get along with other people?: Extremely difficult Total Score: 17 COPD Knowledge Test Initial COPD is a lung disease that:: Makes it hard to breathe & gets worse over time In the [place] the term COPD describes 2 main lung conditions:: Emphysema & pulmonary hypertension The most common lung irritant that causes COPD is:: Cigarette smoke Common signs and symptoms of COPD include:: An ongoing cough/cough that produces a large amount of mucus, & SOB If you have COPD, what steps can you take?: All of the above Swelling of the ankles is common in COPD:: True Fatigue [tiredness] is common in COPD:: True Wheezing is common in COPD:: True Crushing chest pain is common in COPD:: False Rapid weight loss is common in COPD:: False Breathlessness is a normal response to exercise: True Exercise should be avoided if it makes you short of breath: False All bronchodilators act within 10 minutes: True A spacer device increases the medication to the lungs: True Annual flu vaccine is recommended for pts w/lung disease: True COPD Knowledge Test Total Score:: 12 COPD Assessment Test [CAT] - Questions Never cough = 0, Cough all the time = 5: 3 No phlegm = 0, Chest full of phlegm = 5: 3 No chest tightness = 0, Chest very tight = 5: 0 No breathless w/exertion = 0, Very breathless w/exertion = 5: 5 No limitations w/activity = 0, Very limited w/activity = 5: 5 Confident leaving home = 0, Not at all confident = 5: 3 Sleep soundly = 0, Don't sleep soundly = 5: 3 Lots of energy = 0, No energy at all = 5: 5 Total CAT score:: 27 Self-Efficacy Initial Assessment We would like to know how confident you are in doing certain activities. Please select your confidence level for:: Select your confidence level for the following using the scale 1-10 where 1 is not at all confident and 10 is totally confident. Your score is the average of all 6 responses. Fatigue: How confident are you that you can keep the fatigue caused by your disease from interfering with the things you want to do? Select Number: 1 Physical Discomfort or Pain: How confident are you that you can keep the physical discomfort or pain of your disease from interfering with the things you want to do? Select Number: 1 Emotional Distress: How confident are you that you can keep the emotional distress caused by your disease from interfering with the things you want to do? Select Number: 1 Other Symptoms or Health Problems: How confident are you that you can keep other symptoms or health problems from interfering with the things you want to do? Select Number: 1 Different Tasks and Activities: How confident are you that you can do the different tasks and activities needed to manage your health condition so as to reduce your need to see a doctor? Select Number: 8 Medication: How confident are you that you can do things other than just taking medication to reduce how much your illness affects your everyday life? Select Number: 5 Total Score:: 2 Nutrition Survey - Nutrition Survey Instructions Scoring Instructions: Scoring is as follows: Yes = 1 points. No = 0 point. Patient score that is >/=12 is considered to be at potential nutritional risk and could benefit from a referral to a registered dietitian. - Nutrition Survey Initial Have you lost >10 lbs over the past 2 months without trying?: Yes Are you following a special diet at home for diabetes, low fat, or low salt?: Yes Are you interested in meeting with a dietitian for help understanding your diet?: Yes Do you eat less than 3 meals a day?: Yes Do you eat fatty meats (perez, sausage, ribs, etc), fried foods, desserts, large amounts of salad dressings, margarine, butter, or cheese most days?: Yes Do you have food allergies? [Enter types in comment field]: No Do you eat in restaurants more than 3 times a week?: No Do you season food with salt, seasoning salt, or garlic salt?: No Do you used canned, boxed, frozen meals, or soups, seasoning packets?: Yes Total Score:: 6
[2017-08-31 14:41] VITALS: O2SAT 95; BMI 29.5
== END 2017-09-01 23:59 ==
LOC: PR 13:15
PROVIDERS: Family Provider Family Medicine; PCP Family Medicine; Visit Provider Internal Medicine Pulmonary Disease
DX: J44.9 Chronic obstructive pulmonary disease, unspecified (principal)
CPT/HCPCS: 97150; G0424

== ENCOUNTER 2017-09-23 10:15 | Outpatient (RCR) | payer MEDICARE, SELFPAY ==
[2017-09-02 01:12] VITALS: BP 122/64; PULSE 52; RESP 22; TEMP 37.1; O2SAT 95
--- NOTE | 2017-09-23 10:58 | PCM.PR.DAT ---
Dates of Coverage Times for Dates Of Coverage; All dates of coverage are for physician supervision/medical office scheduler for during the times of 08:00 AM through 4:30 PM. Effective Dec 03, 2012 our hours will be changing to 8:00 to 4:30 on Tuesday, Tuesday and Tuesday. First Date of the Month: 10/02/17 Last Date of the Month: 11/01/17
--- NOTE | 2017-09-23 10:58 | PCM.PR.TP ---
Exercise - 30-Day Assessment - Exercise Prescription Mode:: Treadmill, NuStep, Arm Ergometer Frequency (x/week): 3 Duration:: 30 Aerobic Exercise [30-60 min 3-7x/week]:: Progressing Target heart rate: 92-100 Fabiola-13 MET Level:: 2 - only had 2 sessions - Home Exercise Home Exercise:: No Disease Management - 30-Day - Medications Medication list reviewed:: Yes Taking medications 100% of the time:: Approximately 75% of the time Psychosocial - 30-Day - Assessment Reassessment: COPD assessment w/ CAT, Geriatric depression screening, Self efficacy score Tobacco - 30-Day Assessment - Program Goals Tobacco Program Goals: Complete smoking cessation. Attend education classes. Improve Knowledge Test score - Stage of Change Stages of Change:: Action - Learning Barriers Learning Barriers: Participates in education - Family Support Do you have family support?: Yes - Tobacco Use Tobacco Use: Non-smoker - Intervention Education Schedule Given:: Yes - Education Gave Education Materials For:: Pulmonary Disease, Risk Factors, Breathing Techniques, Medical Compliance, Pulmonary A&P, Exacerbation Signs & Symptoms, Stress & Relaxation Nutrition/Wt Mgmt - 30-Day - Weight Management Weight:: 177 lb 8 oz - our scale weight Patient Health Questionnaire 30-Day Re-eval Assessment 1. Little interest or pleasure in doing things: Several days 2. Feeling down, depressed, or hopeless: Several days 3. Trouble falling or staying asleep, or sleeping too much: Nearly every day 4. Feeling tired or having little energy: Nearly every day 5. Poor appetite or overeating: Nearly every day 6. Feeling bad about yourself -- or that you are a failure or have let yourself or your family down: Nearly every day 7. Trouble concentrating on things, such as reading the newspaper or watching television: Nearly every day 8. Moving or speaking so slowly that other people could have noticed. Or the opposite - being so fidgety or restless that you have been moving around a lot more than usual: Not at all 9. Thoughts that you would be better off , or of hurting yourself in some way: Not at all How difficult have these problems made it for you to do your work, take care of things at home, or get along with other people?: Extremely difficult Total Score: 17 COPD Assessment Test [CAT] - Questions Never cough = 0, Cough all the time = 5: 3 No phlegm = 0, Chest full of phlegm = 5: 3 No chest tightness = 0, Chest very tight = 5: 0 No breathless w/exertion = 0, Very breathless w/exertion = 5: 5 No limitations w/activity = 0, Very limited w/activity = 5: 5 Confident leaving home = 0, Not at all confident = 5: 3 Sleep soundly = 0, Don't sleep soundly = 5: 3 Lots of energy = 0, No energy at all = 5: 5 Total CAT score:: 27 Self-Efficacy 30-Day Re-eval Assessment We would like to know how confident you are in doing certain activities. Please select your confidence level for:: Select your confidence level for the following using the scale 1-10 where 1 is not at all confident and 10 is totally confident. Your score is the average of all 6 responses. Fatigue: How confident are you that you can keep the fatigue caused by your disease from interfering with the things you want to do? Select Number: 1 Physical Discomfort or Pain: How confident are you that you can keep the physical discomfort or pain of your disease from interfering with the things you want to do? Select Number: 1 Emotional Distress: How confident are you that you can keep the emotional distress caused by your disease from interfering with the things you want to do? Select Number: 1 Other Symptoms or Health Problems: How confident are you that you can keep other symptoms or health problems from interfering with the things you want to do? Select Number: 1 Different Tasks and Activities: How confident are you that you can do the different tasks and activities needed to manage your health condition so as to reduce your need to see a doctor? Select Number: 8 Medication: How confident are you that you can do things other than just taking medication to reduce how much your illness affects your everyday life? Select Number: 5 Total Score:: 2
== END 2017-10-01 23:59 ==
LOC: PR 10:15
PROVIDERS: Family Provider Family Medicine; PCP Family Medicine; Visit Provider Internal Medicine Pulmonary Disease
DX: J44.9 Chronic obstructive pulmonary disease, unspecified (principal)
CPT/HCPCS: 97150; G0424

== ENCOUNTER 2017-09-24 06:56 | Emergency (ER) | payer MEDICARE, SELFPAY ==
[2017-09-24 06:57] VITALS: BP 158/55; PULSE 87; RESP 30; TEMP 36.5; O2SAT 85; BMI 32.3
--- NOTE | 2017-09-24 07:07 | RAD_ITS ---
STUDY: X-RAY CHEST REASON FOR EXAM: Female, 81 years old. Cough. Shortness of breath TECHNIQUE: PA and lateral views of the chest. COMPARISON: August 11, 2017. FINDINGS: There are monitoring devices. There is hyperinflation of the lungs consistent with chronic obstructive lung disease (COPD). There are fibrotic densities and granulomatous calcifications. There is no demonstrated pleural abnormality. Normal size heart. There are calcified mediastinal lymph nodes. Normal visualized pulmonary arteries. There is atherosclerotic calcification of the aortic arch with tortuosity. There are diffuse degenerative changes of the visualized thoracic spine. Normal visualized ribs, clavicles, and shoulders. There is no demonstrated abnormality of the visualized soft tissue structures of the upper abdomen. RAD/Chest PA and Lateral IMPRESSION: Degenerative changes, as described above. No demonstrated acute cardiopulmonary process. Electronically Signed: Tone Sy MD at 8:23 EDT , Service support ,
[2017-09-24] MEDS: Ipratropium/Albuterol Sulfate 3 ML AMPUL.NEB INHALATION (07:20)
[2017-09-24] MEDS: Albuterol 2.5 MG/3 ML VIAL.NEB. INHALATION ×2 (07:20)
[2017-09-24 07:23] LABS: Absolute Neutrophil Count 5.7 X10^3/uL (2.0-7.7); Basophil# 0.02 X10^3/uL; Basophil% 0.2 % (0-1); Eosinophil# 0.56 X10^3/uL; Eosinophils% 6.1 % (0-5); Hematocrit 36.1 % (37-47); Hemoglobin 11.1 g/dl (12.0-15.0); Lymphocyte % 21.7 % (19-41); Mean Corp Hgb Conc 30.7 g/gl (32-36); Mean Corpuscular Volume 94.3 fL (81-99); Monocyte# 0.92 X10^3/uL; Neutrophil # 5.65 X10^3/uL (2.7-7.7); Neutrophil % 61.5 % (47-70); Platelet Count 282 K/mm3 (150-450); RBC Distribution Width CV 15.7 % (11.6-14.6); RBC Distribution Width SD 54.7 fl (35.1-43.9); Red Blood Count 3.83 M/mm3 (4.2-5.4); White Blood Count 9.2 K/mm3 (4.4-11.0)
[2017-09-24 07:26] VITALS: PULSE 79; RESP 22; O2SAT 95
[2017-09-24 07:32] LABS: POSITIVE COUNT NO; POSITIVE DIFFERENTIAL NO; POSITIVE MORPHOLOGY NO
[2017-09-24 07:36] LABS: Anion Gap 3 (5-15); BUN 24 mg/dL (7-18); BUN/Creat Ratio 27.3 RATIO (10-20); Calcium,Total 9.2 mg/dL (8.5-10.1); Chloride 106 mmol/L (98-107); Creatinine, Serum 0.88 mg/dL (0.55-1.02); EST Glomerular Filtration Rate 65 mL/min (>60); Est Glom Filt Rate - Afr Amer 79 mL/min (>60); Estimated Creatinine Clearance 38.98 ml/min; Glucose 138 mg/dL (74-106); Potassium 4.4 mmol/L (3.5-5.1); Sodium Level 141 mmol/L (136-145)
--- NOTE | 2017-09-24 07:37 | ED.DCSUM_ITS ---
- ER Visit Summary Date of Service: 09/24/17 Chief Complaint: [] Shortness of breath and cough for a few days history of COPD 4 L home O2 History of Present Illness: The patient is a 81 F [] history of COPD on 4 L home O2 she indicates for the last few days she has had a harsh cough productive of thick yellow mucus no fever, no chest pain no abdominal pain the persistence of the cough had her come to the emergency department family reports that concerned her CPAP machine may not be functioning normally that exacerbate her condition, she seen by a female rural sociologist in the area she has not been on antibiotics recently. She has no history of ND PE or DVT she is eating and drinking well otherwise her health has been stable and at baseline Physical Examination: [] On arrival as she walked in her pulse ox was 85% on 4 L now her pulse ox is 95% she is awake alert the rest of her vital signs are unremarkable she is afebrile she feels much better just being in the emergency department her HEENT exam is unremarkable her lungs are diminished heart tones are distant the abdomen is obese but soft nontender upper lower extremities unremarkable neurologically is awake moving all 4 reporting she feels improved as being in the air conditioned emergency department Test Results: [] Emergency Department Course and Treatment: [] Evaluation she is feeling much better her pulse ox is remained about 94% on her 2 L she is actually flat in the bed now her cough is improved, she wants to go home improved families in the room with her, at this time she will be started on Levaquin which she has had before that has helped Dbshanti TY and she will follow-up with Dr. Sprague who she now remembers is her rural sociologist return for change in symptoms Treatment Plan: [] Disposition: [] Home stable Impression: [] acute exacerbation of COPD improved This note was generated with [employer] dictation software. It may contain incorrect words, spelling, and punctuation that were not noted in review of the chart prior to signing ED Disposition - Plan for ED Patient: Chief Complaint: Shortness of Breath Referrals: Cole Moran MD [Primary Care Provider] -
--- NOTE | 2017-09-24 07:39 | EKG12_ITS ---
Test Reason : SOB Blood Pressure : / mmHG Vent. Rate : 076 BPM Atrial Rate : 076 BPM P-R Int : 154 ms QRS Dur : 080 ms QT Int : 426 ms P-R-T Axes : 072 041 074 degrees QTc Int : 479 ms Sinus rhythm with occasional Premature ventricular complexes Nonspecific ST and T wave abnormality Abnormal ECG Confirmed by BEE NEGRON, MU ([id number]), graphic editor FRANK NEGRON ([id number]) on 09/27/2017 10:39:39 AM Referred By: Out [facility] Doctor Confirmed By:MU GAMBOA MD
[2017-09-24] MEDS: predniSONE 20 MG Tablet 60 MG PO (07:42)
[2017-09-24 08:17] LABS: BNP,B-Type NATRIURETIC PEPTIDE 203.4 pg/mL (0-100)
[2017-09-24 09:44] VITALS: BP 149/81; PULSE 82; RESP 17; O2SAT 94
--- NOTE | 2017-09-24 10:16 | ED.DEP ---
ED Disposition - Plan for ED Patient: Chief Complaint: Shortness of Breath Instructions: ED COPD Flare, ED Upper Resp Infec Abx Tx Prescriptions: Levofloxacin [Levaquin] 750 mg PO DAILY #7 tab Referrals: Cole Moran MD [Primary Care Provider] -
[2017-09-24] MEDS: Triamcinolone Acetonide 40 MG/ML Vial IM (10:40)
[2017-09-24] MEDS: levoFLOXacin 750 MG Tablet PO (10:41)
[2017-09-24 10:54] VITALS: BP 137/66; PULSE 89; RESP 16; O2SAT 94
== END 2017-09-24 11:00 | disposition home or self-care (01) ==
PROVIDERS: Emergency Medicine; Emergency Provider Emergency Medicine; Family Provider Family Medicine; PCP Family Medicine
DX: J44.1 Chronic obstructive pulmonary disease with (acute) exacerbation (principal); I10 Essential (primary) hypertension; E78.00 Pure hypercholesterolemia, unspecified; Z86.73 Personal history of transient ischemic attack (TIA), and cerebral infarction without residual deficits
CPT/HCPCS: 71046; 80048; 83880; 84484; 85025; 93005; 94640; 99285; A4216

== ENCOUNTER 2017-10-26 10:15 | Outpatient (RCR) | payer MEDICARE, SELFPAY ==
[2017-10-02 00:59] VITALS: BP 122/64; PULSE 52; RESP 22; TEMP 37.1; O2SAT 95
--- NOTE | 2017-10-25 10:46 | PCM.PR.DAT ---
Dates of Coverage Times for Dates Of Coverage; All dates of coverage are for physician supervision/territory sales manager medical for during the times of 08:00 AM through 4:30 PM. Effective Dec 03, 2012 our hours will be changing to 8:00 to 4:30 on Tuesday, Tuesday and Tuesday. First Date of the Month: 11/02/17 Last Date of the Month: 12/02/17
--- NOTE | 2017-10-25 10:54 | PR.ITP_ITS ---
Exercise - 60-Day Assessment - Current Level Mode:: NuStep, Arm Ergometer Frequency (x/week): 3 Duration:: 30 Aerobic Exercise [30-60 min 3-7x/week]:: Progressing Target heart rate: 112-120 Fabiola-13 MET Level:: 2.5 - Home Exercise Home Exercise:: No Disease Management - 60-Day - Hypoxemia Reassessment: Demonstrates knowledge of O2 Rx at rest, Demonstrates knowledge of O2 Rx with exercise, Using O2 as prescribed, Has home O2 as prescribed, Uses port O2 as prescribed - Medications Medication list reviewed:: Yes Taking medications 100% of the time:: Met Medication reassessment: Yes Pt demonstrates correct technique timing for spacer - returned use of spacer device - Bronchial Hygiene Bronchial Hygiene Plan: Yes Pt demo correct for device - returned use of SMI and IMT devices, Yes Pt demo correct for improved hydration, Yes Pt demo correct for hand hygiene Psychosocial - 60-Day - Assessment Depression reassess: Management of stress: Progressing, Management of depression : Progressing, Practicing interventions: Progressing Tobacco - 60-Day Assessment - Program Goals Tobacco Program Goals: Complete smoking cessation. Attend education classes. Improve Knowledge Test score - Stage of Change Stages of Change:: Action - Learning Barriers Learning Barriers: Participates in education - Family Support Do you have family support?: Yes - Tobacco Use Tobacco Use: Non-smoker Do you use smokeless tobacco?: No - Intervention Smoking Cessation Referral:: No Education Schedule Given:: Yes - Education Gave Education Materials For:: Tobacco Triggers, Pulmonary Disease, Risk Factors , Breathing Techniques, Medical Compliance, Pulmonary A&P, Exacerbation Signs & Symptoms, Stress & Relaxation Nutrition/Wt Mgmt - 60-Day - Weight Management Weight Assessment:: Wt loss 1-2 lbs per week Weight:: 174 lb 8 oz - decreased 3 #; BMI 29.76 Weight Goals Progress:: Progressing Patient Health Questionnaire 60-Day Re-eval Assessment 1. Little interest or pleasure in doing things: Several days 2. Feeling down, depressed, or hopeless: Several days 3. Trouble falling or staying asleep, or sleeping too much: More than half the days 4. Feeling tired or having little energy: More than half the days 5. Poor appetite or overeating: More than half the days 6. Feeling bad about yourself -- or that you are a failure or have let yourself or your family down: More than half the days 7. Trouble concentrating on things, such as reading the newspaper or watching television: More than half the days 8. Moving or speaking so slowly that other people could have noticed. Or the opposite - being so fidgety or restless that you have been moving around a lot more than usual: Not at all 9. Thoughts that you would be better off , or of hurting yourself in some way: Not at all How difficult have these problems made it for you to do your work, take care of things at home, or get along with other people?: Very difficult Total Score: 12 COPD Assessment Test [CAT] - Questions Never cough = 0, Cough all the time = 5: 3 No phlegm = 0, Chest full of phlegm = 5: 3 No chest tightness = 0, Chest very tight = 5: 1 No breathless w/exertion = 0, Very breathless w/exertion = 5: 4 No limitations w/activity = 0, Very limited w/activity = 5: 4 Confident leaving home = 0, Not at all confident = 5: 2 Sleep soundly = 0, Don't sleep soundly = 5: 2 Lots of energy = 0, No energy at all = 5: 3 Total CAT score:: 22 Self-Efficacy 60-Day Re-eval Assessment We would like to know how confident you are in doing certain activities. Please select your confidence level for:: Select your confidence level for the following using the scale 1-10 where 1 is not at all confident and 10 is totally confident. Your score is the average of all 6 responses. Fatigue: How confident are you that you can keep the fatigue caused by your disease from interfering with the things you want to do? Select Number: 3 Physical Discomfort or Pain: How confident are you that you can keep the physical discomfort or pain of your disease from interfering with the things you want to do? Select Number: 3 Emotional Distress: How confident are you that you can keep the emotional distress caused by your disease from interfering with the things you want to do? Select Number: 3 Other Symptoms or Health Problems: How confident are you that you can keep other symptoms or health problems from interfering with the things you want to do? Select Number: 3 Different Tasks and Activities: How confident are you that you can do the different tasks and activities needed to manage your health condition so as to reduce your need to see a doctor? Select Number: 9 Medication: How confident are you that you can do things other than just taking medication to reduce how much your illness affects your everyday life? Select Number: 6 Total Score:: 4
== END 2017-11-01 23:59 ==
LOC: PR 10:15
PROVIDERS: Family Provider Family Medicine; PCP Family Medicine; Visit Provider Internal Medicine Pulmonary Disease
DX: J44.9 Chronic obstructive pulmonary disease, unspecified (principal)
CPT/HCPCS: 97150; G0424

== ENCOUNTER 2017-12-02 10:15 | Outpatient (RCR) | payer MEDICARE, SELFPAY ==
[2017-11-02 00:57] VITALS: BP 122/64; PULSE 52; RESP 22; TEMP 37.1; O2SAT 95
--- NOTE | 2017-11-25 08:15 | PCM.PR.DAT ---
Dates of Coverage Times for Dates Of Coverage; All dates of coverage are for physician supervision/medical billing and coding instructor for during the times of 08:00 AM through 4:30 PM. Effective Dec 03, 2012 our hours will be changing to 8:00 to 4:30 on Tuesday, Tuesday and Tuesday. First Date of the Month: 12/03/17 Last Date of the Month: 01/01/18
--- NOTE | 2017-11-25 08:17 | PCM.PR.TP ---
Exercise - 90-Day Assessment - Exercise Prescription Mode:: Biodyne, NuStep, Arm Ergometer Frequency (x/week): 3 Duration:: 35 Aerobic Exercise [30-60 min 3-7x/week]:: Not progressing Target heart rate: 92-100 Fabiola-13 MET Level:: 3 - Home Exercise Home Exercise?: No Disease Management - 90-Day - Hypoxemia Reassessment: Demonstrates knowledge of O2 Rx at rest, Demonstrates knowledge of O2 Rx with exercise, Using O2 as prescribed, Has home O2 as prescribed, Uses port O2 as prescribed - Medications Medication list reviewed:: Yes Taking medications 100% of the time:: Met Medication reassessment: Yes Pt demonstrates correct technique timing for MDI, Yes Pt demonstrates correct technique timing for DPI, Yes Pt demonstrates correct technique timing for NEB, Yes Pt demonstrates correct technique timing for spacer - returned use of spacer - Bronchial Hygiene Bronchial Hygiene Plan: Yes Pt demo correct for device - returned use of acapella, Yes Pt demo correct for improved hydration, Yes Pt demo correct for hand hygiene Psychosocial - 90-Day - Assessment Depression reassess: Management of stress: Met, Management of depression: Met, Practicing interventions: Met Tobacco - 90-Day Assessment - Program Goals Tobacco Program Goals: Complete smoking cessation. Attend education classes. Improve Knowledge Test score - Stage of Change Stages of Change:: Action - Learning Barriers Learning Barriers: Participates in education - Family Support Do you have family support?: Yes - Tobacco Use Tobacco Use: Non-smoker - Intervention Smoking Cessation Referral:: No Individual Education/Counseling:: No Education Schedule Given:: Yes - Education Gave Education Materials For:: Pulmonary Disease, Risk Factors, Breathing Techniques, Medical Compliance, Pulmonary A&P, Exacerbation Signs & Symptoms, Stress & Relaxation Nutrition/Wt Mgmt - 90-Day - Weight Management Weight Assessment:: Wt stable Weight:: 178 lb 8 oz Patient Health Questionnaire 90-Day Re-eval Assessment 1. Little interest or pleasure in doing things: Several days 2. Feeling down, depressed, or hopeless: Several days 3. Trouble falling or staying asleep, or sleeping too much: More than half the days 4. Feeling tired or having little energy: More than half the days 5. Poor appetite or overeating: More than half the days 6. Feeling bad about yourself -- or that you are a failure or have let yourself or your family down: More than half the days 7. Trouble concentrating on things, such as reading the newspaper or watching television: Several days 8. Moving or speaking so slowly that other people could have noticed. Or the opposite - being so fidgety or restless that you have been moving around a lot more than usual: Not at all 9. Thoughts that you would be better off , or of hurting yourself in some way: Not at all How difficult have these problems made it for you to do your work, take care of things at home, or get along with other people?: Somewhat difficult Total Score: 11 COPD Assessment Test [CAT] - Questions Never cough = 0, Cough all the time = 5: 3 No phlegm = 0, Chest full of phlegm = 5: 3 No chest tightness = 0, Chest very tight = 5: 0 No breathless w/exertion = 0, Very breathless w/exertion = 5: 5 No limitations w/activity = 0, Very limited w/activity = 5: 5 Confident leaving home = 0, Not at all confident = 5: 3 Sleep soundly = 0, Don't sleep soundly = 5: 3 Lots of energy = 0, No energy at all = 5: 5 Total CAT score:: 27 Self-Efficacy 90-Day Re-eval Assessment We would like to know how confident you are in doing certain activities. Please select your confidence level for:: Select your confidence level for the following using the scale 1-10 where 1 is not at all confident and 10 is totally confident. Your score is the average of all 6 responses. Fatigue: How confident are you that you can keep the fatigue caused by your disease from interfering with the things you want to do? Select Number: 1 Physical Discomfort or Pain: How confident are you that you can keep the physical discomfort or pain of your disease from interfering with the things you want to do? Select Number: 1 Emotional Distress: How confident are you that you can keep the emotional distress caused by your disease from interfering with the things you want to do? Select Number: 1 Other Symptoms or Health Problems: How confident are you that you can keep other symptoms or health problems from interfering with the things you want to do? Select Number: 1 Different Tasks and Activities: How confident are you that you can do the different tasks and activities needed to manage your health condition so as to reduce your need to see a doctor? Select Number: 8 Medication: How confident are you that you can do things other than just taking medication to reduce how much your illness affects your everyday life? Select Number: 5 Total Score:: 2
== END 2017-12-02 23:59 ==
LOC: PR 10:15
PROVIDERS: Family Provider Family Medicine; PCP Family Medicine; Visit Provider Internal Medicine Pulmonary Disease
DX: J44.9 Chronic obstructive pulmonary disease, unspecified (principal)
CPT/HCPCS: 97150; G0424

== ENCOUNTER 2018-01-19 02:36 | Observation (INO) | payer MEDICARE, SELFPAY ==
[2018-01-19] VITALS (10 sets, daily range): BP systolic 149–165; BP diastolic 55–69; PULSE 69–79; RESP 18–25; TEMP 36.8–37.1; O2SAT 92–96; BMI 32.9; BMI 32.6; BMI 32.7
--- NOTE | 2018-01-19 02:44 | EKG12_ITS ---
Test Reason : SOB Blood Pressure : / mmHG Vent. Rate : 066 BPM Atrial Rate : 066 BPM P-R Int : 158 ms QRS Dur : 082 ms QT Int : 446 ms P-R-T Axes : 061 024 098 degrees QTc Int : 467 ms Normal sinus rhythm Septal infarct , age undetermined Non specific ST segment abnormality Abnormal ECG Confirmed by ANDREA NEGRON, JAY ([id number]), magazine editor FRANK NEGRON ([id number]) on 01/23/2018 12:37:37 PM Referred By: RYLAN Confirmed By:JAY MENDEZ MD
--- NOTE | 2018-01-19 02:44 | RAD_ITS ---
STUDY: X-RAY CHEST REASON FOR EXAM: Female, 82 years old. Chronic cough TECHNIQUE: Single frontal view of the chest. COMPARISON: 09/24/2017 FINDINGS: Chronic interstitial lung changes without superimposed acute alveolar disease. Right basilar atelectasis. There is no demonstrated pleural abnormality. Normal size heart. Calcified lymph nodes in the right hilum. Normal visualized pulmonary arteries. Normal visualized aortic arch and descending thoracic aorta. Normal visualized thoracic spine. Normal visualized ribs, clavicles, and shoulders. There is no demonstrated abnormality of the visualized soft tissue structures of the upper abdomen. RAD/Chest 1 View (Portable) IMPRESSION: Chronic interstitial lung changes without superimposed acute alveolar disease. Right basilar atelectasis. Electronically Signed: Onel Woods MD at 3:36 EDT Tel , Service support ,
[2018-01-19 02:55] LABS: Absolute Lymphocyte Count 2.73 X10^3/ul (0.83-4.51); Basophil# 0.05 X10^3/uL; Basophil% 0.5 % (0-1); Eosinophil# 0.23 X10^3/uL; Eosinophils% 2.1 % (0-5); Hemoglobin 12.3 g/dl (12.0-15.0); Lymphocyte # 2.73 X10^3/ul (4.0); Lymphocyte % 24.6 % (19-41); Mean Corp Hgb Conc 32.4 g/gl (32-36); Mean Corpuscular Hgb 29.7 pg (27.0-32.0); Mean Corpuscular Volume 91.8 fL (81-99); Mean Platelet Vol. 10.9 fl (6.2-12.0); Monocyte# 1.03 X10^3/uL; Monocyte% 9.3 % (0-10); Neutrophil # 6.98 X10^3/uL (2.7-7.7); Neutrophil % 62.8 % (47-70); POSITIVE COUNT NO; POSITIVE DIFFERENTIAL NO; POSITIVE MORPHOLOGY NO; Platelet Count 244 K/mm3 (150-450); RBC Distribution Width CV 14.3 % (11.6-14.6); RBC Distribution Width SD 47.1 fl (35.1-43.9); Red Blood Count 4.14 M/mm3 (4.2-5.4); White Blood Count 11.1 K/mm3 (4.4-11.0)
[2018-01-19] MEDS: MethylPREDNISolone 125 MG/2 ML Vial IV (02:55)
[2018-01-19] MEDS: 0.9% Normal Saline 1,000 ML 150 ML IV (02:55)
[2018-01-19 03:29] LABS: Anion Gap 9 (5-15); BUN 24 mg/dL (7-18); BUN/Creat Ratio 24.6 RATIO (10-20); Calcium,Total 9.1 mg/dL (8.5-10.1); Chloride 104 mmol/L (98-107); Creatinine, Serum 0.98 mg/dL (0.55-1.02); EST Glomerular Filtration Rate 58 mL/min (>60); Est Glom Filt Rate - Afr Amer 70 mL/min (>60); Estimated Creatinine Clearance 35.98 ml/min; Glucose 87 mg/dL (74-106); Potassium 4.1 mmol/L (3.5-5.1); Sodium Level 143 mmol/L (136-145)
[2018-01-19 03:34] LABS: BNP,B-Type NATRIURETIC PEPTIDE 243.4 pg/mL (0-100)
[2018-01-19] MEDS: Ipratropium/Albuterol Sulfate 3 ML AMPUL.NEB INHALATION ×4 (03:42→15:14)
[2018-01-19] MEDS: Albuterol 2.5 MG/3 ML VIAL.NEB. INHALATION (03:42)
--- NOTE | 2018-01-19 03:51 | ED.DCSUM_ITS ---
- ER Visit Summary Date of Service: 01/19/18 Chief Complaint: [Dyspnea] History of Present Illness: The patient is a 82 F [presents to the emergency department complaint of increasing shortness of breath today. Patient states that she is always short of breath that she has a history of COPD. Patient is normally on 4 L nasal cannula O2 and she has CPAP at home. Patient has had a cough. Cough productive at times of yellow sputum. She denies any fever. She denies any significant chest pain at this time but had some chest pain yesterday. Chest pain was sharp and worse with cough and deep breath.] Patient does describe exertional dyspnea. Physical Examination: [HEENT-PERRLA, EOMI. Cranial nerves II through XII grossly intact. TMs clear. Mucous membranes moist. No adenopathy. Cardiovascular-regular rate and rhythm without murmur or ectopy Lungs-diminished breath sounds bilaterally with expiratory wheezes noted bilaterally. Patient is tachypneic. No accessory muscle use or retractions. Patient has some mild conversational dyspnea. Abdomen-normoactive bowel sounds, soft, nontender, no rebound or rigidity, no peritoneal signs. Extremities-intact ?4, normal range of motion, normal pulses, atraumatic] Test Results: [EKG obtained on arrival showed a sinus rhythm with a ventricular rate of 66 bpm without any acute I segment changes. CBC with differential showed a white blood cell count of 11.1, hemoglobin 12, hematocrit 38, platelets 244. Chemistries unremarkable. Troponin was less than 0.015. BNP was slightly elevated to 43. Chest x-ray showed nothing acute and right basilar atelectasis.] Emergency Department Course and Treatment: [Patient was medicated with DuoNeb aerosol and given Solu-Medrol 125 mill grams IV. Patient was started on Levaquin 750 mill grams IV.] Treatment Plan: [Admit] Disposition: [Admit] Impression: [COPD exacerbation] This note was generated with [employer] dictation software. It may contain incorrect words, spelling, and punctuation that were not noted in review of the chart prior to signing ED Disposition - Plan for ED Patient: Chief Complaint: Shortness of Breath Referrals: Cole Moran MD [Primary Care Provider] -
--- NOTE | 2018-01-19 04:02 | HP.PCM_ITS ---
Problem List (1) Acute on chronic respiratory failure with hypoxemia Status: Acute (2) History of hypertension Status: Chronic (3) DUDLEY on CPAP Status: Chronic (4) COPD exacerbation Status: Acute History of Present Illness Date of Admission: 01/19/18 Chief Complaint: dyspnea The patient is a 82 year old F with a significant history of former smoking; COPD with [id number]-[id number] home oxygen, CHF, TIAs, DUDLEY on nightly home CPAP; hypertension and GERD who presents with 5 days of progressively worsening shortness of breath. Her shortness of breath improves with rest and worsens with mild exertion like walking to the bathroom. Chronically patient is on 4 L nasal cannula. On her home 4 L nasal cannula she has noticed a decrease in her oxygen saturation. Associated with her symptoms is cough productive for yellow sputum.; wheezing and poor appetite. On presentation ED doctor reported that patient was very diminished and wheezing on lung examination. Patient received Solu-Medrol 125 mg at emergency department. Also she received breathing treatments and Levaquin. Past Medical History Past Medical History (Chronic Problems): Chronic Problems (Last Reviewed 01/19/18 @ 04:50 by Darryl James MD) Diverticulosis of colon (without mention of hemorrhage) (Chronic) History of esophageal reflux (Chronic) History of tobacco use (Chronic) Hyperlipidemia (Chronic) History of hypertension (Chronic) History of peripheral vascular disease (Chronic) DUDLEY on CPAP (Chronic) COPD (chronic obstructive pulmonary disease) (Chronic) TIA (transient ischemic attack) (Chronic) Chronic respiratory failure with hypoxia (Chronic) Medical History: Medical History (Last Reviewed 01/19/18 @ 04:50 by Darryl James MD) GERD (gastroesophageal reflux disease) K21.9 DUDLEY (obstructive sleep apnea) G47.33 Pulmonary hypertension, moderate to severe I27.20 Uterine cancer C55 Hypertension I10 Allergies cilostazol [From Pletal] Allergy (Verified 01/19/18 02:38) Swelling Penicillins Allergy (Verified 01/19/18 02:38) Swelling Home Medications: Ambulatory Orders Medication Instructions Recorded Albuterol Inhaler [Ventolin Hfa] 2 puff INHALATION Q6H PRN PRN 04/27/16 Amlodipine Besylate [Norvasc] 10 mg PO DAILY 04/27/16 Citalopram [Celexa] 40 mg PO QHS 04/27/16 Clopidogrel Bisulfate [Plavix] 75 mg PO DAILY 04/27/16 Ferrous Gluconate 325 mg PO DAILY@0800 04/27/16 Lisinopril [Zestril] 40 mg PO BID 04/27/16 Loratadine [Claritin] 10 mg PO DAILY 04/27/16 Multivitamins,Ther W-Minerals 1 tablet PO DAILY 04/27/16 [Multivitamin With Minerals] [place]-3 Fatty Acids/Fish Oil 2 each PO DAILY 04/27/16 [[place] 3 1,000 mg Softgel] Pantoprazole Sodium [Protonix] 40 mg PO DAILY 04/27/16 Potassium Chloride [K-Dur] 20 meq PO BID 04/27/16 Pravastatin [Pravachol] 20 mg PO DAILY 04/27/16 traZODone [Desyrel] 100 mg PO QHS 04/27/16 Clonidine HCl 0.1 mg PO DAILY 07/06/17 Cyanocobalamin [Vitamin B12] 1,000 mcg PO DAILY@0800 07/06/17 Ipratropium [Atrovent Aerosols] 0.5 mg INHALATION 4X/DAY 07/06/17 Metoprolol(XL)Succ [Toprol Xl 100 mg PO DAILY 07/06/17 (Beta Gwen)] Hydroxyzine Pamoate [Vistaril] 50 mg PO QHS PRN PRN 08/11/17 Albuterol Aerosols [Ventolin 0.5 mg INHALATION Q2H PRN PRN 08/12/17 Aerosols] Furosemide [Lasix] 40 mg PO DAILY 08/12/17 Budesonide 2 ml INHALATION BID 01/19/18 Surgical History: Surgical History (Last Reviewed 01/19/18 @ 04:50 by Darryl James MD) History of discectomy Z98.890 Surgical History: hysterectomy, - - Lumpectomy right breast, back surgery, lump removed from left jaw region, skin cancer surgery,back surgery. 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 Smoking Status: Former smoker - *Family History Maternal Family History: Family History (Last Reviewed 01/19/18 @ 07:58 by Darryl James MD) Brother Diabetes Sister Diabetes Mother Heart disease Father Heart disease Paternal Family History: Family History (Last Reviewed 01/19/18 @ 07:58 by Darryl James MD) Brother Diabetes Sister Diabetes Mother Heart disease Father Heart disease History Items: Heart Disease, Hypertension Review of Systems Constitutional: Reports: Anorexia. Denies: Chills, Fever, Weight Change HEENT: Denies: Head Aches, Sinus Congestion, Sinus Drainage Cardiovascular: Denies: Chest Pain, Palpitations Respiratory: Reports: Cough, Shortness of Breath, Sputum production Gastrointestinal: Denies: Abdominal Pain, Nausea, Vomiting Genitourinary: Denies: Dysuria Musculoskeletal: Denies: Joint Pain, Joint Tenderness Skin: Denies: Rash, Wounds Neurological: Denies: Numbness, Tingling, Focal weakness Psychiatric: Denies: Anxiety, Depression, Homicidal Ideations, Suicidal Ideations Hematologic/ Lymphatic: Denies: Easy Bruising, Easy Bleeding VTE Information - Inpt Only VTE Present on Admission: No VTE Mechan Device Prophylaxis: None VTE Pharm Prophylaxis ordered?: Yes Patient Problems: Active and Suspected Problems (Last Reviewed 01/19/18 @ 04:50 by Darryl James MD) Acute on chronic respiratory failure with hypoxemia (Acute) - Physical Exam General: Alert, Oriented x3, Cooperative HEENT: Atraumatic, PERRLA, EOMI, Normocephalic Neck: Supple, No JVD, Negative Carotid Bruits Lungs: Diminished, Tachypneic Cardiovascular: Regular rate, No murmurs Abdomen: Bowel Sounds Present, Soft, Non Tender Extremities: No edema, Capillary Refill Less than 3 Seconds Skin: No rashes, No breakdown Musculoskeletal: No Tenderness to Palpation of Joints or Extremities Neurological: Cranial nerves II-XII grossly intact Psych/Mental Status: Normal Affect, Appropriate Vital Signs Temp Pulse Resp BP Pulse Ox 98.3 F 77 24 H 165/64 H 95 01/19/18 02:37 01/19/18 03:47 01/19/18 03:47 01/19/18 03:47 01/19/18 03:47 Oxygen Flow Rate (L/min) 4 Oxygen Delivery Method Nasal Cannula Weight: 84.4 kg Body Mass Index (BMI) 32.9 Finger Stick Blood Glucose 196 Laboratory Tests Past 24 Hrs 01/19/18 01/19/18 01/19/18 02:43 02:43 02:43 WBC 11.1 H RBC 4.14 L Hgb 12.3 Hct 38.0 MCV 91.8 MCH 29.7 MCHC 32.4 RDW 14.3 RDW Differential 47.1 H Plt Count 244 MPV 10.9 Immature Gran % (Auto) 0.700 Neut % (Auto) 62.8 Lymph % (Auto) 24.6 [place] % (Auto) 9.3 Eos % (Auto) 2.1 Baso % (Auto) 0.5 Absolute Neuts (auto) 7.0 Absolute Lymphs (auto) 2.73 Total Counted Not Reportable Sodium 143 Potassium 4.1 Chloride 104 Carbon Dioxide 30.0 Anion Gap 9 BUN 24 H Creatinine 0.98 Estim Creat Clear Calc 35.98 Est GFR (MDRD) Af Amer 70 Est GFR (MDRD) Non-Af 58 L BUN/Creatinine Ratio 24.6 H Glucose 87 Calcium 9.1 Troponin I < 0.015 B-Natriuretic Peptide 243.4 H Assessment/Plan All Active Problems (Last Reviewed 01/19/18 @ 04:50 by Darryl James MD) COPD exacerbation (Acute) Chest pain (Acute) Acute on chronic respiratory failure with hypoxemia (Acute) Endometrial cancer (Resolved) Hip fracture requiring operative repair (Resolved) The patient is a 82 year old F with a significant history of former smoker; COPD, CHF, TIAs, DUDLEY on nightly home CPAP; hypertension and GERD who presents with progressively worsening shortness of breath; and productive cough consistent with acute hypoxemic respiratory failure secondary to likely COPD exacerbation. Acute hypoxemic respiratory failure secondary to likely COPD exacerbation At presentation patient had oxygen saturation of 92% on 5 L. Patient with wheezing at home and on presentation; sob and productive cough with no radiographic findings of infiltrates. CXR independently reviewed showed chronic interstitial changes with bibasilar atelectasis. Scheduled DuoNeb Albuterol as needed Patient received Solu-Medrol 125 mg at emergency department. We will start patient on prednisone 40 mg daily. Patient received Levaquin IV at emergency department. We will start patient on azithromycin. Monitor BMP and CBC Oxygen by nasal cannula titrate for O2 sat more than 92%. Rapid influenza ordered and respiratory pathogen panel ordered.. CHF Review of old records shows that echocardiogram on 01/03/2013 was remarkable for EF of 65% with stage I diastolic dysfunction Status post cardiac rehab Patient with no edema on examination Home Lasix continued and potassium supplements continued. Trend BMP Hypertension Blood pressure on admission was not within goal Amlodipine; Catapres; and lisinopril continued Trend blood pressures Trend BMP. History of TIAs Home Plavix and statin continued. Obstructive sleep apnea CPAP continued. Depression Celexa continued DVT prophylaxis Subcutaneous Lovenox continued Code Visit Inpatient E&M: 20981 Init Hosp L3
[2018-01-19] MEDS: levoFLOXacin IV 750 MG/150 ML BAG 100 MG IV (04:30)
[2018-01-19] MEDS: guaiFENesin 1,200 MG Tablet 1200 MG PO (08:01)
[2018-01-19] MEDS: Pantoprazole Sodium 40 MG Tablet PO (08:01)
[2018-01-19] MEDS: Ferrous Gluconate 324 MG Tablet PO (08:01)
[2018-01-19] MEDS: Enoxaparin 40 MG/0.4 ML Syringe SC (08:01)
[2018-01-19] MEDS: Loratadine 10 MG Tablet PO (08:02)
[2018-01-19] MEDS: amLODIPine 10 MG Tablet PO (08:02)
[2018-01-19] MEDS: Omega-3 Acid Ethyl Esters 1 GM Capsule 2 GM PO (08:02)
[2018-01-19] MEDS: Lisinopril 40 MG Tablet PO (08:02)
[2018-01-19] MEDS: Cyanocobalamin 500 MCG Tablet 1000 MCG PO (08:03)
[2018-01-19] MEDS: cloNIDine HCl 0.1 MG Tablet PO (08:03)
[2018-01-19] MEDS: Multivitamins,Ther W-Minerals Tablet 1 TABLET PO (08:03)
[2018-01-19] MEDS: Furosemide 40 MG Tablet PO (08:03)
[2018-01-19] MEDS: Metoprolol(XL)Succ 100 MG Tablet PO (08:04)
[2018-01-19] MEDS: Clopidogrel Bisulfate 75 MG Tablet PO (08:05)
--- NOTE | 2018-01-19 10:12 | CASEMGMT ---
SW spoke w/pt at bedside. Pt managing well at home. Pt lives w/36 year old grandson who does help w/cleaning but otherwise is a big baby. Pt's daughter lives very close and helps with cooking, laundry, driving to appointments, organizing meds at times. Pt uses a cane to ambulate when out. Pt has a C-Pap from [employer] at night, and O2, 4LPM continuous from [employer]. Pt is in the process of changing her O2 provider to [employer]. Pt does not anticipate any homegoing needs. However, SW/CM remains available for any needs at discharge. AKIKO Mckeon, WATCH INSPECTOR FINAL MOVEMENT
--- NOTE | 2018-01-19 10:14 | CASEMGMT ---
LW/POA forms in E-chart. SW printed and put on paper chart so they can be scanned into the summary tab. AKIKO Mckeon, ROTO ROOTER OPERATOR
--- NOTE | 2018-01-19 10:26 | PCM.DC ---
- Discharge Diagnoses Current Active Problems: Current Active and Chronic Problems (Last Reviewed 01/19/18 @ 04:50 by Darryl James MD) Acute on chronic respiratory failure with hypoxemia (Acute) Reason(s) for Visit for Discharge Instructions: Shortness of breath You will use the following diet at home:: Cardiac Your food should be the consistency of: Regular Your liquids should be the consistency of: Regular/Thin Discharge Activity: Return to Normal Activity Additional Instructions: You should continue to use your oxygen all the time. Recommend you use your breathing treatments every 4 hours for the next 24-48 hours. Continue to use the incentive spirometer and acapella every 1 hour when awake. You are being discharged on prednisone taper, antibiotics. You will need to follow-up with your primary care doctor and scudding inspector within 2 weeks. Allergies/Adverse Reactions: Allergies cilostazol [From Pletal] Allergy (Verified 01/19/18 02:38) Swelling Penicillins Allergy (Verified 01/19/18 02:38) Swelling Medications to take at Discharge Albuterol Inhaler [Ventolin Hfa] 2 puff INHALATION Q6H PRN PRN 04/27/16 Amlodipine Besylate [Norvasc] 10 mg PO DAILY 04/27/16 Citalopram [Celexa] 40 mg PO QHS 04/27/16 Clopidogrel Bisulfate [Plavix] 75 mg PO DAILY 04/27/16 Ferrous Gluconate 325 mg PO DAILY@0800 04/27/16 Lisinopril [Zestril] 40 mg PO BID 04/27/16 Loratadine [Claritin] 10 mg PO DAILY 04/27/16 Multivitamins,Ther W-Minerals [Multivitamin With Minerals] 1 tablet PO DAILY 04/27/16 [place]-3 Fatty Acids/Fish Oil [[place] Mdl 3 1,000 mg Softgel] 2 each PO DAILY 04/27/16 Pantoprazole Sodium [Protonix] 40 mg PO DAILY 04/27/16 Potassium Chloride [K-Dur] 20 meq PO BID 04/27/16 Pravastatin [Pravachol] 20 mg PO DAILY 04/27/16 traZODone [Desyrel] 100 mg PO QHS 04/27/16 Clonidine HCl 0.1 mg PO DAILY 07/06/17 Cyanocobalamin [Vitamin B12] 1,000 mcg PO DAILY@0800 07/06/17 Ipratropium [Atrovent Aerosols] 0.5 mg INHALATION 4X/DAY 07/06/17 Metoprolol(XL)Succ [Toprol Xl (Beta Gwen)] 100 mg PO DAILY 07/06/17 Hydroxyzine Pamoate [Vistaril] 50 mg PO QHS PRN PRN 08/11/17 Albuterol Aerosols [Ventolin Aerosols] 0.5 mg INHALATION Q2H PRN PRN 08/12/17 Furosemide [Lasix] 40 mg PO DAILY 08/12/17 Azithromycin 500 mg PO DAILY #4 tablet 01/19/18 Budesonide 2 ml INHALATION BID #30 cap 01/19/18 Guaifenesin [Mucinex] 1,200 mg PO BID #20 tablet 01/19/18 Prednisone 10 mg PO UD #30 tab 01/19/18 The following prescriptions were given: Prednisone 10 mg PO UD #30 tab Guaifenesin [Mucinex] 1,200 mg PO BID #20 tablet Orders to be completed after discharge: CBC W/Diff, Automated Time Frame: 1 Week, Location: Laboratory Primary Care Physician: Cole Moran MD [Primary Care Provider] - Please follow up with your Primary Care Physician in: within 2 weeks Test Results: Test results from this visit will be discussed in further detail at your follow-up appointment, if applicable. When: Follow-up with your scudding inspector, Dr. Tsai in [place] within 2 weeks Proposed Discharge Date: 01/19/18
--- NOTE | 2018-01-19 10:31 | DCINST_ITS ---
- Discharge Diagnoses Current Active Problems: Current Active and Chronic Problems (Last Reviewed 01/19/18 @ 04:50 by Darryl James MD) Acute on chronic respiratory failure with hypoxemia (Acute) Reason(s) for Visit for Discharge Instructions: Shortness of breath You will use the following diet at home:: Cardiac Your food should be the consistency of: Regular Your liquids should be the consistency of: Regular/Thin Discharge Activity: Return to Normal Activity Additional Instructions: You should continue to use your oxygen all the time. Recommend you use your breathing treatments every 4 hours for the next 24-48 hours. Continue to use the incentive spirometer and acapella every 1 hour when awake. You are being discharged on prednisone taper, antibiotics. You will need to follow-up with your primary care doctor and slide attendant within 2 weeks. Allergies/Adverse Reactions: Allergies cilostazol [From Pletal] Allergy (Verified 01/19/18 02:38) Swelling Penicillins Allergy (Verified 01/19/18 02:38) Swelling Medications to take at Discharge Albuterol Inhaler [Ventolin Hfa] 2 puff INHALATION Q6H PRN PRN 04/27/16 Amlodipine Besylate [Norvasc] 10 mg PO DAILY 04/27/16 Citalopram [Celexa] 40 mg PO QHS 04/27/16 Clopidogrel Bisulfate [Plavix] 75 mg PO DAILY 04/27/16 Ferrous Gluconate 325 mg PO DAILY@0800 04/27/16 Lisinopril [Zestril] 40 mg PO BID 04/27/16 Loratadine [Claritin] 10 mg PO DAILY 04/27/16 Multivitamins,Ther W-Minerals [Multivitamin With Minerals] 1 tablet PO DAILY 04/27/16 [place]-3 Fatty Acids/Fish Oil [[place] 3 1,000 mg Softgel] 2 each PO DAILY 04/27/16 Pantoprazole Sodium [Protonix] 40 mg PO DAILY 04/27/16 Potassium Chloride [K-Dur] 20 meq PO BID 04/27/16 Pravastatin [Pravachol] 20 mg PO DAILY 04/27/16 traZODone [Desyrel] 100 mg PO QHS 04/27/16 Clonidine HCl 0.1 mg PO DAILY 07/06/17 Cyanocobalamin [Vitamin B12] 1,000 mcg PO DAILY@0800 07/06/17 Ipratropium [Atrovent Aerosols] 0.5 mg INHALATION 4X/DAY 07/06/17 Metoprolol(XL)Succ [Toprol Xl (Beta Gwen)] 100 mg PO DAILY 07/06/17 Hydroxyzine Pamoate [Vistaril] 50 mg PO QHS PRN PRN 08/11/17 Albuterol Aerosols [Ventolin Aerosols] 0.5 mg INHALATION Q2H PRN PRN 08/12/17 Furosemide [Lasix] 40 mg PO DAILY 08/12/17 Azithromycin 500 mg PO DAILY #4 tablet 01/19/18 Budesonide 2 ml INHALATION BID #30 cap 01/19/18 Guaifenesin [Mucinex] 1,200 mg PO BID #20 tablet 01/19/18 Prednisone 10 mg PO UD #30 tab 01/19/18 The following prescriptions were given: Prednisone 10 mg PO UD #30 tab Guaifenesin [Mucinex] 1,200 mg PO BID #20 tablet Orders to be completed after discharge: CBC W/Diff, Automated Time Frame: 1 Week, Location: Laboratory Primary Care Physician: Cole Moran MD [Primary Care Provider] - Please follow up with your Primary Care Physician in: within 2 weeks Test Results: Test results from this visit will be discussed in further detail at your follow- up appointment, if applicable. When: Follow-up with your slide attendant, Dr. Tsai in [place] within 2 weeks Proposed Discharge Date: 01/19/18
--- NOTE | 2018-01-19 10:35 | DS.PCM_ITS ---
Discharge Date and Diagnosis - Problem List Patient Problems: Active and Suspected Problems (Last Reviewed 01/19/18 @ 04:50 by Darryl James MD) Acute on chronic respiratory failure with hypoxemia (Acute) Date of Admission: 01/19/18 Date of Discharge: 01/19/18 - Primary Discharge Diagnosis Active and Suspected Problems (Last Reviewed 01/19/18 @ 04:50 by Darryl James MD) Acute on chronic respiratory failure with hypoxemia (Acute) Acute COPD exacerbation - Secondary Discharge Diagnosis Chronic Problems (Last Reviewed 01/19/18 @ 04:50 by Darryl James MD) Diverticulosis of colon (without mention of hemorrhage) (Chronic) History of esophageal reflux (Chronic) History of tobacco use (Chronic) Hyperlipidemia (Chronic) History of hypertension (Chronic) History of peripheral vascular disease (Chronic) DUDLEY on CPAP (Chronic) COPD (chronic obstructive pulmonary disease) (Chronic) TIA (transient ischemic attack) (Chronic) Chronic respiratory failure with hypoxia (Chronic) Hospital Course and Treatment Imaging Results: Clinical Impression(s) from Imaging Studies Chest X-Ray 01/19/18 02:44 IMPRESSION: Chronic interstitial lung changes without superimposed acute alveolar disease. Right basilar atelectasis. Electronically Signed: Onel Woods MD at 3:36 EDT Tel , Service support , 01/19/18 02:44 Chest 1 View (Portable) [RAD] Stat None Operations: None Procedures: None Summary of Care Provided: The patient is a 82 year old F with chronic hypoxic respiratory failure secondary to COPD, chronic diastolic CHF, TIA, DUDLEY on CPAP, hypertension, GERD who was admitted with worsening shortness of breath and cough. Patient was found to be wheezing. She is on 4 L of oxygen at home. Brought in with 5 L of oxygen. Managed with IV Solu-Medrol, IV azithromycin. Patient improved and was on her home baseline 4 L of oxygen in the morning. She was ambulated and she did not have any worsening respiratory distress. Respiratory panel as well as influenza was negative. Patient was discharged home on steroid taper as well as 4 more days of azithromycin. Discussed with the patient's daughter, patient will need to follow-up with her mud mixer helper within 2 weeks as well as her primary care doctor. Patient Problems: Active and Suspected Problems (Last Reviewed 01/19/18 @ 04:50 by Darryl James MD) Acute on chronic respiratory failure with hypoxemia (Acute) Subjective: On the day of discharge, she felt well, denies any worsening shortness of breath, chest pain, fever or chills. - Physical Exam General: Alert, Oriented x3, Cooperative, No apparent distress, - HEENT: Atraumatic, PERRLA, EOMI, Normocephalic Oral: Moist Mucosa - 4 L of oxygen Neck: Supple, No JVD, Negative Carotid Bruits Lungs: Clear to auscultation, Normal air movement Cardiovascular: Regular rate, Regular Rhythm, Normal S1, Normal S2, No murmurs Abdomen: Bowel Sounds Present, Soft, Non Tender, Non-Distended, No Hepato- splenomegaly Extremities: No edema, Capillary Refill Less than 3 Seconds Skin: No rashes, No breakdown Musculoskeletal: No Tenderness to Palpation of Joints or Extremities Lymphatic: No Cervical, Supraclavicular, or Inguinal Adenopathy Neurological: Cranial nerves II-XII grossly intact, Motor Exam 5/5 strength throughout Psych/Mental Status: Normal Affect, Appropriate Vital Signs Temp Pulse Resp BP Pulse Ox 98.7 F 69 18 151/67 H 96 01/19/18 06:37 01/19/18 08:04 01/19/18 07:36 01/19/18 06:37 01/19/18 07:36 Oxygen Flow Rate (L/min) 4 Oxygen Delivery Method Nasal Cannula Weight: 83.7 kg Body Mass Index (BMI) 32.6 Finger Stick Blood Glucose 196 Microbiology Past 72 Hours 01/19/18 05:55 Respiratory Panel (PCR) - Final Mucosa - Nasopharyngeal Influenza Types A,B Direct FA (RC) - Final Laboratory Tests Past 24 Hrs 01/19/18 01/19/18 01/19/18 02:43 02:43 02:43 WBC 11.1 H RBC 4.14 L Hgb 12.3 Hct 38.0 MCV 91.8 MCH 29.7 MCHC 32.4 RDW 14.3 RDW Differential 47.1 H Plt Count 244 MPV 10.9 Immature Gran % (Auto) 0.700 Neut % (Auto) 62.8 Lymph % (Auto) 24.6 [place] % (Auto) 9.3 Eos % (Auto) 2.1 Baso % (Auto) 0.5 Absolute Neuts (auto) 7.0 Absolute Lymphs (auto) 2.73 Total Counted Not Reportable Sodium 143 Potassium 4.1 Chloride 104 Carbon Dioxide 30.0 Anion Gap 9 BUN 24 H Creatinine 0.98 Estim Creat Clear Calc 35.98 Est GFR (MDRD) Af Amer 70 Est GFR (MDRD) Non-Af 58 L BUN/Creatinine Ratio 24.6 H Glucose 87 Calcium 9.1 Troponin I < 0.015 B-Natriuretic Peptide 243.4 H Discharge Diet: Low fat/ Low Cholesterol, 2000 mg Sodium Diet Discharge Activity: Return to Normal Activity Home Medications: Medications to take at Discharge Albuterol Inhaler [Ventolin Hfa] 2 puff INHALATION Q6H PRN PRN 04/27/16 Amlodipine Besylate [Norvasc] 10 mg PO DAILY 04/27/16 Citalopram [Celexa] 40 mg PO QHS 04/27/16 Clopidogrel Bisulfate [Plavix] 75 mg PO DAILY 04/27/16 Ferrous Gluconate 325 mg PO DAILY@0800 04/27/16 Lisinopril [Zestril] 40 mg PO BID 04/27/16 Loratadine [Claritin] 10 mg PO DAILY 04/27/16 Multivitamins,Ther W-Minerals [Multivitamin With Minerals] 1 tablet PO DAILY 04/27/16 [place]-3 Fatty Acids/Fish Oil [[place] 3 1,000 mg Softgel] 2 each PO DAILY 04/27/16 Pantoprazole Sodium [Protonix] 40 mg PO DAILY 04/27/16 Potassium Chloride [K-Dur] 20 meq PO BID 04/27/16 Pravastatin [Pravachol] 20 mg PO DAILY 04/27/16 traZODone [Desyrel] 100 mg PO QHS 04/27/16 Clonidine HCl 0.1 mg PO DAILY 07/06/17 Cyanocobalamin [Vitamin B12] 1,000 mcg PO DAILY@0800 07/06/17 Ipratropium [Atrovent Aerosols] 0.5 mg INHALATION 4X/DAY 07/06/17 Metoprolol(XL)Succ [Toprol Xl (Beta Gwen)] 100 mg PO DAILY 07/06/17 Hydroxyzine Pamoate [Vistaril] 50 mg PO QHS PRN PRN 08/11/17 Albuterol Aerosols [Ventolin Aerosols] 0.5 mg INHALATION Q2H PRN PRN 08/12/17 Furosemide [Lasix] 40 mg PO DAILY 08/12/17 Azithromycin 500 mg PO DAILY #4 tablet 01/19/18 Budesonide 2 ml INHALATION BID #30 cap 01/19/18 Guaifenesin [Mucinex] 1,200 mg PO BID #20 tablet 01/19/18 Prednisone 10 mg PO UD #30 tab 01/19/18 Following Prescrptions Were Given to Patient: Azithromycin 500 mg PO DAILY #4 tablet Prednisone 10 mg PO UD #30 tab Guaifenesin [Mucinex] 1,200 mg PO BID #20 tablet Other Amb Orders: CBC W/Diff, Automated Time Frame: 1 Week, Location: Laboratory Primary Care Physician: Cole Moran MD [Primary Care Provider] - Please follow up with your Primary Care Physician in: within 2 weeks When: Follow-up with your mud mixer helper, Dr. Tsai in [place] within 2 weeks Disposition: Home Minutes spent on discharge:: 40 Patient Condition:: Stable Medical Necessity - Tobacco Use Smoking Status: Former smoker Meaningful Use Info Meaningful Use Diagnoses (Choose all that apply): None applicable Code Visit Inpatient E&M: 79037 Disch Hosp
--- NOTE | 2018-01-19 10:43 | NURSING ---
Called daughter Roselia and gave her an update. Notified her that pt is discharged and informed her of the new medications that were prescribed. Daughter working and will call back with transport plan. denies further questions. call back number provided.
[2018-01-19] MEDS: predniSONE 20 MG Tablet 40 MG PO (11:07)
[2018-01-19] MEDS: Acetaminophen 325 MG Tablet 650 MG PO (13:12)
== END 2018-01-19 16:34 | disposition home or self-care (01) ==
LOC: ED 03:25 → MS2 04:04
PROVIDERS: Admitting Provider Hospitalist; Emergency Provider Emergency Medicine; Family Provider Family Medicine; PCP Family Medicine; Visit Provider Internal Medicine
DX: J96.21 Acute and chronic respiratory failure with hypoxia (principal); J44.1 Chronic obstructive pulmonary disease with (acute) exacerbation; G47.33 Obstructive sleep apnea (adult) (pediatric); E78.5 Hyperlipidemia, unspecified; Z87.891 Personal history of nicotine dependence; K21.9 Gastro-esophageal reflux disease without esophagitis; Z99.81 Dependence on supplemental oxygen; I11.0 Hypertensive heart disease with heart failure; I73.9 Peripheral vascular disease, unspecified; I27.20 Pulmonary hypertension, unspecified; Z79.899 Other long term (current) drug therapy; Z79.02 Long term (current) use of antithrombotics/antiplatelets; Z86.73 Personal history of transient ischemic attack (TIA), and cerebral infarction without residual deficits; Z85.42 Personal history of malignant neoplasm of other parts of uterus; F32.9 Major depressive disorder, single episode, unspecified; I50.32 Chronic diastolic (congestive) heart failure
CPT/HCPCS: 36415; 71045; 80048; 83880; 84484; 85025; 87040; 87633; 87804; 93005; 94640; 94668; 96361; 96365; 96367; 96372; 96375; 99218; 99251; 99282; J7030; A4216; G0378; G0463

== ENCOUNTER 2018-08-16 21:52 | Emergency (ER) | payer MEDICARE, SELFPAY ==
[2018-08-16 21:53] VITALS: BP 152/55; PULSE 58; RESP 24; TEMP 37.1; O2SAT 93; BMI 34.9
--- NOTE | 2018-08-16 22:50 | EKG12_ITS ---
Test Reason : Blood Pressure : / mmHG Vent. Rate : 055 BPM Atrial Rate : 055 BPM P-R Int : 154 ms QRS Dur : 078 ms QT Int : 480 ms P-R-T Axes : 065 029 061 degrees QTc Int : 459 ms Sinus bradycardia Septal infarct , age undetemined Abnormal ECG Confirmed by TONYA LOFTON ([id number]), design editor ISADORA CASTREJON ([id number]) on 08/21/2018 2:50:58 PM Referred By: DC Confirmed By:REBECCA LOFTON
--- NOTE | 2018-08-16 22:51 | RAD_ITS ---
STUDY: X-RAY CHEST REASON FOR EXAM: Female, 82 years old. Shortness of breath TECHNIQUE: Frontal view COMPARISON: January 19, 2018 FINDINGS: The lungs are clear and expanded. There is no demonstrated pleural abnormality. Normal size heart. Normal mediastinum and gregg. Normal visualized pulmonary arteries. Calcified aortic arch and descending thoracic aorta. Normal visualized thoracic spine. Normal visualized ribs, clavicles, and shoulders. There is no demonstrated abnormality of the visualized soft tissue structures of the upper abdomen. RAD/Chest 1 View (Portable) IMPRESSION: No acute pulmonary pathology of the chest. Electronically Signed: Giacomo Palmer DO at 23:08 EDT Tel [phone], Service support ,
--- NOTE | 2018-08-16 22:52 | ED.VISSUMM ---
- ER Visit Summary Date of Service: 08/16/18 Chief Complaint: Shortness of breath History of Present Illness: The patient is a 82 F with dry cough that started last evening. She noted increased shortness of breath today with wheezing. She denies chest pain, fever, or chills. She does have a history of COPD and wears 3 L of oxygen normally. She was last on steroids approximately 1 month ago. Physical Examination: Blood pressure is 152/55, temperature 98.7, heart rate 58, respiratory rate 24, pulse ox 93% on 3 L nasal cannula. Patient lying in bed no acute distress. Head neck examination normal. Heart is bradycardic and regular. Lung sounds with inspiratory and expiratory wheezes throughout. Abdomen is soft nontender. Lower extremity examination was 1+ bilateral edema that is symmetric. Test Results: EKG is sinus bradycardia at 55 bpm. No sign of acute ischemia. Portable chest x-ray shows no acute disease. CBC was normal white count and differential. Hemoglobin is 11.4. Chemistry studies grossly unremarkable. Emergency Department Course and Treatment: Patient was given Solu-Medrol and aerosols. On repeat evaluation lungs are clear with good air movement. O2 sat is 97% on 3 L nasal cannula. Patient will be given doxycycline and prednisone taper. She will return for any worsening symptoms. Treatment Plan: [] Disposition: Discharge Impression: COPD exacerbation This note was generated with [employer] dictation software. It may contain incorrect words, spelling, and punctuation that were not noted in review of the chart prior to signing ED Disposition - Plan for ED Patient: Disposition: Home or Assisted Living Instructions: ED COPD Flare Prescriptions: Prednisone 10 mg PO UD #33 tablet Doxycycline 100 mg PO BID #20 capsule Referrals: Cole Moran MD [Primary Care Provider] - Norberto White MD [NON-STAFF] - 1 Week
[2018-08-16 22:59] VITALS: O2SAT 96
[2018-08-16 23:03] VITALS: RESP 19; TEMP 37.1
[2018-08-16] MEDS: MethylPREDNISolone 125 MG/2 ML Vial IV (23:05)
[2018-08-16] MEDS: 0.9% Normal Saline 1,000 ML 15 ML IV (23:05)
[2018-08-16] MEDS: Ipratropium/Albuterol Sulfate 3 ML AMPUL.NEB INHALATION (23:07)
[2018-08-16] MEDS: Albuterol 2.5 MG/3 ML VIAL.NEB. INHALATION ×2 (23:07)
[2018-08-16 23:08] VITALS: PULSE 52; RESP 20
[2018-08-16 23:10] VITALS: BP 140/111; PULSE 50; RESP 20; O2SAT 97
[2018-08-16 23:27] LABS: Anion Gap 6 (5-15); BUN 29 mg/dL (7-18); BUN/Creat Ratio 26.4 RATIO (10-20); Calcium,Total 8.9 mg/dL (8.5-10.1); Chloride 105 mmol/L (98-107); EST Glomerular Filtration Rate 50 mL/min (>60); Est Glom Filt Rate - Afr Amer 61 mL/min (>60); Estimated Creatinine Clearance 32.06 ml/min; Glucose 107 mg/dL (74-106); Potassium 4.4 mmol/L (3.5-5.1); Sodium Level 140 mmol/L (136-145)
[2018-08-16 23:35] LABS: Absolute Lymphocyte Count 1.94 X10^3/ul (0.83-4.51); Absolute Neutrophil Count 4.8 X10^3/uL (2.0-7.7); Basophil# 0.02 X10^3/uL; Basophil% 0.2 % (0-1); Eosinophil# 0.25 X10^3/uL; Eosinophils% 3.1 % (0-5); Hematocrit 35.5 % (37-47); Hemoglobin 11.4 g/dl (12.0-15.0); Lymphocyte # 1.94 X10^3/ul (4.0); Mean Corp Hgb Conc 32.1 g/gl (32-36); Mean Corpuscular Hgb 29.6 pg (27.0-32.0); Mean Corpuscular Volume 92.2 fL (81-99); Mean Platelet Vol. 10.3 fl (6.2-12.0); Monocyte# 1.02 X10^3/uL; Monocyte% 12.6 % (0-10); Neutrophil # 4.77 X10^3/uL (2.7-7.7); Platelet Count 340 K/mm3 (150-450); RBC Distribution Width CV 14.4 % (11.6-14.6); RBC Distribution Width SD 48.7 fl (35.1-43.9); Red Blood Count 3.85 M/mm3 (4.2-5.4); White Blood Count 8.1 K/mm3 (4.4-11.0)
[2018-08-16 23:36] LABS: POSITIVE COUNT NO; POSITIVE DIFFERENTIAL NO; POSITIVE MORPHOLOGY NO
[2018-08-17] MEDS: Doxycycline 100 MG CAPSULE PO (00:22)
[2018-08-17 00:26] VITALS: BP 157/57; PULSE 60; RESP 20; O2SAT 94
== END 2018-08-17 00:26 | disposition home or self-care (01) ==
PROVIDERS: Emergency Provider Emergency Medicine; Family Provider Family Medicine; PCP Family Medicine
DX: J44.1 Chronic obstructive pulmonary disease with (acute) exacerbation (principal); E78.00 Pure hypercholesterolemia, unspecified; K21.9 Gastro-esophageal reflux disease without esophagitis; R00.1 Bradycardia, unspecified; Z85.42 Personal history of malignant neoplasm of other parts of uterus
CPT/HCPCS: 71045; 80048; 85025; 93005; 94640; 96374; 99285; J7030; A4216

== ENCOUNTER 2018-09-17 20:23 | Emergency (ER) | payer MEDICARE, SELFPAY ==
[2018-09-17 20:24] VITALS: BP 160/66; PULSE 64; RESP 22; TEMP 37.1; O2SAT 93; BMI 36.0
--- NOTE | 2018-09-17 20:32 | EKG12_ITS ---
Test Reason : Blood Pressure : / mmHG Vent. Rate : 044 BPM Atrial Rate : 044 BPM P-R Int : 144 ms QRS Dur : 080 ms QT Int : 496 ms P-R-T Axes : 067 006 044 degrees QTc Int : 424 ms Marked sinus bradycardia with sinus arrhythmia Nonspecific ST abnormality Abnormal ECG Confirmed by BEE NEGRON, MU ([id number]), medical transcription editor ISADORA CASTREJON ([id number]) on 09/18/2018 1:21:10 PM Referred By: KATHY Confirmed By:MU GAMBOA MD
--- NOTE | 2018-09-17 20:36 | RAD_ITS ---
STUDY: X-RAY CHEST REASON FOR EXAM: Female, 82 years old. Shortness of breath TECHNIQUE: Frontal view of the chest COMPARISON: 08/16/2018 FINDINGS: There is linear opacity in the lower lobes which is consistent with atelectasis. The lungs are otherwise clear. There are no pleural effusions. There is no pneumothorax. The heart is normal in size. The visualized osseous structures are within normal limits. RAD/Chest 1 View (Portable) IMPRESSION: Bibasilar atelectasis. Otherwise, clear lungs. Electronically Signed: Donell Malone, at 21:00 EDT Tel , Service support ,
--- NOTE | 2018-09-17 20:41 | ED.VISSUMM ---
- ER Visit Summary Date of Service: 09/17/18 Chief Complaint: Shortness of breath History of Present Illness: The patient is a 82 F history of COPD requiring 3 L of nasal cannula O2 all the time. Prior history of stroke, hypertension and pulmonary hypertension. Patient states she is had a cough of yellowish sputum in the last 3 days with shortness of breath. No chest pain. No hemoptysis. No history of DVT or PE. No recent travel, surgery, hospitalization or immobilization. No calf pain. She denies any fever. Physical Examination: Elderly female no distress vital signs stable and afebrile. On her normal 3 L of oxygen her pulse ox is 93% no hypoxia with O2. HEENT exam unremarkable. Neck nontender. No JVD. No lymphadenopathy. Lungs prolonged expiratory phase but no rales, rhonchi or wheezing. Decreased air movement. Chest wall nontender no subcu air. Heart regular rhythm rate in the 60s no murmur. Abdomen soft and nontender. She is moving all 4 extremities. She has trace equal and symmetrical edema both lower extremities. Calves are nontender without cords. Neurologically she is awake alert with no focal motor deficits. Test Results: CBC shows normal white count of 6. Her baseline hemoglobin 11.8. EKG sinus bradycardia rate of 44 no acute signs of ischemia. Chest x-ray shows a normal cardiac silhouette mediastinum. Bibasilar atelectasis. Chronic changes consistent with her age and COPD but no acute findings. Read both by myself and the radiologist. Creatinine 1.3. Normal gap. Troponin normal. Emergency Department Course and Treatment: Older female with known COPD history and exam are consistent with acute bronchitis with exacerbation of COPD. She will undergo work-up including chest x-ray. She will be treated with IV Solu-Medrol and both DuoNeb and albuterol aerosols. On repeat exam at 2123 she is feeling better. They are comfortable being discharged home. She will be started on redness zone 40 times a day for the next 5 days. Use her breathing treatments at home and follow-up with her doctor. Return if worse. Treatment Plan: Prednisone daily x 7 days. Home aerosol treatment. Follow-up with her PCP Disposition: Discharge Impression: Acute dyspnea secondary acute exacerbation COPD This note was generated with [employer] software. It may contain incorrect words, spelling, and punctuation that were not noted in review of the chart prior to signing ED Disposition - Plan for ED Patient: Disposition: Home or Assisted Living Instructions: ED COPD Flare Prescriptions: Prednisone [Deltasone] 40 mg PO DAILY 7 Days tab Referrals: Cole Moran MD [Primary Care Provider] - 3-5 Days if not improving
[2018-09-17 20:43] VITALS: O2SAT 93
[2018-09-17] MEDS: MethylPREDNISolone 125 MG/2 ML Vial IV (20:47)
[2018-09-17] MEDS: Albuterol 2.5 MG/3 ML VIAL.NEB. INHALATION (20:52)
[2018-09-17] MEDS: Ipratropium/Albuterol Sulfate 3 ML AMPUL.NEB INHALATION (20:52)
[2018-09-17 21:00] VITALS: PULSE 50; RESP 18
[2018-09-17 21:02] LABS: Absolute Lymphocyte Count 2.66 X10^3/ul (0.83-4.51); Absolute Neutrophil Count 3.1 X10^3/uL (2.0-7.7); Basophil# 0.01 X10^3/uL; Basophil% 0.2 % (0-1); Eosinophil# 0.22 X10^3/uL; Eosinophils% 3.4 % (0-5); Hematocrit 36.7 % (37-47); Hemoglobin 11.8 g/dl (12.0-15.0); Lymphocyte # 2.66 X10^3/ul (4.0); Lymphocyte % 40.5 % (19-41); Mean Corp Hgb Conc 32.2 g/gl (32-36); Mean Corpuscular Volume 93.4 fL (81-99); Mean Platelet Vol. 10.3 fl (6.2-12.0); Monocyte# 0.47 X10^3/uL; Monocyte% 7.2 % (0-10); Neutrophil # 3.12 X10^3/uL (2.7-7.7); Neutrophil % 47.5 % (47-70); Platelet Count 315 K/mm3 (150-450); RBC Distribution Width CV 14.2 % (11.6-14.6); RBC Distribution Width SD 48.9 fl (35.1-43.9); Red Blood Count 3.93 M/mm3 (4.2-5.4); White Blood Count 6.6 K/mm3 (4.4-11.0)
[2018-09-17 21:04] LABS: POSITIVE COUNT NO; POSITIVE DIFFERENTIAL NO; POSITIVE MORPHOLOGY NO
[2018-09-17 21:25] LABS: Anion Gap 7 (5-15); BUN 33 mg/dL (7-18); BUN/Creat Ratio 23.9 RATIO (10-20); Calcium,Total 8.8 mg/dL (8.5-10.1); Chloride 106 mmol/L (98-107); Creatinine, Serum 1.38 mg/dL (0.55-1.02); EST Glomerular Filtration Rate 39 mL/min (>60); Est Glom Filt Rate - Afr Amer 47 mL/min (>60); Estimated Creatinine Clearance 25.55 ml/min; Glucose 92 mg/dL (74-106); Potassium 4.9 mmol/L (3.5-5.1); Sodium Level 139 mmol/L (136-145)
--- NOTE | 2018-09-17 21:30 | ED.DEP ---
ED Disposition - Plan for ED Patient: Disposition: Home or Assisted Living Instructions: ED COPD Flare Prescriptions: Prednisone [Deltasone] 40 mg PO DAILY 7 Days tab Referrals: Cole Moran MD [Primary Care Provider] - 3-5 Days if not improving
[2018-09-17 21:46] VITALS: BP 139/88; PULSE 64; RESP 22; O2SAT 97
== END 2018-09-17 21:47 | disposition home or self-care (01) ==
PROVIDERS: Emergency Provider Emergency Medicine; Family Provider Family Medicine; PCP Family Medicine
DX: J44.1 Chronic obstructive pulmonary disease with (acute) exacerbation (principal); I10 Essential (primary) hypertension; J44.9 Chronic obstructive pulmonary disease, unspecified; I27.20 Pulmonary hypertension, unspecified; Z86.73 Personal history of transient ischemic attack (TIA), and cerebral infarction without residual deficits
CPT/HCPCS: 71045; 80048; 84484; 85025; 93005; 94640; 96374; 99284; A4216

== ENCOUNTER 2018-12-20 10:49 | Emergency (ER) | payer MEDICARE, SELFPAY ==
[2018-12-20] VITALS (7 sets, daily range): BP systolic 112–136; BP diastolic 45–79; PULSE 61–88; RESP 20–36; TEMP 36.2–36.8; O2SAT 91–99; BMI 35.4
--- NOTE | 2018-12-20 11:22 | EKG12_ITS ---
Test Reason : SOB Blood Pressure : / mmHG Vent. Rate : 044 BPM Atrial Rate : 022 BPM P-R Int : 000 ms QRS Dur : 086 ms QT Int : 524 ms P-R-T Axes : 000 005 017 degrees QTc Int : 448 ms Sinus Rhythm with Sinus Pauses and Junctional Escape Rhythm Nonspecific ST abnormality Abnormal ECG Confirmed by KIRSTY NEGRON, TONYA ([id number]), assignment desk editor JOVANY KOO ([id number]) on 12/22/2018 1:41:49 PM Referred By: OCTAVIA Confirmed By:REBECCA LOFTON MD
--- NOTE | 2018-12-20 11:23 | ED.DCSUM_ITS ---
History of Present Illness Chief Complaint: Shortness of Breath Informant: Patient Onset: Yesterday Current Severity: Moderate Maximum Severity: Moderate Narrative: Patient has chronic history of COPD and wears home oxygen at 3 L. She reports increasing shortness of breath with cough that started yesterday. She is bringing up white to yellow-colored sputum. She denies fever. She was last on prednisone approximately 2 weeks ago. Past Medical History - Allergies and Home Meds Allergies/Adverse Reactions: Allergies cilostazol [From Pletal] Allergy (Verified 12/20/18 10:50) Swelling Penicillins Allergy (Verified 12/20/18 10:50) Swelling Primary Care Physician: Cole Moran MD [Primary Care Provider] - 3-5 Days if not improving Prior records reviewed: Yes Past Medical History: - - Reviewed Surgical History: hysterectomy, - - Lumpectomy right breast, back surgery, lump removed from left jaw region, skin cancer surgery,back surgery. Lives: With Family Smoking Status: Former smoker - Family History Maternal Family History: Family History (Last Reviewed 01/19/18 @ 07:58 by Darryl James MD) Brother Diabetes Sister Diabetes Mother Heart disease Father Heart disease Family History: Reports: No pertinent history Paternal Family History: Family History (Last Reviewed 01/19/18 @ 07:58 by Darryl James MD) Brother Diabetes Sister Diabetes Mother Heart disease Father Heart disease Family History: Reports: Heart Disease, Hypertension Review of Systems General: Denies: Chills, Fever Eyes: Denies: Visual changes - bilaterally ENT: Denies: Bilateral ear pain Cardiovascular: Denies: Chest pain Respiratory: Reports: Dyspnea, Cough, Sputum Gastrointestinal: Denies: Abdominal pain, Nausea, Vomiting, Diarrhea Genitourinary: Denies: Dysuria Musculoskeletal: Denies: Back pain Skin: Denies: Wounds Hematologic: Denies: Easy bleeding Allergy: Denies: Uticaria Physical Exam Vital Signs/Narrative: Vital Signs Temp Pulse Resp BP Pulse Ox 12/20/18 10:50 98.3 F 66 36 H 130/75 H 91 Inital Vital Signs reviewed: Yes General: Well nourished, Well developed Head: Normocephalic ENT: Moist mucous membranes Cardiovascular: Regular rate, Regular rhythm Respiratory: - - Mild respiratory distress with decreased air movement throughout. Some wheezing is noted, right greater than left. She is able to speak full sentences. Extremities: Nontender, No edema Skin: Normal color Neurological: Alert, Oriented x3 Psychological: Normal affect Diagnostic/Tx/Re-eval Impressions Chest X-Ray 12/20/18 11:27 IMPRESSION: Hyperinflation. Stable increased markings at the lung bases suggestive of scarring. Electronically Signed: Ranjan Byrd, at 12:29 EDT , Service support , 12/20/18 11:27 Chest 1 View (Portable) [RAD] Stat Laboratory Results 12/20/18 12/20/18 11:35 11:35 WBC 9.5 RBC 4.01 L Hgb 12.3 Hct 37.6 MCV 93.8 MCH 30.7 MCHC 32.7 RDW Std Deviation 44.8 H RDW Coeff of Janet 13.0 Plt Count 284 MPV 10.6 Immature Gran % (Auto) 0.700 Neut % (Auto) 69.5 Lymph % (Auto) 16.8 L [place] % (Auto) 9.6 Eos % (Auto) 3.1 Baso % (Auto) 0.3 Absolute Neuts (auto) 6.6 Absolute Lymphs (auto) 1.59 Nucleated RBC % 0 Sodium 139 Potassium 4.6 Chloride 105 Carbon Dioxide 29.0 Anion Gap 5 BUN 35 H Creatinine 1.20 H Estim Creat Clear Calc 28.87 Est GFR (MDRD) Af Amer 55 L Est GFR (MDRD) Non-Af 46 L BUN/Creatinine Ratio 29.2 H Glucose 102 Calcium 9.1 - EKG Initial EKG Interpretation: - - Bradycardia at 44 bpm. She does have evidence of sinus bradycardia on part of her EKG, but also has several beats that look like junctional rhythm. This is unchanged when compared to her prior study from September 17, 2018. - Medical Decision Making Patient was given Solu-Medrol and aerosols. On repeat evaluation she does feel significantly improved. She is given prednisone taper along with Zithromax. O2 sats are in the mid to upper 90s on her normal 3 L. ED Disposition - Plan for ED Patient: Disposition: Home or Assisted Living Diagnosis: COPD exacerbation Instructions: Copd Flare Prescriptions: Prednisone 10 mg PO UD #33 tab Prescription Printed Azithromycin [Zithromax] 250 mg PO DAILY #4 tab Prescription Printed Referrals: Cole Moran MD [Primary Care Provider] - 3-5 Days if not improving
--- NOTE | 2018-12-20 11:27 | RAD_ITS ---
STUDY: X-RAY CHEST REASON FOR EXAM: Female, 83 years old. Shortness of breath/dyspnea. TECHNIQUE: Single AP portable view of the chest. COMPARISON: Comparison is made with prior study dated September 17, 2018. FINDINGS: Hyperinflation. Stable linear density at the right lung base suggestive of scarring. Stable mild increased markings at the left lung base. Calcified old granulomatous disease. There is no demonstrated pleural abnormality. There is moderate cardiac enlargement. Normal mediastinum and gregg. Normal visualized pulmonary arteries. There is atherosclerotic calcification of the aortic arch with tortuosity. There are diffuse degenerative changes of the visualized thoracic spine. Normal visualized ribs, clavicles, and shoulders. There is no demonstrated abnormality of the visualized soft tissue structures of the upper abdomen. RAD/Chest 1 View (Portable) IMPRESSION: Hyperinflation. Stable increased markings at the lung bases suggestive of scarring. Electronically Signed: Ranjan Byrd, at 12:29 EDT , Service support ,
[2018-12-20] MEDS: Albuterol 2.5 MG/3 ML VIAL.NEB. INHALATION ×3 (11:40→11:57)
[2018-12-20] MEDS: Ipratropium/Albuterol Sulfate 3 ML AMPUL.NEB INHALATION (11:40)
[2018-12-20 11:44] LABS: Absolute Lymphocyte Count 1.59 X10^3/uL (0.83-4.51); Absolute Neutrophil Count 6.6 X10^3/uL (2.0-7.7); Basophil# 0.03 X10^3/uL; Basophil% 0.3 % (0-1); Eosinophil# 0.29 X10^3/uL; Eosinophils% 3.1 % (0-5); Hematocrit 37.6 % (37-47); Hemoglobin 12.3 g/dL (12.0-15.0); Lymphocyte # 1.59 X10^3/ul (4.0); Lymphocyte % 16.8 % (19-41); Mean Corp Hgb Conc 32.7 g/dL (32-36); Mean Corpuscular Hgb 30.7 pg (27.0-32.0); Mean Corpuscular Volume 93.8 fL (81-99); Mean Platelet Vol. 10.6 fl (6.2-12.0); Monocyte# 0.91 X10^3/uL; Monocyte% 9.6 % (0-10); NRBC Flagged by Analyzer 0 % (0-5); Neutrophil # 6.57 X10^3/uL (2.7-7.7); Neutrophil % 69.5 % (47-70); Platelet Count 284 K/mm3 (150-450); RBC Distribution Width SD 44.8 fl (35.1-43.9); Red Blood Count 4.01 M/mm3 (4.2-5.4); White Blood Count 9.5 K/mm3 (4.4-11.0)
[2018-12-20 11:56] LABS: Anion Gap 5 (5-15); BUN 35 mg/dL (7-18); BUN/Creat Ratio 29.2 RATIO (10-20); Calcium,Total 9.1 mg/dL (8.5-10.1); Chloride 105 mmol/L (98-107); EST Glomerular Filtration Rate 46 mL/min (>60); Est Glom Filt Rate - Afr Amer 55 mL/min (>60); Estimated Creatinine Clearance 28.87 ml/min; Glucose 102 mg/dL (74-106); Potassium 4.6 mmol/L (3.5-5.1); Sodium Level 139 mmol/L (136-145)
[2018-12-20] MEDS: MethylPREDNISolone 125 MG/2 ML Vial IV (12:10)
[2018-12-20] MEDS: Azithromycin 250 MG Tablet 500 MG PO (14:23)
== END 2018-12-20 14:36 | disposition home or self-care (01) ==
PROVIDERS: Emergency Provider Emergency Medicine; Family Provider Family Medicine; PCP Family Medicine
DX: J44.1 Chronic obstructive pulmonary disease with (acute) exacerbation (principal); Z82.49 Family history of ischemic heart disease and other diseases of the circulatory system; Z87.891 Personal history of nicotine dependence; Z88.0 Allergy status to penicillin; Z90.710 Acquired absence of both cervix and uterus; R00.1 Bradycardia, unspecified
CPT/HCPCS: 71045; 80048; 85025; 93005; 94640; 99284; A4216

== ENCOUNTER 2019-01-20 21:38 | Inpatient (IN) | payer MEDICARE, SELFPAY ==
[2018-12-20 10:50] VITALS: BMI 35.4
[2019-01-20 21:38] VITALS: BP 145/86; PULSE 75; RESP 18; TEMP 36.8; O2SAT 94; BMI 35.4
[2019-01-20 21:58] VITALS: O2SAT 96
--- NOTE | 2019-01-20 21:58 | EKG12_ITS ---
Test Reason : SOB Blood Pressure : / mmHG Vent. Rate : 054 BPM Atrial Rate : 054 BPM P-R Int : 150 ms QRS Dur : 082 ms QT Int : 510 ms P-R-T Axes : 069 026 068 degrees QTc Int : 483 ms Sinus bradycardia with marked sinus arrhythmia Nonspecific ST and T wave abnormality Prolonged QT Abnormal ECG Confirmed by BEE NEGRON, MU ([id number]), video tape editor ISADORA CASTREJON ([id number]) on 01/26/2019 11:00:28 AM Referred By: MIRIAM Confirmed By:MU GAMBOA MD
--- NOTE | 2019-01-20 22:03 | ED.VIS.GEN ---
History of Present Illness Chief Complaint: Shortness of Breath Informant: Patient Onset: Weeks - 1 Context: Gradual Onset Timing: Continuous Narrative: Patient is a 83-year-old female with history of COPD, 3 L O2 dependency chronically, hypertension, stroke and hyperlipidemia presenting with shortness of breath. Patient states for the past week she has had worsening shortness of breath especially with exertion. She also notes that she has had increased cough with yellow sputum production which is new. She states this feels like a COPD exacerbation. She denies any swelling of her legs. She denies any chest pain, nausea, vomiting, fever, chills, rash or urinary symptoms. Patient states her last COPD exacerbation was about 3 weeks ago. She states that for the past 10 months she has had increased frequency of exacerbations. He does see a vice president residential solar sales but has not seen her in the last 3 months. Her vice president residential solar sales is in [place]. Patient has not had increase her oxygen. She does not feel that she needs to be admitted at this time but does think she needs steroids. She notes she is not chronically on steroids. Past Medical History - Allergies and Home Meds Allergies/Adverse Reactions: Allergies cilostazol [From Pletal] Allergy (Verified 01/20/19 21:43) Swelling Penicillins Allergy (Verified 01/20/19 21:43) Swelling Past Medical History: - - COPD, chronic hypoxic respiratory failure, hypertension, history of stroke, depression, pulmonary hypertension, DUDLEY Surgical History: hysterectomy, - - Lumpectomy right breast, back surgery, lump removed from left jaw region, skin cancer surgery,back surgery. Lives: With Family Smoking Status: Former smoker - Family History Maternal Family History: Family History (Last Reviewed 01/21/19 @ 01:16 by Darryl James MD) Brother Diabetes Sister Diabetes Mother Heart disease Father Heart disease Family History: Reports: No pertinent history Paternal Family History: Family History (Last Reviewed 01/21/19 @ 01:16 by Darryl James MD) Brother Diabetes Sister Diabetes Mother Heart disease Father Heart disease Family History: Reports: Heart Disease, Hypertension Review of Systems All systems negative except as indicated Respiratory: Reports: Dyspnea, Cough, Sputum, Dyspnea on exertion Physical Exam Vital Signs/Narrative: Vital Signs Temp Pulse Resp BP Pulse Ox 01/20/19 21:38 98.2 F 75 18 145/86 H 94 Inital Vital Signs reviewed: Yes General: Well nourished, Well developed, No Acute Distress Head: Normocephalic, Atraumatic Eyes: Perrl, EOMI ENT: Moist mucous membranes, No rhinorrhea Neck: Supple, Nontender Cardiovascular: Regular rate, Regular rhythm, No murmurs Respiratory: No distress, Chest nontender, Wheezing - Diffuse, Diminished - Bilateral bases. Negative for: Rales, Rhonchi Abdomen: Soft, Nontender, Nondistended, Normal bowel sounds Back: Nontender, Normal Inspection Extremities: Nontender, No edema Skin: Normal color, No rash Neurological: Alert, Oriented x3, Cranial nerves II-XII grossly intact, Normal Strength, Normal Sensation Psychological: Normal affect, Normal Mood Diagnostic/Tx/Re-eval Chest X-Ray - ED: 2 View, Read by ED Physician, Read by Radiologist, No Acute Disease, Chronic Changes Clinical Impression(s) from Imaging Studies Chest X-Ray 01/20/19 22:15 IMPRESSION: Cardiomegaly. Indeterminate nodular densities within the right mid/lower lung disease may reflect underlying granulomas however consider chest CT for further evaluation. Electronically Signed: Heather Garcia MD at 22:41 EDT Tel , Service support , Laboratory Data 01/20/19 01/20/19 22:15 22:15 WBC 6.8 RBC 4.01 L Hgb 12.1 Hct 37.9 MCV 94.5 MCH 30.2 MCHC 31.9 L RDW Std Deviation 46.1 H RDW Coeff of Janet 13.3 Plt Count 275 MPV 10.9 Immature Gran % (Auto) 0.900 Neut % (Auto) 55.3 Lymph % (Auto) 26.5 [place] % (Auto) 13.7 H Eos % (Auto) 3.2 Baso % (Auto) 0.4 Absolute Neuts (auto) 3.8 Absolute Lymphs (auto) 1.81 Nucleated RBC % 0 Sodium 141 Potassium 4.3 Chloride 105 Carbon Dioxide 28.0 Anion Gap 8 BUN 33 H Creatinine 1.40 H Estim Creat Clear Calc 24.74 Est GFR (MDRD) Af Amer 46 L Est GFR (MDRD) Non-Af 38 L BUN/Creatinine Ratio 23.6 H Glucose 168 H Calcium 9.0 - Rhythm Strip Rhythm Strip: Sinus bradycardia Rate: 54 Ectopy: None - EKG Initial EKG Interpretation: Sinus Bradycardia, - - Sinus bradycardia rate of 54 with sinus arrhythmia OK interval 150 QRS 82 QT/QTc 510/[address] segments - Medical Decision Making Evaluated with 1 week of worsening shortness of breath and cough. She appears nontoxic in no acute distress. She does have diffuse wheezing but I do not appreciate any crackles or rales. She is afebrile and has normal vital signs. Chest x-ray does not show any acute process. There is question for granulomatous disease. Patient is counseled on these findings and her need for follow-up CT for further evaluation. Prior x-rays had also commented on granulomas so I suspect this is chronic. Patient will be ambulated to check pulse ox. Patient becomes symptomatic with ambulation her O2 saturation dropped quickly to 89%. She will be admitted for further management of COPD exacerbation. She is empirically started on doxycycline. Admitting physician is agreeable with this plan. Patient is stable for the general medical floor at time of disposition. ED Disposition - Plan for ED Patient: Disposition: Acute Care Hospital [facility] Diagnosis: Acute exacerbation of chronic obstructive pulmonary disease (COPD), Acute and chronic respiratory failure with hypoxia
--- NOTE | 2019-01-20 22:15 | RAD_ITS ---
STUDY: X-RAY CHEST REASON FOR EXAM: Female, 83 years old. Shortness of breath. TECHNIQUE: PA and lateral views of the chest. COMPARISON: None. FINDINGS: The lungs are hyperinflated. There is no new focal consolidation. There is an indeterminate 1 cm nodular density within the right lower lateral lung. There is an additional 0.5 cm nodular opacity within the right midlung. There is a stable calcified appearing right basilar nodular opacity as well that likely reflects underlying granuloma. There is cardiomegaly. Normal mediastinum and gregg. Normal visualized pulmonary arteries. There is atherosclerotic calcification of the aortic arch with tortuosity. Normal visualized thoracic spine. Normal visualized ribs, clavicles, and shoulders. There is no demonstrated abnormality of the visualized soft tissue structures of the upper abdomen. RAD/Chest PA and Lateral IMPRESSION: Cardiomegaly. Indeterminate nodular densities within the right mid/lower lung disease may reflect underlying granulomas however consider chest CT for further evaluation. Electronically Signed: Heather Garcia MD at 22:41 EDT Tel , Service support ,
[2019-01-20 22:20] VITALS: PULSE 65; RESP 20
[2019-01-20] MEDS: Ipratropium/Albuterol Sulfate 3 ML AMPUL.NEB INHALATION (22:20)
[2019-01-20] MEDS: Albuterol 2.5 MG/3 ML VIAL.NEB. INHALATION ×2 (22:20→22:49)
[2019-01-20 22:28] LABS: Absolute Lymphocyte Count 1.81 X10^3/uL (0.83-4.51); Absolute Neutrophil Count 3.8 X10^3/uL (2.0-7.7); Basophil# 0.03 X10^3/uL; Basophil% 0.4 % (0-1); Eosinophil# 0.22 X10^3/uL; Eosinophils% 3.2 % (0-5); Hematocrit 37.9 % (37-47); Hemoglobin 12.1 g/dL (12.0-15.0); Lymphocyte # 1.81 X10^3/ul (4.0); Lymphocyte % 26.5 % (19-41); Mean Corp Hgb Conc 31.9 g/dL (32-36); Mean Corpuscular Hgb 30.2 pg (27.0-32.0); Mean Corpuscular Volume 94.5 fL (81-99); Mean Platelet Vol. 10.9 fl (6.2-12.0); Monocyte# 0.94 X10^3/uL; Monocyte% 13.7 % (0-10); NRBC Flagged by Analyzer 0 % (0-5); Neutrophil # 3.78 X10^3/uL (2.7-7.7); Neutrophil % 55.3 % (47-70); Platelet Count 275 K/mm3 (150-450); RBC Distribution Width CV 13.3 % (11.6-14.6); RBC Distribution Width SD 46.1 fl (35.1-43.9); Red Blood Count 4.01 M/mm3 (4.2-5.4); White Blood Count 6.8 K/mm3 (4.4-11.0)
[2019-01-20 22:41] LABS: Anion Gap 8 (5-15); BUN 33 mg/dL (7-18); BUN/Creat Ratio 23.6 RATIO (10-20); Chloride 105 mmol/L (98-107); EST Glomerular Filtration Rate 38 mL/min (>60); Est Glom Filt Rate - Afr Amer 46 mL/min (>60); Estimated Creatinine Clearance 24.74 ml/min; Glucose 168 mg/dL (74-106); Potassium 4.3 mmol/L (3.5-5.1); Sodium Level 141 mmol/L (136-145)
[2019-01-20 22:50] VITALS: PULSE 71; RESP 18; O2SAT 94
[2019-01-20] MEDS: MethylPREDNISolone 125 MG/2 ML Vial IV (22:53)
[2019-01-20 23:30] VITALS: BP 178/47; PULSE 68; RESP 20; O2SAT 96
--- NOTE | 2019-01-20 23:36 | PCM.HP.STD ---
Problem List (1) COPD exacerbation Status: Acute (2) EMNAUEL (acute kidney injury) Status: Acute History of Present Illness Date of Admission: 01/20/19 Chief Complaint: shortness of breath The patient is a 83 year old F with a significant history of former smoking; COPD with [id number] home oxygen, CHF, TIAs, DUDLEY on nightly home CPAP; hypertension and GERD who presents with 1 week history of progressively worsening shortness of breath. Associated with her symptoms is productive cough of thick yellow sputum. Reports wheezing at home. Patient was at our emergency department on 12/20/2018 and she was discharged home on prednisone and azithromycin. On this visit patient received Solu-Medrol; and breathing treatment. Emergency department doctor reported that while patient was ambulating on her home 3 L her oxygen saturation dropped to 89%. Because her oxygen saturation was 89% Emergency Department doctor requested that the patient be admitted to the hospital. Per Emergency department doctor patient was wheezing on examination. Importantly patient sees a group leader at [place], [place]. Past Medical History Past Medical History (Chronic Problems): Chronic Problems (Last Reviewed 01/21/19 @ 00:34 by Darryl James MD) Diverticulosis of colon (without mention of hemorrhage) (Chronic) History of esophageal reflux (Chronic) History of tobacco use (Chronic) Hyperlipidemia (Chronic) History of hypertension (Chronic) History of peripheral vascular disease (Chronic) DUDLEY on CPAP (Chronic) COPD (chronic obstructive pulmonary disease) (Chronic) TIA (transient ischemic attack) (Chronic) Chronic respiratory failure with hypoxia (Chronic) Medical History: Medical History (Last Reviewed 01/21/19 @ 01:16 by Darryl James MD) GERD (gastroesophageal reflux disease) K21.9 DUDLEY (obstructive sleep apnea) G47.33 Pulmonary hypertension, moderate to severe I27.20 Uterine cancer C55 Hypertension I10 Allergies cilostazol [From Pletal] Allergy (Verified 01/20/19 21:43) Swelling Penicillins Allergy (Verified 01/20/19 21:43) Swelling Home Medications: Ambulatory Orders Medication Instructions Recorded Albuterol Inhaler [Ventolin Hfa] 2 puff INHALATION Q6H PRN PRN 04/27/16 Amlodipine Besylate [Norvasc] 10 mg PO DAILY 04/27/16 Citalopram [Celexa] 40 mg PO QHS 04/27/16 Clopidogrel Bisulfate [Plavix] 75 mg PO DAILY 04/27/16 Ferrous Gluconate 325 mg PO DAILY@0800 04/27/16 Lisinopril [Zestril] 40 mg PO BID 04/27/16 Loratadine [Claritin] 10 mg PO DAILY 04/27/16 Multivitamins,Ther W-Minerals 1 tablet PO DAILY 04/27/16 [Multivitamin With Minerals] [place]-3 Fatty Acids/Fish Oil 2 each PO DAILY 04/27/16 [[place] 3 1,000 mg Softgel] Pantoprazole Sodium [Protonix] 40 mg PO DAILY 04/27/16 Potassium Chloride [K-Dur] 20 meq PO BID 04/27/16 Pravastatin [Pravachol] 20 mg PO DAILY 04/27/16 traZODone [Desyrel] 100 mg PO QHS 04/27/16 Clonidine HCl 0.1 mg PO DAILY 07/06/17 Cyanocobalamin [Vitamin B12] 1,000 mcg PO DAILY@0800 07/06/17 Ipratropium [Atrovent Aerosols] 0.5 mg INHALATION 4X/DAY PRN PRN 07/06/17 Metoprolol(XL)Succ [Toprol Xl 100 mg PO DAILY 07/06/17 (Beta Gwen)] Hydroxyzine Pamoate [Vistaril] 50 mg PO QHS PRN PRN 08/11/17 Albuterol Aerosols [Ventolin 0.5 mg INHALATION Q2H PRN PRN 08/12/17 Aerosols] Furosemide [Lasix] 40 mg PO DAILY 08/12/17 Budesonide 2 ml INHALATION BID #30 cap 01/19/18 Furosemide [Lasix] 20 mg PO DAILY 01/21/19 Guaifenesin [Mucinex] 1,200 mg PO BID 01/21/19 Surgical History: Surgical History (Last Reviewed 01/21/19 @ 01:16 by Darryl James MD) History of discectomy Z98.890 Surgical History: hysterectomy, - - Lumpectomy right breast, back surgery, lump removed from left jaw region, skin cancer surgery,back surgery. Psychiatric History: No pertinent psych hx CLINICAL SUPPORT ASSOCIATE History: - - Hysterectomy for cancer of the uterus Lives: With Family Smoking Status: Former smoker Alcohol: None - *Family History Maternal Family History: Family History (Last Reviewed 01/21/19 @ 01:16 by Darryl James MD) Brother Diabetes Sister Diabetes Mother Heart disease Father Heart disease Paternal Family History: Family History (Last Reviewed 01/21/19 @ 01:16 by Darryl James MD) Brother Diabetes Sister Diabetes Mother Heart disease Father Heart disease History Items: Heart Disease, Hypertension Review of Systems Constitutional: Denies: Chills, Fever, Weight Change HEENT: Reports: Sinus Drainage. Denies: Head Aches Cardiovascular: Denies: Chest Pain, Palpitations Respiratory: Reports: Cough, Shortness of Breath, Sputum production, Wheezing Gastrointestinal: Denies: Abdominal Pain, Nausea, Vomiting Genitourinary: Denies: Dysuria Musculoskeletal: Denies: Joint Pain, Joint Tenderness Skin: Denies: Rash, Wounds Neurological: Denies: Numbness, Tingling, Focal weakness Psychiatric: Denies: Anxiety, Depression, Homicidal Ideations, Suicidal Ideations Hematologic/ Lymphatic: Denies: Easy Bruising, Easy Bleeding VTE Information - Inpt Only VTE Present on Admission: No VTE Mechan Device Prophylaxis: None VTE Pharm Prophylaxis ordered?: Yes Patient Problems: Active and Suspected Problems (Last Reviewed 01/21/19 @ 00:34 by Darryl James MD) EMANUEL (acute kidney injury) (Acute) - Physical Exam General: Alert, Oriented x3, Cooperative HEENT: Atraumatic, PERRLA, EOMI, Normocephalic Neck: Supple, No JVD, Negative Carotid Bruits Lungs: Clear to auscultation, Diminished - mild, Tachypneic Cardiovascular: Regular rate, Normal S1, Normal S2, No murmurs Abdomen: Bowel Sounds Present, Soft, Non Tender Extremities: No edema, Capillary Refill Less than 3 Seconds Skin: No rashes, No breakdown Musculoskeletal: No Tenderness to Palpation of Joints or Extremities Neurological: Cranial nerves II-XII grossly intact Psych/Mental Status: Normal Affect, Appropriate Vital Signs Temp Pulse Resp BP Pulse Ox 98.2 F 68 20 H 178/47 H 96 01/20/19 21:38 01/20/19 23:30 01/20/19 23:30 01/20/19 23:30 01/20/19 23:30 Oxygen Flow Rate (L/min) 3 Oxygen Delivery Method Nasal Cannula Weight: 90.718 kg Body Mass Index (BMI) 35.4 Finger Stick Blood Glucose 196 Intake and Output for Last 24 Hours 01/18/19 01/19/19 01/20/19 23:59 23:59 23:59 Intake Total 500 / 500 Balance 500 / 500 Laboratory Tests Past 24 Hrs 01/20/19 01/20/19 22:15 22:15 WBC 6.8 RBC 4.01 L Hgb 12.1 Hct 37.9 MCV 94.5 MCH 30.2 MCHC 31.9 L RDW Std Deviation 46.1 H RDW Coeff of Janet 13.3 Plt Count 275 MPV 10.9 Immature Gran % (Auto) 0.900 Neut % (Auto) 55.3 Lymph % (Auto) 26.5 [place] % (Auto) 13.7 H Eos % (Auto) 3.2 Baso % (Auto) 0.4 Absolute Neuts (auto) 3.8 Absolute Lymphs (auto) 1.81 Nucleated RBC % 0 Sodium 141 Potassium 4.3 Chloride 105 Carbon Dioxide 28.0 Anion Gap 8 BUN 33 H Creatinine 1.40 H Estim Creat Clear Calc 24.74 Est GFR (MDRD) Af Amer 46 L Est GFR (MDRD) Non-Af 38 L BUN/Creatinine Ratio 23.6 H Glucose 168 H Calcium 9.0 Assessment/Plan All Active Problems (Last Reviewed 01/21/19 @ 00:34 by Darryl James MD) COPD exacerbation (Acute) EMANUEL (acute kidney injury) (Acute) Endometrial cancer (Resolved) Hip fracture requiring operative repair (Resolved) The patient is a 83 year old F with a significant history of former smoker; COPD, CHF, TIAs, DUDLEY on nightly home CPAP; hypertension and GERD who presents with progressively worsening shortness of breath; and productive cough consistent with probable acute exacerbation Probable AcuteCOPD exacerbation At presentation patient had oxygen saturation was about 96% on 3L while at rest. Because of ambulatory oxygen saturation of 89% on 3 L emergency department doctor requested the patient be admitted. CXR independently reviewed confirms indeterminate nodular densities within the right mid/lower lung disease. Per radiologist this may reflect underlying granulomatous and chest CT was recommended. Patient is also in EMANUEL so will hold off chest CT with contrast for now. Recommend chest CT inpatient or outpatient when EMANUEL has resolved. Of note patient sees a group leader outpatient. Scheduled DuoNeb Albuterol as needed Patient received Solu-Medrol 125 mg at emergency department. We will start patient on prednisone 40 mg po daily. Because was charged home on azithromycin about a month ago so emergency department doctor elected to change antibiotic and to start patient on Doxycycline. Will continue patient on Doxycycline Oxygen by nasal cannula titrate for O2 sat more than 88%. EMANUEL Presentation her creatinine was 1.40. Review of old records shows a creatinine baseline of about 0.95. BUN is 33. BUN/creatinine is 23.6. Likely prerenal from excessive diuresis from Lasix use and also insensible water loss from COPD exacerbation. Will hold off Lasix and lisinopril for now. Avoid other nephrotoxins. Gentle IV hydration Trend BMP. CHF Review of old records shows that echocardiogram on 07/07/2017 was remarkable for EF of 55% with stage 2 diastolic dysfunction. Moderate pulmonary hypertension. Status post cardiac rehab Patient with no edema on examination Home Lasix and potassium supplements held secondary to EMANUEL. Trend BMP Hypertension Blood pressure on admission was not within goal Amlodipine; Catapres; and metoprolol continued. Lasix and lisinopril held secondary to EMANUEL.. Hydralazine as needed ordered Trend blood pressures Trend BMP. History of TIAs Home Plavix and statin continued. Obstructive sleep apnea CPAP continued. Depression Celexa continued GERD Pantoprazole continued DVT prophylaxis Subcutaneous Lovenox continued Code Visit OBSV E&M: 60151 Initial observation care L3
[2019-01-20 23:43] VITALS: BP 163/48; PULSE 73; RESP 14; O2SAT 94
[2019-01-20] MEDS: Doxycycline 100 MG CAPSULE PO (23:59)
[2019-01-21] VITALS (10 sets, daily range): BP systolic 146–157; BP diastolic 51–69; PULSE 64–96; RESP 18–24; TEMP 36.4–36.9; O2SAT 95–99; BMI 36.3; BMI 36.4
[2019-01-21] MEDS: Nystatin Powder 15gm Bottle 1 APPLIC TOPICAL ×3 (02:39→23:00)
--- NOTE | 2019-01-21 03:10 | NURSING ---
cps aware of order for cpap, pt didnt bring hers from home and isnt certain family can bring in.
[2019-01-21] MEDS: Ipratropium/Albuterol Sulfate 3 ML AMPUL.NEB INHALATION ×3 (06:53→23:28)
[2019-01-21] MEDS: Pantoprazole Sodium 40 MG Tablet PO (08:46)
[2019-01-21] MEDS: Cyanocobalamin 500 MCG Tablet 1000 MCG PO (08:46)
[2019-01-21] MEDS: Metoprolol(XL)Succ 100 MG Tablet PO (08:46)
[2019-01-21] MEDS: Multivitamins,Ther W-Minerals Tablet 1 TABLET PO (08:46)
[2019-01-21] MEDS: guaiFENesin 1,200 MG Tablet 1200 MG PO ×2 (08:46→23:00)
[2019-01-21] MEDS: cloNIDine HCl 0.1 MG Tablet PO (08:47)
[2019-01-21] MEDS: Doxycycline 100 MG CAPSULE PO (08:47)
[2019-01-21] MEDS: Loratadine 10 MG Tablet PO (08:47)
[2019-01-21] MEDS: amLODIPine 10 MG Tablet PO (08:48)
[2019-01-21] MEDS: Ferrous Gluconate 324 MG Tablet PO (08:48)
[2019-01-21] MEDS: Enoxaparin 30 MG/0.3 ML Syringe SC (08:48)
[2019-01-21] MEDS: predniSONE 20 MG Tablet 40 MG PO (08:48)
[2019-01-21] MEDS: Clopidogrel Bisulfate 75 MG Tablet PO (08:49)
--- NOTE | 2019-01-21 11:07 | PCM.PN.HOSP ---
Patient Problems: Active and Suspected Problems (Last Reviewed 01/21/19 @ 01:16 by Darryl James MD) COPD exacerbation (Acute) EMANUEL (acute kidney injury) (Acute) Subjective: She presented to the ER for feeling shortness of breath, and this morning at around 3 AM which had to get up to go to the bathroom she had some significant exertional dyspnea. However she does feel better this morning but would feel more comfortable going home tomorrow if possible Vitals/I&O's: Vital Signs Temp Pulse Resp BP Pulse Ox 97.6 F L 71 18 146/51 H 96 01/21/19 08:53 01/21/19 08:53 01/21/19 08:53 01/21/19 08:53 01/21/19 08:53 Oxygen Flow Rate (L/min) 3 Oxygen Delivery Method Nasal Cannula Weight: 205 lb 4.006 oz Body Mass Index (BMI) 36.3 Finger Stick Blood Glucose 196 Intake and Output for Last 24 Hours 01/19/19 01/20/19 01/21/19 23:59 23:59 23:59 Intake Total 500 / 500 Balance 500 / 500 General: Alert, Oriented x3, Cooperative, No apparent distress HEENT: Atraumatic, PERRLA, EOMI, Normocephalic Oral: Moist Mucosa Neck: Supple, No JVD Lungs: Clear to auscultation, Normal air movement, No rhonchi, No wheeze, No rales, Diminished Cardiovascular: Regular rate, Regular Rhythm, Normal S1, Normal S2, No murmurs Abdomen: Soft, Non Tender, Non-Distended, No Hepato-splenomegaly Extremities: No edema, Capillary Refill Less than 3 Seconds Skin: No rashes, No breakdown Neurological: Neuro grossly intact, Sensory exam intact to light touch and pain Psych/Mental Status: Normal Affect, Appropriate Laboratory Results 01/20/19 22:15: WBC 6.8, RBC 4.01 L, Hgb 12.1, Hct 37.9, MCV 94.5, MCH 30.2, MCHC 31.9 L, RDW Std Deviation 46.1 H, RDW Coeff of Janet 13.3, Plt Count 275, MPV 10.9, Immature Gran % (Auto) 0.900, Neut % (Auto) 55.3, Lymph % (Auto) 26.5, [place] % (Auto) 13.7 H, Eos % (Auto) 3.2, Baso % (Auto) 0.4, Absolute Neuts (auto) 3.8, Absolute Lymphs (auto) 1.81, Nucleated RBC % 0 01/20/19 22:15: Sodium 141, Potassium 4.3, Chloride 105, Carbon Dioxide 28.0, Anion Gap 8, BUN 33 H, Creatinine 1.40 H, Estim Creat Clear Calc 24.74, Est GFR (MDRD) Af Amer 46 L, Est GFR (MDRD) Non-Af 38 L, BUN/Creatinine Ratio 23.6 H, Glucose 168 H, Calcium 9.0 Current Medications Acetaminophen (Tylenol) 650 mg PO Q6H PRN PRN PRN Reason: Mild Pain (1-3)/Temp > 100.7 F Albuterol Sulfate (Ventolin Aerosols) 2.5 mg INHALATION Q2H PRN PRN PRN Reason: SHORTNESS OF BREATH Albuterol/Ipratropium (Duoneb) 3 ml INHALATION Q6H.RT [facility] Last Admin: 01/21/19 06:53 Dose: 3 ml Documented by: Amlodipine Besylate (Norvasc) 10 mg PO DAILY [facility] Last Admin: 01/21/19 08:48 Dose: 10 mg Documented by: Bisacodyl (Dulcolax) 5 mg PO DAILY PRN PRN PRN Reason: Constipation Citalopram Hydrobromide (Celexa) 40 mg PO QHS [facility] Clonidine (Catapres) 0.1 mg PO DAILY [facility] Last Admin: 01/21/19 08:47 Dose: 0.1 mg Documented by: Clopidogrel Bisulfate (Plavix) 75 mg PO DAILY [facility] Last Admin: 01/21/19 08:49 Dose: 75 mg Documented by: Cyanocobalamin (Vitamin B12) 1,000 mcg PO DAILY@0800 [facility] Last Admin: 01/21/19 08:46 Dose: 1,000 mcg Documented by: Dextrose (D50w Syringe) 0 gm IV X1 PRN; Protocol PRN Reason: Hypoglycemia Doxycycline Monohydrate (Doxycycline) 100 mg PO BID [facility] Last Admin: 01/21/19 08:47 Dose: 100 mg Documented by: Enoxaparin Sodium (Lovenox) 30 mg SC DAILY@1000 [facility] Last Admin: 01/21/19 08:48 Dose: 30 mg Documented by: Ferrous Gluconate (Ferrous Gluconate) 324 mg PO DAILY@0800 [facility] Last Admin: 01/21/19 08:48 Dose: 324 mg Documented by: Glucagon () 1 mg IM .X1 PRN PRN Reason: Hypoglycemia Guaifenesin (Mucinex) 1,200 mg PO BID [facility] Last Admin: 01/21/19 08:46 Dose: 1,200 mg Documented by: Hydralazine HCl (Apresoline Iv) 10 mg IV Q4H PRN PRN PRN Reason: SBP > 160 Hydroxyzine Pamoate (Vistaril Pamoate Capsule) 50 mg PO QHS PRN PRN PRN Reason: INSOMNIA Sodium Chloride () 500 mls @ 999 mls/hr IV .Q31M ONE Last Infusion: 01/20/19 23:31 Dose: Infused Documented by: Sodium Chloride () 250 mls @ 15 mls/hr IV .[id number] PRN PRN Reason: Saline Flush Loratadine (Claritin) 10 mg PO DAILY [facility] Last Admin: 01/21/19 08:47 Dose: 10 mg Documented by: Metoprolol Succinate (Toprol Xl (Beta Gwen)) 100 mg PO DAILY [facility] Last Admin: 01/21/19 08:46 Dose: 100 mg Documented by: Multivitamins/Minerals ([facility]ivitamin With Minerals) [facility] Admin: 01/21/19 08:46 Dose: 1 tablet Documented by: Nystatin (Mycostatin Powder) 1 applic TOPICAL BID [facility]; Protocol Last Admin: 01/21/19 08:49 Dose: 1 applicatio Documented by: Ondansetron HCl (Zofran) 4 mg IV Q8H PRN PRN PRN Reason: NAUSEA/VOMITING Pantoprazole Sodium (Protonix) 40 mg PO DAILY [facility] Last Admin: 01/21/19 08:46 Dose: 40 mg Documented by: Pravastatin Sodium (Pravachol) 20 mg PO DAILY@2200 [facility] Prednisone () 40 mg PO DAILY@0800 [facility] Last Admin: 01/21/19 08:48 Dose: 40 mg Documented by: Sodium Chloride () 5 - 15 ml IV UD PRN PRN Reason: SALINE FLUSH Trazodone HCl (Desyrel) 100 mg PO QHS [facility] STROKE Vital Signs/Narrative: Vital Signs Temp Pulse Resp BP Pulse Ox 01/21/19 08:53 97.6 F L 71 18 146/51 H 96 01/21/19 08:46 71 Medical Necessity - Tobacco Use Smoking Status: Former smoker Assessment/Plan All Active Problems (Last Reviewed 01/21/19 @ 01:16 by Darryl James MD) COPD exacerbation (Acute) EMANUEL (acute kidney injury) (Acute) Endometrial cancer (Resolved) Hip fracture requiring operative repair (Resolved) 1. COPD exacerbation/DUDLEY -She is on 3 L nasal cannula at home at baseline, when she presented she was 96% on 3 L -However with ambulation on those 3 L in the ER she desaturated to 89% -There is some nodularity on the chest x-ray and CT chest is recommended however on admission her creatinine was elevated to 1.4 baseline is about a 1 -Continue with DuoNeb -Continue with p.o. prednisone daily -We will discontinue doxycycline as there is no signs of pneumonia on exam or on imaging -Continue with CPAP 2. EMANUEL -Creatinine is 1.4 on admission, baseline is 1 -Continue with IV fluids and will monitor -Hold her Lasix and lisinopril 3. Chronic diastolic CHF/HTN/HLD/history of TIA -Continue with gentle IV hydration for her EMANUEL, hold her Lasix and her lisinopril -Continue with Norvasc and clonidine as well as metoprolol -Continue with statin and Plavix 4. Depression/anxiety -Stable -Continue with Celexa 5. GERD -Stable -Continue with PPI VT: Lovenox Code Visit OBSV E&M: 75247 Subsequent observation care L2
--- NOTE | 2019-01-21 14:05 | CPS ---
Talked with patient about bringing home CPAP unit in for the night and patient said she had no one to bring it in for her. Patient stated she will be fine for a night without it. Patient declined using a hospital CPAP unit.
[2019-01-21] MEDS: traZODone 100 MG Tablet PO (22:59)
[2019-01-21] MEDS: Pravastatin 20 MG Tablet PO (23:00)
[2019-01-21] MEDS: Citalopram 40 MG TABLET PO (23:01)
[2019-01-22] VITALS (17 sets, daily range): BP systolic 154–176; BP diastolic 40–67; PULSE 49–70; RESP 18–23; TEMP 36.6–36.7; O2SAT 88–96
[2019-01-22 05:49] LABS: Absolute Lymphocyte Count 2.49 X10^3/uL (0.83-4.51); Absolute Neutrophil Count 5.2 X10^3/uL (2.0-7.7); Basophil# 0.02 X10^3/uL; Basophil% 0.2 % (0-1); Eosinophil# 0.04 X10^3/uL; Eosinophils% 0.5 % (0-5); Hemoglobin 10.8 g/dL (12.0-15.0); Lymphocyte # 2.49 X10^3/ul (4.0); Lymphocyte % 28.5 % (19-41); Mean Corp Hgb Conc 31.8 g/dL (32-36); Mean Corpuscular Hgb 30.1 pg (27.0-32.0); Mean Corpuscular Volume 94.7 fL (81-99); Mean Platelet Vol. 11.2 fl (6.2-12.0); Monocyte# 0.89 X10^3/uL; Monocyte% 10.2 % (0-10); NRBC Flagged by Analyzer 0 % (0-5); Neutrophil # 5.22 X10^3/uL (2.7-7.7); Neutrophil % 59.7 % (47-70); Platelet Count 257 K/mm3 (150-450); RBC Distribution Width CV 13.4 % (11.6-14.6); RBC Distribution Width SD 46.5 fl (35.1-43.9); Red Blood Count 3.59 M/mm3 (4.2-5.4); White Blood Count 8.7 K/mm3 (4.4-11.0)
[2019-01-22 06:18] LABS: Anion Gap 8 (5-15); BUN 27 mg/dL (7-18); BUN/Creat Ratio 26.5 RATIO (10-20); Calcium,Total 9.1 mg/dL (8.5-10.1); Chloride 105 mmol/L (98-107); Creatinine, Serum 1.02 mg/dL (0.55-1.02); EST Glomerular Filtration Rate 55 mL/min (>60); Est Glom Filt Rate - Afr Amer 66 mL/min (>60); Estimated Creatinine Clearance 33.96 ml/min; Glucose 119 mg/dL (74-106); Potassium 3.6 mmol/L (3.5-5.1); Sodium Level 140 mmol/L (136-145)
[2019-01-22] MEDS: Ipratropium/Albuterol Sulfate 3 ML AMPUL.NEB INHALATION ×2 (06:59→13:32)
--- NOTE | 2019-01-22 08:59 | NURSING ---
Patient was 94% at rest with 3L 02 on. When she ambulated to doorway and then to bathroom she dropped to 89% briefly then up to 90-91% on 3L o2. Reports that she did not get as short of breath as she did when she first came in.
[2019-01-22] MEDS: guaiFENesin 1,200 MG Tablet 1200 MG PO ×2 (09:56→21:40)
[2019-01-22] MEDS: predniSONE 20 MG Tablet 40 MG PO (09:56)
[2019-01-22] MEDS: Loratadine 10 MG Tablet PO (09:56)
[2019-01-22] MEDS: Enoxaparin 30 MG/0.3 ML Syringe SC (09:56)
[2019-01-22] MEDS: Nystatin Powder 15gm Bottle 1 APPLIC TOPICAL ×2 (09:56→21:41)
[2019-01-22] MEDS: Multivitamins,Ther W-Minerals Tablet 1 TABLET PO (09:57)
[2019-01-22] MEDS: Clopidogrel Bisulfate 75 MG Tablet PO (09:57)
[2019-01-22] MEDS: Pantoprazole Sodium 40 MG Tablet PO (09:57)
[2019-01-22] MEDS: Metoprolol(XL)Succ 100 MG Tablet PO (09:57)
[2019-01-22] MEDS: Cyanocobalamin 500 MCG Tablet 1000 MCG PO (09:57)
[2019-01-22] MEDS: cloNIDine HCl 0.1 MG Tablet PO (09:57)
[2019-01-22] MEDS: Ferrous Gluconate 324 MG Tablet PO (09:57)
[2019-01-22] MEDS: amLODIPine 10 MG Tablet PO (09:58)
--- NOTE | 2019-01-22 10:40 | PN_ITS ---
Patient Problems: Active and Suspected Problems (Last Reviewed 01/21/19 @ 01:16 by Darryl James MD) COPD exacerbation (Acute) EMANUEL (acute kidney injury) (Acute) Subjective: The patient is an 83-year-old female with a past medical history of hypertension, stage III chronic renal failure, stage II diastolic dysfunction, 2+ mitral regurgitation, moderate pulmonary hypertension, COPD, DUDLEY (compliant with CPAP), TIA, former smoker in remission(quit in 2009) and obesity who presented to the ED at [facility] on 01/20 c/o MCNEAL. Denies cough,fevers, wheezing. She got SOB walking to the BR and this is not usual for her. she gets MCNEAL when climbing 3 steps to get into the house and this is associated with Chest heaviness that requires her to sit down. Heaviness and SOB are relieved with rest. She denies any hx of CAD....her last stress was more than 2 years ago. she has followed with Dr. Alfonso in the past but, has not seen a civilian jail officer since Dr. Alfonso retired. She is unable to go down in the the basement or up and down the stairs in the back due to MCNEAL and chest heaviness. She also gets pain in the BL legs when she walks and then they get very weak. She tells me that her BP at home is 150's over 40's. Denies lightheadedness. Lab at admission is consistent with ARF and the Lasix has been held. She denies orth opnea. Her breathing is better since admission to the hospital but, she has only ambulated in the rom and she was not SOB at rest at admission. She has to walk further to the BR at home than she is walking in the hospital. Echocardiogram in July 2017 showed an ejection fraction of 55% with stage II diastolic dysfunction and a severely enlarged left atrium. She denies any history of atrial fibrillation. There was +2 mitral valve insufficiency and +1 TR. The right ventricular systolic pressure was estimated to be 59, up from 35 on an echocardiogram done in January 2013. Carotid ultrasound in 2012 showed calcific plaque at the proximal right internal carotid artery with less than 50% stenosis. There was moderate disease in the right external carotid. There was calcific plaque with shadowing at the proximal left internal carotid with 50 to 69% stenosis and moderate disease in the left external carotid. All events since admission have been reviewed. Systolic blood pressure is not adequately controlled and has ranged from 120/68 to 186/77 since admission. Current blood pressure is 169/40. Heart rate was normal at admission on metoprolol 100 mg p.o. daily by clonidine was added to her drug regimen and now the heart rate is in the low 60s. Pulse ox on room air at rest today was 88% following ambulation. On 3 L of nasal O2 ambulating the pulse ox was 89%. She is 95% on a 3 L nasal cannula at rest. - Physical Exam General: Alert, Oriented x3, Cooperative, No apparent distress HEENT: Atraumatic, PERRLA, EOMI, Normocephalic Oral: Moist Mucosa, No Gingival or Mucosal Lesions/ Ulcerations Neck: Negative Carotid Bruits, No Nodes, Trachea Midline Lungs: Diminished, Wheezes - scattered exp wheezing - mild Cardiovascular: Regular rate, Regular Rhythm, Normal S1, Normal S2, No murmurs, No rub noted, No Gallop, - - not on telemetry Abdomen: Bowel Sounds Present, Soft, Non Tender, Non-Distended, - - no bruits Extremities: No clubbing, No cyanosis, No edema, - - Pedal pulses are not palpable in either lower extremity and neither are the popliteal pulses. Femoral pulses are decreased bilaterally with positive bilateral femoral bruits. Skin: No rashes, No breakdown Neurological: Cranial nerves II-XII grossly intact, Neuro grossly intact Psych/Mental Status: Normal Affect, Appropriate Vital Signs Temp Pulse Resp BP Pulse Ox 97.8 F 61 23 H 169/40 H 95 01/22/19 09:25 01/22/19 09:57 01/22/19 09:25 01/22/19 09:25 01/22/19 09:25 Oxygen Flow Rate (L/min) [ 3 AMBULATION with Oxygen] Oxygen Flow Rate (L/min) 3 Oxygen Delivery Method Nasal Cannula Weight: 205 lb 4.006 oz Body Mass Index (BMI) 36.3 Finger Stick Blood Glucose 196 Intake and Output for Last 24 Hours 01/20/19 01/21/19 01/22/19 23:59 23:59 23:59 Intake Total 500 / 500 800 / 800 Balance 500 / 500 800 / 800 Laboratory Tests Past 24 Hrs 01/22/19 01/22/19 05:10 05:10 WBC 8.7 RBC 3.59 L Hgb 10.8 L Hct 34.0 L MCV 94.7 MCH 30.1 MCHC 31.8 L RDW Std Deviation 46.5 H RDW Coeff of Janet 13.4 Plt Count 257 MPV 11.2 Immature Gran % (Auto) 0.900 Neut % (Auto) 59.7 Lymph % (Auto) 28.5 [place] % (Auto) 10.2 H Eos % (Auto) 0.5 Baso % (Auto) 0.2 Absolute Neuts (auto) 5.2 Absolute Lymphs (auto) 2.49 Nucleated RBC % 0 Sodium 140 Potassium 3.6 Chloride 105 Carbon Dioxide 27.0 Anion Gap 8 BUN 27 H Creatinine 1.02 Estim Creat Clear Calc 33.96 Est GFR (MDRD) Af Amer 66 Est GFR (MDRD) Non-Af 55 L BUN/Creatinine Ratio 26.5 H Glucose 119 H Calcium 9.1 Medical Necessity - Tobacco Use Smoking Status: Former smoker Assessment/Plan All Active Problems (Last Reviewed 01/21/19 @ 01:16 by Darryl James MD) COPD exacerbation (Acute) EMANUEL (acute kidney injury) (Acute) Endometrial cancer (Resolved) Hip fracture requiring operative repair (Resolved) Impressions 1. chest heaviness and MCNEAL. No dyspnea at rest and the chest heaviness is relieved with rest. She has cerebrovascular disease and BL femoral bruits with claudication. I feel it is necessary to exclude CAD as the etiology of the MCNEAL and chest heaviness with climbing steps. Pharmacologic nuclear stress in the AM. ECHO. 2. PVD with claudication - needs an OP arterial study. Will defer to PCP 3. COPD - no PFT's in the computer but, she was referred to pulmonary rehab in 2018. 4. ARF - ruled out. Creat in 2019 has ranged from 1.1 to 1.38. 5. Hyperglycemia with no hx of DM II - HGBA1C ordered. 6. Hypertension/stage III chronic renal failure/stage II diastolic dysfunction/2+ mitral regurgitation/moderate pulmonary hypertension/history of TIA/former smoker in remission (quit in 2009) /obesity - chronic problems continue home medications HTN is not adequately controlled and she is getting bradycardic with the addition of Clonidine to her drug regimen. Clonidine DC'd and Hydralazine added to the drug regimen. Code Visit Inpatient E&M: 74206 Subs Hosp L2
--- NOTE | 2019-01-22 10:48 | CASEMGMT ---
RN CM Assessment Introduced role of RN CM to patient.? Patient is alert, oriented and able?to participate in RN CM Assessment. ?Care providers, pharmacy, and demographics verified. Presentation: C/o SOB. H/o COPD, 3L O2 dependency, HTN, CVA, HLD Admit Dx: Acute COPD Exacerbation Re-Admit: No Barriers/Issues: None PCP: Cole Moran Specialists: Health Facilities Surveyor in [place]-cannot recall name. States sees the PA Brigid Adhikari for Pulmonology here in [place] under the Health Facilities Surveyor in [place]. Per Dr Cagle states patient has seen Dr Alvarado and Dr White in the past. Preferred Pharmacy: [facility] [place] Insurance: [employer] O Rx Benefit:?Yes ?LNOK: Dtr Roselia Begum LW/HPOA: Yes both on file with [facility]. HPOA- Dtr Roselia Begum Living Arrangements:? Lives with her adult grandaiden Hackett in a SS home. 3 steps to enter front. 7-8 steps to enter through back. ADL?s: Ambulates independently inside, Ambulates with cane outside. Has a walker if needs to ever use. Requires assistance with all ADLs-states both Dtr's Roselia and Lela help but mostly Roselia. Transportation: Patient does not drive. Dtr's Roselia or Lela or Clarissa Hackett or Gianluca. DME: Home O2 3L continuous- [employer]. Has 2 big portable tanks and has a small carry portable tank. CPAP w/O2 bleed, Neb, Walker, Rollator, Cane, WC, BSC. HHC: None. Patient given a list to choose from as per Dr Cagle recommends Nurse at [place] for Medication reconciliation and management, Monitor BP/VS. Patient agrees to0 [facility] with Aide services to assist with ADLs. SNF: None. Goal: Home with [facility] for nurse and Aide services. Patient provided resources from this provider on Private duty aides, MIRANDA through job and family services, states her was a Davin- discussed and provided contact information to inquire about possible services that she may receive, [employer], and 211. Denies any further concerns, issues, or questions at this time with DC planning. Aware CM remains available for any emerging needs. DC PLAN: Home with HHC. TOAN Abdi
--- NOTE | 2019-01-22 10:58 | ECHOD_ITS ---
Reason For Study: PHTN, Chest Heaviness, Hx of MR Procedure This was a 2D Doppler, Color Flow transthoracic echocardiogram. Myocardial strain analysis was performed in this exam to aid in the assessment of cardiac function. Exam performed portable in patient room. Left Ventricle Normal LV size. The estimated ejection fraction is 55 %. Stage 2 diastolic dysfunction. No regional wall motion abnormalities noted. Right Ventricle Normal RV size. Normal systolic function. Atria The left atrium is moderately enlarged. Normal right atrium. Mitral Valve Bileaflet diffuse mitral valve thickening. Mild-Moderate (1-2+) eccentric mitral valve insufficiency. Tricuspid Valve Normal tricuspid valve. Mild tricuspid valve insufficiency. Pulmonary artery systolic pressure is 42 mmHg. Aortic Valve Trisinus/trileaflet aortic valve. Mild (1+) eccentric aortic valve insufficiency. Pulmonic Valve Normal pulmonic valve. Great Vessels Normal aortic root. The pulmonary artery is normal size. Normal inferior vena cava. Pericardium/Pleural No pericardial effusion. MMode/2D Measurements & Calculations LVIDd: 6.2 cm IVSd: 1.2 cm Ao root diam: 3.1 cm LVIDs: 4.2 cm LVPWd: 0.92 cm RVDd: 3.8 cm FS: 32.4 % LAV(MOD-bp): 85.1 ml LVAd ap4: 31.6 cm2 SV(MOD-sp4): 67.8 ml LAV(MOD-bp) Indexed: 43.5 ml/m2 EDV(MOD-sp4): 114.0 ml LAV(MOD-sp2): 92.3 ml EDV(sp4-el): 117.4 ml LAV(MOD-sp4): 76.2 ml LVAs ap4: 18.2 cm2 ESV(MOD-sp4): 46.2 ml ESV(sp4-el): 47.5 ml EF(MOD-sp4): 59.5 % EF(sp4-el): 59.5 % SV(sp4-el): 69.8 ml LA A4 area: 25.0 cm2 LA dimension(2D): 5.5 cm RA A4 area: 18.0 cm2 Time Measurements MV dec time: 0.18 sec Doppler Measurements & Calculations MV E max william: 129.4 cm/sec Lat Peak E' William: 6.5 cm/sec Med Peak E' William: 4.3 cm/sec MV A max william: 93.8 cm/sec E/E' lat: 20.1 E/E' med: 29.9 MV E/A: 1.4 MV V2 max: 132.7 cm/sec MV P1/2t max william: 132.1 cm/sec Ao V2 max: 148.8 cm/sec MV max P.0 mmHg MV P1/2t: 93.2 msec Ao max P.9 mmHg MV V2 mean: 66.9 cm/sec Ao V2 mean: 96.9 cm/sec MV mean P.2 mmHg MV dec slope: 415.2 cm/sec2 Ao mean P.2 mmHg MV V2 VTI: 44.1 cm MVA(P1/2t): 2.4 cm2 Ao V2 VTI: 38.0 cm LV V1 max: 101.0 cm/sec PA V2 max: 93.1 cm/sec TR max william: 305.5 cm/sec LV V1 max P.1 mmHg TR max P.3 mmHg Interpretation Summary Normal LV size. The estimated ejection fraction is 55 %. Stage 2 diastolic dysfunction. The left atrium is moderately enlarged. Mild-Moderate (1-2+) eccentric mitral valve insufficiency. The global longitudinal strain is normal. The global longitudinal strain = -20.8 % (normal). Ordering Physician: Rosaline Cagle Referring Physician: Cole Moran Performed By: Karley Cota, BROWN, RVT
--- NOTE | 2019-01-22 11:04 | PCA ---
Called Dr. White office and they are going to fax over progress notes and medlist that doctor dayan requested. She also requested any sleep studies results, PFT's, and Ct scans the doctors office dont have any records of her having any of those test.
--- NOTE | 2019-01-22 11:15 | PCA ---
recieved records from Dr. White office placed in front of chart
[2019-01-22 11:17] LABS: AST(SGOT) 22 U/L (15-37); Alanine Aminotransfer ALT/SGPT 24 U/L (13-56); Albumin, Serum 3.3 g/dL (3.2-5.0); Alkaline Phosphatase 99 U/L (45-117); Bilirubin, Direct 0.06 mg/dL (0.00-0.30); Globulin 3.8 g/dL (2.2-4.2); Magnesium 1.9 mg/dL (1.6-2.6); Protein, Total 7.1 g/dL (6.4-8.2)
[2019-01-22 11:22] LABS: Hemoglobin A1c 6.8 % (4.2-6.3)
[2019-01-22] MEDS: hydrALAZINE 25 MG Tablet PO ×2 (12:25→21:40)
[2019-01-22] MEDS: guaiFENesin Dm 10 ML UDC PO (19:49)
[2019-01-22] MEDS: Citalopram 40 MG TABLET PO (21:40)
[2019-01-22] MEDS: traZODone 100 MG Tablet PO (21:40)
[2019-01-22] MEDS: Pravastatin 20 MG Tablet PO (21:40)
[2019-01-23] VITALS (15 sets, daily range): BP systolic 154–180; BP diastolic 58–65; PULSE 59–98; RESP 18–22; TEMP 36.7–37.1; O2SAT 93–98
[2019-01-23] MEDS: Ipratropium/Albuterol Sulfate 3 ML AMPUL.NEB INHALATION ×4 (00:25→19:23)
[2019-01-23 06:09] LABS: Anion Gap 5 (5-15); BUN 23 mg/dL (7-18); BUN/Creat Ratio 27.9 RATIO (10-20); Calcium,Total 8.8 mg/dL (8.5-10.1); Chloride 108 mmol/L (98-107); Cholesterol 185 mg/dL (200); Creatinine, Serum 0.82 mg/dL (0.55-1.02); EST Glomerular Filtration Rate 70 mL/min (>60); Est Glom Filt Rate - Afr Amer 85 mL/min (>60); Estimated Creatinine Clearance 42.25 ml/min; Glucose 101 mg/dL (74-106); High Density Lipoprotein 52 mg/dL; Potassium 3.7 mmol/L (3.5-5.1); Sodium Level 142 mmol/L (136-145); Triglycerides 157 mg/dL; Very Low Density Lipoprotein 31 mg/dL (5-40)
[2019-01-23] MEDS: hydrALAZINE 25 MG Tablet PO ×3 (06:13→20:19)
--- NOTE | 2019-01-23 09:13 | NURSING ---
PT OFF UNIT FOR TESTING
--- NOTE | 2019-01-23 10:45 | NURSING ---
PT REMAINS OFF UNIT FOR TESTING
[2019-01-23] MEDS: Cyanocobalamin 500 MCG Tablet 1000 MCG PO (11:00)
[2019-01-23] MEDS: Multivitamins,Ther W-Minerals Tablet 1 TABLET PO (11:00)
[2019-01-23] MEDS: Pantoprazole Sodium 40 MG Tablet PO (11:00)
[2019-01-23] MEDS: Ferrous Gluconate 324 MG Tablet PO (11:00)
[2019-01-23] MEDS: predniSONE 20 MG Tablet 40 MG PO (11:00)
[2019-01-23] MEDS: Loratadine 10 MG Tablet PO (11:02)
[2019-01-23] MEDS: Enoxaparin 30 MG/0.3 ML Syringe SC (11:02)
[2019-01-23] MEDS: guaiFENesin 1,200 MG Tablet 1200 MG PO (11:02)
[2019-01-23] MEDS: Clopidogrel Bisulfate 75 MG Tablet PO (11:03)
[2019-01-23] MEDS: Nystatin Powder 15gm Bottle 1 APPLIC TOPICAL (11:03)
[2019-01-23] MEDS: Metoprolol(XL)Succ 100 MG Tablet PO (11:04)
[2019-01-23] MEDS: amLODIPine 10 MG Tablet PO (11:04)
--- NOTE | 2019-01-23 11:23 | STRESSREP ---
Stress Test Report Date: 01-23-19 Procedure: Pharmacologic stress nuclear imaging study Indications: Chest discomfort; shortness of breath/dyspnea on exertion Consent: Per the patient Procedure: The patient underwent pharmacologic (Regadenoson) evaluation with a peak heart rate of 91 beats per minute (66 %predicted maximal heart rate) and a peak blood pressure of 142/62 mmHg. The baseline ECG demonstrated sinus bradycardia; nonspecific ST segment abnormality. The peak pharmacologic ECG demonstrated no obvious ECG changes. There were no cardiac dysrhythmias pretest, during pharmacologic infusion, or recovery. There was no complaint of chest discomfort during pharmacologic infusion or recovery. The examination was discontinued secondary to completion of protocol. Impression: 1. Pharmacologic (Regadenoson) evaluation 2. Peak pharmacologic ECG with no obvious ECG changes. 3. There were no cardiac dysrhythmias pretest, during pharmacologic infusion, or recovery. 4. Nuclear images pending Myocardial perfusion imaging study: Technique: The patient was injected with 11.5 millicuries of technetium 99m Cardiolite and subsequently rest SPECT Cardiolite nuclear imaging was obtained in the horizontal long, vertical long, and short axis views. The patient underwent pharmacologic (Regadenoson) evaluation with a peak heart rate of 91 beats per minute (66 % percent predicted maximal heart rate) and a peak blood pressure of 142/62 mmHg. The patient was injected with 36.0 millicuries of technetium 99m Cardiolite and subsequently stress SPECT Cardiolite nuclear imaging was obtained in the horizontal long, vertical long, and short axis views. A gated Cardiolite study at peak stress was obtained. Interpretation: Rest and stress SPECT Cardiolite nuclear imaging status post realignment, normalization, and attenuation correction demonstrate areas of extra cardiac/gastrointestinal tracer uptake near the inferior segments as well as a small area of subtle diminished tracer uptake in the distal anterior segments without significant change between rest and stress. There is end systolic thickening and brightening. The gated Cardiolite study demonstrates myocardial thickening and inward wall motion. The reported LVEF is 68 %. Impression: 1. Rest and stress SPECT Cardiolite nuclear imaging demonstrate areas of extra cardiac/gastrointestinal tracer uptake and a small area of subtle diminished tracer uptake in portions of the distal anterior segments without significant change between rest and stress appearing compatible with an element of soft tissue attenuation/artifact, although, an element of previous myocardial injury/infarction cannot necessarily be excluded. There are no myocardial perfusion changes considered diagnostic for associated stress-induced myocardial ischemia. 2. The gated Cardiolite study reports an LVEF of 68 %. This note was generated with AccuDraftation software. It may contain incorrect words, spelling, and punctuation that were not noted in checking the note before signing.
--- NOTE | 2019-01-23 15:03 | CASEMGMT ---
Addendum entered by Robert Solares 01/23/19 15:51: Call to Linda @ [facility]. Referral is being reviewed and she will call and leave message when completed. Kenney COHEN RN AC Original Note: OLGA VARGAS in to review [facility] companies with patient. Patient's first choice is [facility]. OLGA VARGAS sent referral to [facility] and awaiting acceptance. OLGA VARGAS will continue to follow this patient and plan for a safe discharge.
--- NOTE | 2019-01-23 17:00 | PCM.DC ---
- Discharge Diagnoses Current Active Problems: Current Active and Chronic Problems (Last Reviewed 01/21/19 @ 01:16 by Darryl James MD) COPD exacerbation (Acute) EMANUEL (acute kidney injury) (Acute) Acute and chronic respiratory failure with hypoxia (Chronic) You will use the following diet at home:: Calorie/Carbohydrate Controlled (specify 1200, 1400, etc), Cardiac Your food should be the consistency of: Regular Your liquids should be the consistency of: Regular/Thin Discharge Activity: - - Avoid exposure to any strong smells such as bleach, cleaning products, strong colognes or perfumes, paint fumes and smoke of any kind. Avoid sudden exposure to cold air because this can cause bronchospasm. You may want to cover your mouth when you go outside in the winter. Avoid exposure to anyone who is sick with a cough or sore throat. Call your doctor if you observe: Fever of 101 or Higher, Shortness of breath, Dizziness, Fainting spells, Swelling in the ankles, Chest pain, Increased palpitations (irregular heartbeat), Calf discomfort Additional Instructions: 1. The stress test was negative. 2. You have arteriosclerosis in the arteries in both legs and this is why you get pain and weakness in the legs when you walk. You should have areterial studies on your legs as an OP and maybe something can be done to improve the circulation. You PCP can ordere this test. 3. You are now a diabetic. If you change your diet, control the carbohydrate intake and lose some weight you may not need medication. try and stick to the diet the social work job titles talked to you about. 4. If you are truly on steroids every 2 weeks like you told the social work job titles then you are taking too much and this can lead to severe osteoporosis and DM and heart disease and catarracts etc. If you have never had a bone density test then I recommend you talk to your PCP about ordering a DEXA to assess your bone density.......you can have this test here at the hospital as an OP. Allergies/Adverse Reactions: Allergies cilostazol [From Pletal] Allergy (Verified 01/20/19 21:43) Swelling Penicillins Allergy (Verified 01/20/19 21:43) Swelling Medications to take at Discharge Albuterol Inhaler [Ventolin Hfa] 2 puff INHALATION Q6H PRN PRN 04/27/16 Amlodipine Besylate [Norvasc] 10 mg PO DAILY 04/27/16 Citalopram [Celexa] 40 mg PO QHS 04/27/16 Clopidogrel Bisulfate [Plavix] 75 mg PO DAILY 04/27/16 Ferrous Gluconate 325 mg PO DAILY@0800 04/27/16 Loratadine [Claritin] 10 mg PO DAILY 04/27/16 Multivitamins,Ther W-Minerals [Multivitamin With Minerals] 1 tablet PO DAILY 04/27/16 [place]-3 Fatty Acids/Fish Oil [[place] 3 1,000 mg Softgel] 2 each PO DAILY 04/27/16 Pantoprazole Sodium [Protonix] 40 mg PO DAILY 04/27/16 Potassium Chloride [K-Dur] 20 meq PO BID 04/27/16 Pravastatin [Pravachol] 20 mg PO DAILY 04/27/16 traZODone [Desyrel] 100 mg PO QHS 04/27/16 Cyanocobalamin [Vitamin B12] 1,000 mcg PO DAILY@0800 07/06/17 Metoprolol(XL)Succ [Toprol Xl (Beta Gwen)] 100 mg PO DAILY 07/06/17 Hydroxyzine Pamoate [Vistaril] 50 mg PO QHS PRN PRN 08/11/17 Albuterol Aerosols [Ventolin Aerosols] 0.5 mg INHALATION Q2H PRN PRN 08/12/17 Furosemide [Lasix] 40 mg PO DAILY 08/12/17 Budesonide 2 ml INHALATION BID #30 cap 01/19/18 Furosemide [Lasix] 20 mg PO DAILY 01/21/19 Guaifenesin [Mucinex] 1,200 mg PO BID 01/21/19 Guaifenesin [Mucinex] 1,200 mg PO BID #20 tab 01/23/19 Ipratropium [Atrovent Aerosols] 0.5 mg INHALATION 4X/DAY #0 01/23/19 Lisinopril [Zestril] 40 mg PO DAILY #0 01/23/19 hydrALAZINE [Apresoline] 25 mg PO TID #90 tab 01/23/19 The following prescriptions were given: hydrALAZINE [Apresoline] 25 mg PO TID #90 tab Transmission Status: Pending to [facility] [facility] Guaifenesin [Mucinex] 1,200 mg PO BID #20 tab Transmission Status: Pending to [facility] [facility] Primary Care Physician: Cole Moran MD [Primary Care Provider] - Please follow up with your Primary Care Physician in: 1-2 weeks Test Results: Test results from this visit will be discussed in further detail at your follow-up appointment, if applicable. Proposed Discharge Date: 01/23/19
--- NOTE | 2019-01-23 17:12 | DS.PCM_ITS ---
Discharge Date and Diagnosis - Problem List Patient Problems: Active and Suspected Problems (Last Reviewed 01/21/19 @ 01:16 by Darryl James MD) Diabetes mellitus type 2 in obese (Acute) COPD exacerbation (Acute) Date of Admission: 01/20/19 Date of Discharge: 01/23/19 - Primary Discharge Diagnosis Active and Suspected Problems (Last Reviewed 01/21/19 @ 01:16 by Darryl James MD) COPD exacerbation (Acute) Diabetes mellitus type 2 in obese (Acute) EMANUEL - ruled out - Secondary Discharge Diagnosis Chronic Problems (Last Reviewed 01/21/19 @ 01:16 by Darryl James MD) Morbid obesity (Chronic) Moderate pulmonary arterial systolic hypertension (Chronic) Mitral regurgitation (Chronic) Grade II diastolic dysfunction (Chronic) Chronic renal failure, stage 3 (moderate) (Chronic) Tobacco dependence in remission (Chronic) PVD with Claudication (Chronic) Diverticulosis of colon (without mention of hemorrhage) (Chronic) History of esophageal reflux (Chronic) Hyperlipidemia (Chronic) History of hypertension (Chronic) - not adequately controlled DUDLEY on CPAP (Chronic) COPD (chronic obstructive pulmonary disease) (Chronic) TIA (transient ischemic attack) (Chronic) Chronic respiratory failure with hypoxia (Chronic) on 3 LPM continuously Hospital Course and Treatment Imaging Results: Clinical Impression(s) from Imaging Studies Chest X-Ray 01/20/19 22:15 IMPRESSION: Cardiomegaly. Indeterminate nodular densities within the right mid/lower lung disease may reflect underlying granulomas however consider chest CT for further evaluation. Electronically Signed: Heather Garcia MD at 22:41 EDT Tel , Service support , Laboratory Results - last 24 hr 01/23/19 05:26 Sodium 142 Potassium 3.7 Chloride 108 H Carbon Dioxide 29.0 Anion Gap 5 BUN 23 H Creatinine 0.82 Estim Creat Clear Calc 42.25 Est GFR (MDRD) Af Amer 85 Est GFR (MDRD) Non-Af 70 BUN/Creatinine Ratio 27.9 H Glucose 101 Calcium 8.8 Triglycerides 157 Cholesterol 185 LDL Cholesterol 102 VLDL Cholesterol 31 HDL Cholesterol 52 none Operations: None Procedures: 2-D Echocardiogram - Interpretation Summary Normal LV size. The estimated ejection fraction is 55 %. Stage 2 diastolic dysfunction. The left atrium is moderately enlarged. Mild-Moderate (1-2+) eccentric mitral valve insufficiency. The right ventricular systolic pressures estimated at 42 mmHg w hich is consistent with moderate pulmonary hypertension., Stress test - Impression: 1. Rest and stress SPECT Cardiolite nuclear imaging demonstrate areas of extra cardiac/gastrointestinal tracer uptake and a small area of subtle diminished tracer uptake in portions of the distal anterior segments without significant change between rest and stress appearing compatible with an element of soft tissue attenuation/artifact, although, an element of previous myocardial injury/infarction cannot necessarily be excluded. There are no myocardial perfusion changes considered diagnostic for associated stress-induced myocardial ischemia. 2. The gated Cardiolite study reports an LVEF of 68 %. Summary of Care Provided: The patient is a 83 year old F with a past medical history of hypertension, stage III chronic renal failure, stage II diastolic dysfunction, 2+ mitral regurgitation, moderate pulmonary hypertension, COPD (he tells me she has never had PFTs), DUDLEY (compliant with CPAP), history of TIA, former smoker in remission (quit in 2009) and obesity who presented to the emergency department at [facility] on 01/20/2019 complaining of dyspnea on exertion. She denied cough, fevers, wheezing, nausea, vomiting, chest pain. She stated that she got short of breath walking to the bathroom and this is not usual for her. She did admit to having dyspnea on exertion associated with chest heaviness when she climbs the 3 steps necessary to get into her house. She is no longer able to go down the stairs to her basement or down the steps in the back of her house. She also complained of pain in the bilateral legs when she walks and they get very weak. The pain goes away with rest. Vital signs at presentation to the emergency room were temperature 98.2, pulse rate 75, blood pressure 145/86, respiratory rate 18 and she was 94% saturated on a 3 L nasal cannula which is her baseline. CBC was unremarkable. BMP was significant for an elevated BUN at 33 with a creatinine of 1.40. The creatinine in 2019 has ranged from 1.20-1.38. Chest x-ray showed no infiltrates, pleural effusions or pulmonary vascular congestion. There is cardiomegaly. There are indeterminate nodular densities within the right mid/lower lung which may reflect underlying granulomatous disease but if she has not had a CT scan recently this should be be considered. She was admitted to the hospital with a diagnosis of COPD exacerbation. She was started on [id number] aerosolized bronchodilators and p.o. prednisone was started in the emergency room and continued. She was diagnosed with acute kidney injury which has been ruled out since her baseline creatinine has ranged from 1.2-1.38 in 2019. LAsix and Lisinopril were held due to the presumed ARF. BP's were not adequately controlled and she has a hx of diastolic CHF. She was bradycardic on a beta gwen and Clonidine and the clonidine was discontinued. She was started on Hydralazine 25 mg TID. Lisinopril was restarted at 40 mg daily rather than BID. An ECHO was obtained since she had not had an ECHO in at least 12 months. The echocardiogram showed a 55% ejection fraction with stage II diastolic dysfunction, moderate left atrial enlargement, 1-2+ eccentric mitral valve insufficiency and an elevated right ventricular systolic pressure estimated at 42 which is consistent with moderate pulmonary hypertension. she told me that she has never had PFT's and that her last sleep study was a few years ago and she has gained weight since then. In the past few months she has been on steroids about every 2 weeks. She does not seem to be getting any better and she is chronically fatigued. A pharmacologic nuclear stress test was done on 01/23/2019 and there were no myocardial perfusion changes consider diagnostic for stress-induced myocardial ischemia. The gated nuclear ejection fraction was 68%. She was discharged home on 01/23/2019 with prescriptions for hydralazine 25 mg p.o. 3 times daily, Mucinex 1200 mg p.o. twice daily and prednisone to be tapered over the next 10 days.The prednisone did not appear on the discharge instructions....it was added after the DC instructions had been printed. If she truly has had steroids every 2 weeks for the past few months then she may be developing adrenal insufficiency. While in the hospital her BS's were elevated and a HGBA1C was obtained and it was 6.8. She has never been diabetic in the past and this may be related to the frequent steroids. She was seen by the dietitian and educated in a carbohydrate contro lled diet. She is going to follow up with Dr. Moran in 1 to 2 weeks. If she has not had a recent CT scan of the chest then would consider obtaining a CT scan of the chest to better evaluate the nodules in the R mid and lower lung zones. I think she should have a repeat sleep study since she has gained weight and the CPAP may no longer be providing enough PAP. She also should have PFT's if not done in the past. She may want to follow up with a licensing specialist in [place] since it is not always easy to follow up with Dr. Otto in [place]. She was given Dr. Dinesh Alvarado's office number should she decide to see a licensing specialist in [place]. I also recommend she have arterial studies of the LE's as an OP since she is having claudication with ambulation and she has diminished pedal pulse and popliteal pulses and she has + BL femoral bruits. General: Alert, Oriented x3, Cooperative, No apparent distress HEENT: Atraumatic, PERRLA, EOMI, Normocephalic Oral: Moist Mucosa, No Gingival or Mucosal Lesions/ Ulcerations Neck: Negative Carotid Bruits, No Nodes, Trachea Midline Lungs: Diminished, Wheezes - scattered exp wheezing - mild Cardiovascular: Regular rate, Regular Rhythm, Normal S1, Normal S2, No murmurs, No rub noted, No Gallop, - - not on telemetry Abdomen: Bowel Sounds Present, Soft, Non Tender, Non-Distended, - - no bruits Extremities: No clubbing, No cyanosis, No edema, - - Pedal pulses are not palpable in either lower extremity and neither are the popliteal pulses. Femoral pulses are decreased bilaterally with positive bilateral femoral bruits. Skin: No rashes, No breakdown Neurological: Cranial nerves II-XII grossly intact, Neuro grossly intact Psych/Mental Status: Normal Affect, Appropriate This note was generated with [employer] dictation software. It may contain incorrect words, spelling, and punctuation that were not noted in checking the note before signing. Patient Problems: Active and Suspected Problems (Last Reviewed 01/21/19 @ 01:16 by Darryl James MD) Diabetes mellitus type 2 in obese (Acute) COPD exacerbation (Acute) - Physical Exam Vitals/I&O's: Vital Signs Temp Pulse Resp BP Pulse Ox 98.8 F 60 20 H 159/60 H 98 01/23/19 14:33 01/23/19 14:33 01/23/19 14:33 01/23/19 14:33 01/23/19 14:33 Oxygen Flow Rate (L/min) [ 3 AMBULATION with Oxygen] Oxygen Flow Rate (L/min) 3 Oxygen Delivery Method Nasal Cannula Weight: 205 lb 4.006 oz Body Mass Index (BMI) 36.3 Finger Stick Blood Glucose 196 Intake and Output for Last 24 Hours 01/21/19 01/22/19 01/23/19 23:59 23:59 23:59 Intake Total 800 / 800 420 / 845 425 / 425 Balance 800 / 800 420 / 845 425 / 425 Laboratory Results 01/23/19 05:26: Sodium 142, Potassium 3.7, Chloride 108 H, Carbon Dioxide 29.0, Anion Gap 5, BUN 23 H, Creatinine 0.82, Estim Creat Clear Calc 42.25, Est GFR (MDRD) Af Amer 85, Est GFR (MDRD) Non-Af 70, BUN/Creatinine Ratio 27.9 H, Glucose 101, Calcium 8.8, Triglycerides 157, Cholesterol 185, LDL Cholesterol 102, VLDL Cholesterol 31, HDL Cholesterol 52 Current Medications Acetaminophen (Tylenol) 650 mg PO Q6H PRN PRN PRN Reason: Mild Pain (1-3)/Temp > 100.7 F Albuterol Sulfate (Ventolin Aerosols) 2.5 mg INHALATION Q2H PRN PRN PRN Reason: SHORTNESS OF BREATH Albuterol/Ipratropium (Duoneb) 3 ml INHALATION Q6H.RT [facility] Last Admin: 01/23/19 13:14 Dose: 3 ml Documented by: Amlodipine Besylate (Norvasc) 10 mg PO DAILY [facility] Last Admin: 01/23/19 11:04 Dose: 10 mg Documented by: Bisacodyl (Dulcolax) 5 mg PO DAILY PRN PRN PRN Reason: Constipation Citalopram Hydrobromide (Celexa) 40 mg PO QHS [facility] Last Admin: 01/22/19 21:40 Dose: 40 mg Documented by: Clopidogrel Bisulfate (Plavix) 75 mg PO DAILY [facility] Last Admin: 01/23/19 11:03 Dose: 75 mg Documented by: Cyanocobalamin (Vitamin B12) 1,000 mcg PO DAILY@0800 [facility] Last Admin: 01/23/19 11:00 Dose: 1,000 mcg Documented by: Dextrose (D50w Syringe) 0 gm IV X1 PRN; Protocol PRN Reason: Hypoglycemia Enoxaparin Sodium (Lovenox) 30 mg SC DAILY@1000 [facility] Last Admin: 01/23/19 11:02 Dose: 30 mg Documented by: Ferrous Gluconate (Ferrous Gluconate) 324 mg PO DAILY@0800 [facility] Last Admin: 01/23/19 11:00 Dose: 324 mg Documented by: Glucagon () 1 mg IM .X1 PRN PRN Reason: Hypoglycemia Guaifenesin (Mucinex) 1,200 mg PO BID [facility] Last Admin: 01/23/19 11:02 Dose: 1,200 mg Documented by: Guaifenesin (Robitussin Dm) 5 - 10 ml PO Q6H PRN PRN PRN Reason: COUGH Last Admin: 01/22/19 19:49 Dose: 10 ml Documented by: Hydralazine HCl (Apresoline Iv) 10 mg IV Q4H PRN PRN PRN Reason: SBP > 160 Hydralazine HCl (Apresoline) 25 mg PO TID [facility] Last Admin: 01/23/19 13:57 Dose: 25 mg Documented by: Hydroxyzine Pamoate (Vistaril Pamoate Capsule) 50 mg PO QHS PRN PRN PRN Reason: INSOMNIA Sodium Chloride () 250 mls @ 15 mls/hr IV .[id number] PRN PRN Reason: Saline Flush Loratadine (Claritin) 10 mg PO DAILY [facility] Last Admin: 01/23/19 11:02 Dose: 10 mg Documented by: Metoprolol Succinate (Toprol Xl (Beta Gwen)) 100 mg PO DAILY [facility] Last Admin: 01/23/19 11:04 Dose: 100 mg Documented by: Multivitamins/Minerals ([facility]amin With Minerals) [facility] Admin: 01/23/19 11:00 Dose: 1 tablet Documented by: Nystatin (Mycostatin Powder) 1 applic TOPICAL BID [facility]; Protocol Last Admin: 01/23/19 11:03 Dose: 1 applicatio Documented by: Ondansetron HCl (Zofran) 4 mg IV Q8H PRN PRN PRN Reason: NAUSEA/VOMITING Pantoprazole Sodium (Protonix) 40 mg PO DAILY [facility] Last Admin: 01/23/19 11:00 Dose: 40 mg Documented by: Pravastatin Sodium (Pravachol) 20 mg PO DAILY@2200 [facility] Last Admin: 01/22/19 21:40 Dose: 20 mg Documented by: Prednisone () 40 mg PO DAILY@0800 [facility] Last Admin: 01/23/19 11:00 Dose: 40 mg Documented by: Sodium Chloride () 5 - 15 ml IV UD PRN PRN Reason: SALINE FLUSH Trazodone HCl (Desyrel) 100 mg PO QHS [facility] Last Admin: 01/22/19 21:40 Dose: 100 mg Documented by: Discharge Activity: - - Avoid exposure to any strong smells such as bleach, cleaning products, strong colognes or perfumes, paint fumes and smoke of any kind. Avoid sudden exposure to cold air because this can cause bronchospasm. You may want to cover your mouth when you go outside in the winter. Avoid ex posure to anyone who is sick with a cough or sore throat. Call your doctor if you observe: Fever of 101 or Higher, Shortness of breath, Dizziness, Fainting spells, Swelling in the ankles, Chest pain, Increased palpitations (irregular heartbeat), Calf discomfort Home Medications: Medications to take at Discharge Albuterol Inhaler [Ventolin Hfa] 2 puff INHALATION Q6H PRN PRN 04/27/16 Amlodipine Besylate [Norvasc] 10 mg PO DAILY 04/27/16 Citalopram [Celexa] 40 mg PO QHS 04/27/16 Clopidogrel Bisulfate [Plavix] 75 mg PO DAILY 04/27/16 Ferrous Gluconate 325 mg PO DAILY@0800 04/27/16 Loratadine [Claritin] 10 mg PO DAILY 04/27/16 Multivitamins,Ther W-Minerals [Multivitamin With Minerals] 1 tablet PO DAILY 04/27/16 Coats-3 Fatty Acids/Fish Oil [Coats 3 1,000 mg Softgel] 2 each PO DAILY 04/27/16 Pantoprazole Sodium [Protonix] 40 mg PO DAILY 04/27/16 Potassium Chloride [K-Dur] 20 meq PO BID 04/27/16 Pravastatin [Pravachol] 20 mg PO DAILY 04/27/16 traZODone [Desyrel] 100 mg PO QHS 04/27/16 Cyanocobalamin [Vitamin B12] 1,000 mcg PO DAILY@0800 07/06/17 Metoprolol(XL)Succ [Toprol Xl (Beta Gwen)] 100 mg PO DAILY 07/06/17 Hydroxyzine Pamoate [Vistaril] 50 mg PO QHS PRN PRN 08/11/17 Albuterol Aerosols [Ventolin Aerosols] 0.5 mg INHALATION Q2H PRN PRN 08/12/17 Furosemide [Lasix] 40 mg PO DAILY 08/12/17 Budesonide 2 ml INHALATION BID #30 cap 01/19/18 Furosemide [Lasix] 20 mg PO DAILY 01/21/19 Guaifenesin [Mucinex] 1,200 mg PO BID 01/21/19 Guaifenesin [Mucinex] 1,200 mg PO BID #20 tab 01/23/19 Ipratropium [Atrovent Aerosols] 0.5 mg INHALATION 4X/DAY #0 01/23/19 Lisinopril [Zestril] 40 mg PO DAILY #0 01/23/19 Prednisone 10 mg PO UD #30 tab 01/23/19 hydrALAZINE [Apresoline] 25 mg PO TID #90 tab 01/23/19 Following Prescrptions Were Given to Patient: hydrALAZINE [Apresoline] 25 mg PO TID #90 tab Transmission Status: Received by MARISEL FINCH RD Guaifenesin [Mucinex] 1,200 mg PO BID #20 tab Transmission Status: Received by MARISEL FINCH RD Prednisone 10 mg PO UD #30 tab Prescription Printed Primary Care Physician: Cole Moran MD [Primary Care Provider] - Please follow up with your Primary Care Physician in: 1-2 weeks Minutes spent on discharge:: 40 Patient Condition:: Stable Medical Necessity - Tobacco Use Smoking Status: Former smoker Meaningful Use Info Meaningful Use Diagnoses (Choose all that apply): None applicable Code Visit Inpatient E&M: 08683 Disch Hosp
--- NOTE | 2019-01-23 20:15 | NURSING ---
Pt's daughter here to take pt home. BP 180/65 at discharge. Pt was up walking in room, now talking and anxious to be discharged. HS dose of PO Hydralazine given.
--- NOTE | 2019-01-24 13:44 | CASEMGMT ---
OLGA VARGAS DC PHONE CALL DC DATE: 01/23/19 DC Disposition: Home Diagnosis on Discharge: COPD, Diabetes Type 2 LACE/STRATA: 14 Intro role of CM to patient via phone. Pt states she does not have questions re: her medicines or f/u. Will make appt herself. States she is feeling better and is doing well. No care improvemement suggestions given. Updated that [facility] will be calling to set up Home Health Care. Kenney HURTN RN ACM
== END 2019-01-23 20:25 | disposition home or self-care (01) | DRG 191 ==
LOC: ED 22:02 → MS3 23:55
PROVIDERS: Family Medicine; Admitting Provider Hospitalist; Emergency Provider Emergency Medicine; Family Provider Family Medicine; PCP Family Medicine; Visit Provider Internal Medicine
DX: J44.1 Chronic obstructive pulmonary disease with (acute) exacerbation (principal); I50.32 Chronic diastolic (congestive) heart failure; J96.11 Chronic respiratory failure with hypoxia; I13.0 Hypertensive heart and chronic kidney disease with heart failure and stage 1 through stage 4 chronic kidney disease, or unspecified chronic kidney disease; N18.3 Chronic kidney disease, stage 3 (moderate); G47.33 Obstructive sleep apnea (adult) (pediatric); F41.9 Anxiety disorder, unspecified; K21.9 Gastro-esophageal reflux disease without esophagitis; F32.9 Major depressive disorder, single episode, unspecified; E78.5 Hyperlipidemia, unspecified; E66.01 Morbid (severe) obesity due to excess calories; I34.0 Nonrheumatic mitral (valve) insufficiency; I11.0 Hypertensive heart disease with heart failure; I27.20 Pulmonary hypertension, unspecified; Z86.73 Personal history of transient ischemic attack (TIA), and cerebral infarction without residual deficits; Z87.891 Personal history of nicotine dependence; Z85.42 Personal history of malignant neoplasm of other parts of uterus; Z99.81 Dependence on supplemental oxygen; Z79.02 Long term (current) use of antithrombotics/antiplatelets; Z68.36 Body mass index [BMI] 36.0-36.9, adult; Z82.49 Family history of ischemic heart disease and other diseases of the circulatory system; Z83.3 Family history of diabetes mellitus; Z90.710 Acquired absence of both cervix and uterus; Z85.828 Personal history of other malignant neoplasm of skin; Z79.899 Other long term (current) drug therapy
CPT/HCPCS: 36415; 71046; 78452; 80048; 80061; 80076; 83036; 83735; 85025; 93005; 93017; 93306; 94640; 94667; 94668; 97162; 97166; 97530; 97535; 97803; 99285; A9500; J7030; Q9957; A4216; J2785

== ENCOUNTER 2019-02-17 17:20 | Emergency (ER) | payer MEDICARE, SELFPAY ==
[2019-01-21 00:36] VITALS: BMI 36.3
[2019-02-17 17:22] VITALS: BP 155/65; PULSE 62; RESP 20; TEMP 36.7; O2SAT 95; BMI 36.4
--- NOTE | 2019-02-17 17:36 | RAD_ITS ---
STUDY: X-RAY CHEST REASON FOR EXAM: Female, 83 years old. Cough, SOB. TECHNIQUE: PA and lateral chest. COMPARISON: 01/20/2019. FINDINGS: The lungs are clear and expanded. There is no demonstrated pleural abnormality. There is mild cardiac enlargement. Normal mediastinum and gregg. Normal visualized pulmonary arteries. Atherosclerotic calcification of the thoracic aorta. Normal visualized thoracic spine. Normal visualized ribs, clavicles, and shoulders. There is no demonstrated abnormality of the visualized soft tissue structures of the upper abdomen. RAD/Chest PA and Lateral IMPRESSION: 1. Mild cardiac enlargement. No acute findings. Electronically Signed: Saima Gomez MD at 19:10 EST Tel , Service support ,
--- NOTE | 2019-02-17 17:37 | ED.DCSUM_ITS ---
History of Present Illness Chief Complaint: Shortness of Breath Informant: Patient Onset: Yesterday Timing: Continuous Quality: Wheezing Current Severity: Mild Maximum Severity: Moderate Worsened by: Coughing, Exertion. Not Worsened By: Lying flat Relieved by: Albuterol - using it frequently at home Associated Symptoms: Cough, Yellow sputum. Negative for: Bloody Sputum, Chills, Fever, Sore throat Chest Pain: None Narrative: Patient states since yesterday she feels like her COPD is flaring up. She has had 2 prior episodes in the last couple months, successfully treated with prednisone and antibiotics before. There is been a high prevalence of viral illness in the community recently. - Past Medical History (1) COPD (chronic obstructive pulmonary disease) Status: Chronic (2) Chronic renal failure, stage 3 (moderate) Status: Chronic (3) Diabetes mellitus type 2 in obese Status: Chronic (4) Essential hypertension Status: Chronic (5) Grade II diastolic dysfunction Status: Chronic (6) History of peripheral vascular disease Status: Chronic (7) Hyperlipidemia Status: Chronic (8) Mitral regurgitation Status: Chronic (9) Moderate pulmonary arterial systolic hypertension Status: Chronic (10) DUDLEY on CPAP Status: Chronic Past Medical History - Allergies and Home Meds Allergies/Adverse Reactions: Allergies cilostazol [From Pletal] Allergy (Verified 02/07/19 13:57) Swelling Penicillins Allergy (Verified 02/07/19 13:57) Swelling Primary Care Physician: Cole Moran MD [Primary Care Provider] - Surgical History: hysterectomy, - - Lumpectomy right breast, back surgery, lump removed from left jaw region, skin cancer surgery,back surgery. Smoking Status: Former smoker - Family History Maternal Family History: Family History (Last Reviewed 01/21/19 @ 01:16 by Darryl James MD) Brother Diabetes Sister Diabetes Mother Heart disease Father Heart disease Family History: Reports: No pertinent history Paternal Family History: Family History (Last Reviewed 01/21/19 @ 01:16 by Darryl James MD) Brother Diabetes Sister Diabetes Mother Heart disease Father Heart disease Family History: Reports: Heart Disease, Hypertension Review of Systems General: Reports: Malaise. Denies: Chills, Fever, Sweats Eyes: Denies: Visual changes - bilaterally, Diplopia ENT: Denies: Bilateral ear pain, Rhinorrhea, Sore throat Cardiovascular: Denies: Chest pain, Palpitations Respiratory: Reports: Dyspnea, Cough, Sputum, Dyspnea on exertion. Denies: Orthopnea Gastrointestinal: Denies: Abdominal pain, Nausea, Vomiting, Diarrhea, Melena, Hematochezia Genitourinary: Denies: Dysuria, Hematuria, Frequency Musculoskeletal: Denies: Back pain, Swelling, Extremity Pain Skin: Denies: Rash, Wounds Neurological: Denies: Headache, Weakness, Numbness Physical Exam Vital Signs/Narrative: Vital Signs Temp Pulse Resp BP Pulse Ox 02/17/19 17:22 98.1 F 62 20 H 155/65 H 95 Inital Vital Signs reviewed: Yes General: Well nourished, Well developed, No Acute Distress Head: Normocephalic, Atraumatic Eyes: Perrl, EOMI ENT: Moist mucous membranes, No rhinorrhea Neck: Supple, Nontender, No lymphadenopathy Cardiovascular: Regular rate, Regular rhythm, No murmurs Respiratory: No distress, Chest nontender, Wheezing, Diminished - throughout. Negative for: Rales, Rhonchi Abdomen: Soft, Nontender, Nondistended, Normal bowel sounds Back: Nontender, Normal Inspection Extremities: Nontender, No edema Skin: Normal color, No rash, No Trauma Neurological: Alert, Oriented x3, Cranial nerves II-XII grossly intact, Normal Strength, Normal Sensation, Normal Gait Psychological: Normal affect, Normal Mood Diagnostic/Tx/Re-eval Chest X-Ray - ED: 2 View, Read by ED Physician, Read by Radiologist, No Acute Disease - Medical Decision Making Patient feels better after albuterol treatment. Her vital signs are adequate and she is not hypoxic on her home oxygen. Chest x-ray shows no pneumonia, influenza swab negative. She was given an initial dose prednisone and discharged with prescriptions for antibiotic and prednisone, advised to follow- up or return if worse. She is comfortable with the plan. ED Disposition - Plan for ED Patient: Disposition: Home or Assisted Living Diagnosis: Acute bronchitis, COPD with exacerbation Instructions: Copd Flare Prescriptions: Prednisone [Deltasone] 40 mg PO DAILY #10 tab Transmission Status: Pending to [facility] Azithromycin [Zithromax Z-Jorge A] 250 mg PO UD #1 box Transmission Status: Pending to [facility] Referrals: Cole Moran MD [Primary Care Provider] - 1 Week if not improving
[2019-02-17] MEDS: Albuterol 2.5 MG/3 ML VIAL.NEB. INHALATION (17:42)
[2019-02-17] MEDS: predniSONE 20 MG Tablet 40 MG PO (17:43)
[2019-02-17] MEDS: Ipratropium/Albuterol Sulfate 3 ML AMPUL.NEB INHALATION (17:43)
[2019-02-17 17:45] VITALS: PULSE 48; RESP 20
[2019-02-17 18:44] VITALS: PULSE 45; RESP 19; O2SAT 96
[2019-02-17 18:58] VITALS: O2SAT 95
[2019-02-17 20:07] VITALS: BP 178/0; PULSE 77; RESP 16; RESP 18; O2SAT 96
== END 2019-02-17 20:08 | disposition home or self-care (01) ==
PROVIDERS: Emergency Provider Emergency Medicine; Family Provider Family Medicine; PCP Family Medicine
DX: J20.9 Acute bronchitis, unspecified (principal); J44.1 Chronic obstructive pulmonary disease with (acute) exacerbation; J44.0 Chronic obstructive pulmonary disease with (acute) lower respiratory infection; E11.22 Type 2 diabetes mellitus with diabetic chronic kidney disease; E11.51 Type 2 diabetes mellitus with diabetic peripheral angiopathy without gangrene; E66.9 Obesity, unspecified; E78.5 Hyperlipidemia, unspecified; G47.33 Obstructive sleep apnea (adult) (pediatric); I12.9 Hypertensive chronic kidney disease with stage 1 through stage 4 chronic kidney disease, or unspecified chronic kidney disease; N18.3 Chronic kidney disease, stage 3 (moderate); Z82.49 Family history of ischemic heart disease and other diseases of the circulatory system; Z87.891 Personal history of nicotine dependence; Z88.0 Allergy status to penicillin; Z90.710 Acquired absence of both cervix and uterus
CPT/HCPCS: 71046; 87804; 94640; 99251; 99282; G0463

== ENCOUNTER 2019-03-09 18:27 | Inpatient (IN) | payer MEDICARE, SELFPAY ==
[2019-03-07 09:12] VITALS: BMI 36.4
[2019-03-09] VITALS (10 sets, daily range): BP systolic 128–164; BP diastolic 40–57; PULSE 45–66; RESP 19–23; TEMP 36.7–37.1; O2SAT 95–98; BMI 36.6; BMI 36.0
--- NOTE | 2019-03-09 18:50 | RAD_ITS ---
STUDY: X-RAY CHEST REASON FOR EXAM: Female, 83 years old. Shortness of breath and productive cough. TECHNIQUE: 1 view COMPARISON: Prior chest radiograph of February 17, 2019, January 20, 2019, December 20, 2018. FINDINGS: Mild bibasilar infiltrates or atelectasis. Indistinct left costophrenic angle. Stable calcified granuloma at the right lung base. Borderline cardiomegaly. Calcified right hilar and mediastinal lymph nodes. Normal visualized pulmonary arteries. There is atherosclerotic calcification of the aortic arch with tortuosity. Normal visualized ribs, clavicles, and shoulders. There is no demonstrated abnormality of the visualized soft tissue structures of the upper abdomen. RAD/Chest 1 View IMPRESSION: Lung yanez are generally well expanded with mild bibasilar infiltrates versus atelectasis. Negative for substantial pleural effusion. Borderline cardiomegaly. Atherosclerosis of the thoracic aorta. Stigmata of old granulomatous disease. Electronically Signed: aNtacha Dow MD at 19:08 EST , Service support ,
--- NOTE | 2019-03-09 19:25 | EKG12_ITS ---
Test Reason : SOB Blood Pressure : / mmHG Vent. Rate : 041 BPM Atrial Rate : 044 BPM P-R Int : 000 ms QRS Dur : 104 ms QT Int : 532 ms P-R-T Axes : 000 003 025 degrees QTc Int : 438 ms Junctional bradycardia Nonspecific ST abnormality Abnormal ECG Confirmed by KIRSTY NEGRON, TONYA ([id number]), visual effects editor ISADORA CASTREJON ([id number]) on 03/11/2019 9:41:47 AM Referred By: Michoacano Berry Confirmed By:REBECCA LOFTON MD
[2019-03-09 20:34] LABS: Absolute Lymphocyte Count 1.53 X10^3/uL (0.83-4.51); Absolute Neutrophil Count 9.2 X10^3/uL (2.0-7.7); Basophil# 0.01 X10^3/uL; Basophil% 0.1 % (0-1); Eosinophil# 0.14 X10^3/uL; Eosinophils% 1.2 % (0-5); Hematocrit 35.7 % (37-47); Hemoglobin 11.2 g/dL (12.0-15.0); Lymphocyte # 1.53 X10^3/ul (4.0); Lymphocyte % 12.9 % (19-41); Mean Corp Hgb Conc 31.4 g/dL (32-36); Mean Corpuscular Hgb 30.1 pg (27.0-32.0); Mean Platelet Vol. 12.7 fl (6.2-12.0); Monocyte# 0.88 X10^3/uL; Monocyte% 7.4 % (0-10); NRBC Flagged by Analyzer 0 % (0-5); Neutrophil % 77.9 % (47-70); Platelet Count 231 K/mm3 (150-450); RBC Distribution Width CV 14.5 % (11.6-14.6); Red Blood Count 3.72 M/mm3 (4.2-5.4); White Blood Count 11.8 K/mm3 (4.4-11.0)
[2019-03-09] MEDS: Ipratropium/Albuterol Sulfate 3 ML AMPUL.NEB INHALATION (20:36)
[2019-03-09] MEDS: levoFLOXacin IV 750 MG/150 ML BAG 100 MG IV (20:36)
[2019-03-09] MEDS: MethylPREDNISolone 125 MG/2 ML Vial IV (20:36)
[2019-03-09 20:47] LABS: Anion Gap 8 (5-15); BUN 62 mg/dL (7-18); BUN/Creat Ratio 33.7 RATIO (10-20); Calcium,Total 9.1 mg/dL (8.5-10.1); Chloride 108 mmol/L (98-107); Creatinine, Serum 1.84 mg/dL (0.55-1.02); EST Glomerular Filtration Rate 28 mL/min (>60); Est Glom Filt Rate - Afr Amer 34 mL/min (>60); Estimated Creatinine Clearance 18.83 ml/min; Glucose 136 mg/dL (74-106); Potassium 5.6 mmol/L (3.5-5.1); Sodium Level 140 mmol/L (136-145)
--- NOTE | 2019-03-09 21:31 | ED.VISSUMM ---
- ER Visit Summary Date of Service: 03/09/19 Chief Complaint: Shortness of breath History of Present Illness: The patient is a 83 F with shortness of breath since this evening. Patient reports a cough with sputum. Denies chest pain. She has a history of this with COPD. She is on 3 L of home oxygen. No current antibiotics or steroids. Physical Examination: Afebrile and vital signs unremarkable except for heart rate of 45. Lungs are diminished. Heart is bradycardic. Extremities nontender. Skin normal. Test Results: EKG showed junctional rhythm at 41 with nonspecific changes. White count 11.8. Potassium 5.6. BUN 62, creatinine 1.84. Troponin normal. Chest x-ray showed mild bibasilar infiltrate. Emergency Department Course and Treatment: Patient was treated with Solu-Medrol, DuoNeb, Levaquin. She was doing well on 3 L of oxygen. Because of her age, laboratory findings, symptoms, and bibasilar infiltrates. Hospitalist was contacted for admission. Treatment Plan: As above Disposition: Admission Impression: 1. Bibasilar pneumonia 2. Hyperkalemia This note was generated with [employer] dictation software. It may contain incorrect words, spelling, and punctuation that were not noted in review of the chart prior to signing ED Disposition - Plan for ED Patient: Referrals: Cole Moran MD [Primary Care Provider] -
--- NOTE | 2019-03-09 21:53 | ED.RN ---
DAUGHTER MINDY CALLED AND UPDATED PER PT REQUEST.
--- NOTE | 2019-03-09 22:46 | HP.PCM_ITS ---
History of Present Illness Date of Admission: 03/09/19 Chief Complaint: Shortness of breath The patient is a 83 year old F with a PMH as below who presents with shortness of breath for the last several hours, as well as a cough which is productive which started today. She states that she started not feeling well on Tuesday when she had couple episodes of diarrhea. That has since stopped. She does have a history of COPD and is on chronic oxygen at 3 L and has not needed to go up on it. She is afebrile but tachypneic. Drink plenty of water but does not eat very well. In the ER she was found to have a leukocytosis of 11.8, with a creatinine of 1.84 and a potassium of 5.6. Chest x-ray demonstrated bibasilar infiltrates. Past Medical History Past Medical History (Chronic Problems): Chronic Problems (Last Updated 02/07/19 @ 14:18 by Amy Soliman) COPD (chronic obstructive pulmonary disease) (Chronic) Essential hypertension (Chronic) Morbid obesity (Chronic) Diabetes mellitus type 2 in obese (Chronic) Moderate pulmonary arterial systolic hypertension (Chronic) Mitral regurgitation (Chronic) Grade II diastolic dysfunction (Chronic) Chronic renal failure, stage 3 (moderate) (Chronic) Claudication (Chronic) Hyperlipidemia (Chronic) History of peripheral vascular disease (Chronic) DUDLEY on CPAP (Chronic) Medical History: Medical History (Last Updated 02/07/19 @ 14:18 by Amy Soliman) Essential hypertension (Chronic) I10 Morbid obesity (Chronic) E66.01 Diabetes mellitus type 2 in obese (Chronic) E11.69, E66.9 Moderate pulmonary arterial systolic hypertension (Chronic) I27.21 Mitral regurgitation (Chronic) I34.0 Grade II diastolic dysfunction (Chronic) I51.9 Chronic renal failure, stage 3 (moderate) (Chronic) N18.3 Claudication (Chronic) I73.9 Hyperlipidemia (Chronic) E78.5 History of peripheral vascular disease (Chronic) Z86.79 DUDLEY on CPAP (Chronic) G47.33 COPD (chronic obstructive pulmonary disease) J44.9 Chronic respiratory failure with hypoxia J96.11 Depression F32.9 Diverticulosis of colon (without mention of hemorrhage) K57.30 GERD (gastroesophageal reflux disease) K21.9 Insomnia G47.00 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.201 Uterine cancer C55 Chest pain (Resolved) R07.9 TIA (transient ischemic attack) G45.9 EMANUEL (acute kidney injury) N17.9 Allergies cilostazol [From Pletal] Allergy (Verified 03/09/19 18:28) Swelling Penicillins Allergy (Verified 03/09/19 18:28) Swelling Home Medications: Ambulatory Orders Medication Instructions Recorded Albuterol Inhaler [Ventolin Hfa] 2 puff INHALATION Q6H PRN PRN 04/27/16 Amlodipine Besylate [Norvasc] 10 mg PO DAILY 04/27/16 Citalopram [Celexa] 40 mg PO QHS 04/27/16 Clopidogrel Bisulfate [Plavix] 75 mg PO DAILY 04/27/16 Loratadine [Claritin] 10 mg PO DAILY 04/27/16 Multivitamins,Ther W-Minerals 1 tab PO DAILY 04/27/16 [Multivitamin With Minerals] Ruffin-3 Fatty Acids/Fish Oil 2 ea PO DAILY 04/27/16 [Ruffin 3 1,000 mg Softgel] Pantoprazole Sodium [Protonix] 40 mg PO DAILY 04/27/16 Potassium Chloride [K-Dur] 20 meq PO BID 04/27/16 Pravastatin [Pravachol] 20 mg PO DAILY 04/27/16 traZODone [Desyrel] 100 mg PO QHS 04/27/16 Cyanocobalamin [Vitamin B12] 1,000 mcg PO DAILY@0800 07/06/17 Metoprolol(XL)Succ [Toprol Xl 100 mg PO DAILY 07/06/17 (Beta Gwen)] Hydroxyzine Pamoate [Vistaril] 25 mg PO QHS PRN PRN 08/11/17 Furosemide [Lasix] 20 mg PO DAILY 01/21/19 Guaifenesin [Mucinex] 1,200 mg PO BID #20 tab 01/23/19 Ipratropium [Atrovent Aerosols] 0.5 mg INHALATION 4X/DAY #0 01/23/19 ferrous gluconate 324 mg (37.5 mg 325 mg PO DAILY@0800 02/07/19 iron) tablet Budesonide Aerosol [Pulmicort 0.5 mg INHALATION BID 02/17/19 Aerosol] Clonidine HCl [Catapres] 0.1 mg PO DAILY 02/17/19 Furosemide [Lasix] 40 mg PO BREAKFAST 02/17/19 Lisinopril [Zestril] 40 mg PO BID 02/17/19 hydrALAZINE [Apresoline] 25 mg PO BID 02/17/19 Surgical History: Surgical History (Last Updated 02/07/19 @ 14:09 by Amy Soliman) History of discectomy Z98.890 Surgical History: hysterectomy, - - Lumpectomy right breast, back surgery, lump removed from left jaw region, skin cancer surgery,back surgery. Psychiatric History: No pertinent psych hx [employer] History: - - Hysterectomy for cancer of the uterus Smoking Status: Former smoker - *Family History Maternal Family History: Family History (Last Reviewed 01/21/19 @ 01:16 by Darryl James MD) Brother Diabetes Sister Diabetes Mother Heart disease Father Heart disease History Items: No pertinent history Paternal Family History: Family History (Last Reviewed 01/21/19 @ 01:16 by Darryl James MD) Brother Diabetes Sister Diabetes Mother Heart disease Father Heart disease History Items: Heart Disease, Hypertension Review of Systems Constitutional: Denies: Chills, Fever, Weight Change HEENT: Denies: Head Aches, Sinus Congestion, Sinus Drainage Cardiovascular: Denies: Chest Pain, Palpitations Respiratory: Reports: Cough, Shortness of Breath, Sputum production. Denies: Shortness of breath at rest Gastrointestinal: Denies: Abdominal Pain, Nausea, Vomiting Genitourinary: Denies: Dysuria Musculoskeletal: Denies: Joint Pain, Joint Tenderness Skin: Denies: Rash, Wounds Neurological: Denies: Numbness, Tingling, Focal weakness Psychiatric: Denies: Anxiety, Depression Hematologic/ Lymphatic: Denies: Easy Bruising, Easy Bleeding VTE Information - Inpt Only VTE Present on Admission: No - Physical Exam Vitals/I&O's: Vital Signs Temp Pulse Resp BP Pulse Ox 98.0 F 52 L 20 H 164/50 H 95 03/09/19 22:30 03/09/19 22:30 03/09/19 22:30 03/09/19 22:30 03/09/19 22:30 Oxygen Flow Rate (L/min) 3.5 Oxygen Delivery Method Nasal Cannula Weight: 203 lb 7.787 oz Body Mass Index (BMI) 36.0 Finger Stick Blood Glucose 196 Intake and Output for Last 24 Hours 03/07/19 03/08/19 03/09/19 23:59 23:59 23:59 Intake Total 150 / 150 Balance 150 / 150 General: Alert, Oriented x3, Cooperative, No apparent distress HEENT: Atraumatic, PERRLA, EOMI, Normocephalic Oral: Dry Mucosa Neck: Supple, No JVD Lungs: Clear to auscultation, No rhonchi, No wheeze, No rales, - - Tight with poor air movement Cardiovascular: Regular rate, Regular Rhythm, Normal S1, Normal S2, No murmurs Abdomen: Soft, Non Tender, Non-Distended, No Hepato-splenomegaly Extremities: No edema, Capillary Refill Less than 3 Seconds Skin: No rashes, No breakdown Neurological: Neuro grossly intact, Sensory exam intact to light touch and pain Psych/Mental Status: Normal Affect, Appropriate Laboratory Results 03/09/19 19:35: WBC 11.8 H, RBC 3.72 L, Hgb 11.2 L, Hct 35.7 L, MCV 96.0, MCH 30.1, MCHC 31.4 L, RDW Std Deviation 51.0 H, RDW Coeff of Janet 14.5, Plt Count 231, MPV 12.7 H, Immature Gran % (Auto) 0.500, Neut % (Auto) 77.9 H, Lymph % (Auto) 12.9 L, [place] % (Auto) 7.4, Eos % (Auto) 1.2, Baso % (Auto) 0.1, Absolute Neuts (auto) 9.2 H, Absolute Lymphs (auto) 1.53, Nucleated RBC % 0 03/09/19 19:35: Sodium 140, Potassium 5.6 H, Chloride 108 H, Carbon Dioxide 24.0, Anion Gap 8, BUN 62 H, Creatinine 1.84 H, Estim Creat Clear Calc 18.83, Est GFR (MDRD) Af Amer 34 L, Est GFR (MDRD) Non-Af 28 L, BUN/Creatinine Ratio 33.7 H, Glucose 136 H, Calcium 9.1, Troponin I < 0.015 Current Medications Heparin Sodium (Porcine) (Heparin Na) 5,000 unit SC Q8 SANDIE Sodium Chloride () 1,000 mls @ 100 mls/hr IV .Q10H SANDIE Levofloxacin (Levaquin Iv) 750 mg in 150 mls @ 100 mls/hr IV Q48 SANDIE Sodium Chloride () 250 mls @ 15 mls/hr IV .[id number] PRN PRN Reason: Saline Flush Prednisone () 40 mg PO DAILY@0800 SANDIE Sodium Chloride () 10 - 40 ml IV UD PRN PRN Reason: SALINE FLUSH Assessment/Plan All Active Problems (Last Updated 02/07/19 @ 14:18 by Amy Soliman) Acute on chronic respiratory failure with hypoxemia (Resolved) COPD exacerbation (Resolved) Chest pain (Resolved) Endometrial cancer (Resolved) Hip fracture requiring operative repair (Resolved) 1. Bilateral pneumonia/chronic hypoxic respiratory failure on 3 L nasal cannula secondary to COPD/EMANUEL -She is given a dose of Levaquin which we will continue -History of COPD will also start her on p.o. steroids -We will continue with her home inhalers including a budesonide inhaler -We will obtain urine antigens as well as sputum culture if able -Creatinine is 1.84, baseline appears to be closer to 1.2 2. Chronic diastolic CHF/HTN/HLD -We will hold Lasix while she is getting IV fluids given her EMANUEL -Devious echo in January with diastolic dysfunction and EF of 55% -We will also hold her lisinopril and recheck a BMP in the morning, will continue with her metoprolol, clonidine, Plavix, aspirin, Norvasc -Continue with pravastatin 3. GERD -Stable -Continue with PPI 4. Depression/anxiety -Stable -Continue with Celexa DVT: Heparin Code Visit OBSV E&M: 63618 Initial observation care L3
[2019-03-09] MEDS: 0.9% Normal Saline 1,000 ML 100 ML IV (23:27)
[2019-03-09] MEDS: Heparin Injection (Vial) 5,000 UNIT/ML VIAL 5000 UNIT SC (23:41)
[2019-03-10] VITALS (21 sets, daily range): BP systolic 123–171; BP diastolic 45–77; PULSE 57–92; RESP 18–30; TEMP 36.6–36.9; O2SAT 94–98
[2019-03-10 06:01] LABS: Absolute Lymphocyte Count 0.68 X10^3/uL (0.83-4.51); Absolute Neutrophil Count 3.9 X10^3/uL (2.0-7.7); Hematocrit 32.9 % (37-47); Hemoglobin 10.6 g/dL (12.0-15.0); Lymphocyte # 0.68 X10^3/ul (4.0); Lymphocyte % 14.5 % (19-41); Mean Corp Hgb Conc 32.2 g/dL (32-36); Mean Corpuscular Volume 93.2 fL (81-99); Monocyte# 0.05 X10^3/uL; Monocyte% 1.1 % (0-10); NRBC Flagged by Analyzer 0 % (0-5); Neutrophil # 3.93 X10^3/uL (2.7-7.7); Neutrophil % 83.5 % (47-70); Platelet Count 212 K/mm3 (150-450); RBC Distribution Width CV 13.9 % (11.6-14.6); RBC Distribution Width SD 47.3 fl (35.1-43.9); Red Blood Count 3.53 M/mm3 (4.2-5.4); White Blood Count 4.7 K/mm3 (4.4-11.0)
[2019-03-10] MEDS: Heparin Injection (Vial) 5,000 UNIT/ML VIAL 5000 UNIT SC (06:11)
[2019-03-10 06:17] LABS: Anion Gap 6 (5-15); BUN 47 mg/dL (7-18); BUN/Creat Ratio 32.4 RATIO (10-20); Calcium,Total 8.7 mg/dL (8.5-10.1); Chloride 109 mmol/L (98-107); Creatinine, Serum 1.45 mg/dL (0.55-1.02); EST Glomerular Filtration Rate 37 mL/min (>60); Est Glom Filt Rate - Afr Amer 44 mL/min (>60); Estimated Creatinine Clearance 23.89 ml/min; Glucose 182 mg/dL (74-106); Potassium 5.1 mmol/L (3.5-5.1); Sodium Level 138 mmol/L (136-145)
--- NOTE | 2019-03-10 07:07 | NURSING ---
Omitted from charting on pt. personal belongings: purse, yellow ring x 1, yellow watch x 1, and white ring x 1.
[2019-03-10] MEDS: Ipratropium 0.5 MG/2.5 ML SOLUTION INHALATION ×4 (07:25→19:45)
[2019-03-10] MEDS: Budesonide Respules 0.5 MG/2 ML AMPUL.NEB. INHALATION (07:25)
[2019-03-10] MEDS: Ferrous Gluconate 324 MG Tablet PO (07:55)
[2019-03-10] MEDS: predniSONE 20 MG Tablet 40 MG PO (07:55)
[2019-03-10] MEDS: 0.9% Normal Saline 1,000 ML 100 ML IV (07:55)
[2019-03-10] MEDS: amLODIPine 10 MG Tablet PO (09:58)
[2019-03-10] MEDS: guaiFENesin 1,200 MG Tablet 1200 MG PO ×2 (09:58→21:11)
[2019-03-10] MEDS: hydrALAZINE 25 MG Tablet PO ×2 (09:59→21:10)
[2019-03-10] MEDS: Pantoprazole Sodium 40 MG Tablet PO (09:59)
[2019-03-10] MEDS: Clopidogrel Bisulfate 75 MG Tablet PO (09:59)
[2019-03-10] MEDS: cloNIDine HCl 0.1 MG Tablet PO (09:59)
[2019-03-10] MEDS: Metoprolol(XL)Succ 100 MG Tablet PO (09:59)
[2019-03-10] MEDS: Acetaminophen 325 MG Tablet 650 MG PO (10:30)
--- NOTE | 2019-03-10 10:33 | PCM.PN.HOSP ---
Reason for Visit: Bilateral lower lobe pneumonia Objective: Patient still feels short of breath. No fever or chills. Blood pressure is controlled but one time once systolic in the 170s card checker today. Respiratory rate in 20s. On 3 L of oxygen. Vitals/I&O's: Vital Signs Temp Pulse Resp BP Pulse Ox 97.9 F 92 18 126/77 H 95 03/10/19 09:38 03/10/19 09:59 03/10/19 09:38 03/10/19 09:59 03/10/19 09:38 Oxygen Flow Rate (L/min) 3 Oxygen Delivery Method Nasal Cannula Weight: 203 lb 7.787 oz Body Mass Index (BMI) 36.0 Finger Stick Blood Glucose 196 Intake and Output for Last 24 Hours 03/08/19 03/09/19 03/10/19 23:59 23:59 23:59 Intake Total 250 / 250 946.67 / 946.67 Output Total 300 / 300 200 / 200 Balance -50 / -50 746.67 / 746.67 General: Alert, Oriented x3, Cooperative, - - Patient looks mildly anxious and has tremors. HEENT: Atraumatic, PERRLA, EOMI, Normocephalic Neck: Supple, No JVD, Negative Carotid Bruits Lungs: Diminished - Air entry diminished bilaterally., Rhonchi, Short of Breath Cardiovascular: Regular rate, Regular Rhythm, Normal S1, Normal S2, No murmurs Abdomen: Bowel Sounds Present, Soft, Non Tender, Non-Distended Extremities: No cyanosis, Capillary Refill Less than 3 Seconds, Edema - Mild ankle edema. Skin: No rashes, No breakdown Musculoskeletal: No Tenderness to Palpation of Joints or Extremities, Arthritic Changes Neurological: Cranial nerves II-XII grossly intact, Deep Tendon Reflexes 2+/4 and Symmetrical, Neuro grossly intact Psych/Mental Status: Normal Affect, Appropriate Microbiology Past 72 Hours 03/10/19 01:43 Urine, Clean Catch Streptococcus pneumoniae Antigen (M - Final 03/10/19 01:43 Urine, Clean Catch Legionella Antigen - Final Laboratory Results 03/09/19 19:35: WBC 11.8 H, RBC 3.72 L, Hgb 11.2 L, Hct 35.7 L, MCV 96.0, MCH 30.1, MCHC 31.4 L, RDW Std Deviation 51.0 H, RDW Coeff of Janet 14.5, Plt Count 231, MPV 12.7 H, Immature Gran % (Auto) 0.500, Neut % (Auto) 77.9 H, Lymph % (Auto) 12.9 L, [place] % (Auto) 7.4, Eos % (Auto) 1.2, Baso % (Auto) 0.1, Absolute Neuts (auto) 9.2 H, Absolute Lymphs (auto) 1.53, Nucleated RBC % 0 03/09/19 19:35: Sodium 140, Potassium 5.6 H, Chloride 108 H, Carbon Dioxide 24.0, Anion Gap 8, BUN 62 H, Creatinine 1.84 H, Estim Creat Clear Calc 18.83, Est GFR (MDRD) Af Amer 34 L, Est GFR (MDRD) Non-Af 28 L, BUN/Creatinine Ratio 33.7 H, Glucose 136 H, Calcium 9.1, Troponin I < 0.015 03/10/19 05:30: WBC 4.7, RBC 3.53 L, Hgb 10.6 L, Hct 32.9 L, MCV 93.2, MCH 30.0, MCHC 32.2, RDW Std Deviation 47.3 H, RDW Coeff of Janet 13.9, Plt Count 212, MPV 12.0, Immature Gran % (Auto) 0.900, Neut % (Auto) 83.5 H, Lymph % (Auto) 14.5 L, [place] % (Auto) 1.1, Eos % (Auto) 0.0, Baso % (Auto) 0.0, Absolute Neuts (auto) 3.9, Absolute Lymphs (auto) 0.68 L, Nucleated RBC % 0 03/10/19 05:30: Sodium 138, Potassium 5.1, Chloride 109 H, Carbon Dioxide 23.0, Anion Gap 6, BUN 47 H, Creatinine 1.45 H, Estim Creat Clear Calc 23.89, Est GFR (MDRD) Af Amer 44 L, Est GFR (MDRD) Non-Af 37 L, BUN/Creatinine Ratio 32.4 H, Glucose 182 H, Calcium 8.7 Current Medications Acetaminophen (Tylenol) 650 mg PO Q6H PRN PRN PRN Reason: Pain Score 1-1010 Last Admin: 03/10/19 10:30 Dose: 650 mg Documented by: Albuterol Sulfate (Ventolin Aerosols) 2 mg INHALATION Q6H PRN PRN PRN Reason: SOB &/OR WHEEZING Amlodipine Besylate (Norvasc) 10 mg PO DAILY [facility] Last Admin: 03/10/19 09:58 Dose: 10 mg Documented by: Budesonide (Pulmicort Aerosol) 0.5 mg INHALATION BID [facility] Last Admin: 03/10/19 07:25 Dose: 0.5 mg Documented by: Citalopram Hydrobromide (Celexa) 40 mg PO QHS [facility] Clonidine (Catapres) 0.1 mg PO DAILY [facility] Last Admin: 03/10/19 09:59 Dose: 0.1 mg Documented by: Clopidogrel Bisulfate (Plavix) 75 mg PO DAILY [facility] Last Admin: 03/10/19 09:59 Dose: 75 mg Documented by: Ferrous Gluconate (Ferrous Gluconate) 324 mg PO DAILY@0800 [facility] Last Admin: 03/10/19 07:55 Dose: 324 mg Documented by: Guaifenesin (Mucinex) 1,200 mg PO BID [facility] Last Admin: 03/10/19 09:58 Dose: 1,200 mg Documented by: Heparin Sodium (Porcine) (Heparin Na) 5,000 unit SC Q8 [facility] Last Admin: 03/10/19 06:11 Dose: 5,000 unit Documented by: Hydralazine HCl (Apresoline) 25 mg PO BID [facility] Last Admin: 03/10/19 09:59 Dose: 25 mg Documented by: Sodium Chloride () 1,000 mls @ 100 mls/hr IV .Q10H [facility] Last Admin: 03/10/19 07:55 Dose: 100 mls/hr Documented by: Levofloxacin (Levaquin Iv) 750 mg in 150 mls @ 100 mls/hr IV Q48 [facility] Sodium Chloride () 250 mls @ 15 mls/hr IV .[id number] PRN PRN Reason: Saline Flush Ipratropium Calera (Atrovent) 0.5 mg INHALATION 4X/DAY.RT [facility] Last Admin: 03/10/19 07:25 Dose: 0.5 mg Documented by: Metoprolol Succinate (Toprol Xl (Beta Gwen)) 100 mg PO DAILY [facility] Last Admin: 03/10/19 09:59 Dose: 100 mg Documented by: Pantoprazole Sodium (Protonix) 40 mg PO DAILY [facility] Last Admin: 03/10/19 09:59 Dose: 40 mg Documented by: Pravastatin Sodium (Pravachol) 20 mg PO QHS [facility] Prednisone () 40 mg PO DAILY@0800 [facility] Last Admin: 03/10/19 07:55 Dose: 40 mg Documented by: Sodium Chloride () 10 - 40 ml IV UD PRN PRN Reason: SALINE FLUSH Trazodone HCl (Desyrel) 100 mg PO QHS [facility] STROKE Vital Signs/Narrative: Vital Signs Temp Pulse Resp BP Pulse Ox 03/10/19 09:59 92 126/77 H 03/10/19 09:38 97.9 F 92 18 126/77 H 95 03/10/19 07:15 72 20 H 03/10/19 06:49 62 Medical Necessity - Tobacco Use Smoking Status: Former smoker Tobacco Use: Non-smoker Assessment/Plan All Active Problems (Last Updated 02/07/19 @ 14:18 by Amy Soliman) Acute on chronic respiratory failure with hypoxemia (Resolved) COPD exacerbation (Resolved) Chest pain (Resolved) Endometrial cancer (Resolved) Hip fracture requiring operative repair (Resolved) This 83-year-old female was admitted with shortness of breath and cough and generalized malaise about 4 days prior to admission. She also had diarrhea on Tuesday which stopped. Chest x-ray shows bibasilar infiltrate. 1. SIRS (04/07. Leukocytosis) secondary to bilateral pneumonia/chronic hypoxic respiratory failure on 3 L nasal cannula with COPD exacerbation secondary to pneumonia: Patient is on Levaquin. On bronchodilator and. No site inhalation. Chest physiotherapy and incentive spirometry. Urinary antigens are negative. Sputum culture pending. Respiratory panel is ordered. 2. Chronic heart failure with preserved EF/20 diastolic heart failure, hypertension and dyslipidemia -Patient had echo in January which showed EF 55% with diastolic dysfunction. 3. Acute kidney injury on CKD stage III: Patient had baseline creatinine clearance around 35 to 40 mL/min. Creatinine was 0.82/BUN 23 on January 23, 2019. Admitted with 62/1.84. Currently 47/1.45. Continue holding Lasix and lisinopril. 3. Chronic diastolic CHF/HTN/HLD -Continue hold Lasix and lisinopril while she is getting IV fluids given her EMANUEL. IV fluid changed to normal saline at 75 mill per hour. -Echo in January with diastolic dysfunction and EF of 55% - continue with her metoprolol, clonidine, Plavix, aspirin, Norvasc -Continue with pravastatin 3. GERD -Stable -Continue with PPI 4. Depression/anxiety -Stable -Continue with Celexa DVT: Heparin Code Visit Inpatient E&M: 49035 Subs Hosp L2
--- NOTE | 2019-03-10 12:28 | NURSING ---
This nurse reviewed charting of SN Mariajose
--- NOTE | 2019-03-10 13:00 | NURSING ---
Reported off to primary RN
--- NOTE | 2019-03-10 15:43 | CM.UR ---
RN CM Assessment Introduced role of RN CM to patient. Patient is alert and able to participate in RN CM Assessment. Care providers, pharmacy, and demographics verified. No family at bedside. Presentation: shortness of breath and productive cough Admit Dx: bilateral pneumonia Re-Admit: no Barriers/Issues: None PCP: Dean Specialists: [facility], Dr. White [facility]: [facility] LNOK: Daughter Roselia LW/HPOA: On file, Daughter Roselia is POA Living Arrangements: Lives in 1 story home. Grandson currently living with her. 4 steps into house with railings on bilateral sides. ADL?s: Independent with bathing and dressing. Family assists with everything else--cooking, cleanign, shopping. Transportation: family DME: Lift chair, cane, w/c, nebulizer, oxygen at 3 liters. DME co: [employer] HHC: None SNF: None Goal: Home. DC PLAN: Home, Agreeable to skilled HHC. Sada Johnston RN, CCM.
--- NOTE | 2019-03-10 19:41 | EKG12_ITS ---
Test Reason : SOB Blood Pressure : / mmHG Vent. Rate : 092 BPM Atrial Rate : 092 BPM P-R Int : 160 ms QRS Dur : 096 ms QT Int : 370 ms P-R-T Axes : 063 063 098 degrees QTc Int : 457 ms Sinus rhythm with marked sinus arrhythmia Possible Left atrial enlargement Septal infarct , age undetermined ST & T wave abnormality, consider lateral ischemia Abnormal ECG Confirmed by KIRSTY NEGRON, TONYA ([id number]), news video editor ISADORA CASTREJON ([id number]) on 03/11/2019 12:13:38 PM Referred By: Michoacano Berry Confirmed By:REBECCA LOFTON MD
[2019-03-10] MEDS: Albuterol 2.5 MG/3 ML VIAL.NEB. 2 MG INHALATION (19:44)
[2019-03-10] MEDS: Citalopram 40 MG TABLET PO (21:11)
[2019-03-10] MEDS: traZODone 100 MG Tablet PO (21:12)
[2019-03-10] MEDS: Pravastatin 20 MG Tablet PO (21:12)
[2019-03-11] VITALS (20 sets, daily range): BP systolic 149–172; BP diastolic 44–71; PULSE 62–84; RESP 18–26; TEMP 36.6–37.2; O2SAT 91–99
[2019-03-11] MEDS: Enoxaparin 30 MG/0.3 ML Syringe SC (05:02)
[2019-03-11] MEDS: 0.9% Saline Lock 10 ML Syringe IV ×4 (05:02→14:21)
[2019-03-11 06:37] LABS: Anion Gap 5 (5-15); BUN 37 mg/dL (7-18); BUN/Creat Ratio 32.2 RATIO (10-20); Calcium,Total 8.9 mg/dL (8.5-10.1); Chloride 110 mmol/L (98-107); Creatinine, Serum 1.15 mg/dL (0.55-1.02); EST Glomerular Filtration Rate 48 mL/min (>60); Est Glom Filt Rate - Afr Amer 58 mL/min (>60); Estimated Creatinine Clearance 30.12 ml/min; Glucose 156 mg/dL (74-106); Potassium 4.3 mmol/L (3.5-5.1); Sodium Level 141 mmol/L (136-145)
[2019-03-11] MEDS: Albuterol 2.5 MG/3 ML VIAL.NEB. 2 MG INHALATION (07:18)
[2019-03-11] MEDS: Ipratropium 0.5 MG/2.5 ML SOLUTION INHALATION ×2 (07:18→11:50)
[2019-03-11] MEDS: Ferrous Gluconate 324 MG Tablet PO (08:36)
[2019-03-11] MEDS: hydrALAZINE 25 MG Tablet PO (08:36)
[2019-03-11] MEDS: guaiFENesin 1,200 MG Tablet 1200 MG PO ×2 (08:37→21:24)
[2019-03-11] MEDS: Pantoprazole Sodium 40 MG Tablet PO (08:37)
[2019-03-11] MEDS: amLODIPine 10 MG Tablet PO (08:37)
[2019-03-11] MEDS: levoFLOXacin IV 750 MG/150 ML BAG 100 MG IV (08:37)
[2019-03-11] MEDS: Clopidogrel Bisulfate 75 MG Tablet PO (08:37)
[2019-03-11] MEDS: cloNIDine HCl 0.1 MG Tablet PO ×3 (08:37→21:23)
[2019-03-11] MEDS: Metoprolol(XL)Succ 100 MG Tablet PO (08:38)
--- NOTE | 2019-03-11 13:13 | PN_ITS ---
Reason for Visit: Bilateral pneumonia, shortness of breath and chronic respiratory failure acute respiratory insufficiency. Objective: Patient did not had any fever or chills but she is still tachypneic respiratory rate 20-24 gets easily short of breath even going to bathroom. On 3 to 4 L of oxygen through nasal cannula. She needs rescue CPAP when she comes from bathroom and at night. Vitals/I&O's: Vital Signs Temp Pulse Resp BP Pulse Ox 98.0 F 68 24 H 149/44 H 98 03/11/19 11:31 03/11/19 11:50 03/11/19 11:50 03/11/19 11:31 03/11/19 11:50 Oxygen Flow Rate (L/min) 4 Oxygen Delivery Method CPAP Weight: 203 lb 7.787 oz Body Mass Index (BMI) 36.0 Finger Stick Blood Glucose 196 Intake and Output for Last 24 Hours 03/09/19 03/10/19 03/11/19 23:59 23:59 23:59 Intake Total 250 / 250 1768.34 / 1888.34 630 / 630 Output Total 300 / 300 450 / 650 200 / 200 Balance -50 / -50 1318.34 / 1238.34 430 / 430 General: Alert, Oriented x3, Cooperative HEENT: Atraumatic, PERRLA, EOMI, Normocephalic Neck: Supple, No JVD, Negative Carotid Bruits Lungs: Diminished, Rhonchi, Short of Breath Cardiovascular: Regular rate, Regular Rhythm, Normal S1, Normal S2, No murmurs Abdomen: Bowel Sounds Present, Soft, Non Tender, Non-Distended Extremities: Capillary Refill Less than 3 Seconds, Edema Skin: No rashes, No breakdown Musculoskeletal: No Tenderness to Palpation of Joints or Extremities, Arthritic Changes Neurological: Cranial nerves II-XII grossly intact Psych/Mental Status: Normal Affect, Appropriate Microbiology Past 72 Hours 03/10/19 00:55 Sputum, Expectorated/Coughed Gram Stain - Final 03/10/19 00:55 Sputum, Expectorated/Coughed Respiratory Culture - Preliminary Appears to be normal respiratory lilliana. Further studies to follow. 03/10/19 01:43 Urine, Clean Catch Streptococcus pneumoniae Antigen (M - Final 03/10/19 01:43 Urine, Clean Catch Legionella Antigen - Final Laboratory Results 03/10/19 19:14: Troponin I 0.039 03/10/19 21:25: Troponin I 0.110 H 03/11/19 00:45: Troponin I 0.145 H 03/11/19 05:27: Sodium 141, Potassium 4.3, Chloride 110 H, Carbon Dioxide 26.0, Anion Gap 5, BUN 37 H, Creatinine 1.15 H, Estim Creat Clear Calc 30.12, Est GFR (MDRD) Af Amer 58 L, Est GFR (MDRD) Non-Af 48 L, BUN/Creatinine Ratio 32.2 H, Glucose 156 H, Calcium 8.9 Current Medications Acetaminophen (Tylenol) 650 mg PO Q6H PRN PRN PRN Reason: Pain Score 1-1010 Last Admin: 03/10/19 10:30 Dose: 650 mg Documented by: Albuterol Sulfate (Ventolin Aerosols) 2 mg INHALATION Q6H PRN PRN PRN Reason: SOB &/OR WHEEZING Last Admin: 03/11/19 07:18 Dose: 2 mg Documented by: Albuterol/Ipratropium (Duoneb) 3 ml INHALATION Q4HWA.RT [facility] Amlodipine Besylate (Norvasc) 10 mg PO DAILY [facility] Last Admin: 03/11/19 08:37 Dose: 10 mg Documented by: Citalopram Hydrobromide (Celexa) 40 mg PO QHS [facility] Last Admin: 03/10/19 21:11 Dose: 40 mg Documented by: Clonidine (Catapres) 0.1 mg PO DAILY [facility] Last Admin: 03/11/19 08:37 Dose: 0.1 mg Documented by: Clopidogrel Bisulfate (Plavix) 75 mg PO DAILY [facility] Last Admin: 03/11/19 08:37 Dose: 75 mg Documented by: Enoxaparin Sodium (Lovenox) 30 mg SC DAILY@0600 [facility] Last Admin: 03/11/19 05:02 Dose: 30 mg Documented by: Ferrous Gluconate (Ferrous Gluconate) 324 mg PO DAILY@0800 [facility] Last Admin: 03/11/19 08:36 Dose: 324 mg Documented by: Guaifenesin (Mucinex) 1,200 mg PO BID [facility] Last Admin: 03/11/19 08:37 Dose: 1,200 mg Documented by: Hydralazine HCl (Apresoline) 25 mg PO BID [facility] Last Admin: 03/11/19 08:36 Dose: 25 mg Documented by: Levofloxacin (Levaquin Iv) 750 mg in 150 mls @ 100 mls/hr IV Q48 [facility] Last Infusion: 03/11/19 10:07 Dose: Infused Documented by: Sodium Chloride () 250 mls @ 15 mls/hr IV .[id number] PRN PRN Reason: Saline Flush Methylprednisolone (Solu-Medrol) 40 mg IV Q8 [facility] Last Admin: 03/11/19 13:02 Dose: 40 mg Documented by: Metoprolol Succinate (Toprol Xl (Beta Gwen)) 100 mg PO DAILY [facility] Last Admin: 03/11/19 08:38 Dose: 100 mg Documented by: Pantoprazole Sodium (Protonix) 40 mg PO DAILY [facility] Last Admin: 03/11/19 08:37 Dose: 40 mg Documented by: Pravastatin Sodium (Pravachol) 20 mg PO QHS [facility] Last Admin: 03/10/19 21:12 Dose: 20 mg Documented by: Sodium Chloride () 10 - 40 ml IV UD PRN PRN Reason: SALINE FLUSH Last Admin: 03/11/19 13:02 Dose: 10 ml Documented by: Trazodone HCl (Desyrel) 100 mg PO QHS [facility] Last Admin: 03/10/19 21:12 Dose: 100 mg Documented by: STROKE Vital Signs/Narrative: Vital Signs Temp Pulse Resp BP Pulse Ox 03/11/19 11:50 68 24 H 98 03/11/19 11:31 98.0 F 69 20 H 149/44 H 97 Medical Necessity - Tobacco Use Smoking Status: Former smoker Tobacco Use: Non-smoker Assessment/Plan All Active Problems (Last Updated 02/07/19 @ 14:18 by Amy Soliman) Acute on chronic respiratory failure with hypoxemia (Resolved) COPD exacerbation (Resolved) Chest pain (Resolved) Endometrial cancer (Resolved) Hip fracture requiring operative repair (Resolved) This 83-year-old female was admitted with shortness of breath and cough and generalized malaise about 4 days prior to admission. She also had diarrhea on Tuesday which stopped. Chest x-ray shows bibasilar infiltrate. 1. SIRS (04/07. Leukocytosis) secondary to bilateral pneumonia/chronic hypoxic respiratory failure on 3 L nasal cannula with COPD exacerbation secondary to pneumonia: Patient is on Levaquin. On bronchodilator and. No site inhalation. Chest physiotherapy and incentive spirometry. Urinary antigens are negative. Sputum culture pending. Respiratory panel is ordered. 03/2019: Patient is still short of breath. Initial Gram stain shows normal respiratory lilliana. Respiratory panel pending. Continue antibiotic. On DuoNeb every 4 hourly. 2. Atypical chest pain with intermittent mild troponin elevation from demand ischemia on 03/10 2019; one-time: Had EKG done which shows sinus rhythm with marked sinus arrhythmia possible left atrial enlargement with motion artifact. Her previous chest x-ray shows sinus bradycardia/junctional rhythm at [address]-T abnormality. Mild troponin leaks 0.01, 0.15 most rapidly demand ischemia from COPD exacerbation/pneumonia. Chest pain resolved on 03/2019 Patient has a stress test done on January 23, 2019 and reported as no myocardial perfusion changes diagnostic for stress-induced myocardial ischemia although hospital an element of previous RI. Also had an echo on January 23, 2019 and reported as EF 55% with a stage II diastolic dysfunction. Left atrium moderately enlarged. Mild to moderate eccentric MR. 2. Chronic heart failure with preserved EF/20 diastolic heart failure, hy pertension and dyslipidemia -Patient had echo in January which showed EF 55% with diastolic dysfunction. 03/11 2019: Patient was put back on the Lasix starting with 40 mg IV today and then home dose of 60 mg daily. 3. Acute kidney injury on CKD stage III: Patient had baseline creatinine clearance around 35 to 40 mL/min. Creatinine was 0.82/BUN 23 on January 23, 2019. Admitted with 62/1.84. Currently 47/1.45. Continue holding Lasix and lisinopril. 03/11: BUN/creatinine 37+1.15. Continue holding lisinopril. Resume Lasix. 3. Chronic diastolic CHF/HTN/HLD -Continue hold Lasix and lisinopril while she is getting IV fluids given her EMANUEL. IV fluid changed to normal saline at 75 mill per hour. -Echo in January with diastolic dysfunction and EF of 55% - continue with her metoprolol, clonidine, Plavix, aspirin, Norvasc -Continue with pravastatin 3. GERD -Stable -Continue with PPI 4. Depression/anxiety -Stable -Continue with Celexa DVT: Heparin Microbiology Past 72 Hours 03/10/19 00:55 Sputum, Expectorated/Coughed Gram Stain - Final 03/10/19 00:55 Sputum, Expectorated/Coughed Respiratory Culture - Preliminary Appears to be normal respiratory lililana. Further studies to follow. 03/10/19 01:43 Urine, Clean Catch Streptococcus pneumoniae Antigen (M - Final 03/10/19 01:43 Urine, Clean Catch Legionella Antigen - Final Laboratory Results 03/10/19 19:14: Troponin I 0.039 03/10/19 21:25: Troponin I 0.110 H 03/11/19 00:45: Troponin I 0.145 H 03/11/19 05:27: Sodium 141, Potassium 4.3, Chloride 110 H, Carbon Dioxide 26.0, Anion Gap 5, BUN 37 H, Creatinine 1.15 H, Estim Creat Clear Calc 30.12, Est GFR (MDRD) Af Amer 58 L, Est GFR (MDRD) Non-Af 48 L, BUN/Creatinine Ratio 32.2 H, Glucose 156 H, Calcium 8.9 Code Visit Inpatient E&M: 43851 Subs Hosp L3
[2019-03-11] MEDS: Furosemide 40 MG/4 ML Vial IV (14:21)
[2019-03-11] MEDS: Ipratropium/Albuterol Sulfate 3 ML AMPUL.NEB INHALATION ×2 (15:35→19:24)
[2019-03-11] MEDS: Citalopram 40 MG TABLET PO (21:23)
[2019-03-11] MEDS: traZODone 100 MG Tablet PO (21:24)
[2019-03-11] MEDS: Pravastatin 20 MG Tablet PO (21:24)
[2019-03-11] MEDS: hydrALAZINE 50 MG Tablet PO (21:28)
[2019-03-12] VITALS (14 sets, daily range): BP systolic 127–148; BP diastolic 39–54; PULSE 55–66; RESP 18–20; TEMP 36.6–36.8; O2SAT 89–99
[2019-03-12] MEDS: hydrALAZINE 50 MG Tablet PO ×2 (06:22→12:31)
[2019-03-12] MEDS: Enoxaparin 30 MG/0.3 ML Syringe SC (06:23)
[2019-03-12] MEDS: Ipratropium/Albuterol Sulfate 3 ML AMPUL.NEB INHALATION ×3 (06:46→14:13)
[2019-03-12] MEDS: Multivitamins,Ther W-Minerals Tablet 1 TABLET PO (07:46)
[2019-03-12] MEDS: predniSONE 20 MG Tablet 40 MG PO (07:46)
[2019-03-12] MEDS: Ferrous Gluconate 324 MG Tablet PO (07:46)
[2019-03-12] MEDS: Cyanocobalamin 500 MCG Tablet 1000 MCG PO (07:46)
[2019-03-12] MEDS: Furosemide 40 MG Tablet PO (07:47)
[2019-03-12] MEDS: Clopidogrel Bisulfate 75 MG Tablet PO (07:47)
[2019-03-12] MEDS: cloNIDine HCl 0.1 MG Tablet PO (07:47)
[2019-03-12] MEDS: Pantoprazole Sodium 40 MG Tablet PO (07:47)
[2019-03-12] MEDS: Metoprolol(XL)Succ 100 MG Tablet PO (07:47)
[2019-03-12] MEDS: Loratadine 10 MG Tablet PO (07:47)
[2019-03-12] MEDS: amLODIPine 10 MG Tablet PO (07:47)
[2019-03-12 08:08] LABS: BUN 38 mg/dL (7-18); Creatinine, Serum 1.16 mg/dL (0.55-1.02); EST Glomerular Filtration Rate 47 mL/min (>60); Estimated Creatinine Clearance 29.86 ml/min; Glucose 108 mg/dL (74-106)
[2019-03-12 08:09] LABS: Anion Gap 5 (5-15); BUN/Creat Ratio 32.8 RATIO (10-20); Chloride 106 mmol/L (98-107); Est Glom Filt Rate - Afr Amer 57 mL/min (>60); Magnesium 2.2 mg/dL (1.6-2.6); Potassium 3.6 mmol/L (3.5-5.1); Sodium Level 139 mmol/L (136-145)
--- NOTE | 2019-03-12 08:35 | RAD_ITS ---
STUDY: X-RAY CHEST REASON FOR EXAM: Female, 83 years old. Cough and pneumonia. TECHNIQUE: PA and lateral views of the chest. COMPARISON: Comparison is made with prior study dated March 09, 2019. FINDINGS: EKG electrodes are seen. Stable mild increased markings at the lung bases slightly more prominent on the left side suggestive bibasilar atelectasis. Blunting of both costophrenic angles. Normal size heart. Normal mediastinum and gregg. Normal visualized pulmonary arteries. There is atherosclerotic calcification of the aortic arch with tortuosity. There are degenerative changes of the visualized thoracic spine. Normal visualized ribs, clavicles, and shoulders. There is no demonstrated abnormality of the visualized soft tissue structures of the upper abdomen. RAD/Chest PA and Lateral IMPRESSION: Stable examination demonstrating increased markings at the lung bases suggestive of bibasilar atelectasis with blunting of both costophrenic angles. Electronically Signed: Ranjan Byrd, at 12:43 EST , Service support ,
--- NOTE | 2019-03-12 11:08 | CASEMGMT ---
Pt is on 2 liters continuous at home per [facility] at [facility] and that is what she qualifies for here at this time. Pt is agreeable to [facility] at this time and in-network list provided to pt at this time. Call to [facility] and per Annie, they should be able to take pt at this time but will call this RN CM back once fax received. Referral faxed with order to [facility] at this time. Maite ESPINOZA CM
--- NOTE | 2019-03-12 11:42 | DCINST_ITS ---
You will use the following diet at home:: Cardiac Discharge Activity: Return to Normal Activity Call your doctor if you observe: Shortness of breath, Dizziness, Fainting spells, Chest pain Additional Instructions: Recommend repeat BMP in 1 week by PCP. Allergies/Adverse Reactions: Allergies cilostazol [From Pletal] Allergy (Verified 03/09/19 18:28) Swelling Penicillins Allergy (Verified 03/09/19 18:28) Swelling Medications to take at Discharge Albuterol Inhaler [Ventolin Hfa] 2 puff INHALATION Q6H PRN PRN 04/27/16 Amlodipine Besylate [Norvasc] 10 mg PO DAILY 04/27/16 Citalopram [Celexa] 40 mg PO QHS 04/27/16 Clopidogrel Bisulfate [Plavix] 75 mg PO DAILY 04/27/16 Loratadine [Claritin] 10 mg PO DAILY 04/27/16 Multivitamins,Ther W-Minerals [Multivitamin With Minerals] 1 tab PO DAILY 04/27/16 Boutte-3 Fatty Acids/Fish Oil [Boutte 3 1,000 mg Softgel] 2 ea PO DAILY 04/27/16 Pantoprazole Sodium [Protonix] 40 mg PO DAILY 04/27/16 Potassium Chloride [K-Dur] 20 meq PO BID 04/27/16 Pravastatin [Pravachol] 20 mg PO DAILY 04/27/16 traZODone [Desyrel] 100 mg PO QHS 04/27/16 Cyanocobalamin [Vitamin B12] 1,000 mcg PO DAILY@0800 07/06/17 Metoprolol(XL)Succ [Toprol Xl (Beta Gwen)] 100 mg PO DAILY 07/06/17 Hydroxyzine Pamoate [Vistaril] 25 mg PO QHS PRN PRN 08/11/17 Furosemide [Lasix] 20 mg PO DAILY 01/21/19 Guaifenesin [Mucinex] 1,200 mg PO BID #20 tab 01/23/19 Ipratropium [Atrovent Aerosols] 0.5 mg INHALATION 4X/DAY #0 01/23/19 ferrous gluconate 324 mg (37.5 mg iron) tablet 325 mg PO DAILY@0800 02/07/19 Budesonide Aerosol [Pulmicort Respules] 0.5 mg INHALATION BID 02/17/19 Clonidine HCl [Catapres] 0.1 mg PO DAILY 02/17/19 Furosemide [Lasix] 40 mg PO BREAKFAST 02/17/19 Lisinopril [Zestril] 40 mg PO BID 02/17/19 hydrALAZINE [Apresoline] 25 mg PO BID 02/17/19 Levofloxacin [Levaquin] 750 mg PO Q48H #4 tab 03/12/19 Prednisone See Taper PO DAILY #30 tab 03/12/19 The following prescriptions were given: Levofloxacin [Levaquin] 750 mg PO Q48H #4 tab Transmission Status: Pending to [facility] Prednisone See Taper PO DAILY #30 tab Transmission Status: Pending to [facility] Primary Care Physician: Cole Moran MD [Primary Care Provider] - Please follow up with your Primary Care Physician in: 1 Week Test Results: Test results from this visit will be discussed in further detail at your follow- up appointment, if applicable. Proposed Discharge Date: 03/12/19
--- NOTE | 2019-03-12 11:45 | PCM.DC.SUM ---
Discharge Date and Diagnosis Date of Admission: 03/09/19 Date of Discharge: 03/12/19 - Primary Discharge Diagnosis 1. Acute on chronic hypoxic respiratory failure secondary to exacerbation of COPD and bilateral community-acquired pneumonia 2. Bilateral community-acquired pneumonia 3. COPD exacerbation 4. Atypical chest pain with mildly elevated troponin, demand ischemia as a result of #1- ACS ruled out 5. Acute kidney injury on chronic kidney disease stage III 6. Chronic diastolic CHF 7. Hypertension 8. Hyperlipidemia 9. Depression/Anxiety 10. GERD 1. DUDLEY - Secondary Discharge Diagnosis Chronic Problems (Last Updated 02/07/19 @ 14:18 by Amy Soliman) COPD (chronic obstructive pulmonary disease) (Chronic) Essential hypertension (Chronic) Morbid obesity (Chronic) Diabetes mellitus type 2 in obese (Chronic) Moderate pulmonary arterial systolic hypertension (Chronic) Mitral regurgitation (Chronic) Grade II diastolic dysfunction (Chronic) Chronic renal failure, stage 3 (moderate) (Chronic) Claudication (Chronic) Hyperlipidemia (Chronic) History of peripheral vascular disease (Chronic) DUDLEY on CPAP (Chronic) Hospital Course and Treatment Imaging Results: 03/12/19 08:35 Chest PA and Lateral [RAD] Routine Operations: None Summary of Care Provided: The patient is a 83 year old F admitted 03/09/2019 due to shortness of breath. 1. Acute on chronic hypoxic respiratory failure secondary to exacerbation of COPD and bilateral community-acquired pneumonia-patient on 2 L nasal cannula continuously at baseline. Currently stable on home oxygen requirements. 2. Bilateral community-acquired pneumonia-urine for strep and Legionella negative. Sputum culture shows normal respiratory lilliana. Continue Levaquin 750 mg every 48 hours to complete 7-day course of antibiotics. 3. COPD exacerbation-secondary to above. Patient has nebulizer at home, continue home breathing treatments. Prednisone taper at discharge. 4. Atypical chest pain with mildly elevated troponin, demand ischemia as a result of #1- ACS ruled out. Recent stress test January 2019 negative for ischemia. 5. Acute kidney injury on chronic kidney disease stage III-Lasix and lisinopril held on admission, resolved. Recommend repeat BMP in 1 week by primary care provider. If renal function above baseline at that time, may need reduction of Lasix/lisinopril regimen. 6. Chronic diastolic CHF-echo January 2019 demonstrated an EF of 55%, stage II diastolic dysfunction, mild to moderate mitral valve insufficiency. 7. Hypertension-stable, continue amlodipine, clonidine, Lasix, hydralazine, lisinopril, metoprolol. 8. Hyperlipidemia-continue statin regimen. 9. Depression/Anxiety- continue trazadone, celexa. 10. GERD- continue PPI. 11. DUDLEY-continue home CPAP regimen. General: Alert, Oriented x3, Cooperative HEENT: Atraumatic, PERRLA, EOMI, Normocephalic Neck: Supple, No JVD, Negative Carotid Bruits Lungs: Diminished, clear to auscultation Cardiovascular: Regular rate, Regular Rhythm, Normal S1, Normal S2, No murmurs Abdomen: Bowel Sounds Present, Soft, Non Tender, Non-Distended Extremities: Capillary Refill Less than 3 Seconds, Edema Skin: No rashes, No breakdown Musculoskeletal: No Tenderness to Palpation of Joints or Extremities, Arthritic Changes Neurological: Cranial nerves II-XII grossly intact Psych/Mental Status: Normal Affect, Appropriate Patient seen and examined prior to discharge. Physical assessment as noted above. Patient is stable for discharge with follow up recommendations as noted above. This patient was seen by JAIME Santana under the supervision of Dr. Nick. - Physical Exam Vitals/I&O's: Vital Signs Temp Pulse Resp BP Pulse Ox 98.3 F 59 L 18 146/39 H 94 03/12/19 07:43 03/12/19 10:56 03/12/19 10:56 03/12/19 07:43 03/12/19 10:18 Oxygen Flow Rate (L/min) [ 2 AMBULATING on Room Air] Oxygen Flow Rate (L/min) [ 3 AMBULATION with Oxygen] Oxygen Flow Rate (L/min) 3 Oxygen Delivery Method Nasal Cannula Weight: 203 lb 7.787 oz Body Mass Index (BMI) 36.0 Finger Stick Blood Glucose 196 Intake and Output for Last 24 Hours 03/10/19 03/11/19 03/12/19 23:59 23:59 23:59 Intake Total 1768.34 / 1888.34 1370 / 1370 120 / 120 Output Total 450 / 650 200 / 200 Balance 1318.34 / 1238.34 1170 / 1170 120 / 120 Microbiology Past 72 Hours 03/10/19 00:55 Sputum, Expectorated/Coughed Gram Stain - Final 03/10/19 00:55 Sputum, Expectorated/Coughed Respiratory Culture - Final 03/11/19 13:50 Mucosa - Nose Respiratory Panel (PCR) - Final 03/10/19 01:43 Urine, Clean Catch Streptococcus pneumoniae Antigen (M - Final 03/10/19 01:43 Urine, Clean Catch Legionella Antigen - Final Laboratory Results 03/12/19 05:25: Sodium 139, Potassium 3.6, Chloride 106, Carbon Dioxide 28.0, Anion Gap 5, BUN 38 H, Creatinine 1.16 H, Estim Creat Clear Calc 29.86, Est GFR (MDRD) Af Amer 57 L, Est GFR (MDRD) Non-Af 47 L, BUN/Creatinine Ratio 32.8 H, Glucose 108 H, Calcium 9.0, Magnesium 2.2 Current Medications Acetaminophen (Tylenol) 650 mg PO Q6H PRN PRN PRN Reason: Pain Score 1-10/10 Last Admin: 03/10/19 10:30 Dose: 650 mg Documented by: Albuterol Sulfate (Ventolin Aerosols) 2 mg INHALATION Q6H PRN PRN PRN Reason: SOB &/OR WHEEZING Last Admin: 03/11/19 07:18 Dose: 2 mg Documented by: Albuterol/Ipratropium (Duoneb) 3 ml INHALATION Q4HWA.RT [facility] Last Admin: 03/12/19 10:56 Dose: 3 ml Documented by: Amlodipine Besylate (Norvasc) 10 mg PO DAILY [facility] Last Admin: 03/12/19 07:47 Dose: 10 mg Documented by: Citalopram Hydrobromide (Celexa) 40 mg PO QHS [facility] Last Admin: 03/11/19 21:23 Dose: 40 mg Documented by: Clonidine (Catapres) 0.1 mg PO BID [facility] Last Admin: 03/12/19 07:47 Dose: 0.1 mg Documented by: Clopidogrel Bisulfate (Plavix) 75 mg PO DAILY [facility] Last Admin: 03/12/19 07:47 Dose: 75 mg Documented by: Cyanocobalamin (Vitamin B12) 1,000 mcg PO DAILY@0800 [facility] Last Admin: 03/12/19 07:46 Dose: 1,000 mcg Documented by: Enoxaparin Sodium (Lovenox) 30 mg SC DAILY@0600 [facility] Last Admin: 03/12/19 06:23 Dose: 30 mg Documented by: Ferrous Gluconate (Ferrous Gluconate) 324 mg PO DAILY@0800 [facility] Last Admin: 03/12/19 07:46 Dose: 324 mg Documented by: Furosemide (Lasix) 20 mg PO DAILY@1200 [facility] Furosemide (Lasix) 40 mg PO BREAKFAST [facility] Last Admin: 03/12/19 07:47 Dose: 40 mg Documented by: Guaifenesin (Mucinex) 1,200 mg PO BID [facility] Last Admin: 03/11/19 21:24 Dose: 1,200 mg Documented by: Hydralazine HCl (Apresoline) 50 mg PO TID [facility] Last Admin: 03/12/19 06:22 Dose: 50 mg Documented by: Hydralazine HCl (Apresoline Iv) 10 mg IV Q4H PRN PRN PRN Reason: SBP >170 Hydroxyzine Pamoate (Vistaril Pamoate Capsule) 25 mg PO QHS PRN PRN PRN Reason: insomnia Levofloxacin (Levaquin Iv) 750 mg in 150 mls @ 100 mls/hr IV Q48 [facility] Last Infusion: 03/11/19 10:07 Dose: Infused Documented by: Sodium Chloride () 250 mls @ 15 mls/hr IV .[id number] PRN PRN Reason: Saline Flush Loratadine (Claritin) 10 mg PO DAILY [facility] Last Admin: 03/12/19 07:47 Dose: 10 mg Documented by: Metoprolol Succinate (Toprol Xl (Beta Gwen)) 100 mg PO DAILY [facility] Last Admin: 03/12/19 07:47 Dose: 100 mg Documented by: Multivitamins/Minerals (Multivitamin With Minerals) 1 tablet PO DAILY@0800 [facility] Last Admin: 03/12/19 07:46 Dose: 1 tablet Documented by: Pantoprazole Sodium (Protonix) 40 mg PO DAILY [facility] Last Admin: 03/12/19 07:47 Dose: 40 mg Documented by: Pravastatin Sodium (Pravachol) 20 mg PO QHS [facility] Last Admin: 03/11/19 21:24 Dose: 20 mg Documented by: Prednisone () 40 mg PO DAILY@0800 [facility] Last Admin: 03/12/19 07:46 Dose: 40 mg Documented by: Sodium Chloride () 10 - 40 ml IV UD PRN PRN Reason: SALINE FLUSH Last Admin: 03/11/19 14:21 Dose: 10 ml Documented by: Trazodone HCl (Desyrel) 100 mg PO QHS [facility] Last Admin: 03/11/19 21:24 Dose: 100 mg Documented by: Discharge Diet: Low fat/ Low Cholesterol Discharge Activity: Return to Normal Activity Call your doctor if you observe: Shortness of breath, Dizziness, Fainting spells, Chest pain Home Medications: Medications to take at Discharge Albuterol Inhaler [Ventolin Hfa] 2 puff INHALATION Q6H PRN PRN 04/27/16 Amlodipine Besylate [Norvasc] 10 mg PO DAILY 04/27/16 Citalopram [Celexa] 40 mg PO QHS 04/27/16 Clopidogrel Bisulfate [Plavix] 75 mg PO DAILY 04/27/16 Loratadine [Claritin] 10 mg PO DAILY 04/27/16 Multivitamins,Ther W-Minerals [Multivitamin With Minerals] 1 tab PO DAILY 04/27/16 Guild-3 Fatty Acids/Fish Oil [Guild 3 1,000 mg Softgel] 2 ea PO DAILY 04/27/16 Pantoprazole Sodium [Protonix] 40 mg PO DAILY 04/27/16 Potassium Chloride [K-Dur] 20 meq PO BID 04/27/16 Pravastatin [Pravachol] 20 mg PO DAILY 04/27/16 traZODone [Desyrel] 100 mg PO QHS 04/27/16 Cyanocobalamin [Vitamin B12] 1,000 mcg PO DAILY@0800 07/06/17 Metoprolol(XL)Succ [Toprol Xl (Beta Gwen)] 100 mg PO DAILY 07/06/17 Hydroxyzine Pamoate [Vistaril] 25 mg PO QHS PRN PRN 08/11/17 Furosemide [Lasix] 20 mg PO DAILY 01/21/19 Guaifenesin [Mucinex] 1,200 mg PO BID #20 tab 01/23/19 Ipratropium [Atrovent Aerosols] 0.5 mg INHALATION 4X/DAY #0 01/23/19 ferrous gluconate 324 mg (37.5 mg iron) tablet 325 mg PO DAILY@0800 02/07/19 Budesonide Aerosol [Pulmicort Respules] 0.5 mg INHALATION BID 02/17/19 Clonidine HCl [Catapres] 0.1 mg PO DAILY 02/17/19 Furosemide [Lasix] 40 mg PO BREAKFAST 02/17/19 Lisinopril [Zestril] 40 mg PO BID 02/17/19 hydrALAZINE [Apresoline] 25 mg PO BID 02/17/19 Levofloxacin [Levaquin] 750 mg PO Q48H #4 tab 03/12/19 Prednisone See Taper PO DAILY #30 tab 03/12/19 Following Prescrptions Were Given to Patient: Levofloxacin [Levaquin] 750 mg PO Q48H #4 tab Transmission Status: [facility] Prednisone See Taper PO DAILY #30 tab Transmission Status: [facility] Primary Care Physician: Cole Moran MD [Primary Care Provider] - Please follow up with your Primary Care Physician in: 1 Week Please Follow Up With: Cole Acevedo When: 1 week Disposition: Home Minutes spent on discharge:: 35 Patient Condition:: Stable Medical Necessity - Tobacco Use Smoking Status: Former smoker Tobacco Use: Non-smoker Meaningful Use Info Meaningful Use Diagnoses (Choose all that apply): None applicable
--- NOTE | 2019-03-12 12:18 | PHA.DC.MC ---
Pharmacy Service has performed discharge medication reconciliation and counseling for this patient. The patient's discharge medication list was reviewed for discrepancies and discrepancies were resolved. The patient was counseled on the following discharge medications and changes in medications for homegoing were reviewed. 1. LEVOFLOXACIN TABLET 2. PREDNISONE TAPER The Reason for Use, instructions for use, and potential side effects were reviewed for all new medications. The patient's questions regarding all of their medications were answered. The patient was able to verbally demonstrate an understanding of their discharge medications. Home Medications Albuterol Inhaler [Ventolin Hfa] 2 puff INHALATION Q6H PRN PRN 04/27/16 Amlodipine Besylate [Norvasc] 10 mg PO DAILY 04/27/16 Citalopram [Celexa] 40 mg PO QHS 04/27/16 Clopidogrel Bisulfate [Plavix] 75 mg PO DAILY 04/27/16 Loratadine [Claritin] 10 mg PO DAILY 04/27/16 Multivitamins,Ther W-Minerals [Multivitamin With Minerals] 1 tab PO DAILY 04/27/16 [place]-3 Fatty Acids/Fish Oil [[place] 3 1,000 mg Softgel] 2 ea PO DAILY 04/27/16 Pantoprazole Sodium [Protonix] 40 mg PO DAILY 04/27/16 Potassium Chloride [K-Dur] 20 meq PO BID 04/27/16 Pravastatin [Pravachol] 20 mg PO DAILY 04/27/16 traZODone [Desyrel] 100 mg PO QHS 04/27/16 Cyanocobalamin [Vitamin B12] 1,000 mcg PO DAILY@0800 07/06/17 Metoprolol(XL)Succ [Toprol Xl (Beta Gwen)] 100 mg PO DAILY 07/06/17 Hydroxyzine Pamoate [Vistaril] 25 mg PO QHS PRN PRN 08/11/17 Furosemide [Lasix] 20 mg PO DAILY 01/21/19 Guaifenesin [Mucinex] 1,200 mg PO BID #20 tab 01/23/19 Ipratropium [Atrovent Aerosols] 0.5 mg INHALATION 4X/DAY #0 01/23/19 ferrous gluconate 324 mg (37.5 mg iron) tablet 325 mg PO DAILY@0800 02/07/19 Budesonide Aerosol [Pulmicort Respules] 0.5 mg INHALATION BID 02/17/19 Clonidine HCl [Catapres] 0.1 mg PO DAILY 02/17/19 Furosemide [Lasix] 40 mg PO BREAKFAST 02/17/19 Lisinopril [Zestril] 40 mg PO BID 02/17/19 hydrALAZINE [Apresoline] 25 mg PO BID 02/17/19 Levofloxacin [Levaquin] 750 mg PO Q48H #4 tab 03/12/19 Prednisone See Taper PO DAILY #30 tab 03/12/19
--- NOTE | 2019-03-12 12:19 | CASEMGMT ---
Call from Halima at [facility] and she states that they should be able to take pt but states that they were referred in January and pt/family then declined once home and she wants to make sure that they really want the [facility] at this time. This RN CM advised her that pt is A/Ox4 and already was agreeable to C but she would like to see if daughter is also agreeable as she is the one who refused last time. This RN CM to pt's room and pt is still agreeable to [facility] and explanation had been done previously by this RN CM. Pt states that it is ok for this RN CM to call daughter, Roselia, to discuss. Call to Roselia and she states that last time C was set up thru [facility], that they did not understanding it thoroughly and that [facility] could not give them direct answers regarding co-pays, visits, etc. This RN CM explained HHC and answered daughter's questions at this time. Daughter is agreeable to [facility] referral for SN, PT/OT at this time and call to Halima at [facility] to notify, voices understanding. Pt/daughter voice no further questions/concerns/needs at this time. SStaten RN CM
[2019-03-12] MEDS: guaiFENesin 1,200 MG Tablet 1200 MG PO (12:31)
[2019-03-12] MEDS: Furosemide 20 MG Tablet PO (12:31)
--- NOTE | 2019-03-12 15:27 | CASEMGMT ---
Patient has a Healthcare Power of Svp [employer] and Healthcare LW on file at [facility]. Argelia KAISER MSW
--- NOTE | 2019-03-13 15:09 | CASEMGMT ---
Case Management DC F/u Call: DC Date: 03/12/19 DC Diagnosis: 1. Acute on chronic hypoxic respiratory failure secondary to exacerbation of COPD and bilateral community-acquired pneumonia, 2. Bilateral community-acquired pneumonia, 3. COPD exacerbation, 4. Atypical chest pain with mildly elevated troponin, demand ischemia as a result of #1- ACS ruled out, 5. Acute kidney injury on chronic kidney disease stage III, 6. Chronic diastolic CHF, 7. Hypertension, 8. Hyperlipidemia, 9. Depression/Anxiety, 10. GERD, 1. DUDLEY DC Disposition: Home with [facility] SN, PT/OT Lace/Strata: 16/07 Called patient listed cell phone, patient Dtr Ross ROBBINS answered. States patient has been doing fine since DC, still has a tight cough but had that in the hospital. Confirmed patient is taking DC medications po abx Levaquin and Prednisone Taper. Has not heard from [facility] yet but confirmed has their contact information and advised to call them if they have not heard from them in another day. Denies any questions, concerns or issues with ACI, medications or f/u. Thanked Dtr for patient choosing [facility] for her care and ended conversation. Winnie Atwood, OLGACM
== END 2019-03-12 17:47 | disposition home or self-care (01) | DRG 193 ==
LOC: ED 20:44 → PCU 21:52
PROVIDERS: Internal Medicine; Admitting Provider Family Medicine; Emergency Provider Emergency Medicine; Family Provider Family Medicine; PCP Family Medicine; Referring Provider Family Medicine; Visit Provider Internal Medicine
DX: J18.9 Pneumonia, unspecified organism (principal); J96.21 Acute and chronic respiratory failure with hypoxia; J44.1 Chronic obstructive pulmonary disease with (acute) exacerbation; J44.0 Chronic obstructive pulmonary disease with (acute) lower respiratory infection; I50.32 Chronic diastolic (congestive) heart failure; I13.0 Hypertensive heart and chronic kidney disease with heart failure and stage 1 through stage 4 chronic kidney disease, or unspecified chronic kidney disease; N17.9 Acute kidney failure, unspecified; I24.8 Other forms of acute ischemic heart disease; N18.3 Chronic kidney disease, stage 3 (moderate); E78.5 Hyperlipidemia, unspecified; R07.89 Other chest pain; F32.9 Major depressive disorder, single episode, unspecified; F41.9 Anxiety disorder, unspecified; G47.33 Obstructive sleep apnea (adult) (pediatric); K21.9 Gastro-esophageal reflux disease without esophagitis; E11.22 Type 2 diabetes mellitus with diabetic chronic kidney disease; E66.01 Morbid (severe) obesity due to excess calories; Z68.36 Body mass index [BMI] 36.0-36.9, adult; Z99.81 Dependence on supplemental oxygen; Z87.891 Personal history of nicotine dependence; E87.5 Hyperkalemia
CPT/HCPCS: 36415; 71045; 71046; 80048; 83735; 84484; 85025; 87070; 87205; 87449; 87633; 93005; 94003; 94640; 94660; 94760; 97110; 97162; 97166; 97530; 99284; J7030; J7050; A4216; J1940

== ENCOUNTER 2019-04-06 18:27 | Inpatient (IN) | payer MEDICARE, SELFPAY ==
[2019-03-09 22:36] VITALS: BMI 36.0
[2019-04-06] VITALS (9 sets, daily range): BP systolic 122–149; BP diastolic 37–99; PULSE 46–67; RESP 16–22; TEMP 36.4–36.7; O2SAT 95–99; BMI 35.9; BMI 36.0
--- NOTE | 2019-04-06 19:17 | EKG12_ITS ---
Test Reason : SOB Blood Pressure : / mmHG Vent. Rate : 048 BPM Atrial Rate : 048 BPM P-R Int : 170 ms QRS Dur : 080 ms QT Int : 494 ms P-R-T Axes : 069 002 046 degrees QTc Int : 441 ms Sinus bradycardia with sinus arrhythmia Possible Left atrial enlargement Low voltage QRS Nonspecific ST abnormality Abnormal ECG Confirmed by BEE NEGRON, MU ([id number]), assistant production editor JOVANY KOO ([id number]) on 04/09/2019 12:52:23 PM Referred By: Confirmed By:MU GAMBOA MD
--- NOTE | 2019-04-06 19:20 | RAD_ITS ---
STUDY: X-RAY CHEST REASON FOR EXAM: Female, 83 years old. sob TECHNIQUE: Single AP portable view of the chest. 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 There is bibasilar atelectasis, increased in prominence from the previous study. There is no demonstrated pleural abnormality. There is mild cardiac enlargement. Normal mediastinum and gregg. Normal visualized pulmonary arteries. There are calcified plaques of the aortic arch. Normal visualized thoracic spine. Normal visualized ribs, clavicles, and shoulders. There is no demonstrated abnormality of the visualized soft tissue structures of the upper abdomen. RAD/Chest 1 View (Portable) IMPRESSION: Bibasilar atelectasis, increased in prominence from the previous study. Mild cardiomegaly. Calcified plaques of the aortic arch. Electronically Signed: Deven Barrios MD at 19:34 EST , Service support ,
[2019-04-06] MEDS: Ipratropium/Albuterol Sulfate 3 ML AMPUL.NEB INHALATION (19:33)
[2019-04-06] MEDS: Albuterol 2.5 MG/3 ML VIAL.NEB. INHALATION ×3 (19:33)
--- NOTE | 2019-04-06 19:39 | ED.VISSUMM ---
- ER Visit Summary Date of Service: 04/06/19 Chief Complaint: Shortness of breath History of Present Illness: The patient is a 83 F presenting with shortness of breath x2 days. She has had a nonproductive cough. She denies chest pain. She has history of CHF and COPD. She is on home O2 3 L. She quit smoking 4 years ago. She was recently admitted for pneumonia. Physical Examination: Vitals are stable. Patient is afebrile. Alert no acute distress. HEENT exam is unremarkable. Neck is supple. Lungs are wheezing bilaterally. Heart is regular and bradycardic Abdomen is soft nontender nondistended. Extremities mild symmetric edema Skin is warm and dry. No focal neurologic deficit. Remainder of exam is unremarkable. Emergency Department Course and Treatment: Patient was given albuterol, Atrovent aerosol. EKG is sinus bradycardia with no acute ischemic changes. Chest x-ray shows bibasilar atelectasis, increased in prominence from the previous study. Mild cardiomegaly. Calcified plaques of the aortic arch. CBC normal except hemoglobin 10.7. Chemistry shows potassium to 5.2, BUN 55, creatinine 2.34. Previous creatinine 1.16. Influenza negative. Troponin is negative. Lactic acid is normal. Repeat heart rate 55. Patient remains hemodynamically stable. Discussed with the hospitalist for admission. Disposition: Admission Impression: EMANUEL, bradycardia This note was generated with Aldagen dictation software. It may contain incorrect words, spelling, and punctuation that were not noted in review of the chart prior to signing ED Disposition - Plan for ED Patient: Referrals: Cole Moran MD [Primary Care Provider] -
[2019-04-06 19:40] LABS: Absolute Lymphocyte Count 1.33 X10^3/uL (0.83-4.51); Absolute Neutrophil Count 5.8 X10^3/uL (2.0-7.7); Basophil# 0.02 X10^3/uL; Basophil% 0.2 % (0-1); Eosinophil# 0.18 X10^3/uL; Eosinophils% 2.2 % (0-5); Hematocrit 34.7 % (37-47); Hemoglobin 10.7 g/dL (12.0-15.0); Lymphocyte # 1.33 X10^3/ul (4.0); Lymphocyte % 16.5 % (19-41); Mean Corp Hgb Conc 30.8 g/dL (32-36); Mean Corpuscular Hgb 29.8 pg (27.0-32.0); Mean Corpuscular Volume 96.7 fL (81-99); Mean Platelet Vol. 11.3 fl (6.2-12.0); Monocyte% 8.7 % (0-10); NRBC Flagged by Analyzer 0 % (0-5); Neutrophil # 5.75 X10^3/uL (2.7-7.7); Neutrophil % 71.7 % (47-70); Platelet Count 267 K/mm3 (150-450); RBC Distribution Width CV 14.5 % (11.6-14.6); RBC Distribution Width SD 50.8 fl (35.1-43.9); Red Blood Count 3.59 M/mm3 (4.2-5.4)
[2019-04-06 19:44] LABS: Anion Gap 7 (5-15); BUN 55 mg/dL (7-18); BUN/Creat Ratio 23.5 RATIO (10-20); Calcium,Total 9.5 mg/dL (8.5-10.1); Chloride 108 mmol/L (98-107); Creatinine, Serum 2.34 mg/dL (0.55-1.02); EST Glomerular Filtration Rate 21 mL/min (>60); Est Glom Filt Rate - Afr Amer 25 mL/min (>60); Glucose 133 mg/dL (74-106); Potassium 5.2 mmol/L (3.5-5.1); Sodium Level 140 mmol/L (136-145)
[2019-04-06 20:25] LABS: Lactic Acid 1.5 mmol/L (0.4-1.9)
--- NOTE | 2019-04-06 20:50 | PCM.HP.STD ---
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 (7) Mitral regurgitation Status: Chronic (8) Grade II diastolic dysfunction Status: Chronic (9) Chronic renal failure, stage 3 (moderate) Status: Chronic (10) Claudication Status: Chronic (11) Hyperlipidemia Status: Chronic Qualifiers: Hyperlipidemia type: unspecified Qualified Code(s): E78.5 - Hyperlipidemia, unspecified (12) History of peripheral vascular disease Status: Chronic (13) DUDLEY on CPAP Status: Chronic History of Present Illness Date of Admission: 04/06/19 Chief Complaint: bradycardia The patient is a 83 year old F with a significant history of COPD and congestive heart failure who was brought to emergency department because of bradycardia the same day of presentation. Patient's home health nurse visited patient and found the patient heart rate was in the 40s so patient was brought to emergency department. Typically patient heart rate is in the 50s. Also patient reports shortness of breath for the last 3 days. Patient was not coughing prior to come to the emergency department. She reports developing a yellow productive cough at the emergency department. At the Emergency department she was found to have mildly elevated potassium and severely elevated creatinine. Past Medical History Past Medical History (Chronic Problems): Chronic Problems (Last Reviewed 04/06/19 @ 22:30 by Darryl James MD) COPD (chronic obstructive pulmonary disease) (Chronic) Essential hypertension (Chronic) Morbid obesity (Chronic) Diabetes mellitus type 2 in obese (Chronic) Moderate pulmonary arterial systolic hypertension (Chronic) Mitral regurgitation (Chronic) Grade II diastolic dysfunction (Chronic) Chronic renal failure, stage 3 (moderate) (Chronic) Claudication (Chronic) Hyperlipidemia (Chronic) History of peripheral vascular disease (Chronic) DUDLEY on CPAP (Chronic) Medical History: Medical History (Last Reviewed 04/06/19 @ 22:52 by Darryl James MD) Essential hypertension (Chronic) I10 Morbid obesity (Chronic) E66.01 Diabetes mellitus type 2 in obese (Chronic) E11.69, E66.9 Moderate pulmonary arterial systolic hypertension (Chronic) I27.21 Mitral regurgitation (Chronic) I34.0 Grade II diastolic dysfunction (Chronic) I51.9 Chronic renal failure, stage 3 (moderate) (Chronic) N18.3 Claudication (Chronic) I73.9 Hyperlipidemia (Chronic) E78.5 History of peripheral vascular disease (Chronic) Z86.79 DUDLEY on CPAP (Chronic) G47.33 COPD (chronic obstructive pulmonary disease) J44.9 Chronic respiratory failure with hypoxia J96.11 Depression F32.9 Diverticulosis of colon (without mention of hemorrhage) K57.30 GERD (gastroesophageal reflux disease) K21.9 Insomnia G47.00 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.201 Uterine cancer C55 Chest pain (Resolved) R07.9 TIA (transient ischemic attack) G45.9 EMANUEL (acute kidney injury) N17.9 Allergies cilostazol [From Pletal] Allergy (Verified 04/06/19 18:27) Swelling Penicillins Allergy (Verified 04/06/19 18:27) Swelling Home Medications: Ambulatory Orders Medication Instructions Recorded Albuterol Inhaler [Ventolin Hfa] 2 puff INHALATION Q6H PRN PRN 04/27/16 Amlodipine Besylate [Norvasc] 10 mg PO DAILY 04/27/16 Citalopram [Celexa] 40 mg PO QHS 04/27/16 Clopidogrel Bisulfate [Plavix] 75 mg PO DAILY 04/27/16 Loratadine [Claritin] 10 mg PO DAILY 04/27/16 Multivitamins,Ther W-Minerals 1 tab PO DAILY 04/27/16 [Multivitamin With Minerals] [place]-3 Fatty Acids/Fish Oil 2 cap PO DAILY 04/27/16 [[place] 3 1,000 mg Softgel] Pantoprazole Sodium [Protonix] 40 mg PO DAILY 04/27/16 Potassium Chloride [K-Dur] 20 meq PO BID 04/27/16 Pravastatin [Pravachol] 20 mg PO DAILY 04/27/16 traZODone [Desyrel] 100 mg PO QHS 04/27/16 Cyanocobalamin [Vitamin B12] 1,000 mcg PO DAILY@0800 07/06/17 Metoprolol(XL)Succ [Toprol Xl 100 mg PO DAILY 07/06/17 (Beta Gwen)] Hydroxyzine Pamoate [Vistaril] 25 mg PO QHS PRN PRN 08/11/17 Furosemide [Lasix] 20 mg PO DAILY@1200 01/21/19 Guaifenesin [Mucinex] 1,200 mg PO BID #20 tab 01/23/19 Ipratropium [Atrovent Aerosols] 0.5 mg INHALATION 4X/DAY #0 01/23/19 ferrous gluconate 324 mg (37.5 mg 325 mg PO DAILY@0800 02/07/19 iron) tablet Clonidine HCl [Catapres] 0.1 mg PO DAILY 02/17/19 Furosemide [Lasix] 40 mg PO BREAKFAST 02/17/19 Lisinopril [Zestril] 40 mg PO BID 02/17/19 hydrALAZINE [Apresoline] 25 mg PO BID 02/17/19 Surgical History: Surgical History (Last Reviewed 04/06/19 @ 22:30 by Darryl James MD) History of discectomy Z98.890 Surgical History: hysterectomy, - - Lumpectomy right breast, back surgery, lump removed from left jaw region, skin cancer surgery,back surgery. 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: - - Hysterectomy for cancer of the uterus Lives: With Family - Home health nurse Smoking Status: Former smoker Alcohol: None - *Family History Maternal Family History: Family History (Last Reviewed 04/06/19 @ 22:30 by Darryl James MD) Brother Diabetes Sister Diabetes Mother Heart disease Father Heart disease History Items: No pertinent history Paternal Family History: Family History (Last Reviewed 04/06/19 @ 22:30 by Darryl James MD) Brother Diabetes Sister Diabetes Mother Heart disease Father Heart disease History Items: Heart Disease, Hypertension Review of Systems Constitutional: Denies: Chills, Fever, Weight Change HEENT: Reports: Head Aches - Complains of fullness of the head. Denies: Sinus Congestion, Sinus Drainage Cardiovascular: Denies: Chest Pain, Palpitations Respiratory: Reports: Cough, Shortness of Breath, Sputum production. Denies: Shortness of breath at rest Gastrointestinal: Denies: Abdominal Pain, Nausea, Vomiting Genitourinary: Denies: Dysuria Musculoskeletal: Denies: Joint Pain, Joint Tenderness Skin: Denies: Rash, Wounds Neurological: Denies: Numbness, Tingling, Focal weakness Psychiatric: Denies: Anxiety, Depression, Homicidal Ideations, Suicidal Ideations Hematologic/ Lymphatic: Denies: Easy Bruising, Easy Bleeding VTE Information - Inpt Only VTE Present on Admission: No VTE Mechan Device Prophylaxis: None VTE Pharm Prophylaxis ordered?: Yes Patient Problems: Active and Suspected Problems (Last Reviewed 04/06/19 @ 22:30 by Darryl James MD) EMANUEL (acute kidney injury) (Acute) - Physical Exam Vitals/I&O's: Vital Signs Temp Pulse Resp BP Pulse Ox 97.6 F L 55 L 16 122/37 H 99 04/06/19 18:28 04/06/19 19:48 04/06/19 19:48 04/06/19 19:07 04/06/19 19:20 Oxygen Flow Rate (L/min) 4 Oxygen Delivery Method Nasal Cannula Weight: 92.079 kg Body Mass Index (BMI) 35.9 Finger Stick Blood Glucose 196 General: Alert, Oriented x3, Cooperative HEENT: Atraumatic, EOMI, Normocephalic Oral: Dry Mucosa Neck: Supple, No JVD, Negative Carotid Bruits Lungs: No rhonchi, No rales, - - Squeaky sound posteriorly on inspiration Cardiovascular: Regular rate, Normal S1, Normal S2 Abdomen: Bowel Sounds Present, Soft, Non Tender Extremities: No edema, Capillary Refill Less than 3 Seconds Skin: No rashes, No breakdown Musculoskeletal: No Tenderness to Palpation of Joints or Extremities Neurological: Cranial nerves II-XII grossly intact Psych/Mental Status: Normal Affect, Appropriate Microbiology Past 72 Hours 04/06/19 19:26 Mucosa - Nasopharyngeal Influenza Types A,B Direct FA (RC) - Final Laboratory Results 04/06/19 19:16: WBC 8.0, RBC 3.59 L, Hgb 10.7 L, Hct 34.7 L, MCV 96.7, MCH 29.8, MCHC 30.8 L, RDW Std Deviation 50.8 H, RDW Coeff of Janet 14.5, Plt Count 267, MPV 11.3, Immature Gran % (Auto) 0.700, Neut % (Auto) 71.7 H, Lymph % (Auto) 16.5 L, [place] % (Auto) 8.7, Eos % (Auto) 2.2, Baso % (Auto) 0.2, Absolute Neuts (auto) 5.8, Absolute Lymphs (auto) 1.33, Nucleated RBC % 0 04/06/19 19:16: Sodium 140, Potassium 5.2 H, Chloride 108 H, Carbon Dioxide 25.0, Anion Gap 7, BUN 55 H, Creatinine 2.34 H, Estim Creat Clear Calc 14.80, Est GFR (MDRD) Af Amer 25 L, Est GFR (MDRD) Non-Af 21 L, BUN/Creatinine Ratio 23.5 H, Glucose 133 H, Calcium 9.5, Troponin I < 0.015 04/06/19 19:25: Lactic Acid 1.5 Assessment/Plan All Active Problems (Last Reviewed 04/06/19 @ 22:30 by Darryl James MD) EMANUEL (acute kidney injury) (Acute) Acute on chronic respiratory failure with hypoxemia (Resolved) COPD exacerbation (Resolved) Chest pain (Resolved) Endometrial cancer (Resolved) Hip fracture requiring operative repair (Resolved) The patient is a 83 year old F with a significant history of COPD and congestive heart failure who was brought to emergency department because of bradycardia the same day of presentation and found to have severely elevated creatinine above her baseline. EMANUEL on chronic kidney disease stage III CKD Likely from Diabetic nephropathy Baseline creatinine of of around 1.3. Creatinine on admission was 2.34. BUN is 55. BUN over creatinine is 23.5. Likely prerenal from overdiuresis Hold Lasix Give gentle IV hydration. Check urinary electrolytes Ultrasound of bladder and kidneys. Check BMP Patient does not improve consider nephrology consult Hyperkalemia On presentation potassium was 5.2. Give IV fluids. Trend BMP. Bradycardia At the emergency department her initial pulse was in the 40s. However at the time of my examination her pulse was in the 60s to same 20s. Keep on telemetry. If bradycardia persists consider discontinue clonidine. Last echocardiogram was on 01/22/2019. Echocardiogram showed stage II diastolic dysfunction. Mild to moderate eccentric mitral valve insufficiency. Mild tricuspid valve insufficiency. Pulmonary artery systolic pressure was 42. Mild eccentric aortic valve insufficiency. History of heart failure with preserved ejection fraction On presentation patient looks clinically dry dry mucous. Echocardiogram as above. Hold home Lasix. Gentle IV fluid. Check BMP. Elevated BNP Likely from EMANUEL causing decreased clearance. Try gentle IV hydration for now. If patient worsens consider diuresis. COPD Patient report dyspnea on examination. Patient has no expiratory wheezes but has some squeaky inspiration sounds. Will put on scheduled DuoNeb and PRN albuterol. If cough persists consider Mucinex. DVT Prophylaxis Subcutaneous Lovenox Code Visit Inpatient E&M: 12765 Init Hosp L3
[2019-04-06 22:16] LABS: BNP,B-Type NATRIURETIC PEPTIDE 1347.7 pg/mL (0-100)
--- NOTE | 2019-04-06 22:38 | US_ITS ---
STUDY: RENAL ULTRASOUND - COMPLETE REASON FOR EXAM: Female, 83 years old. Acute kidney injury TECHNIQUE: Ultrasound evaluation of the kidneys was performed with real-time and static wetzel-scale imaging. COMPARISON: None. FINDINGS: RIGHT KIDNEY: Normal location of the right kidney, which is normal in size. The right kidney measures 10.0 x 4.4 x 4.0 cm. There is a normal cortex of the right kidney. The renal cortex measures 1.1 cm. There is an anechoic cyst of the right kidney measuring 1.1 cm. There are no right renal calculi. There is no right hydronephrosis. DISTAL RIGHT URETER: There is non-visualization of the distal right ureter. There is no demonstrated right ureterovesical junction calculus. There is no demonstrated right ureteral jet. LEFT KIDNEY: Normal location of the left kidney, which is normal in size. The left kidney measures 10.8 x 4.6 x 4.6 cm. There is a normal cortex of the left kidney. The renal cortex measures 1.3 cm. There are anechoic cysts of the left kidney measuring 1.2 and 1.0 cm. There are no left renal calculi. There is no left hydronephrosis. DISTAL LEFT URETER: There is non-visualization of the distal left ureter. There is no demonstrated left ureterovesical junction calculus. There is no demonstrated left ureteral jet. BLADDER: The partially distended urinary bladder has a volume of 162 ml.. There is a normal wall thickness of the partially distended urinary bladder. There is no demonstrated mass within the urinary bladder. There are no demonstrated bladder calculi. US/Kidney and Bladder IMPRESSION: 1. No hydronephrosis 2. Simple bilateral renal cysts. Electronically Signed: Reg Vasquez MD (Brooks) at 12:43 EST , Service support ,
[2019-04-07] VITALS (15 sets, daily range): BP systolic 124–146; BP diastolic 36–88; PULSE 41–88; RESP 17–27; TEMP 36.7–37.2; O2SAT 95–100
[2019-04-07] MEDS: 0.9% Normal Saline 1,000 ML 100 ML IV (00:13)
[2019-04-07] MEDS: hydrALAZINE 25 MG Tablet PO ×3 (00:14→21:02)
[2019-04-07] MEDS: guaiFENesin 1,200 MG Tablet 1200 MG PO ×3 (00:15→21:04)
[2019-04-07] MEDS: Citalopram 40 MG TABLET PO ×2 (00:15→21:04)
[2019-04-07] MEDS: traZODone 100 MG Tablet PO ×2 (00:16→21:04)
[2019-04-07 04:40] LABS: Urea Nitrogen, Urine 475 mg/dL (NO RANGE EST.); Urine Chloride 101 mmol/L (Not Establ.); Urine Sodium 81 mmol/L (Not Establ.)
[2019-04-07 05:09] LABS: Osmolality, Urine 432 mOsm/KG
[2019-04-07 07:00] LABS: Absolute Lymphocyte Count 1.46 X10^3/uL (0.83-4.51); Absolute Neutrophil Count 3.4 X10^3/uL (2.0-7.7); Basophil# 0.02 X10^3/uL; Basophil% 0.3 % (0-1); Eosinophil# 0.18 X10^3/uL; Eosinophils% 3.1 % (0-5); Hematocrit 30.6 % (37-47); Hemoglobin 9.6 g/dL (12.0-15.0); Lymphocyte # 1.46 X10^3/ul (4.0); Lymphocyte % 25.4 % (19-41); Mean Corp Hgb Conc 31.4 g/dL (32-36); Mean Corpuscular Hgb 30.3 pg (27.0-32.0); Mean Corpuscular Volume 96.5 fL (81-99); Mean Platelet Vol. 11.5 fl (6.2-12.0); Monocyte# 0.61 X10^3/uL; Monocyte% 10.6 % (0-10); NRBC Flagged by Analyzer 0 % (0-5); Neutrophil # 3.42 X10^3/uL (2.7-7.7); Neutrophil % 59.6 % (47-70); Platelet Count 221 K/mm3 (150-450); RBC Distribution Width CV 14.1 % (11.6-14.6); RBC Distribution Width SD 50.4 fl (35.1-43.9); Red Blood Count 3.17 M/mm3 (4.2-5.4); White Blood Count 5.8 K/mm3 (4.4-11.0)
[2019-04-07 07:48] LABS: Anion Gap 6 (5-15); BUN 39 mg/dL (7-18); BUN/Creat Ratio 23.5 RATIO (10-20); Calcium,Total 8.5 mg/dL (8.5-10.1); Chloride 109 mmol/L (98-107); Creatinine, Serum 1.66 mg/dL (0.55-1.02); EST Glomerular Filtration Rate 31 mL/min (>60); Est Glom Filt Rate - Afr Amer 38 mL/min (>60); Estimated Creatinine Clearance 20.87 ml/min; Glucose 105 mg/dL (74-106); Potassium 4.3 mmol/L (3.5-5.1); Sodium Level 141 mmol/L (136-145)
--- NOTE | 2019-04-07 07:49 | EKG12_ITS ---
Test Reason : Blood Pressure : / mmHG Vent. Rate : 054 BPM Atrial Rate : 054 BPM P-R Int : 166 ms QRS Dur : 080 ms QT Int : 500 ms P-R-T Axes : 065 024 064 degrees QTc Int : 474 ms Sinus bradycardia with marked sinus arrhythmia Low voltage QRS Possible Left atrial enlargement Confirmed by ANDREA NEGRON, JAY ([id number]), managing editor ISADORA CASTREJON ([id number] on 04/11/2019 11:37:43 AM Referred By: COOKIE Confirmed By:JAY MENDEZ MD
[2019-04-07] MEDS: Ferrous Gluconate 324 MG Tablet PO (08:15)
[2019-04-07] MEDS: Cyanocobalamin 500 MCG Tablet 1000 MCG PO (08:15)
[2019-04-07] MEDS: Multivitamins,Ther W-Minerals Tablet 1 TABLET PO (08:15)
--- NOTE | 2019-04-07 09:27 | PCM.PN.HOSP ---
Patient Problems: Active and Suspected Problems (Last Reviewed 04/06/19 @ 22:52 by Darryl James MD) EMANUEL (acute kidney injury) (Acute) Reason for Visit: Follow-up acute kidney injury, bradycardia and generalized weakness Subjective: Patient is an 83-year-old lady with multiple comorbidities who was brought to the emergency department upon advice of her home health care nursing. Patient was found to be profoundly weak she was also bradycardic patient upon presentation to the emergency department was found to have heart rates in the 40s with worsening kidney function admitted to a monitored bed for further management. Objective: GENERAL: cooperative HEENT: Atraumatic; EYES; Anicteric, Normal Conjunctiva NECK; supple, normal thyroid, RESPIRATORY: Diminished to auscultation CARDIOVASCULAR: Regular S1 S2, GI: soft, normoactive bowel sounds, : No Renal angle tenderness; EXTREMITIES: No edema, no clubbing, MUSCULOSKELETAL: no muscle waisting NEURO: Awake; no lateralizing signs. SKIN: No Rash PSYCH; Flat affect Vitals/I&O's: Vital Signs Temp Pulse Resp BP Pulse Ox 98.3 F 67 20 H 132/40 H 98 04/07/19 07:57 04/07/19 07:57 04/07/19 07:57 04/07/19 07:57 04/07/19 07:57 Oxygen Flow Rate (L/min) 3 Oxygen Delivery Method CPAP Weight: 93 kg Body Mass Index (BMI) 36.0 Finger Stick Blood Glucose 196 Intake and Output for Last 24 Hours 04/05/19 04/06/19 04/07/19 23:59 23:59 23:59 Intake Total 400 / 400 Balance 400 / 400 Microbiology Past 72 Hours 04/06/19 19:26 Mucosa - Nasopharyngeal Influenza Types A,B Direct FA (RC) - Final Laboratory Results 04/06/19 19:16: WBC 8.0, RBC 3.59 L, Hgb 10.7 L, Hct 34.7 L, MCV 96.7, MCH 29.8, MCHC 30.8 L, RDW Std Deviation 50.8 H, RDW Coeff of Janet 14.5, Plt Count 267, MPV 11.3, Immature Gran % (Auto) 0.700, Neut % (Auto) 71.7 H, Lymph % (Auto) 16.5 L, [place] % (Auto) 8.7, Eos % (Auto) 2.2, Baso % (Auto) 0.2, Absolute Neuts (auto) 5.8, Absolute Lymphs (auto) 1.33, Nucleated RBC % 0 04/06/19 19:16: Sodium 140, Potassium 5.2 H, Chloride 108 H, Carbon Dioxide 25.0, Anion Gap 7, BUN 55 H, Creatinine 2.34 H, Estim Creat Clear Calc 14.80, Est GFR (MDRD) Af Amer 25 L, Est GFR (MDRD) Non-Af 21 L, BUN/Creatinine Ratio 23.5 H, Glucose 133 H, Calcium 9.5, Troponin I < 0.015 04/06/19 19:16: B-Natriuretic Peptide 1347.7 H 04/06/19 19:25: Lactic Acid 1.5 04/06/19 22:58: Troponin I < 0.015 04/07/19 01:58: Troponin I < 0.015 04/07/19 04:20: Urine Osmolality 432, Ur Random Sodium 81, Urine Creatinine 50.90, Urine Chloride 101, Urine Urea Nitrogen 475 04/07/19 05:51: WBC 5.8, RBC 3.17 L, Hgb 9.6 L, Hct 30.6 L, MCV 96.5, MCH 30.3, MCHC 31.4 L, RDW Std Deviation 50.4 H, RDW Coeff of Janet 14.1, Plt Count 221, MPV 11.5, Immature Gran % (Auto) 1.000 H, Neut % (Auto) 59.6, Lymph % (Auto) 25.4, [place] % (Auto) 10.6 H, Eos % (Auto) 3.1, Baso % (Auto) 0.3, Absolute Neuts (auto) 3.4, Absolute Lymphs (auto) 1.46, Nucleated RBC % 0 04/07/19 05:51: Sodium 141, Potassium 4.3, Chloride 109 H, Carbon Dioxide 26.0, Anion Gap 6, BUN 39 H, Creatinine 1.66 H, Estim Creat Clear Calc 20.87, Est GFR (MDRD) Af Amer 38 L, Est GFR (MDRD) Non-Af 31 L, BUN/Creatinine Ratio 23.5 H, Glucose 105, Calcium 8.5 Current Medications Albuterol Sulfate (Ventolin Aerosols) 2.5 mg INHALATION Q2H PRN PRN PRN Reason: sob/wheezing Amlodipine Besylate (Norvasc) 10 mg PO DAILY [facility] Citalopram Hydrobromide (Celexa) 40 mg PO QHS [facility] [place] Last Admin: 04/07/19 00:15 Dose: 40 mg Documented by: Clonidine (Catapres) 0.1 mg PO DAILY [facility] [place] Clopidogrel Bisulfate (Plavix) 75 mg PO DAILY [facility] [place] Cyanocobalamin (Vitamin B12) 1,000 mcg PO DAILY@0800 [facility] [place] Last Admin: 04/07/19 08:15 Dose: 1,000 mcg Documented by: Enoxaparin Sodium (Lovenox) 30 mg SC DAILY [facility] [place] Ferrous Gluconate (Ferrous Gluconate) 324 mg PO DAILY@0800 [facility] [place] Last Admin: 04/07/19 08:15 Dose: 324 mg Documented by: Glucagon () 1 mg IM .X1 PRN PRN Reason: Hypoglycemia Guaifenesin (Mucinex) 1,200 mg PO BID [facility] [place] Last Admin: 04/07/19 00:15 Dose: 1,200 mg Documented by: Hydralazine HCl (Apresoline) 25 mg PO BID [facility] [place] Last Admin: 04/07/19 00:14 Dose: 25 mg Documented by: Hydroxyzine Pamoate (Vistaril Pamoate Capsule) 25 mg PO QHS PRN PRN PRN Reason: SLEEP Dextrose (Dextrose 10%-Water) 250 mls @ 999 mls/hr IV .Q16M PRN; Protocol PRN Reason: HYPOGLYCEMIA Loratadine (Claritin) 10 mg PO DAILY [facility] [place] Metoprolol Succinate (Toprol Xl (Beta Gwen)) 100 mg PO DAILY [facility] [place] Multivitamins/Minerals ([facility]itamin With Minerals) [facility] Last Admin: 04/07/19 08:15 Dose: 1 tablet Documented by: Ondansetron HCl (Zofran) 4 mg IV Q8H PRN PRN PRN Reason: NAUSEA/VOMITING Pantoprazole Sodium (Protonix) 40 mg PO DAILY [facility] [place] Pravastatin Sodium (Pravachol) 20 mg PO QHS [facility] [place] Sodium Chloride () 10 - 40 ml IV UD PRN PRN Reason: SALINE FLUSH Trazodone HCl (Desyrel) 100 mg PO QHS [facility] [place] Last Admin: 04/07/19 00:16 Dose: 100 mg Documented by: STROKE Vital Signs/Narrative: Vital Signs Temp Pulse Resp BP Pulse Ox 04/07/19 07:57 98.3 F 67 20 H 132/40 H 98 04/07/19 06:00 88 21 H 96 Medical Necessity - Tobacco Use Smoking Status: Former smoker Assessment/Plan All Active Problems (Last Reviewed 04/06/19 @ 22:52 by Darryl James MD) EMANUEL (acute kidney injury) (Acute) Acute on chronic respiratory failure with hypoxemia (Resolved) COPD exacerbation (Resolved) Chest pain (Resolved) Endometrial cancer (Resolved) Hip fracture requiring operative repair (Resolved) Patient is an 83-year-old lady with multiple comorbidities who was brought to the emergency department upon advice of her home health care nursing. Patient was found to be profoundly weak she was also bradycardic patient upon presentation to the emergency department was found to have heart rates in the 40s with worsening kidney function admitted to a monitored bed for further management. 1. Bradycardia ?Multiple causes including patient electrolyte abnormalities as well as patient being on clonidine. Patient admitted to progressive care unit for continuous telemetry monitoring. Telemetry reviewed demonstrated episodes of bradycardia as well as junctional rhythm.. Her clonidine was subsequently discontinued. 2. Hyperkalemia ?Attributed to patient worsening kidney function hyperkalemia was treated per protocol with subsequent BMPs ordered for monitoring 3. Acute kidney injury ?Superimposed on chronic kidney disease stage III. Patient has history of CHF for which she was on diuretics held given fluids with subsequent monitoring of electrolyte 4. Physical debility ?patient has home health requested for PT OT eval and social service technician to assist with discharge planning patient did entertain the idea of going to a intermediate facility if warranted 5. COPD ?Currently not in exacerbation did continue patient home aerosol regimen 6. Hypertension ~ blood pressure controlled, patient is on both amlodipine as well as clonidine clonidine discontinued in view of patient's bradycardia 7. Dyslipidemia ~patient is on statin therapy, continued at home dose 8. GERD ?Patient is on PPI did continue 9. Obesity ?With BMI of 36.3 weight loss advised 10. DVT prophylaxis ?Lovenox dose adjusted for kidney function Advance planning; did discuss with the patient and family regarding advanced directives as well as CODE STATUS. Did explain the various scenarios involved ( FULL CODE, DNR CCA, DNR CCA with no intubation, and DNR CC and what each meant) patient elected to be DNR CCA no intubation. Order was placed. Time spent on discussion 18 minutes. Active Medications Albuterol Sulfate (Ventolin Aerosols) 2.5 mg INHALATION Q2H PRN PRN PRN Reason: sob/wheezing Amlodipine Besylate (Norvasc) 10 mg PO DAILY [facility] Citalopram Hydrobromide (Celexa) 40 mg PO QHS [facility] [place] Last Admin: 04/07/19 00:15 Dose: 40 mg Documented by: Clonidine (Catapres) 0.1 mg PO DAILY [facility] [place] Clopidogrel Bisulfate (Plavix) 75 mg PO DAILY [facility] [place] Cyanocobalamin (Vitamin B12) 1,000 mcg PO DAILY@0800 [facility] [place] Last Admin: 04/07/19 08:15 Dose: 1,000 mcg Documented by: Enoxaparin Sodium (Lovenox) 30 mg SC DAILY [facility] [place] Ferrous Gluconate (Ferrous Gluconate) 324 mg PO DAILY@0800 [facility] [place] Last Admin: 04/07/19 08:15 Dose: 324 mg Documented by: Glucagon () 1 mg IM .X1 PRN PRN Reason: Hypoglycemia Guaifenesin (Mucinex) 1,200 mg PO BID [facility] [place] Last Admin: 04/07/19 00:15 Dose: 1,200 mg Documented by: Hydralazine HCl (Apresoline) 25 mg PO BID [facility] [place] Last Admin: 04/07/19 00:14 Dose: 25 mg Documented by: Hydroxyzine Pamoate (Vistaril Pamoate Capsule) 25 mg PO QHS PRN PRN PRN Reason: SLEEP Dextrose (Dextrose 10%-Water) 250 mls @ 999 mls/hr IV .Q16M PRN; Protocol PRN Reason: HYPOGLYCEMIA Loratadine (Claritin) 10 mg PO DAILY [facility] [place] Metoprolol Succinate (Toprol Xl (Beta Gwen)) 100 mg PO DAILY [facility] [place] Multivitamins/Minerals ([facility]ivitamin With Minerals) [facility] Last Admin: 04/07/19 08:15 Dose: 1 tablet Documented by: Ondansetron HCl (Zofran) 4 mg IV Q8H PRN PRN PRN Reason: NAUSEA/VOMITING Pantoprazole Sodium (Protonix) 40 mg PO DAILY [facility] [place] Pravastatin Sodium (Pravachol) 20 mg PO QHS [facility] [place] Sodium Chloride () 10 - 40 ml IV UD PRN PRN Reason: SALINE FLUSH Trazodone HCl (Desyrel) 100 mg PO QHS [facility] [place] Last Admin: 04/07/19 00:16 Dose: 100 mg Documented by: Code Visit Inpatient E&M: 79815 Subs Hosp L3 Procedures: 01702 Advncd Care Plan 30 Min
[2019-04-07] MEDS: Loratadine 10 MG Tablet PO (11:46)
[2019-04-07] MEDS: Clopidogrel Bisulfate 75 MG Tablet PO (11:47)
[2019-04-07] MEDS: Pantoprazole Sodium 40 MG Tablet PO (11:47)
[2019-04-07] MEDS: Enoxaparin 30 MG/0.3 ML Syringe SC (11:52)
[2019-04-07] MEDS: amLODIPine 10 MG Tablet PO (13:01)
[2019-04-07] MEDS: Pravastatin 20 MG Tablet PO (21:05)
--- NOTE | 2019-04-07 22:01 | CPS ---
Pt. refused use of CPAP
[2019-04-08] VITALS (17 sets, daily range): BP systolic 136–168; BP diastolic 26–72; PULSE 51–89; RESP 16–28; TEMP 36.7–37.4; O2SAT 94–98
[2019-04-08 05:56] LABS: Absolute Lymphocyte Count 1.75 X10^3/uL (0.83-4.51); Basophil# 0.02 X10^3/uL; Basophil% 0.3 % (0-1); Eosinophil# 0.23 X10^3/uL; Eosinophils% 3.3 % (0-5); Hematocrit 31.6 % (37-47); Hemoglobin 9.7 g/dL (12.0-15.0); Lymphocyte # 1.75 X10^3/ul (4.0); Lymphocyte % 25.4 % (19-41); Mean Corp Hgb Conc 30.7 g/dL (32-36); Mean Corpuscular Hgb 29.8 pg (27.0-32.0); Mean Corpuscular Volume 97.2 fL (81-99); Mean Platelet Vol. 10.8 fl (6.2-12.0); Monocyte# 0.86 X10^3/uL; Monocyte% 12.5 % (0-10); NRBC Flagged by Analyzer 0 % (0-5); Neutrophil # 3.98 X10^3/uL (2.7-7.7); Neutrophil % 57.6 % (47-70); Platelet Count 228 K/mm3 (150-450); RBC Distribution Width CV 14.4 % (11.6-14.6); RBC Distribution Width SD 51.7 fl (35.1-43.9); Red Blood Count 3.25 M/mm3 (4.2-5.4); White Blood Count 6.9 K/mm3 (4.4-11.0)
[2019-04-08 06:48] LABS: Anion Gap 4 (5-15); BUN 27 mg/dL (7-18); BUN/Creat Ratio 22.9 RATIO (10-20); Calcium,Total 8.6 mg/dL (8.5-10.1); Chloride 111 mmol/L (98-107); Creatinine, Serum 1.18 mg/dL (0.55-1.02); EST Glomerular Filtration Rate 46 mL/min (>60); Est Glom Filt Rate - Afr Amer 56 mL/min (>60); Estimated Creatinine Clearance 29.36 ml/min; Glucose 109 mg/dL (74-106); Potassium 4.3 mmol/L (3.5-5.1); Sodium Level 142 mmol/L (136-145)
--- NOTE | 2019-04-08 07:17 | PCM.PN.HOSP ---
Patient Problems: Active and Suspected Problems (Last Reviewed 04/06/19 @ 22:52 by Darryl James MD) EMANUEL (acute kidney injury) (Acute) Reason for Visit: Follow-up acute kidney injury and bradycardia Subjective: Patient creatinine has significantly improved down to 1.18. Patient heart rate up in the 70s following the discontinuation of her clonidine. Objective: GENERAL: cooperative HEENT: Atraumatic; EYES; Anicteric, Normal Conjunctiva NECK; supple, normal thyroid, RESPIRATORY: Diminished to auscultation CARDIOVASCULAR: Regular S1 S2, GI: soft, normoactive bowel sounds, : No Renal angle tenderness; EXTREMITIES: No edema, no clubbing, MUSCULOSKELETAL: no muscle waisting NEURO: Awake; no lateralizing signs. SKIN: No Rash PSYCH; Flat affect Vitals/I&O's: Vital Signs Temp Pulse Resp BP Pulse Ox 98.1 F 78 16 137/57 H 95 04/08/19 04:12 04/08/19 04:12 04/08/19 04:12 04/08/19 04:12 04/08/19 04:12 Oxygen Flow Rate (L/min) 4 Oxygen Delivery Method CPAP Weight: 92.3 kg Body Mass Index (BMI) 36.0 Finger Stick Blood Glucose 196 Intake and Output for Last 24 Hours 04/06/19 04/07/19 04/08/19 23:59 23:59 23:59 Intake Total 2590 / 2590 0 / 0 Output Total 0 / 0 Balance 2590 / 2590 0 / 0 Microbiology Past 72 Hours 04/06/19 19:26 Mucosa - Nasopharyngeal Influenza Types A,B Direct FA (RC) - Final Laboratory Results 04/07/19 05:51: Sodium 141, Potassium 4.3, Chloride 109 H, Carbon Dioxide 26.0, Anion Gap 6, BUN 39 H, Creatinine 1.66 H, Estim Creat Clear Calc 20.87, Est GFR (MDRD) Af Amer 38 L, Est GFR (MDRD) Non-Af 31 L, BUN/Creatinine Ratio 23.5 H, Glucose 105, Calcium 8.5 04/08/19 05:05: WBC 6.9, RBC 3.25 L, Hgb 9.7 L, Hct 31.6 L, MCV 97.2, MCH 29.8, MCHC 30.7 L, RDW Std Deviation 51.7 H, RDW Coeff of Janet 14.4, Plt Count 228, MPV 10.8, Immature Gran % (Auto) 0.900, Neut % (Auto) 57.6, Lymph % (Auto) 25.4, [place] % (Auto) 12.5 H, Eos % (Auto) 3.3, Baso % (Auto) 0.3, Absolute Neuts (auto) 4.0, Absolute Lymphs (auto) 1.75, Nucleated RBC % 0 04/08/19 05:05: Sodium 142, Potassium 4.3, Chloride 111 H, Carbon Dioxide 27.0, Anion Gap 4 L, BUN 27 H, Creatinine 1.18 H, Estim Creat Clear Calc 29.36, Est GFR (MDRD) Af Amer 56 L, Est GFR (MDRD) Non-Af 46 L, BUN/Creatinine Ratio 22.9 H, Glucose 109 H, Calcium 8.6, Magnesium 2.0 Current Medications Albuterol Sulfate (Ventolin Aerosols) 2.5 mg INHALATION Q2H PRN PRN PRN Reason: sob/wheezing Amlodipine Besylate (Norvasc) 10 mg PO DAILY [facility] Last Admin: 04/07/19 13:01 Dose: 10 mg Documented by: Citalopram Hydrobromide (Celexa) 40 mg PO QHS [facility] Last Admin: 04/07/19 21:04 Dose: 40 mg Documented by: Clopidogrel Bisulfate (Plavix) 75 mg PO DAILY [facility] Last Admin: 04/07/19 11:47 Dose: 75 mg Documented by: Cyanocobalamin (Vitamin B12) 1,000 mcg PO DAILY@0800 [facility] Last Admin: 04/07/19 08:15 Dose: 1,000 mcg Documented by: Enoxaparin Sodium (Lovenox) 30 mg SC DAILY [facility] Last Admin: 04/07/19 11:52 Dose: 30 mg Documented by: Ferrous Gluconate (Ferrous Gluconate) 324 mg PO DAILY@0800 [facility] Last Admin: 04/07/19 08:15 Dose: 324 mg Documented by: Guaifenesin (Mucinex) 1,200 mg PO BID [facility] Last Admin: 04/07/19 21:04 Dose: 1,200 mg Documented by: Hydralazine HCl (Apresoline) 25 mg PO BID [facility] Last Admin: 04/07/19 21:02 Dose: 25 mg Documented by: Hydroxyzine Pamoate (Vistaril Pamoate Capsule) 25 mg PO QHS PRN PRN PRN Reason: SLEEP Dextrose (Dextrose 10%-Water) 250 mls @ 999 mls/hr IV .Q16M PRN; Protocol PRN Reason: HYPOGLYCEMIA Loratadine (Claritin) 10 mg PO DAILY [facility] Last Admin: 04/07/19 11:46 Dose: 10 mg Documented by: Metoprolol Succinate (Toprol Xl (Beta Gwen)) 100 mg PO DAILY [facility] Last Admin: 04/07/19 13:01 Dose: Not Given Documented by: Multivitamins/Minerals ([facility]) [facility] Last Admin: 04/07/19 08:15 Dose: 1 tablet Documented by: Ondansetron HCl (Zofran) 4 mg IV Q8H PRN PRN PRN Reason: NAUSEA/VOMITING Pantoprazole Sodium (Protonix) 40 mg PO DAILY [facility] Last Admin: 04/07/19 11:47 Dose: 40 mg Documented by: Pravastatin Sodium (Pravachol) 20 mg PO QHS [facility] Last Admin: 04/07/19 21:05 Dose: 20 mg Documented by: Sodium Chloride () 10 - 40 ml IV UD PRN PRN Reason: SALINE FLUSH Trazodone HCl (Desyrel) 100 mg PO QHS [facility] Last Admin: 04/07/19 21:04 Dose: 100 mg Documented by: STROKE Vital Signs/Narrative: Vital Signs Temp Pulse Resp BP Pulse Ox 04/08/19 04:12 98.1 F 78 16 137/57 H 95 04/08/19 03:55 78 26 H 97 Medical Necessity - Tobacco Use Smoking Status: Former smoker Assessment/Plan All Active Problems (Last Reviewed 04/06/19 @ 22:52 by Darryl James MD) EMANUEL (acute kidney injury) (Acute) Acute on chronic respiratory failure with hypoxemia (Resolved) COPD exacerbation (Resolved) Chest pain (Resolved) Endometrial cancer (Resolved) Hip fracture requiring operative repair (Resolved) Patient is an 83-year-old lady with multiple comorbidities who was brought to the emergency department upon advice of her home health care nursing. Patient was found to be profoundly weak she was also bradycardic patient upon presentation to the emergency department was found to have heart rates in the 40s with worsening kidney function admitted to a monitored bed for further management. 1. Bradycardia ?Multiple causes including patient electrolyte abnormalities as well as patient being on clonidine. Patient admitted to progressive care unit for continuous telemetry monitoring. Telemetry reviewed demonstrated episodes of bradycardia as well as junctional rhythm.. Her clonidine was subsequently discontinued. ?04/08/2019: Patient heart rate is improved following discontinuation of the clonidine. 2. Hyperkalemia ?Attributed to patient worsening kidney function hyperkalemia was treated per protocol with subsequent BMPs ordered for monitoring 3. Acute kidney injury ?Superimposed on chronic kidney disease stage III. Patient has history of CHF for which she was on diuretics held given fluids with subsequent monitoring of electrolyte ?04/08/2019; creatinine down to 1.18 4. Physical debility ?patient has home health requested for PT OT eval and social professionals to assist with discharge planning patient did entertain the idea of going to a nursing home facility if warranted ?04/08/2019 patient was seen by PT additional therapy recommended. Awaiting social professionals input regarding possible disposition to a nursing home facility prior to patient going home. 5. COPD ?Currently not in exacerbation did continue patient home aerosol regimen 6. Hypertension ~ blood pressure controlled, patient is on both amlodipine as well as clonidine clonidine discontinued in view of patient's bradycardia 7. Dyslipidemia ~patient is on statin therapy, continued at home dose 8. GERD ?Patient is on PPI did continue 9. Obesity ?With BMI of 36.3 weight loss advised 10. DVT prophylaxis ?Lovenox dose adjusted for kidney function Code Visit Inpatient E&M: 43909 Subs Hosp L2
[2019-04-08] MEDS: Cyanocobalamin 500 MCG Tablet 1000 MCG PO (09:45)
[2019-04-08] MEDS: Multivitamins,Ther W-Minerals Tablet 1 TABLET PO (09:45)
[2019-04-08] MEDS: Ferrous Gluconate 324 MG Tablet PO (09:45)
[2019-04-08] MEDS: Loratadine 10 MG Tablet PO (09:46)
[2019-04-08] MEDS: hydrALAZINE 25 MG Tablet PO (09:46)
[2019-04-08] MEDS: Enoxaparin 30 MG/0.3 ML Syringe SC (09:47)
[2019-04-08] MEDS: Metoprolol(XL)Succ 100 MG Tablet PO (09:47)
[2019-04-08] MEDS: Clopidogrel Bisulfate 75 MG Tablet PO (09:47)
[2019-04-08] MEDS: guaiFENesin 1,200 MG Tablet 1200 MG PO ×2 (09:47→21:29)
[2019-04-08] MEDS: amLODIPine 10 MG Tablet PO (09:47)
[2019-04-08] MEDS: Pantoprazole Sodium 40 MG Tablet PO (09:47)
[2019-04-08] MEDS: traZODone 100 MG Tablet PO (21:29)
[2019-04-08] MEDS: Citalopram 40 MG TABLET PO (21:29)
[2019-04-08] MEDS: Pravastatin 20 MG Tablet PO (21:29)
[2019-04-09] VITALS (21 sets, daily range): BP systolic 149–166; BP diastolic 36–69; PULSE 39–79; RESP 12–26; TEMP 36.8–37; O2SAT 30–98
[2019-04-09 06:08] LABS: Absolute Lymphocyte Count 1.89 X10^3/uL (0.83-4.51); Absolute Neutrophil Count 3.7 X10^3/uL (2.0-7.7); Basophil# 0.01 X10^3/uL; Basophil% 0.1 % (0-1); Eosinophil# 0.18 X10^3/uL; Eosinophils% 2.7 % (0-5); Hematocrit 31.7 % (37-47); Hemoglobin 9.8 g/dL (12.0-15.0); Lymphocyte # 1.89 X10^3/ul (4.0); Lymphocyte % 28.2 % (19-41); Mean Corp Hgb Conc 30.9 g/dL (32-36); Mean Corpuscular Volume 96.9 fL (81-99); Mean Platelet Vol. 10.3 fl (6.2-12.0); Monocyte# 0.84 X10^3/uL; Monocyte% 12.5 % (0-10); NRBC Flagged by Analyzer 0 % (0-5); Neutrophil # 3.73 X10^3/uL (2.7-7.7); Neutrophil % 55.8 % (47-70); Platelet Count 222 K/mm3 (150-450); RBC Distribution Width CV 14.3 % (11.6-14.6); Red Blood Count 3.27 M/mm3 (4.2-5.4); White Blood Count 6.7 K/mm3 (4.4-11.0)
[2019-04-09 06:37] LABS: Anion Gap 2 (5-15); BUN 18 mg/dL (7-18); BUN/Creat Ratio 16.2 RATIO (10-20); Calcium,Total 8.5 mg/dL (8.5-10.1); Chloride 112 mmol/L (98-107); Creatinine, Serum 1.11 mg/dL (0.55-1.02); EST Glomerular Filtration Rate 50 mL/min (>60); Est Glom Filt Rate - Afr Amer 60 mL/min (>60); Estimated Creatinine Clearance 31.21 ml/min; Glucose 113 mg/dL (74-106); Potassium 4.4 mmol/L (3.5-5.1); Sodium Level 143 mmol/L (136-145)
[2019-04-09] MEDS: Ferrous Gluconate 324 MG Tablet PO (09:15)
[2019-04-09] MEDS: Cyanocobalamin 500 MCG Tablet 1000 MCG PO (09:15)
[2019-04-09] MEDS: Multivitamins,Ther W-Minerals Tablet 1 TABLET PO (09:15)
--- NOTE | 2019-04-09 09:52 | PN_ITS ---
Patient Problems: Active and Suspected Problems (Last Reviewed 04/06/19 @ 22:52 by Darryl James MD) EMANUEL (acute kidney injury) (Acute) Subjective: Chief complaint: Follow-up after admission for EMANUEL and bradycardia. Patient seen and examined. No acute events overnight. Today, she is feeling better. She denies any shortness of breath. Denied dizziness or lightheadedness. Denied nausea or vomiting. Denied chest pain or shortness of breath. She has been afebrile, heart rate has been around high 50s to 60s, blood pressure stable, pulse ox is maintained on 4 L of oxygen. Patient has been on 3 L of oxygen at home. - Physical Exam Vitals/I&O's: Vital Signs Temp Pulse Resp BP Pulse Ox 98.3 F 79 20 H 152/36 H 96 04/09/19 09:02 04/09/19 09:02 04/09/19 09:02 04/09/19 09:02 04/09/19 09:02 Oxygen Flow Rate (L/min) 4 Oxygen Delivery Method Nasal Cannula Weight: 205 lb 11.06 oz Body Mass Index (BMI) 36.0 Finger Stick Blood Glucose 196 Intake and Output for Last 24 Hours 04/07/19 04/08/19 04/09/19 23:59 23:59 23:59 Intake Total 2590 / 2590 240 / 240 Output Total 0 / 0 Balance 2590 / 2590 240 / 240 General: Alert, Oriented x3, Cooperative, No apparent distress HEENT: Atraumatic, PERRLA, EOMI, Normocephalic Oral: Moist Mucosa, No Gingival or Mucosal Lesions/ Ulcerations Neck: Supple, No JVD, Negative Carotid Bruits, Trachea Midline, Thyroid Normal Size and Texture Lungs: Clear to auscultation, Normal air movement, No rhonchi, No wheeze, No rales, Diminished Cardiovascular: Regular rate, Regular Rhythm, Normal S1, Normal S2 Abdomen: Bowel Sounds Present, Soft, Non Tender, Non-Distended, No Hepato-sp lenomegaly Extremities: No clubbing, No cyanosis, No edema Skin: No rashes, No breakdown Lymphatic: No Cervical, Supraclavicular, or Inguinal Adenopathy Neurological: Cranial nerves II-XII grossly intact, Motor Exam 5/5 strength throughout Psych/Mental Status: Normal Affect, Appropriate Microbiology Past 72 Hours 04/06/19 19:26 Mucosa - Nasopharyngeal Influenza Types A,B Direct FA (RC) - Final Laboratory Results 04/09/19 05:50: WBC 6.7, RBC 3.27 L, Hgb 9.8 L, Hct 31.7 L, MCV 96.9, MCH 30.0, MCHC 30.9 L, RDW Std Deviation 51.0 H, RDW Coeff of Janet 14.3, Plt Count 222, MPV 10.3, Immature Gran % (Auto) 0.700, Neut % (Auto) 55.8, Lymph % (Auto) 28.2, [place]eman % (Auto) 12.5 H, Eos % (Auto) 2.7, Baso % (Auto) 0.1, Absolute Neuts (auto) 3.7, Absolute Lymphs (auto) 1.89, Nucleated RBC % 0 04/09/19 05:50: Sodium 143, Potassium 4.4, Chloride 112 H, Carbon Dioxide 29.0, Anion Gap 2 L, BUN 18, Creatinine 1.11 H, Estim Creat Clear Calc 31.21, Est GFR (MDRD) Af Amer 60, Est GFR (MDRD) Non-Af 50 L, BUN/Creatinine Ratio 16.2, Glucose 113 H, Calcium 8.5 Current Medications Albuterol Sulfate (Ventolin Aerosols) 2.5 mg INHALATION Q2H PRN PRN PRN Reason: sob/wheezing Amlodipine Besylate (Norvasc) 10 mg PO DAILY COUNTS INCLUDE 234 BEDS AT THE [facility] Last Admin: 04/08/19 09:47 Dose: 10 mg Documented by: Citalopram Hydrobromide (Celexa) 40 mg PO QHS COUNTS INCLUDE 234 BEDS AT THE [facility] Last Admin: 04/08/19 21:29 Dose: 40 mg Documented by: Clopidogrel Bisulfate (Plavix) 75 mg PO DAILY COUNTS INCLUDE 234 BEDS AT THE [facility] Last Admin: 04/08/19 09:47 Dose: 75 mg Documented by: Cyanocobalamin (Vitamin B12) 1,000 mcg PO DAILY@0800 COUNTS INCLUDE 234 BEDS AT THE [facility] Last Admin: 04/09/19 09:15 Dose: 1,000 mcg Documented by: Enoxaparin Sodium (Lovenox) 30 mg SC DAILY COUNTS INCLUDE 234 BEDS AT THE [facility] Last Admin: 04/08/19 09:47 Dose: 30 mg Documented by: Ferrous Gluconate (Ferrous Gluconate) 324 mg PO DAILY@0800 COUNTS INCLUDE 234 BEDS AT THE [facility] Last Admin: 04/09/19 09:15 Dose: 324 mg Documented by: Guaifenesin (Mucinex) 1,200 mg PO BID COUNTS INCLUDE 234 BEDS AT THE [facility] Last Admin: 04/08/19 21:29 Dose: 1,200 mg Documented by: Hydralazine HCl (Apresoline) 25 mg PO BID COUNTS INCLUDE 234 BEDS AT THE [facility] Last Admin: 04/08/19 22:00 Dose: Not Given Documented by: Hydroxyzine Pamoate (Vistaril Pamoate Capsule) 25 mg PO QHS PRN PRN PRN Reason: SLEEP Dextrose (Dextrose 10%-Water) 250 mls @ 999 mls/hr IV .Q16M PRN; Protocol PRN Reason: HYPOGLYCEMIA Loratadine (Claritin) 10 mg PO DAILY COUNTS INCLUDE 234 BEDS AT THE [facility] Last Admin: 04/08/19 09:46 Dose: 10 mg Documented by: Metoprolol Succinate (Toprol Xl (Beta Gwen)) 100 mg PO DAILY COUNTS INCLUDE 234 BEDS AT THE [facility] Last Admin: 04/08/19 09:47 Dose: 100 mg Documented by: Multivitamins/Minerals ([facility]ivitamin With Minerals) [facility] Last Admin: 04/09/19 09:15 Dose: 1 tablet Documented by: Ondansetron HCl (Zofran) 4 mg IV Q8H PRN PRN PRN Reason: NAUSEA/VOMITING Pantoprazole Sodium (Protonix) 40 mg PO DAILY COUNTS INCLUDE 234 BEDS AT THE [facility] Last Admin: 04/08/19 09:47 Dose: 40 mg Documented by: Pravastatin Sodium (Pravachol) 20 mg PO QHS COUNTS INCLUDE 234 BEDS AT THE [facility] Last Admin: 04/08/19 21:29 Dose: 20 mg Documented by: Sodium Chloride () 10 - 40 ml IV UD PRN PRN Reason: SALINE FLUSH Trazodone HCl (Desyrel) 100 mg PO QHS COUNTS INCLUDE 234 BEDS AT THE [facility] Last Admin: 04/08/19 21:29 Dose: 100 mg Documented by: Medical Necessity - Tobacco Use Smoking Status: Former smoker Assessment/Plan All Active Problems (Last Reviewed 04/06/19 @ 22:52 by Darryl James MD) EMANUEL (acute kidney injury) (Acute) This is an 83 years old female patient was sent to the ED by the home health nurse because she was found to have heart rate in the 40s and she was found to have significant bradycardia, acute kidney injury and mild hyperkalemia. #1 bradycardia: Attributed to beta-blockers and clonidine. Currently discontinued, heart rate has been in the high 50s to 70s. Blood pressure stable. Patient is asymptomatic. EKG without evidence of acute cardiac arrhythmias except sinus bradycardia. Blood pressure stabilized. Troponin was negative. Routine blood work from today reviewed, kidney function improved. Plan to continue same treatment, awaiting insurance approval for [facility] to [facility]. #2 acute kidney injury/mild hyperkalemia: Admission creatinine was 2.34. Attributed to dehydration and medication side effects, patient was on Lasix and lisinopril. Patient has been on IV fluids, kidney function improved. Today's creatinine is down to 1.1, back to baseline. Potassium normalized. Plan as above. #3 physical debility/functional decline: Patient was seen and evaluated by PT OT, recommending placement to SNF. Awaiting insurance approval for placement. #4 COPD/chronic respiratory failure: Without acute exacerbation. Patient is on oxygen at home at 3 L. She is on albuterol PRN, will start DuoNeb every 6 hours. #5 hypertension: Blood pressure stable, continue Norvasc and metoprolol. Lisinopril held because of acute kidney injury. #6 hyperlipidemia: Continue statins. #7 chronic anemia: Secondary to anemia of chronic disease. Hemoglobin and hematocrit are stable at baseline, continue iron supplement.. #8 GERD: Continue PPI. #9 DVT prophylaxis: Subcu Lovenox. This note was generated with [employer] dictation software. It may contain incorrect words, spelling, and punctuation that were not noted in checking the note before signing. Code Visit Inpatient E&M: 04434 Subs Hosp L2
--- NOTE | 2019-04-09 10:42 | CASEMGMT ---
LETICIA received a note that patient and family would like [facility]. LETICIA spoke with patient and her daughter and confirmed this is what they want. LETICIA told them LETICIA will let them know if [facility] can take her and it won't be today as insurance will need to approve first. LETICIA called [facility] with referral and also faxed information. Await their response. Argelia KAISER MSW
[2019-04-09] MEDS: guaiFENesin 1,200 MG Tablet 1200 MG PO ×2 (11:36→22:17)
[2019-04-09] MEDS: Loratadine 10 MG Tablet PO (11:36)
[2019-04-09] MEDS: hydrALAZINE 25 MG Tablet PO (11:36)
[2019-04-09] MEDS: Enoxaparin 30 MG/0.3 ML Syringe SC (11:36)
[2019-04-09] MEDS: amLODIPine 10 MG Tablet PO (11:36)
[2019-04-09] MEDS: Pantoprazole Sodium 40 MG Tablet PO (11:37)
[2019-04-09] MEDS: Clopidogrel Bisulfate 75 MG Tablet PO (11:37)
[2019-04-09] MEDS: Metoprolol(XL)Succ 100 MG Tablet PO (11:39)
--- NOTE | 2019-04-09 11:39 | CASEMGMT ---
LETICIA received a call from Brandy at [facility] and they can take patient. She will start the pre-cert. LETICIA let patient and her daughter know this information. [facility]. Argelia BENJAMIN
--- NOTE | 2019-04-09 14:58 | CASEMGMT ---
Patient has a Healthcare POA and Healthcare LW on file at [facility]. Her daughter Roselia Begum is her POA. Argelia KAISER MSW
[2019-04-09] MEDS: Ipratropium/Albuterol Sulfate 3 ML AMPUL.NEB INHALATION ×2 (15:28→20:08)
[2019-04-09] MEDS: traZODone 100 MG Tablet PO (22:17)
[2019-04-09] MEDS: Pravastatin 20 MG Tablet PO (22:17)
[2019-04-09] MEDS: Citalopram 40 MG TABLET PO (22:17)
[2019-04-10] VITALS (11 sets, daily range): BP systolic 154–157; BP diastolic 40–44; PULSE 54–75; RESP 12–20; TEMP 36.6–36.8; O2SAT 91–95
[2019-04-10] MEDS: Ipratropium/Albuterol Sulfate 3 ML AMPUL.NEB INHALATION ×2 (07:34→13:11)
[2019-04-10] MEDS: Multivitamins,Ther W-Minerals Tablet 1 TABLET PO (08:31)
[2019-04-10] MEDS: Ferrous Gluconate 324 MG Tablet PO (08:31)
[2019-04-10] MEDS: Enoxaparin 30 MG/0.3 ML Syringe SC (08:32)
[2019-04-10] MEDS: guaiFENesin 1,200 MG Tablet 1200 MG PO (08:32)
[2019-04-10] MEDS: Cyanocobalamin 500 MCG Tablet 1000 MCG PO (08:32)
[2019-04-10] MEDS: Loratadine 10 MG Tablet PO (08:32)
[2019-04-10] MEDS: hydrALAZINE 25 MG Tablet PO (08:32)
[2019-04-10] MEDS: Pantoprazole Sodium 40 MG Tablet PO (08:33)
[2019-04-10] MEDS: Metoprolol(XL)Succ 100 MG Tablet PO (08:33)
[2019-04-10] MEDS: Clopidogrel Bisulfate 75 MG Tablet PO (08:33)
[2019-04-10] MEDS: amLODIPine 10 MG Tablet PO (08:33)
--- NOTE | 2019-04-10 10:28 | PCM.TXEXTCAR ---
- Diet 04/06/19 22:39 Diet: 2 Gram Sodium Is pt able to select menu?: Yes Diet Comments: CARB CONTROLLED Diet: Cardiac: Carb-Controlled Is pt able to select menu?: Yes Diet Comments: Low phosphate; low potassium - Routine Orders/Code Status O2 Liters per Minute: 3 O2 Frequency: Continuous Keep PO Greater than or Equal to (%): 92 Code Status: DNRCC-A - Suggestions for Active Care Change Position every (hours): 3 Hours to sit in a chair: 2 Times a day to sit in chair: 3 - Therapies Weight Bearing: Weight bearing as tolerated Physical Therapy: Eval and Treat Occupational Therapy: Eval and Treat - Allergies/Procedures Done in Hospital Allergies/Adverse Reactions: Allergies cilostazol [From Pletal] Allergy (Verified 04/06/19 18:27) Swelling Penicillins Allergy (Verified 04/06/19 18:27) Swelling - Type of Care/Length of Stay Estimated LOS: Convalescent Care Less Than 30 days Type of Care Needed: Skilled Rehab Potential: Fair Prognosis: Fair - Additional Orders/Day of Discharge Additional Orders: CPAP nightly as previous home settings. H&P will serve as current which was dated: 04/06/19 Day of Discharge: 04/10/19 - Dietary and Speech Recommendations Dietitian Recommendations/Changes: Rec Cardiac/Low Sodium:1600 Calorie Controlled diet. - Follow Up Care Primary Care Physician: Cole Moran MD [Primary Care Provider] - Please follow up with your Primary Care Physician in: 1 WEEK.
--- NOTE | 2019-04-10 11:51 | PHA.DC.MR ---
Pharmacy Service has performed discharge medication reconciliation for this patient. Home Medications Albuterol Inhaler [Ventolin Hfa] 2 puff INHALATION Q6H PRN PRN 04/27/16 Amlodipine Besylate [Norvasc] 10 mg PO DAILY 04/27/16 Citalopram [Celexa] 40 mg PO QHS 04/27/16 Clopidogrel Bisulfate [Plavix] 75 mg PO DAILY 04/27/16 Loratadine [Claritin] 10 mg PO DAILY 04/27/16 Multivitamins,Ther W-Minerals [Multivitamin With Minerals] 1 tab PO DAILY 04/27/16 Imperial-3 Fatty Acids/Fish Oil [Imperial 3 1,000 mg Softgel] 2 cap PO DAILY 04/27/16 Pantoprazole Sodium [Protonix] 40 mg PO DAILY 04/27/16 Potassium Chloride [K-Dur] 20 meq PO BID 04/27/16 Pravastatin [Pravachol] 20 mg PO DAILY 04/27/16 traZODone [Desyrel] 100 mg PO QHS 04/27/16 Cyanocobalamin [Vitamin B12] 1,000 mcg PO DAILY@0800 07/06/17 Metoprolol(XL)Succ [Toprol Xl (Beta Gwen)] 100 mg PO DAILY 07/06/17 Hydroxyzine Pamoate [Vistaril] 25 mg PO QHS PRN PRN 08/11/17 Furosemide [Lasix] 20 mg PO DAILY@1200 01/21/19 Guaifenesin [Mucinex] 1,200 mg PO BID #20 tab 01/23/19 Ipratropium [Atrovent Aerosols] 0.5 mg INHALATION 4X/DAY #0 01/23/19 ferrous gluconate 324 mg (37.5 mg iron) tablet 325 mg PO DAILY@0800 02/07/19 Furosemide [Lasix] 40 mg PO BREAKFAST 02/17/19 hydrALAZINE [Apresoline] 25 mg PO BID 02/17/19 Lisinopril [Zestril] 40 mg PO DAILY #0 04/10/19 The patient's discharge medication list was reviewed for discrepancies and discrepancies were resolved.
--- NOTE | 2019-04-10 13:24 | NURSING ---
report called to Isela ESPINOZA at [facility]
--- NOTE | 2019-04-10 13:27 | CASEMGMT ---
Patient was approved to go to [facility]. LETICIA faxed orders to [facility]. Completed convalescent on HENS. Called [facility] and arranged for patient to get picked up at 2p via [employer] van. LETICIA spoke with patient and let her know. She is aware she will get a bill for the [employer] van ride. LETICIA called her daughter and let her know above. LETICIA also called [facility] letting them know and they did get the orders. LETICIA notified RN and medical secretary teacher. Plan: d/c to [facility] under skilled level of care on a convalescent stay. [facility] transported patient via [employer] van at 2p. Argelia KAISER MSW
--- NOTE | 2019-04-10 13:46 | DS.PCM_ITS ---
Discharge Date and Diagnosis - Problem List Patient Problems: Active and Suspected Problems (Last Updated 04/09/19 @ 09:57 by Valeri Cardona MD) EMANUEL (acute kidney injury) (Acute) Date of Admission: 04/06/19 Date of Discharge: 04/10/19 - Primary Discharge Diagnosis Active and Suspected Problems (Last Updated 04/09/19 @ 09:57 by Valeri Cardona MD) #1 bradycardia, attributed to combination of beta-blockers and clonidine, clonidine discontinued. #2 acute kidney injury/mild hyperkalemia. #3 physical debility/functional decline, required placement to group home facility. - Secondary Discharge Diagnosis Chronic Problems (Last Updated 04/09/19 @ 09:57 by Valeri Cardona MD) COPD (chronic obstructive pulmonary disease) (Chronic) Essential hypertension (Chronic) Morbid obesity (Chronic) Diabetes mellitus type 2 in obese (Chronic) Moderate pulmonary arterial systolic hypertension (Chronic) Mitral regurgitation (Chronic) Grade II diastolic dysfunction (Chronic) Chronic renal failure, stage 3 (moderate) (Chronic) Claudication (Chronic) Hyperlipidemia (Chronic) History of peripheral vascular disease (Chronic) DUDLEY on CPAP (Chronic) Hospital Course and Treatment Imaging Results: Clinical Impression(s) from Imaging Studies Chest X-Ray 04/06/19 19:20 IMPRESSION: Bibasilar atelectasis, increased in prominence from the previous study. Mild cardiomegaly. Calcified plaques of the aortic arch. Electronically Signed: Deven Barrios MD at 19:34 EST , Service support , Renal Ultrasound 04/06/19 22:38 IMPRESSION: 1. No hydronephrosis 2. Simple bilateral renal cysts. Electronically Signed: Reg Vasquez MD (Brooks) at 12:43 EST , Service support , Operations: None Procedures: EKG Summary of Care Provided: Patient seen and examined on the day of discharge and appeared to be stable to be discharged home. She remained asymptomatic, no complaints. Her vital signs are stable, pulse ox and maintained stable on 3 L of oxygen which is her baseline. This is an 83 years old female patient was sent to the ED by the home health nurse because she was found to have heart rate in the 40s and she was found to have significant bradycardia, acute kidney injury and mild hyperkalemia. #1 bradycardia: Attributed to combination of beta-blockers and clonidine. Clonidine discontinued and her heart improved heart rate has been in the high 50s to 70s. Blood pressure stabilized. Patient had no more symptoms. EKG without evidence of acute cardiac arrhythmias except sinus bradycardia. Troponin was negative. Patient continued on metoprolol but clonidine discontinued. #2 acute kidney injury/mild hyperkalemia: Admission creatinine was 2.34. Attributed to dehydration and medication side effects, patient was on Lasix and lisinopril. Treated with IV fluids, kidney function improved. Upon discharge, creatinine is down to 1.1, back to baseline. Potassium normalized. Upon discharge, patient was started back on small dose of Lasix and lisinopril decreased down to 40 mg p.o. daily instead of 40 mg p.o. twice daily. #3 physical debility/functional decline: Patient was seen and evaluated by PT OT, recommending placement to SNF. Patient discharged to group home facility in a stable medical condition. #4 COPD/chronic respiratory failure: Without acute exacerbation. Patient is on oxygen at home at 3 L. During this hospital stay, she remained on 3 L which is at baseline. #5 hypertension: Blood pressure stable, continued on Norvasc and metoprolol. Up on discharge, lisinopril was restarted at a small dose of 40 mg p.o. daily, patient was on 40 mg p.o. twice daily. #6 hyperlipidemia: Continued on statins. #7 chronic anemia: Secondary to anemia of chronic disease. Hemoglobin and hematocrit are stable at baseline, continued on iron supplement.. Patient discharged to group home facility in a stable medical condition, clonidine discontinued, lisinopril decreased down to 40 mg p.o. daily instead of 40 mg p.o. twice daily, started back on Lasix, continued on her other previous home medications without any changes, I recommended to keep close monitoring of her blood pressure at the long term, recommended follow-up with PCP in 1 week. This note was generated with Intralignation software. It may contain incorrect words, spelling, and punctuation that were not noted in checking the note before signing. Patient Problems: Active and Suspected Problems (Last Updated 04/09/19 @ 09:57 by Valeri Cardona MD) EMANUEL (acute kidney injury) (Acute) - Physical Exam Vitals/I&O's: Vital Signs Temp Pulse Resp BP Pulse Ox 97.9 F 54 L 18 157/44 H 95 04/10/19 13:12 04/10/19 13:12 04/10/19 13:12 04/10/19 13:12 04/10/19 13:12 Oxygen Flow Rate (L/min) 3 Oxygen Delivery Method Bi-pap Weight: 205 lb 0.478 oz Body Mass Index (BMI) 36.0 Finger Stick Blood Glucose 196 Intake and Output for Last 24 Hours 04/08/19 04/09/19 04/10/19 23:59 23:59 23:59 Intake Total 240 / 240 720 / 720 425 / 425 Output Total 0 / 0 Balance 240 / 240 720 / 720 425 / 425 General: Alert, Oriented x3, Cooperative, No apparent distress HEENT: Atraumatic, PERRLA, EOMI, Normocephalic Oral: Moist Mucosa, No Gingival or Mucosal Lesions/ Ulcerations Neck: Supple, No JVD, Negative Carotid Bruits, Trachea Midline, Thyroid Normal Size and Texture Lungs: Clear to auscultation, No rhonchi, No wheeze, No rales, Diminished Cardiovascular: Regular rate, Regular Rhythm, Normal S1, Normal S2, PMI Normal Abdomen: Bowel Sounds Present, Soft, Non Tender, Non-Distended, No Hepato- splenomegaly Extremities: No clubbing, No cyanosis, No edema Skin: No rashes, No breakdown Lymphatic: No Cervical, Supraclavicular, or Inguinal Adenopathy Neurological: Cranial nerves II-XII grossly intact, Neuro grossly intact Psych/Mental Status: Normal Affect, Appropriate Current Medications Albuterol Sulfate (Ventolin Aerosols) 2.5 mg INHALATION Q2H PRN PRN PRN Reason: sob/wheezing Albuterol/Ipratropium (Duoneb) 3 ml INHALATION Q6H.RT [facility] Last Admin: 04/10/19 13:11 Dose: 3 ml Documented by: Amlodipine Besylate (Norvasc) 10 mg PO DAILY [facility] Last Admin: 04/10/19 08:33 Dose: 10 mg Documented by: Citalopram Hydrobromide (Celexa) 40 mg PO QHS [facility] Last Admin: 04/09/19 22:17 Dose: 40 mg Documented by: Clopidogrel Bisulfate (Plavix) 75 mg PO DAILY [facility] Last Admin: 04/10/19 08:33 Dose: 75 mg Documented by: Cyanocobalamin (Vitamin B12) 1,000 mcg PO DAILY@0800 [facility] Last Admin: 04/10/19 08:32 Dose: 1,000 mcg Documented by: Enoxaparin Sodium (Lovenox) 30 mg SC DAILY [facility] Last Admin: 04/10/19 08:32 Dose: 30 mg Documented by: Ferrous Gluconate (Ferrous Gluconate) 324 mg PO DAILY@0800 [facility] Last Admin: 04/10/19 08:31 Dose: 324 mg Documented by: Guaifenesin (Mucinex) 1,200 mg PO BID [facility] Last Admin: 04/10/19 08:32 Dose: 1,200 mg Documented by: Hydralazine HCl (Apresoline) 25 mg PO BID [facility] Last Admin: 04/10/19 08:32 Dose: 25 mg Documented by: Hydroxyzine Pamoate (Vistaril Pamoate Capsule) 25 mg PO QHS PRN PRN PRN Reason: SLEEP Dextrose (Dextrose 10%-Water) 250 mls @ 999 mls/hr IV .Q16M PRN; Protocol PRN Reason: HYPOGLYCEMIA Loratadine (Claritin) 10 mg PO DAILY [facility] Last Admin: 04/10/19 08:32 Dose: 10 mg Documented by: Metoprolol Succinate (Toprol Xl (Beta Gwen)) 100 mg PO DAILY [facility] Last Admin: 04/10/19 08:33 Dose: 100 mg Documented by: Multivitamins/Minerals ([facility]it[facility] With Min[facility]) [facility] Admin: 04/10/19 08:31 Dose: 1 tablet Documented by: Ondansetron HCl (Zofran) 4 mg IV Q8H PRN PRN PRN Reason: NAUSEA/VOMITING Pantoprazole Sodium (Protonix) 40 mg PO DAILY [facility] Last Admin: 04/10/19 08:33 Dose: 40 mg Documented by: Pravastatin Sodium (Pravachol) 20 mg PO QHS [facility] Last Admin: 04/09/19 22:17 Dose: 20 mg Documented by: Sodium Chloride () 10 - 40 ml IV UD PRN PRN Reason: SALINE FLUSH Trazodone HCl (Desyrel) 100 mg PO QHS [facility] Last Admin: 04/09/19 22:17 Dose: 100 mg Documented by: Home Medications: Medications to take at Discharge Albuterol Inhaler [Ventolin Hfa] 2 puff INHALATION Q6H PRN PRN 04/27/16 Amlodipine Besylate [Norvasc] 10 mg PO DAILY 04/27/16 Citalopram [Celexa] 40 mg PO QHS 04/27/16 Clopidogrel Bisulfate [Plavix] 75 mg PO DAILY 04/27/16 Loratadine [Claritin] 10 mg PO DAILY 04/27/16 Multivitamins,Ther W-Minerals [Multivitamin With Minerals] 1 tab PO DAILY 04/27/16 [place]-3 Fatty Acids/Fish Oil [[place] 3 1,000 mg Softgel] 2 cap PO DAILY 04/27/16 Pantoprazole Sodium [Protonix] 40 mg PO DAILY 04/27/16 Potassium Chloride [K-Dur] 20 meq PO BID 04/27/16 Pravastatin [Pravachol] 20 mg PO DAILY 04/27/16 traZODone [Desyrel] 100 mg PO QHS 04/27/16 Cyanocobalamin [Vitamin B12] 1,000 mcg PO DAILY@0800 07/06/17 Metoprolol(XL)Succ [Toprol Xl (Beta Gwen)] 100 mg PO DAILY 07/06/17 Hydroxyzine Pamoate [Vistaril] 25 mg PO QHS PRN PRN 08/11/17 Furosemide [Lasix] 20 mg PO DAILY@1200 01/21/19 Guaifenesin [Mucinex] 1,200 mg PO BID #20 tab 01/23/19 Ipratropium [Atrovent Aerosols] 0.5 mg INHALATION 4X/DAY #0 01/23/19 ferrous gluconate 324 mg (37.5 mg iron) tablet 325 mg PO DAILY@0800 02/07/19 Furosemide [Lasix] 40 mg PO BREAKFAST 02/17/19 hydrALAZINE [Apresoline] 25 mg PO BID 02/17/19 Lisinopril [Zestril] 40 mg PO DAILY #0 04/10/19 Primary Care Physician: Cole Moran MD [Primary Care Provider] - Please follow up with your Primary Care Physician in: 1 WEEK. Disposition: Alf facility Minutes spent on discharge:: 33 Patient Condition:: Stable Medical Necessity - Tobacco Use Smoking Status: Former smoker Meaningful Use Info Meaningful Use Diagnoses (Choose all that apply): None applicable Code Visit Inpatient E&M: 29539 Disch Hosp
== END 2019-04-10 14:10 | disposition skilled nursing facility (03) | DRG 683 ==
LOC: ED 19:08 → PCU 21:12
PROVIDERS: Internal Medicine; Admitting Provider Hospitalist; Emergency Provider Emergency Medicine; Family Provider Family Medicine; PCP Family Medicine; Visit Provider Hospitalist
DX: N17.9 Acute kidney failure, unspecified (principal); I13.0 Hypertensive heart and chronic kidney disease with heart failure and stage 1 through stage 4 chronic kidney disease, or unspecified chronic kidney disease; J96.10 Chronic respiratory failure, unspecified whether with hypoxia or hypercapnia; I50.30 Unspecified diastolic (congestive) heart failure; R00.1 Bradycardia, unspecified; E87.5 Hyperkalemia; T46.5X5A Adverse effect of other antihypertensive drugs, initial encounter; R53.81 Other malaise; N18.3 Chronic kidney disease, stage 3 (moderate); E11.22 Type 2 diabetes mellitus with diabetic chronic kidney disease; E78.5 Hyperlipidemia, unspecified; G47.33 Obstructive sleep apnea (adult) (pediatric); E66.01 Morbid (severe) obesity due to excess calories; Z68.36 Body mass index [BMI] 36.0-36.9, adult; I34.0 Nonrheumatic mitral (valve) insufficiency; E86.0 Dehydration; J44.9 Chronic obstructive pulmonary disease, unspecified; Z99.81 Dependence on supplemental oxygen; D63.8 Anemia in other chronic diseases classified elsewhere; Z66 Do not resuscitate; Z87.891 Personal history of nicotine dependence
CPT/HCPCS: 36415; 71045; 76770; 80048; 82436; 82570; 83605; 83735; 83880; 83935; 84300; 84484; 84540; 85025; 87804; 93005; 94003; 94640; 94660; 97110; 97116; 97161; 97165; 97530; 97535; 99251; 99285; J7030; A4216; G0463

== ENCOUNTER 2019-05-28 19:41 | Emergency (ER) | payer MEDICARE, SELFPAY ==
[2019-04-06 22:14] VITALS: BMI 36.0
[2019-05-28 19:42] VITALS: BP 157/63; PULSE 78; RESP 16; TEMP 36.7; O2SAT 95; BMI 34.0
--- NOTE | 2019-05-28 19:47 | RAD_ITS ---
HISTORY: PT C/O INCREASED SOB TODAY. STATES BREATHING TX HAVEN'T HELPED. EXAM: XR Chest 2 Views COMPARISON: April 06, 2019 FINDINGS: LINES/DEVICES: None. LUNGS: There are chronic interstitial changes. No pneumothorax. No consolidation or effusion. MEDIASTINUM AND CARDIOVASCULAR STRUCTURES: Cardiac silhouette not enlarged. Central airways and mediastinal contour are unremarkable. Athersclerotic plaque within the aortic arch. BONES AND SOFT TISSUES: Thoracic spondylosis. RAD/Chest PA and Lateral IMPRESSION: Chronic interestitial changes. No radiographic evidence of acute cardiopulmonary disease. at 2016 Reported and signed by: Joseph Bundy MD Electronically Signed: Joseph Bundy MD at 20:15 EST Tel , Service support ,
--- NOTE | 2019-05-28 20:33 | EKG12_ITS ---
Test Reason : DYSRHYTHMIA Blood Pressure : / mmHG Vent. Rate : 064 BPM Atrial Rate : 064 BPM P-R Int : 142 ms QRS Dur : 080 ms QT Int : 434 ms P-R-T Axes : 063 024 038 degrees QTc Int : 447 ms Normal sinus rhythm Nonspecific ST abnormality Abnormal ECG Confirmed by ANDREA NEGRON, JAY ([id number]), loan expeditor JOVANY KOO ([id number]) on 05/30/2019 1:52:14 PM Referred By: KATHY Confirmed By:JAY MENDEZ MD
[2019-05-28 20:49] LABS: Absolute Lymphocyte Count 1.34 X10^3/uL (0.83-4.51); Absolute Neutrophil Count 8.7 X10^3/uL (2.0-7.7); Basophil# 0.03 X10^3/uL; Basophil% 0.3 % (0-1); Eosinophils% 0.9 % (0-5); Hemoglobin 12.1 g/dL (12.0-15.0); Lymphocyte # 1.34 X10^3/ul (4.0); Lymphocyte % 11.7 % (19-41); Mean Corp Hgb Conc 31.8 g/dL (32-36); Mean Corpuscular Hgb 29.4 pg (27.0-32.0); Mean Corpuscular Volume 92.2 fL (81-99); Mean Platelet Vol. 11.1 fl (6.2-12.0); Monocyte# 1.16 X10^3/uL; Monocyte% 10.1 % (0-10); NRBC Flagged by Analyzer 0 % (0-5); Neutrophil # 8.71 X10^3/uL (2.7-7.7); Neutrophil % 75.8 % (47-70); Platelet Count 269 K/mm3 (150-450); RBC Distribution Width CV 13.2 % (11.6-14.6); RBC Distribution Width SD 44.6 fl (35.1-43.9); Red Blood Count 4.12 M/mm3 (4.2-5.4); White Blood Count 11.5 K/mm3 (4.4-11.0)
--- NOTE | 2019-05-28 20:55 | ED.DCSUM_ITS ---
- ER Visit Summary Date of Service: 05/28/19 Chief Complaint: Shortness of breath with cough History of Present Illness: The patient is a 83 F who COPD on 3 L oxygen at home. Prior TIA and hypertension. History of anemia. Patient states she became short of breath today. Cough greenish sputum. No fever. No chills. No chest pain other than with coughing. No history of DVT or PE. No hemoptysis. Currently just finished a course of prednisone. Has a nebulizer at home. Physical Examination: Older female no acute distress vital signs are stable. On oxygen her pulse ox is 95% on room air no signs of hypoxia. She does not look septic or toxic. H EENT exam unremarkable. Moist his membranes. Neck nontender no lymphadenopathy. No JVD. Lungs dry cough. Expiratory wheezing throughout. No rales or rhonchi. Heart regular rate and rhythm no murmur rate about 65. Chest wall nontender. Abdomen soft nontender. Normal bowel sounds no peritoneal signs. Moving all 4 extremities. 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 Calves are nontender without edema or cords. Back nontender. Skin normal. Neurologically she is awake and alert. Test Results: X-ray AP lateral view shows chronic changes but no acute process. No pneumonia. No congestive heart failure. Read both by myself and the radiologist. EKG normal sinus rhythm rate of 64 with no acute signs of ID nor ischemia and no change from the prior. Remarkable white count of 11. Hemoglobin 12. Electrolytes unremarkable BUN 24 creatinine 1.1 normal gap. Troponin normal. Emergency Department Course and Treatment: Treated with DuoNeb and albuterol aerosols. P.o. prednisone will be reassessed. History and exam are consistent with a viral URI and exacerbation of COPD. Treatment Plan: Repeat exam patient is doing well at 2234. Breathing is much improved after aerosols and steroids. She is comfortable being discharged home. We discussed all test results. She will be placed back on prednisone for 7 days. Use her nebulizer at home. She has home O2. Follow-up with her primary care physician or return if worse. Disposition: discharge Impression: Dyspnea secondary exacerbation COPD Viral URI This note was generated with [employer] software. It may contain incorrect words, spelling, and punctuation that were not noted in review of the chart prior to signing ED Disposition - Plan for ED Patient: Referrals: Cole Moran MD [Primary Care Provider] -
[2019-05-28 21:06] LABS: Anion Gap 7 (5-15); BUN 24 mg/dL (7-18); BUN/Creat Ratio 21.8 RATIO (10-20); Calcium,Total 9.3 mg/dL (8.5-10.1); Chloride 103 mmol/L (98-107); EST Glomerular Filtration Rate 50 mL/min (>60); Est Glom Filt Rate - Afr Amer 61 mL/min (>60); Estimated Creatinine Clearance 31.49 ml/min; Glucose 146 mg/dL (74-106); Potassium 3.4 mmol/L (3.5-5.1); Sodium Level 141 mmol/L (136-145)
[2019-05-28 21:12] VITALS: PULSE 70; RESP 26; O2SAT 96
[2019-05-28] MEDS: Ipratropium/Albuterol Sulfate 3 ML AMPUL.NEB INHALATION (21:12)
[2019-05-28] MEDS: Albuterol 2.5 MG/3 ML VIAL.NEB. INHALATION (21:12)
[2019-05-28] MEDS: predniSONE 20 MG Tablet 60 MG PO (21:16)
[2019-05-28 21:17] VITALS: O2SAT 94
[2019-05-28 21:20] VITALS: O2SAT 94
--- NOTE | 2019-05-28 21:29 | CPS ---
x1 Albuterol given to pt. as well
--- NOTE | 2019-05-28 22:15 | CM.ED ---
Social Work Completed palliative care screen tool, patient meeting criteria. Met with patient and patient granddaughter in room. Introduced self as well as nephrology social worker role. Patient agreeable to meeting with this nephrology social worker. Broached topic of palliative care, patient granddaughter stating to believe that patient has/had palliative care in the past. Patient open to conversation and understands why patient meet criteria. Patient not wanting this nephrology social worker to make a referral at this time as patient might already be active with palliative care. Provided patient with brochure for palliative care for self referral if needed. Cristian Proctor MSW, AWILDA
--- NOTE | 2019-05-28 22:39 | ED.DEP ---
ED Disposition - Plan for ED Patient: Disposition: Home or Assisted Living Instructions: Copd Flare Prescriptions: Prednisone [Deltasone] 40 mg PO DAILY 7 Days tab Prescription Printed Referrals: Cole Moran MD [Primary Care Provider] - Additional Instructions: Continue use your nebulizer. Prednisone daily for 7 days. Follow-up if not improving return the emergency department if you are feeling worse.
[2019-05-28 23:10] VITALS: PULSE 88; RESP 14; O2SAT 97
== END 2019-05-28 23:11 | disposition home or self-care (01) ==
PROVIDERS: Emergency Provider Emergency Medicine; PCP Family Medicine
DX: J44.1 Chronic obstructive pulmonary disease with (acute) exacerbation (principal); J06.9 Acute upper respiratory infection, unspecified; I10 Essential (primary) hypertension; Z86.73 Personal history of transient ischemic attack (TIA), and cerebral infarction without residual deficits; Z99.81 Dependence on supplemental oxygen; D64.9 Anemia, unspecified
CPT/HCPCS: 71046; 80048; 84484; 85025; 93005; 94640; 99251; 99285; A4216; G0463